=== PATIENT | male | born 1955 | race Caucasian/White ===

== ENCOUNTER 2017-03-05 18:15 | Inpatient (IN) | payer MEDICARE ==
[~2017-03-05] VITALS: Ht 188 cm; Wt 181.9 kg
[~2017-03-05 18:15] MED LIST: ASPI-875 PO; CARV25TA PO; CEFU800T34 PO; FAMO20TA13 PO; FURO40TA4 PO; GLIP10TA13 PO; ISOS30TA3 PO; LISI40TA PO; LVF500T PO; METFOR850T PO; NTR.4SL SL; POTA10TA36 PO; PRAV40TA PO; PRD10T PO; RNT150T PO; SPIR50TA27 PO; SPRN25T PO; SULF1TAB38 PO; TELM1TAB PO
--- NOTE | 2017-03-05 18:27 | ED Lower Extremity ---
General Chief Complaint: Lower Extremity Stated Complaint: LEG PAIN Source: patient, EMS Exam Limitations: no limitations History of Present Illness Time seen by provider: 18:20 Initial Comments Patient presents by EMS with a complaint of not being only get up and walk for the past 7 days. He feels his legs are swollen. He does wear compression stockings as well as has been treated for, chronic stasis dermatitis by his primary doctor. He has a pertinent history of a CABG in 2001 and told that he has need of a carotid endarterectomy but does not want to undergo any more surgeries. He does not have any chest pain or shortness of breath and he does not use oxygen at home. He is not having any nausea or diaphoresis. He felt is not had a bowel movement since Wednesday approximate 5 days ago. Allergies and Home Medications Allergies Coded Allergies: No Known Drug Allergies (Verified Allergy, Unknown, 04/12/08) Home Medications Amlodipine Besylate 10 Mg Tablet, #90 (Reported) Aspirin 81 Mg Tablet.dr, 81 MG PO DAILY, (Reported) Carvedilol 25 Mg Tablet, 25 MG PO BID, (Reported) Famotidine 20 Mg Tablet, 20 MG PO BID, #30 Prescribed by: PETEY RODRIGUEZ on 01/15/14 1239 Furosemide 40 Mg Tablet, 40 MG PO DAILY, (Reported) Glipizide 10 Mg Tablet, 10 MG PO DAILY, (Reported) Isosorbide Mononitrate 30 Mg Tab.sr.24h, 30 MG PO HS, (Reported) Lisinopril 40 Mg Tablet, 40 MG PO DAILY, (Reported) Potassium Chloride 10 Meq Tab.prt.sr, 10 MEQ PO DAILY, (Reported) Pravastatin Sodium 40 Mg Tablet, 40 MG PO DAILY, (Reported) Constitutional: No chills, No fever, malaise, weight gain Respiratory: No cough, No phlegm, short of breath, No wheezing Cardiovascular: No chest pain, edema, Hx of Intervention, No palpitations, No syncope, vascular heart diseas Gastrointestinal: No abdominal pain, constipation, No diarrhea, No nausea, No vomiting Genitourinary: No dysuria, No frequency Musculoskeletal: back pain, No neck pain Skin: lesions (chronic stasis ulcers bilateral lower extremity is), No pruritus , No rash Past Vswbina-Rwoior-Tplmtp Hx Surgeries HX Surgeries: Yes Respiratory Hx Respiratory Disorders: No Cardiovascular Hx Cardiac Disorders: Yes Neurological Hx Neurological Disorders: No Reproductive System Hx Reproductive Disorders: No Sexually Transmitted Disease: No HIV/AIDS: No Genitourinary Hx Genitourinary Disorders: No Gastrointestinal Hx Gastrointestinal Disorders: No Musculoskeletal Hx Musculoskeletal Disorders: No Endocrine Hx Endocrine Disorders: Yes Endocrine Disorders: Diabetes, Non-Insulin dep HEENT HX ENT Disorders: No Cancer Hx Cancer: No Psychosocial Hx Psychiatric Problems: No Integumentary HX Skin/Integumentary Disorder: Yes (CELLULITIS/GANGRENE) Blood Transfusions Hx Blood Disorders: No Adverse Reaction to a Blood Tr: No Family Medical History Family Medial History: Congestive heart failure 19 MOTHER Family history: Cardiovascular disease 19 MOTHER G8 BROTHER Family history: Diabetes mellitus 19 MOTHER G8 BROTHER Family history: Glaucoma G8 BROTHER Family history: Hypertension Physical Exam Vital Signs Vital Sign - Last 12Hours 03/05/17 18:20 Temp 98.4 Pulse 100 Resp 20 B/P (MAP) 133/91 Pulse Ox 97 O2 Delivery Room Air Capillary Refill : General Appearance: mild distress, obese HEENT: PERRL/EOMI, pharynx normal Neck: non-tender, normal inspection Cardiovascular: normal peripheral pulses, regular rate, rhythm, other (dorsal pedal pulses 3 of 4 bilateral lower extremities) Respiratory: chest non-tender, lungs clear, normal breath sounds, no respiratory distress, no accessory muscle use Gastrointestinal: normal bowel sounds, non tender, soft Back: normal inspection, no CVA tenderness Neurologic/Tendon: normal sensation, normal motor functions, responds to pain Neurologic/Psychiatric: alert, oriented x 3 Skin: warm/dry, No diaphoresis, other (chronic dusky red stasis edema of bilateral lower extremities up the calves) Progress/Results/Core Measures Results/Orders Lab Results Laboratory Tests Test 03/05/17 18:45 03/05/17 19:14 Range/Units White Blood Count 12.9 H 4.3-11.0 10^3/uL Red Blood Count 3.66 L 4.35-5.85 10^6/uL Hemoglobin 10.2 L 13.3-17.7 G/DL Hematocrit 33 L 40-54 % Mean Corpuscular Volume 90 80-99 FL Mean Corpuscular Hemoglobin 28 25-34 PG Mean Corpuscular Hemoglobin Concent 31 L 32-36 G/DL Red Cell Distribution Width 13.9 10.0-14.5 % Platelet Count 345 130-400 10^3/uL Mean Platelet Volume 9.1 7.4-10.4 FL Neutrophils (%) (Auto) 82 H 42-75 % Lymphocytes (%) (Auto) 7 L 12-44 % Monocytes (%) (Auto) 9 0-12 % Eosinophils (%) (Auto) 2 0-10 % Basophils (%) (Auto) 0 0-10 % Neutrophils # (Auto) 10.6 H 1.8-7.8 X 10^3 Lymphocytes # (Auto) 0.9 L 1.0-4.0 X 10^3 Monocytes # (Auto) 1.2 H 0.0-1.0 X 10^3 Eosinophils # (Auto) 0.2 0.0-0.3 10^3/uL Basophils # (Auto) 0.0 0.0-0.1 10^3/uL Neutrophils % (Manual) 79 % Lymphocytes % (Manual) 6 % Monocytes % (Manual) 13 % Eosinophils % (Manual) 1 % Basophils % (Manual) 0 % Band Neutrophils 1 % Blood Morphology Comment NORMAL Sodium Level 139 135-145 MMOL/L Potassium Level 4.5 3.6-5.0 MMOL/L Chloride Level 106 98-107 MMOL/L Carbon Dioxide Level 21 21-32 MMOL/L Anion Gap 12 5-14 MMOL/L Blood Urea Nitrogen 75 H 7-18 MG/DL Creatinine 2.26 H 0.60-1.30 MG/DL Estimat Glomerular Filtration Rate 29 BUN/Creatinine Ratio 33 Glucose Level 162 H 70-105 MG/DL Lactic Acid Level 1.24 0.50-2.00 MMOL/L Calcium Level 9.8 8.5-10.1 MG/DL Magnesium Level 2.1 1.8-2.4 MG/DL Total Bilirubin 0.6 0.1-1.0 MG/DL Aspartate Amino Transf (AST/SGOT) 24 5-34 U/L Alanine Aminotransferase (ALT/SGPT) 25 0-55 U/L Alkaline Phosphatase 66 40-136 U/L Troponin I < 0.30 <0.30 NG/ML B-Type Natriuretic Peptide 306.8 H <100.0 PG/ML Total Protein 8.0 6.4-8.2 GM/DL Albumin 3.5 3.2-4.5 GM/DL Urine Color YELLOW Urine Clarity CLEAR Urine pH 6 5-9 Urine Specific [place] 1.015 L 1.016-1.022 Urine Protein 1+ H NEGATIVE Urine Glucose (UA) NEGATIVE NEGATIVE Urine Ketones NEGATIVE NEGATIVE Urine Nitrite NEGATIVE NEGATIVE Urine Bilirubin NEGATIVE NEGATIVE Urine Urobilinogen NORMAL NORMAL MG/DL Urine Leukocyte Esterase 2+ H NEGATIVE Urine RBC (Auto) NEGATIVE NEGATIVE Urine RBC RARE /HPF Urine WBC 25-50 H /HPF Urine Squamous Epithelial Cells 0-2 /HPF Urine Crystals NONE /LPF Urine Bacteria FEW H /HPF Urine Casts NONE /LPF Urine Mucus NEGATIVE /LPF Urine Culture Indicated YES My Orders Orders - ALEXIA CROW BNP (03/05/17 18:28) Cbc With Automated Diff (03/05/17 18:28) Comprehensive Metabolic Panel (03/05/17 18:28) Lactic Acid Analyzer (03/05/17 18:28) Magnesium (03/05/17 18:28) Troponin I (03/05/17 18:28) Ua Culture If Indicated (03/05/17 18:28) Chest 1 View, Ap/Pa Only (03/05/17 18:28) Ekg Tracing (03/05/17 18:28) Us Venous Lower Ext [place] (03/05/17 18:53) Manual Differential (03/05/17 18:45) Acetaminophen Tablet (Tylenol Tablet) (03/05/17 19:30) Urine Culture (03/05/17 19:14) Blood Culture (03/05/17 19:42) Rocephin 2 Gm Iv (1x Dose) (03/05/17 20:00) Furosemide Injection (Lasix Injection) (03/05/17 20:00) Medications Given in ED Current Medications Medications Dose Ordered Sig/Anuradha Route Start Time Stop Time Status Last Admin Dose Admin Acetaminophen 1,000 mg ONCE ONCE PO 03/05/17 19:30 03/05/17 19:31 DC 03/05/17 19:39 1,000 MG Vital Signs/I&O Vital Sign - Last 12Hours 03/05/17 18:20 Temp 98.4 Pulse 100 Resp 20 B/P (MAP) 133/91 Pulse Ox 97 O2 Delivery Room Air Progress Note #1: Time: 19:23 Progress Note Increased edema and weakness over the past week with the patient tolerated walk. We will look for signs of infection. EKG does not seem to demonstrate atrial fibrillation. He has no history of A. fib. His pulses regular. Unsure what the rounded opacity on his chest x-ray relates to. We'll get ultrasound of bilateral lower extremities. Could be atelectasis versus infiltrate. He doesn't have a cough or fever. Progress Note #2: Time: 19:39 Progress Note Patient does appear to be in volume overload status on clinical exam and a BNP of 300. No previous BNP since 2007 to compare it to. His initial troponins and EKG did not demonstrate any N STEMI. He'll probably benefit from some IV Lasix and treatment of his urinary tract infection as he is unable to care for himself at home now and his white count and lactate are creeping up. We will initiate antibiotics. We will get blood cultures as he is with a high white count and heart rate consistent with sepsis. ECG Initial ECG Impression Date: Mar 05, 2017 Initial ECG Impression Time: 19:08 Initial ECG Rate: 97 Initial ECG Rhythm: A Fib/Flutter Initial ECG Intervals: Normal Initial ECG Impression: Nonspecific Changes, Atrial Fibrillation Initial ECG Comparisson: Changed Comment There are some new Q waves seen in leads 3 and aVF but and this appears to be low voltage so P waves are very difficult see the they can be seen in places and does not appear to be atrial fibrillation. His heart rate is fairly regular. Diagnostic Imaging Diagonstic Imaging: Xray Plain Films/CT/US/NM/MRI: chest Comments No acute cardiopulmonary processes noted. Poor inspiratory effort. Right lower lobe rounded opacity seen does not clinically correlate to anything heard on auscultation or percussion. VIA [facility], [facility]. [place], [place] NAME: LISA KAMINSKI [facility] REC#: [id number] PT STATUS: REG ER : 1955 PHYSICIAN: ALEXIA CROW MD ADMIT DATE: 03/05/17/ER Draft Date of Exam:03/05/17 CHEST 1 VIEW, AP/PA ONLY INDICATION: Unable to stand. EXAMINATION: Frontal chest, 03/05/2017. COMPARISON: 04/11/2008. FINDINGS: There is cardiomegaly. Increased markings at the lung bases are noted, likely on the basis of atelectasis and/or mild infiltrate. Very small effusion is not excluded. The findings are likely worsened by superimposed soft tissues. The pulmonary vasculature is stable from previous. There is no pneumothorax. Sternotomy wires are incidentally noted with a hyperdensity in the midline of the lower chest, nonspecific, correlate clinically. Clinical exclusion of foreign body is recommended; otherwise, this could be an overlying density. IMPRESSION: 1. Rounded density midline of the lower chest, nonspecific, perhaps overlying the chest but correlation for an a foreign body recommended. 2. Cardiomegaly with airspace opacities at the bases, as discussed above. Dictated on workstation # [id number] Dict: 03/05/171907 Trans: 03/05/171914 [facility] [id number] Interpreted by: TYRA WASHINGTON MD Electronically signed by: Reviewed: Reviewed by Me Departure Communication Time/Spoke to Admitting Phy: 20:[address] Levi recommends cardiac stepdown with telemetry on inpatient status and consult Dr. Perez. Time/Spoke to Consulting Physi: 20:00 Communication/Consulting Dr. Perez recommends based on his weight and 40 mg IV twice a day Lasix to be initiated and he will see the patient. Impression Impression: Primary Impression: Sepsis Qualified Codes: A41.9 - Sepsis, unspecified organism Additional Impressions: UTI (urinary tract infection) Qualified Codes: N30.00 - Acute cystitis without hematuria Acute decompensated heart failure Disposition: ADMITTED INPATIENT Condition: Stable Decision to Admit Reason: Admit from ER (General) Decision to Admit/Date: Mar 05, 2017 Time/Decision to Admit Time: 20:00 Departure-Patient Inst. Referrals: NO,LOCAL PHYSICIAN (PCP/Family) Primary Care Physician Copy Copies To 1: MICHELLE MCDOWELL MD, TITUS J Mar 05, 2017 18:27
[2017-03-05 18:58] LABS: BASOPHILS % (AUTO) 0 % (0-10); EOSINOPHILS # (AUTO) 0.2 10^3/uL (0.0-0.3); EOSINOPHILS % (AUTO) 2 % (0-10); LYMPHOCYTES # (AUTO) 0.9 X 10^3 (1.0-4.0); LYMPHOCYTES % (AUTO) 7 % (12-44); MEAN CORPUSCULAR HEMOGLOBIN 28 PG (25-34); MEAN CORPUSCULAR HGB CONC 31 G/DL (32-36); MEAN CORPUSCULAR VOLUME 90 FL (80-99); MEAN PLATELET VOLUME 9.1 FL (7.4-10.4); MONOCYTES # (AUTO) 1.2 X 10^3 (0.0-1.0); MONOCYTES % (AUTO) 9 % (0-12); NEUTROPHILS # (AUTO) 10.6 X 10^3 (1.8-7.8); NEUTROPHILS % (AUTO) 82 % (42-75); PLATELET COUNT 345 10^3/uL (130-400); RED BLOOD COUNT 3.66 10^6/uL (4.35-5.85); RED CELL DISTRIBUTION WIDTH 13.9 % (10.0-14.5); WHITE BLOOD COUNT 12.9 10^3/uL (4.3-11.0)
[2017-03-05 19:15] LABS: BAND NEUTROPHILS 1 %; NEUTROPHILS % (MANUAL) 79 %
[2017-03-05 19:16] LABS: BASOPHILS % (MANUAL) 0 %; EOSINOPHILS % (MANUAL) 1 %; LYMPHOCYTES % (MANUAL) 6 %
--- NOTE | 2017-03-05 19:16 | Diagnostic Imaging Report ---
INDICATION: Unable to stand. EXAMINATION: Frontal chest, 03/05/2017. COMPARISON: 04/11/2008. FINDINGS: There is cardiomegaly. Increased markings at the lung bases are noted, likely on the basis of atelectasis and/or mild infiltrate. Very small effusion is not excluded. The findings are likely worsened by superimposed soft tissues. The pulmonary vasculature is stable from previous. There is no pneumothorax. Sternotomy wires are incidentally noted with a hyperdensity in the midline of the lower chest, nonspecific, correlate clinically. Clinical exclusion of foreign body is recommended; otherwise, this could be an overlying density. IMPRESSION: 1. Rounded density midline of the lower chest, nonspecific, perhaps overlying the chest but correlation for an a foreign body recommended. 2. Cardiomegaly with airspace opacities at the bases, as discussed above. Dictated by: Dictated on workstation # [id number]
[2017-03-05] MEDS ORDERED: AMLO10TA2 PO (19:20)
[2017-03-05 19:22] LABS: ALANINE AMINOTRANSFERASE 25 U/L (0-55); ALBUMIN 3.5 GM/DL (3.2-4.5); ANION GAP 12 MMOL/L (5-14); ASPARTATE AMINO TRANSFERASE 24 U/L (5-34); BILIRUBIN,TOTAL 0.6 MG/DL (0.1-1.0); BLOOD UREA NITROGEN 75 MG/DL (7-18); BUN/CREATININE RATIO 33; CALCIUM 9.8 MG/DL (8.5-10.1); CARBON DIOXIDE 21 MMOL/L (21-32); CHLORIDE 106 MMOL/L (98-107); CREATININE SERUM 2.26 MG/DL (0.60-1.30); GFR ESTIMATED 29; GLUCOSE 162 MG/DL (70-105); MAGNESIUM 2.1 MG/DL (1.8-2.4); POTASSIUM 4.5 MMOL/L (3.6-5.0); SODIUM 139 MMOL/L (135-145)
[2017-03-05 19:27] LABS: TROPONIN I < 0.30 NG/ML (<0.30)
[2017-03-05 19:28] LABS: BILIRUBIN,URINE NEGATIVE (NEGATIVE); KETONES,URINE NEGATIVE (NEGATIVE); LEUKOCYTE ESTERASE ,URINE 2+ (NEGATIVE); NITRITE,URINE NEGATIVE (NEGATIVE); PH,URINE 6 (5-9); PROTEIN,URINE 1+ (NEGATIVE); UROBILINOGEN,URINE NORMAL (NORMAL)
[2017-03-05] MEDS ORDERED: ACETAMINOPHEN 500 MG TAB (TYLENOL) PO ONE (19:30)
[2017-03-05 19:35] LABS: WBC,URINE 25-50 /HPF
[2017-03-05 19:36] LABS: SQUAMOUS EPITHELIAL CELL,UR 0-2 /HPF
[2017-03-05] MEDS ORDERED: cefTRIAXone INJECTION 2,000 MG in NS (IVPB) 50 ML IV ONE (20:00)
[2017-03-05] MEDS ORDERED: FUROSEMIDE 40 MG/4 ML INJ (LASIX) IVP ONE (20:00)
--- NOTE | 2017-03-05 20:19 | Diagnostic Imaging Report ---
EXAMINATION: Bilateral lower extremity venous Doppler INDICATION: Leg pain Spectral and color flow imaging of the deep venous system was performed. There are no prior studies available for comparison. This exam is less than optimal due to patient's body habitus. There is fairly good blood flow throughout the deep venous system of each lower extremity. The vessels were somewhat difficult to compress due to the patient's body habitus. There is no evidence for deep venous thrombosis. IMPRESSION: There is no evidence for a deep venous thrombosis of either lower extremity. Dictated by: Dictated on workstation # [id number]
[2017-03-05] MEDS ORDERED: ACETAMINOPHEN 500 MG TAB (TYLENOL) PO PRN (22:00)
[2017-03-06] VITALS: BP 134/62
[2017-03-06] MEDS ORDERED: RANI150T90 PO (01:44)
[2017-03-06] MEDS ORDERED: LOSA1TAB70 PO (01:44)
[2017-03-06] MEDS ORDERED: CLON0.1T PO (01:44)
[2017-03-06] MEDS ORDERED: METF850T2 PO (01:44)
[2017-03-06 04:00] VITALS: BP 130/59
[2017-03-06 04:55] LABS: BASOPHILS % (AUTO) 0 % (0-10); EOSINOPHILS # (AUTO) 0.3 10^3/uL (0.0-0.3); EOSINOPHILS % (AUTO) 2 % (0-10); LYMPHOCYTES # (AUTO) 0.7 X 10^3 (1.0-4.0); LYMPHOCYTES % (AUTO) 5 % (12-44); MEAN CORPUSCULAR HEMOGLOBIN 28 PG (25-34); MEAN CORPUSCULAR HGB CONC 31 G/DL (32-36); MEAN CORPUSCULAR VOLUME 91 FL (80-99); MEAN PLATELET VOLUME 9.2 FL (7.4-10.4); MONOCYTES # (AUTO) 1.4 X 10^3 (0.0-1.0); MONOCYTES % (AUTO) 12 % (0-12); NEUTROPHILS # (AUTO) 9.9 X 10^3 (1.8-7.8); NEUTROPHILS % (AUTO) 80 % (42-75); PLATELET COUNT 323 10^3/uL (130-400); RED BLOOD COUNT 3.46 10^6/uL (4.35-5.85); RED CELL DISTRIBUTION WIDTH 13.7 % (10.0-14.5); WHITE BLOOD COUNT 12.3 10^3/uL (4.3-11.0)
[2017-03-06 05:24] LABS: ALBUMIN 3.2 GM/DL (3.2-4.5); BILIRUBIN,TOTAL 0.3 MG/DL (0.1-1.0); CALCIUM 9.6 MG/DL (8.5-10.1); CREATININE SERUM 2.23 MG/DL (0.60-1.30); POTASSIUM 4.4 MMOL/L (3.6-5.0); TOTAL PROTEIN 7.5 GM/DL (6.4-8.2)
[2017-03-06] MEDS: FUROSEMIDE 40 MG/4 ML INJ (LASIX) IV SCH ×2 (06:27→15:44)
[2017-03-06 08:00] VITALS: BP 128/58
--- NOTE | 2017-03-06 10:08 | Consultation-Cardiology ---
HPI-Cardiology Cardiology Consultation Date of Consultation 03/06/17 Date of Admission Time Seen by Provider: 10:00 Indication: coronary artery disease HPI 62 years old gentleman with extensive cardiovascular history, has been refusing any cardiac workup for a while, patient expressed that about 2-3 days ago he started having weakness in his right foot and right leg, having pain in his left ankle, was unable to put any weight on his legs, try to wait for a day or 2 , when he did not improve he called EMS which require multiple cap cutter to take him out of his house, he denied any syncope, denied any chest pain, palpitation. Has been having chronic pedal edema, dyspnea on exertion due to his multiple comorbid condition. Upper my evaluation he expressed that he is feeling slightly better but still having significant weakness on his right leg Home Medications & Allergies Allergies: Coded Allergies: No Known Drug Allergies (Verified , 04/12/08) Home Medication List Reviewed: Yes IAW-[id number]-Ikbidv Hx Patient Social History Marital Status: Alcohol Use: Denies Use Recreational Drug Use: No Smoking Status: Never a Smoker 2nd Hand Smoke Exposure: No Recent Foreign Travel: No Recent Infectious Disease Expo: No Recent Hopitalizations: No Physical Abuse Screen: No Sexual Abuse: No Past Medical History past medical history as discussed below Family Medical History Family History: 19 MOTHER Congestive heart failure Family history: Cardiovascular disease Family history: Diabetes mellitus G8 BROTHER Family history: Cardiovascular disease Family history: Diabetes mellitus G8 BROTHER Family history: Glaucoma Relation not specified for: Family history: Hypertension Constitutional: see HPI, malaise, weakness, weight gain EENTM: no symptoms reported, see HPI Respiratory: see HPI, dyspnea on exertion, orthopnea, short of breath Cardiovascular: see HPI, chest pain, edema, Hx of Intervention, palpitations, syncope, vascular heart diseas, other Gastrointestinal: no symptoms reported, see HPI Genitourinary: see HPI Musculoskeletal: see HPI, gout, joint pain, muscle pain, muscle stiffness, muscle weakness Skin: see HPI, dryness, lesions Psychiatric/Neurological: No Symptoms Reported, See HPI Reviewed Test Results Reviewed Test Results Lab Laboratory Tests Test 03/05/17 18:45 03/05/17 19:14 03/05/17 21:02 03/06/17 04:38 Range/Units White Blood Count 12.9 H 12.3 H 4.3-11.0 10^3/uL Red Blood Count 3.66 L 3.46 L 4.35-5.85 10^6/uL Hemoglobin 10.2 L 9.7 L 13.3-17.7 G/DL Hematocrit 33 L 31 L 40-54 % Mean Corpuscular Volume 90 91 80-99 FL Mean Corpuscular Hemoglobin 28 28 25-34 PG Mean Corpuscular Hemoglobin Concent 31 L 31 L 32-36 G/DL Red Cell Distribution Width 13.9 13.7 10.0-14.5 % Platelet Count 345 323 130-400 10^3/uL Mean Platelet Volume 9.1 9.2 7.4-10.4 FL Neutrophils (%) (Auto) 82 H 80 H 42-75 % Lymphocytes (%) (Auto) 7 L 5 L 12-44 % Monocytes (%) (Auto) 9 12 0-12 % Eosinophils (%) (Auto) 2 2 0-10 % Basophils (%) (Auto) 0 0 0-10 % Neutrophils # (Auto) 10.6 H 9.9 H 1.8-7.8 X 10^3 Lymphocytes # (Auto) 0.9 L 0.7 L 1.0-4.0 X 10^3 Monocytes # (Auto) 1.2 H 1.4 H 0.0-1.0 X 10^3 Eosinophils # (Auto) 0.2 0.3 0.0-0.3 10^3/uL Basophils # (Auto) 0.0 0.0 0.0-0.1 10^3/uL Neutrophils % (Manual) 79 % Lymphocytes % (Manual) 6 % Monocytes % (Manual) 13 % Eosinophils % (Manual) 1 % Basophils % (Manual) 0 % Band Neutrophils 1 % Blood Morphology Comment NORMAL Sodium Level 139 139 135-145 MMOL/L Potassium Level 4.5 4.4 3.6-5.0 MMOL/L Chloride Level 106 105 98-107 MMOL/L Carbon Dioxide Level 21 20 L 21-32 MMOL/L Anion Gap 12 14 5-14 MMOL/L Blood Urea Nitrogen 75 H 72 H 7-18 MG/DL Creatinine 2.26 H 2.23 H 0.60-1.30 MG/DL Estimat Glomerular Filtration Rate 29 30 BUN/Creatinine Ratio 33 32 Glucose Level 162 H 269 H 70-105 MG/DL Lactic Acid Level 1.24 0.50-2.00 MMOL/L Calcium Level 9.8 9.6 8.5-10.1 MG/DL Magnesium Level 2.1 1.8-2.4 MG/DL Total Bilirubin 0.6 0.3 0.1-1.0 MG/DL Aspartate Amino Transf (AST/SGOT) 24 28 5-34 U/L Alanine Aminotransferase (ALT/SGPT) 25 25 0-55 U/L Alkaline Phosphatase 66 70 40-136 U/L Troponin I < 0.30 <0.30 NG/ML B-Type Natriuretic Peptide 306.8 H <100.0 PG/ML Total Protein 8.0 7.5 6.4-8.2 GM/DL Albumin 3.5 3.2 3.2-4.5 GM/DL Urine Color YELLOW Urine Clarity CLEAR Urine pH 6 5-9 Urine Specific [place] 1.015 L 1.016-1.022 Urine Protein 1+ H NEGATIVE Urine Glucose (UA) NEGATIVE NEGATIVE Urine Ketones NEGATIVE NEGATIVE Urine Nitrite NEGATIVE NEGATIVE Urine Bilirubin NEGATIVE NEGATIVE Urine Urobilinogen NORMAL NORMAL MG/DL Urine Leukocyte Esterase 2+ H NEGATIVE Urine RBC (Auto) NEGATIVE NEGATIVE Urine RBC RARE /HPF Urine WBC 25-50 H /HPF Urine Squamous Epithelial Cells 0-2 /HPF Urine Crystals NONE /LPF Urine Bacteria FEW H /HPF Urine Casts NONE /LPF Urine Mucus NEGATIVE /LPF Urine Culture Indicated YES Glucometer 154 H 70-110 MG/DL Physical Exam Vital Signs Vital Sign - Last 12Hours 03/05/17 18:20 Temp 98.4 Pulse 100 Resp 20 B/P (MAP) 133/91 Pulse Ox 97 O2 Delivery Room Air Capillary Refill : Less Than 3 Seconds General Appearance: WD/WN, Moderate Distress Eyes: Bilateral Eye EOMI, Bilateral Eye Normal Inspection, Bilateral Eye PERRL HEENT: PERRL/EOMI, TMs Normal, Normal ENT Inspection, Pharynx Normal Neck: Normal Inspection, Non Tender, Supple, Carotid Bruit Respiratory: Chest Non Tender, No Accessory Muscle Use, No Respiratory Distress , Crackles Cardiovascular: No JVD, Systolic Murmur, Gallop/S3, Other (irregular rhythm) Gastrointestinal: Normal Bowel Sounds, No Organomegaly, No Pulsatile Mass, Non Tender, Soft Back: Normal Inspection, No CVA Tenderness, No Vertebral Tenderness Extremity: Pedal Edema, Other (chronic venous stasis changes) Neurologic/Psychiatric: Alert, Oriented x3, Normal Mood/Affect, Motor Weakness (right lower extremity weakness, tenderness in his right knee) Skin: Other (chronic venous stasis changes on the lower extremities) Lymphatic: No Adenopathy A/P-Cardiology Admission Diagnosis Generalized weakness Coronary artery disease Carotid stenosis Hypertension Assessment/Plan Generalized weakness, significant weakness of the right lower extremity which is worsening over the past 3 days, questionable subacute CVA, patient had right knee pain which could be participating in his weakness. Still able to make few movement of his right leg. Had history of extensive peripheral arterial disease and carotid stenosis. I'll start him back on aspirin. Monitor blood pressure Questionable atrial fibrillation, new onset. I will reevaluate EKG, continue to monitor telemetry, planning to evaluate echocardiogram. Coronary artery disease, history of CABG x4 done in 2001, Patient has been refusing any cardiac workup, planning to evaluate echocardiogram. Chest pain, stable angina. No recent cardiac workup was done, patient has been refusing any cardiac workup refusing stress test, echocardiogram or cardiac catheterization. Hypertension, poorly controlled, I will restart his home medication and monitor blood pressure closely. Hyperlipidemia, I will evaluate lipid profile and metabolic profile Diabetes mellitus, diabetic nephropathy. Followed and managed by Dr. Courtney. Severe bilateral carotid stenosis, with right ICA stenosis over 90 percent per most recent carotid duplex 2010, patient has been refusing any workup as an outpatient, I will evaluate carotid ultrasound. Questionable history of congestive heart failure, last echocardiogram from 2010 reported ejection fraction 50 percent, reevaluate 2-D echocardiogram Morbid obesity, patient was educated and instructed on weight loss and diet. Clinical Quality Measures DVT/VTE Risk/Contraindication: Risk Factor Score Per Nursin RFS Level Per Nursing on Admit: 4+=Very High KYRA MONTGOMERY MD Mar 06, 2017 10:08
--- NOTE | 2017-03-06 10:26 | Occ Therapy Progress Note ---
Therapy Progress Note OT order received. Chart reviewed. Attempted to treat pt. Pt. getting test done. Not available for treatment at this time but will check back on Wednesday. 1, visit [id number] CHARI KING OT Mar 06, 2017 10:26
[2017-03-06] MEDS ORDERED: ONDANSETRON 4 MG/2 ML (SDV) Z0FRAN IVP PRN (11:00)
[2017-03-06] MEDS ORDERED: fentaNYL INJECTION 100 MCG/2 ML AMP IVP PRN (11:00)
--- NOTE | 2017-03-06 11:05 | History & Physical-Hospitalist ---
HPI History of Present Illness: HPI/Chief Complaint CC: Severe weakness unable to ambulate HPI: This is a 62-year-old white male Dr. Courtney and Dr. Perez with a past medical history of severe noncompliance with medical treatment and recommendations with a history of heart disease and diabetes the presents to the emergency room after it took 7 fire department personnel to move him from his house to the ambulance due to severe weakness. Reports about a 3 day history of this progressive weakness unable to tolerate any weightbearing at all on the right leg of which is complicated by knee pain from severe arthritis but he is severely morbidly obese and overall very complicated in ability to comply with medical recommendations historically Dr. Perez is concerned he has had some sort of subacute stroke contributing to the severe weakness and right leg decreased strength. He is requesting some sort of pain medication and heating pad for the right knee to help him move around and treat the pain. Source: patient Exam Limitations: no limitations Date Seen 03/06/17 Time Seen by Provider: 10:30 Attending Physician Rebeca Levi DO PCP No,Local Physician Referring Physician Date of Admission Mar 05, 2017 at 20:37 Home Medications & Allergies Home Medications Reviewed patient Home Medication Reconciliation Form Allergies Allergies Coded Allergies No Known Drug Allergies (Verified04/12/08) Past Uhitycp-Zyigiw-Hokyus Hx Patient Social History Marrital Status: Alcohol Use: Denies Use Recreational Drug Use: No Smoking Status: Never a Smoker 2nd Hand Smoke Exposure: No Physical Abuse Screen: No Sexual Abuse: No Recent Foreign Travel: No Contact w/other who traveled: No Recent Hopitalizations: No Recent Infectious Disease Expo: No Seasonal Allergies Seasonal Allergies: No Surgeries HX Surgeries: Yes Surgeries: CABG, Orthopedic Respiratory Hx Respiratory Disorders: No Cardiovascular Hx Cardiovascular Disorders: Yes Cardiac Disorders: Coronary Artery Disease, Heart Attack, Hypertension Neurological Hx Neurological Disorders: Yes Neurological Disorders: Neuropathy Reproductive System Hx Reproductive Disorders: No Sexually Transmitted Disease: No HIV/AIDS: No Genitourinary Hx Genitourinary Disorders: Yes Genitourinary Disorders: Benign Prostatic Hyperpl Gastrointestinal Hx Gastrointestinal Disorders: No Musculoskeletal Hx Musculoskeletal Disorders: Yes Musculoskeletal Disorders: Arthritis Endocrine Hx Endocrine Disorders: Yes Endocrine Disorders: Diabetes, Non-Insulin dep HEENT HX ENT Disorders: No Cancer Hx Cancer: No Psychosocial Hx Psychiatric Problems: No Integumentary HX Skin/Integumentary Disorder: Yes (CELLULITIS/GANGRENE) Blood Transfusions Hx Blood Disorders: No Adverse Reaction to a Blood Tr: No Family Medical History Family Hx: Congestive heart failure 19 MOTHER Family history: Cardiovascular disease 19 MOTHER G8 BROTHER Family history: Diabetes mellitus 19 MOTHER G8 BROTHER Family history: Glaucoma G8 BROTHER Family history: Hypertension Review of Systems Constitutional: see HPI, weakness EENTM: no symptoms reported Respiratory: no symptoms reported Cardiovascular: no symptoms reported Gastrointestinal: no symptoms reported Genitourinary: no symptoms reported Musculoskeletal: back pain, joint pain Skin: no symptoms reported Psychiatric/Neurological: Depressed All Other Systems Reviewed Negative Unless Noted: Yes Physical Exam Physical Exam Vital Signs Vital Sign - Last 12Hours 03/05/17 18:20 Temp 98.4 Pulse 100 Resp 20 B/P (MAP) 133/91 Pulse Ox 97 O2 Delivery Room Air Capillary Refill : Less Than 3 Seconds General Appearance: No Apparent Distress, WD/WN, Chronically ill, Obese ( morbidly obese) Eyes: Bilateral Eye Normal Inspection, Bilateral Eye PERRL HEENT: PERRL/EOMI, Normal ENT Inspection, Pharynx Normal Neck: Full Range of Motion, Normal Inspection, Non Tender, Supple, Carotid Bruit Respiratory: Chest Non Tender, Normal Breath Sounds, No Accessory Muscle Use, No Respiratory Distress, Decreased Breath Sounds Cardiovascular: Regular Rate, Rhythm, No Edema, No Gallop, No JVD, No Murmur, Normal Peripheral Pulses Gastrointestinal: Normal Bowel Sounds, No Organomegaly, No Pulsatile Mass, Non Tender, Soft Back: Normal Inspection, No CVA Tenderness, No Vertebral Tenderness Extremity: Normal Capillary Refill, Normal Inspection, Normal Range of Motion, Non Tender, No Calf Tenderness, No Pedal Edema Neurologic/Psychiatric: Alert, Oriented x3, Normal Mood/Affect, Motor Weakness (right lower extremity 1/5 strength) Skin: Normal Color, Warm/Dry Lymphatic: No Adenopathy Results Results/Procedures Lab Laboratory Tests 03/05/17 18:45 03/06/17 04:38 Assessment/Plan Admission Diagnosis Assessment: Severe weakness requiring 7 fire department personnel to carry him out of his house onto ambulance to ER with significant right lower extremity decreased strength Morbidly obesity Coronary artery disease previous OR Noncompliance with medical recommendations Severe right knee pain complicating the severe weakness of the right lower extremity UTI Sepsis Atrial fibrillation w/rapid ventricular response Assessment and Plan Plan: Appreciate Dr. 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
--- NOTE | 2017-03-06 11:46 | Physical Therapy Evaluation ---
PT Evaluation-General Medical Diagnosis Admission Date Mar 05, 2017 at 20:37 Medical Diagnosis: sepsis/UTI Onset Date: Mar 05, 2017 Therapy Diagnosis Therapy Diagnosis: generalized weakness/debility Height/Weight Height (Feet): 6 Height (Inches): 2.00 Weight (Pounds): 421 Weight (Ounces): 8.0 Precautions Precautions/Isolations: Fall Prevention Referral Physician: Amita Reason for Referral: Evaluation/Treatment Medical History Pertinent Medical History: CABG, CAD, DM, Heart Failure, HTN, CT, Neuropathy Additional Medical History morbid obesity Current History progressive weakness per patient report Reviewed History: Yes Social History Home: Single Level Current Living Status: Alone Prior/Core FIM Prior Level of Function Functional [place] Measure 0=Not Assessed/NA 4=Minimal Assistance 1=Total Assistance 5=Supervision or Setup 2=Maximal Assistance 6=Modified [place] 3=Moderate Assistance 7=Complete [place] Bed Mobility: 0 (sleeps in a recliner) Transfers (B,C,W/C) (FIM): 6 Gait: 6 sleeps in recliner/uses cane to ambulate short distances PT Evaluation-Current Subjective Patient states he is frustrated. Agrees to PT. Pain Numeric Pain Scale: 0-No Pain Location: No Pain Reported Objective Patient Orientation: Normal For Age Problem Solving: Good Attachments: Moody Catheter ROM/Strength ROM Lower Extremities functional ROM, however, morbid obesity limits movement Strenght Lower Extremities 3/5 grossly bilaterally in all planes Integumentary/Posture Integumentary refer to nursing notes Bladder Incontinence: Moody Cath Posture trunk flexed posture due to inactivity PLOF Neuromuscular (Tone, Coordination, Reflexes) diminished coordination due to inactive PLOF Sensory Vision: Functional Hearing: Functional Sensation Right Lower Extremit: Impaired Sensation Left Lower Extremity: Impaired Transfers Functional [place] Measure 0=Not Assessed/NA 4=Minimal Assistance 1=Total Assistance 5=Supervision or Setup 2=Maximal Assistance 6=Modified [place] 3=Moderate Assistance 7=Complete [place] Transfers (B, C, W/C) (FIM): 2 Scootin Rollin Supine to/from Sit: 2 Sit to/from Stand: 2 bed t/f WC(FIM only if WC use): 2 max assist with mobility to assist with bilateral LE's and sit to stand to FWW with SPT Gait Mode of Locomotion: Both Anticipated Mode of Locomotion: Both Gait (FIM): 1 Distance (FIM): 1=up to 49 ft Distance: 5' Gait Level of Assist: 2 Gait Persons Needed: 2 Gait Assistive Device: FWW Comments/Gait Description max assist with use of gait belt for safety, however, patient able to utilize FWW and perform CGA Balance Sitting Static: Normal Sitting Dynamic: Normal Standing Static: Fair Standing Dynamic: Fair Assessment/Needs 62 y.o. male, will benefit from short term skilled PT to address functional mobility to improve current LOF. Patient is severely limited due to PLOF of inactivity and morbid obesity. 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 Goals Time Frame: Mar 12, 2017 Transfers (B,C,W/C) (FIM): 5 Gait (FIM): 1 Gait distance (FIM): 1=up to 49 ft Distance: 15' Gait Level of Assist: 5 Gait Assistive Device: FWW PT Plan Problem List Problem List: Activity Tolerance, Balance, Gait, Transfer, Bed Mobility Treatment/Plan Treatment Plan: Continue Plan of Care Treatment Plan: Bed Mobility, Education, Functional Activity Soha, Functional Strength, Gait, Safety, Therapeutic Exercise, Transfers Treatment Duration: Mar 12, 2017 Frequency: 6 times per week Estimated Hrs Per Day: .5 hour per day (or PRN) Patient and/or Family Agrees t: Yes Safety Risks/Education Patient Education: Transfer Techniques, Safety Issues Teaching Recipient: Patient Teaching Methods: Discussion Response to Teaching: Verbalize Understanding Discharge Recommendations Therapy D/C Recommendations: Custodial Placement Time/GCodes Time In: 1126 Time Out: 1146 Total Billed Treatment Time: 20 Total [facility] G Codes Necessary: ALFREDO Amado PT Mar 06, 2017 11:46
[2017-03-06 12:00] VITALS: BP 136/60
[2017-03-06] MEDS: cefTRIAXone INJECTION 1,000 MG in NS (IVPB) 50 ML IV SCH (16:19)
[2017-03-06] MEDS: inSUlin ASPART (NovoLOG) 1 UNIT/0.01 ML (CHARGE PER UNIT) SC SCH ×2 (16:28→21:35)
[2017-03-06 16:31] VITALS: BP 146/67
--- NOTE | 2017-03-06 18:57 | Diagnostic Imaging Report ---
PROCEDURE: US carotid duplex, bilateral. INDICATION: Stroke, weakness in legs. History of diabetes and hypertension. TECHNIQUE: Multiple real-time grayscale images were obtained over the carotid arteries in various projections, bilaterally. Additional duplex Doppler and color Doppler images were also obtained. CORRELATION STUDY: 05/20/11. FINDINGS: Color and grayscale images demonstrate rather extensive plaque-like formation to be present, particularly at the distal common carotid arteries, carotid bifurcation as well as internal and external carotid arteries. Some of this is calcified which does obscure evaluation. On the right, there is increased velocity in the internal carotid artery to 259 cm/s in the mid aspect. This shows an ICA/CCA ratio of 3.71. Likely reflective of an approximately 80-99% stenosis. On the left, maximum velocity in the distal aspect at 334 cm/s with an ICA/CCA ratio of 4.07. Findings may also be suggestive of a rather significant, greater than 80-90%, stenosis. External carotid arteries are patent. Vertebra arteries have an antegrade direction of flow. IMPRESSION: Rather significant plaque formation of the common carotid arteries and internal carotid arteries. Findings are suggestive of at least an 80% to perhaps 99% stenosis of both the internal carotid arteries. Findings do appear to have overall progressed, particularly on the left compared to prior examination. Dictated by: Dictated on workstation # [id number]
[2017-03-06] MEDS: HYDROcodone/APAP 5 MG/325 MG (LORTAB) TAB PO PRN (20:01)
[2017-03-06 20:21] VITALS: BP 139/60
[2017-03-06] MEDS ORDERED: NON-FORMULARY MEDICATION 1 EA EA (Carvedilol 25 MG) PO SCH (21:00)
[2017-03-06] MEDS ORDERED: raNItidine (ZANTAC) 150 MG TAB NON-FORMULARY PO SCH (21:00)
[2017-03-06] MEDS ORDERED: FAMOTIDINE 20 MG (PEPCID) TABLET PO SCH (21:00)
[2017-03-06] MEDS: ISOSORBIDE MONONITRATE 30 MG (IMDUR) TAB PO SCH (21:34)
[2017-03-06] MEDS: CARVEDILOL 12.5 MG (COREG) TABLET PO SCH (21:34)
[2017-03-06] MEDS: cloNIDine 0.1 MG (CATAPRES) TAB PO SCH (21:34)
[2017-03-06] MEDS: DOCUSATE SODIUM 100 MG (COLACE) CAP PO SCH (21:34)
[2017-03-06] MEDS: FAMOTIDINE 20 MG (PEPCID) TABLET PO SCH (21:34)
[2017-03-06] MEDS: NYSTATIN CREAM (MYCOSTATIN) 30 GM TUBE TP SCH (21:35)
[2017-03-07] VITALS: BP 116/56
[2017-03-07 04:00] VITALS: BP 132/65
[2017-03-07] MEDS: inSUlin ASPART (NovoLOG) 1 UNIT/0.01 ML (CHARGE PER UNIT) SC SCH ×4 (06:04→21:35)
[2017-03-07] MEDS: FUROSEMIDE 40 MG/4 ML INJ (LASIX) IV SCH ×2 (06:04→16:30)
[2017-03-07] MEDS: glipiZIDE 5 MG (GLUCOTROL) TAB PO SCH (06:04)
[2017-03-07] MEDS: HYDROcodone/APAP 5 MG/325 MG (LORTAB) TAB PO PRN ×2 (06:09→18:59)
[2017-03-07 06:41] LABS: MEAN PLATELET VOLUME 9.2 FL (7.4-10.4); RED BLOOD COUNT 3.36 10^6/uL (4.35-5.85); RED CELL DISTRIBUTION WIDTH 13.9 % (10.0-14.5); WHITE BLOOD COUNT 12.4 10^3/uL (4.3-11.0)
[2017-03-07 07:09] LABS: ALBUMIN 3.1 GM/DL (3.2-4.5); BILIRUBIN,TOTAL 0.4 MG/DL (0.1-1.0); CALCIUM 9.7 MG/DL (8.5-10.1); CREATININE SERUM 2.12 MG/DL (0.60-1.30); MAGNESIUM 1.9 MG/DL (1.8-2.4); POTASSIUM 4.5 MMOL/L (3.6-5.0); TOTAL PROTEIN 7.4 GM/DL (6.4-8.2)
[2017-03-07 08:00] VITALS: BP 109/52
[2017-03-07] MEDS: DOCUSATE SODIUM 100 MG (COLACE) CAP PO SCH ×2 (08:29→21:35)
[2017-03-07] MEDS: CARVEDILOL 12.5 MG (COREG) TABLET PO SCH ×2 (08:29→21:35)
[2017-03-07] MEDS: cloNIDine 0.1 MG (CATAPRES) TAB PO SCH ×2 (08:29→21:35)
[2017-03-07] MEDS: ATORVASTATIN 10 MG (LIPITOR) TABLET PO SCH (08:29)
[2017-03-07] MEDS: cefTRIAXone INJECTION 1,000 MG in NS (IVPB) 50 ML IV SCH (08:30)
[2017-03-07] MEDS: ASPIRIN E.C. 81 MG (ECOTRIN) TAB PO SCH (08:30)
[2017-03-07] MEDS: lisINopril 20 MG (ZESTRIL) TAB PO SCH (08:30)
[2017-03-07] MEDS: NYSTATIN CREAM (MYCOSTATIN) 30 GM TUBE TP SCH ×3 (08:30→21:36)
[2017-03-07] MEDS: FAMOTIDINE 20 MG (PEPCID) TABLET PO SCH ×2 (08:30→21:35)
[2017-03-07] MEDS: KCL 10 MEQ TAB (MICRO K) PO SCH (08:30)
[2017-03-07] MEDS ORDERED: LISINOPRIL 40 MG PO SCH (09:00)
[2017-03-07] MEDS ORDERED: NON-FORMULARY MEDICATION 1 EA EA (Glipizide 10 MG) PO SCH (09:00)
[2017-03-07] MEDS ORDERED: NON-FORMULARY MEDICATION 1 EA EA (Pravastatin Sodium (Pravachol) 40 MG) PO SCH (09:00)
[2017-03-07] MEDS ORDERED: NON-FORMULARY MEDICATION 1 EA EA (Potassium Chloride (K-Dur) 10 MEQ) PO SCH (09:00)
[2017-03-07] MEDS ORDERED: FUROSEMIDE 40 MG (LASIX) TAB PO SCH (09:00)
--- NOTE | 2017-03-07 10:36 | Cardiology Progress Note ---
Subjective Date Seen by Provider: Mar 07, 2017 Time Seen by Provider: 10:32 Subjective/Events-last exam patient is laying down in bed, feeling slightly better, breathing better, able to move his leg better. Review of Systems General: No Chills, No Night Sweats, No Fatigue, No Malaise, No Appetite, No Other HEENT: No Head Aches, No Visual Changes, No Eye Pain, No Ear Pain, No Dysphasia , No Sinus Congestion, No Post Nasal Drip, No Sore Throat, No Other Pulmonary: Dyspnea, No Cough, No Pleuritic Chest Pain, No Other Cardiovascular: Edema, No: Chest Pain, Lt Headedness, Orthopnea, Other, Palpitations, Paroxysmal Noc. Dyspnea Objective-Cardiology Exam Last Set of Vital Signs Vital Signs 03/07/17 08:00 Temp 98.5 Pulse 88 Resp 20 B/P (MAP) 109/52 Pulse Ox 94 O2 Delivery Room Air Capillary Refill : Less Than 3 Seconds I&O Intake and Output 03/07/17 00:00 Intake Total 2180 ml Output Total 5650 ml Balance -3470 ml Intake Oral 2180 ml Output Urine Total 5650 ml General: Alert, Oriented X3, Cooperative HEENT: Atraumatic, PERRLA Neck: Supple, No JVD, No Thyromegaly Lungs: Clear to Auscultation, Normal Air Movement Heart: Regular Rate, Normal S1, Normal S2, No Murmurs Abdomen: Normal Bowel Sounds, Soft, No Tenderness, No Hepatosplenomegaly, No Masses Extremities: No Clubbing, No Cyanosis, Other (chronic venous stasis changes, significant edema) Skin: Other (venous stasis changes of the lower extremity) Neuro: Normal Speech, Sensation Intact Psych/Mental Status: Mental Status NL, Mood NL Results Lab Laboratory Tests 03/07/17 05:54 A/P-Cardiology Admission Diagnosis Generalized weakness Coronary artery disease Carotid stenosis Hypertension Assessment/Plan Generalized weakness, reporting improvement, questionable TIA. Better at this time. Continue physical therapy. Coronary artery disease, history of CABG x4 done in 2001, Patient has been refusing any cardiac workup, echocardiogram showed moderate left ventricular systolic dysfunction, ejection fraction 40-45 percent, pulmonary hypertension with PA pressure of 50 mmHg. Congestive heart failure, chronic decompensated left ventricular systolic dysfunction, ischemic cardiomyopathy, ejection fraction 40-45 percent, maintained on beta blockers and Sina inhibitors and diuretics. Severe bilateral carotid stenosis, I had a long discussion again with the patient regarding consideration for carotid endarterectomy, patient is refusing any procedure. Chest pain, stable angina. No recent cardiac workup was done, patient has been refusing any cardiac workup refusing stress test, echocardiogram or cardiac catheterization. Hypertension, better control at this time, continue to monitor Hyperlipidemia, controlled, continue current medications and monitor Diabetes mellitus, diabetic nephropathy. Followed and managed by Dr. Courtney. Morbid obesity, patient was educated and instructed on weight loss and diet. Clinical Quality Measures DVT/VTE Risk/Contraindication: Risk Factor Score Per Nursin RFS Level Per Nursing on Admit: 4+=Very High KYRA MONTGOMERY MD Mar 07, 2017 10:36
[2017-03-07] MEDS ORDERED: FLEET ENEMA ADULT 1 EA BTL PR PRN (11:45)
[2017-03-07] MEDS ORDERED: LACTULOSE SYRUP 10GM/15ML (ENULOSE) 30ML UDC PO PRN (11:45)
--- NOTE | 2017-03-07 11:49 | Progress Note-Hospitalist ---
Progress Note HPI/CC on Admission CC: Severe weakness unable to ambulate HPI: This is a 62-year-old white male Dr. Courtney and Dr. Perez with a past medical history of severe noncompliance with medical treatment and recommendations with a history of heart disease and diabetes the presents to the emergency room after it took 7 fire department personnel to move him from his house to the ambulance due to severe weakness. Reports about a 3 day history of this progressive weakness unable to tolerate any weightbearing at all on the right leg of which is complicated by knee pain from severe arthritis but he is severely morbidly obese and overall very complicated in ability to comply with medical recommendations historically Dr. Perez is concerned he has had some sort of subacute stroke contributing to the severe weakness and right leg decreased strength. He is requesting some sort of pain medication and heating pad for the right knee to help him move around and treat the pain. Progress Notes/Assess & Plan Date Seen 03/07/17 Time Seen by Provider: 11:00 Admission Dx/Process Assessment: Severe weakness requiring 7 fire department personnel to carry him out of his house onto ambulance to ER with significant right lower extremity decreased strength Morbidly obesity Coronary artery disease previous DC Noncompliance with medical recommendations Severe right knee pain complicating the severe weakness of the right lower extremity UTI Sepsis Atrial fibrillation w/rapid ventricular response Diagonsis/Assessment & Plan Carotid USG revealed 99% bilateral disease and he declines any intervention for this impending stroke risk Moving a lot more and diuresed 5 liters yesterday Moving the right leg much better Needs wound care for his legs like he had many yrs ago so will consult them tomorrow Only admitted observation so will need to initiate IRU or SW for placement if cannot go home Needs to lose 200# and CEA for any chance of full life AFVSS, Pleasant, improved, cath in place RRR, CTAB diminished in the bases Venous stasis changes and overall crusted skin lower legs Laboratory Tests 03/07/17 05:54 Assessment: Severe weakness requiring 7 fire department personnel to carry him out of his house onto ambulance to ER with significant right lower extremity decreased strength now improved but unsure if he can return home? Morbidly obesity Coronary artery disease previous DC Noncompliance with medical recommendations Severe right knee pain complicating the severe weakness of the right lower extremity much improved and was able to stand with walker today UTI on abx but now UCx no significant organism so will DC abx Sepsis but now improved Atrial fibrillation w/rapid ventricular response on Tely Constipation Venous stasis dermatitis Plan: Appreciate Dr. 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
[2017-03-07 12:00] VITALS: BP 108/65
[2017-03-07] MEDS: SENNA W/DOCUSATE (SENOKOT S) TABLET PO SCH ×2 (12:26→21:35)
[2017-03-07] MEDS: BISACODYL 10 MG SUPP (DULCOLAX) PR SCH ×2 (14:11→21:35)
[2017-03-07] MEDS ORDERED: VANCOMYCIN INJECTION 1,000 MG in NS (IVPB) 250 ML IV SCH (15:00)
[2017-03-07] MEDS ORDERED: VANCOMYCIN 2000 MG/NS 500 ML IVPB IV NR ×2 (15:30)
[2017-03-07 16:57] VITALS: BP 116/55
[2017-03-07 19:43] VITALS: BP 112/53
[2017-03-07] MEDS: ISOSORBIDE MONONITRATE 30 MG (IMDUR) TAB PO SCH (21:35)
[2017-03-08] VITALS (7 sets, daily range): BP systolic 102–149; BP diastolic 58–95
[2017-03-08] MEDS: inSUlin ASPART (NovoLOG) 1 UNIT/0.01 ML (CHARGE PER UNIT) SC SCH ×4 (06:48→21:41)
[2017-03-08] MEDS: glipiZIDE 5 MG (GLUCOTROL) TAB PO SCH (06:51)
[2017-03-08] MEDS: FUROSEMIDE 40 MG/4 ML INJ (LASIX) IV SCH ×2 (06:51→16:24)
[2017-03-08 07:51] LABS: BASOPHILS # (AUTO) 0.1 10^3/uL (0.0-0.1); BASOPHILS % (AUTO) 0 % (0-10); EOSINOPHILS # (AUTO) 0.7 10^3/uL (0.0-0.3); EOSINOPHILS % (AUTO) 6 % (0-10); LYMPHOCYTES # (AUTO) 0.7 X 10^3 (1.0-4.0); LYMPHOCYTES % (AUTO) 7 % (12-44); MEAN CORPUSCULAR HEMOGLOBIN 28 PG (25-34); MEAN CORPUSCULAR HGB CONC 31 G/DL (32-36); MEAN CORPUSCULAR VOLUME 92 FL (80-99); MEAN PLATELET VOLUME 8.4 FL (7.4-10.4); MONOCYTES # (AUTO) 0.8 X 10^3 (0.0-1.0); MONOCYTES % (AUTO) 7 % (0-12); NEUTROPHILS # (AUTO) 9.2 X 10^3 (1.8-7.8); NEUTROPHILS % (AUTO) 80 % (42-75); PLATELET COUNT 358 10^3/uL (130-400); RED BLOOD COUNT 3.45 10^6/uL (4.35-5.85); RED CELL DISTRIBUTION WIDTH 13.9 % (10.0-14.5); WHITE BLOOD COUNT 11.5 10^3/uL (4.3-11.0)
[2017-03-08] MEDS ORDERED: TROUGH ORDER-PHARMACY XX NR ×2 (08:00→14:00)
[2017-03-08] MEDS: CARVEDILOL 12.5 MG (COREG) TABLET PO SCH ×2 (08:33→20:32)
[2017-03-08] MEDS: KCL 10 MEQ TAB (MICRO K) PO SCH (08:34)
[2017-03-08] MEDS: HYDROcodone/APAP 5 MG/325 MG (LORTAB) TAB PO PRN ×2 (08:34→16:31)
[2017-03-08] MEDS: FAMOTIDINE 20 MG (PEPCID) TABLET PO SCH ×2 (08:34→20:32)
[2017-03-08] MEDS: ASPIRIN E.C. 81 MG (ECOTRIN) TAB PO SCH (08:34)
[2017-03-08] MEDS: ATORVASTATIN 10 MG (LIPITOR) TABLET PO SCH (08:34)
[2017-03-08] MEDS: lisINopril 20 MG (ZESTRIL) TAB PO SCH (08:34)
[2017-03-08] MEDS: cloNIDine 0.1 MG (CATAPRES) TAB PO SCH ×2 (08:34→20:32)
[2017-03-08] MEDS: SENNA W/DOCUSATE (SENOKOT S) TABLET PO SCH ×2 (08:35→20:34)
[2017-03-08] MEDS: BISACODYL 10 MG SUPP (DULCOLAX) PR SCH ×2 (08:35→20:34)
[2017-03-08] MEDS: DOCUSATE SODIUM 100 MG (COLACE) CAP PO SCH ×2 (08:35→20:34)
[2017-03-08 08:37] LABS: ALBUMIN 3.1 GM/DL (3.2-4.5); BILIRUBIN,TOTAL 0.4 MG/DL (0.1-1.0); CALCIUM 9.6 MG/DL (8.5-10.1); CREATININE SERUM 2.3 MG/DL (0.60-1.30); POTASSIUM 4.2 MMOL/L (3.6-5.0); TOTAL PROTEIN 7.4 GM/DL (6.4-8.2)
[2017-03-08] MEDS: NYSTATIN CREAM (MYCOSTATIN) 30 GM TUBE TP SCH ×3 (08:37→20:34)
[2017-03-08] MEDS: VANCOMYCIN 1 GM/NS 250 ML IVPB IV SCH ×2 (08:52)
--- NOTE | 2017-03-08 08:56 | Cardiology Progress Note ---
Subjective Date Seen by Provider: Mar 08, 2017 Time Seen by Provider: 08:45 Subjective/Events-last exam Patient sitting up in bed, no new complaint. Denies any CP or dyspnea. Review of Systems General: No Night Sweats, No Fatigue, No Malaise HEENT: No Visual Changes, No Dysphasia Pulmonary: No Dyspnea, No Cough Cardiovascular: No: Chest Pain, Palpitations Gastrointestinal: No: Abdominal Pain, Nausea, Vomiting Genitourinary: No Dysuria Musculoskeletal: No: back pain, neck pain Neurological: Weakness, No: Change in speech, Confusion, Numbness Objective-Cardiology Exam Last Set of Vital Signs Vital Signs 03/08/17 08:00 Temp 97.3 Pulse 85 Resp 22 B/P (MAP) 118/67 Pulse Ox 96 O2 Delivery Room Air Capillary Refill : Less Than 3 Seconds I&O Intake and Output 03/08/17 00:00 Intake Total 1870 ml Output Total 2175 ml Balance -305 ml Intake Oral 1820 ml IV Total 50 ml Output Urine Total 2175 ml # Bowel Movements 1 General: Alert, Oriented X3, Cooperative HEENT: Atraumatic, PERRLA Neck: Supple, No JVD, No Thyromegaly Lungs: Clear to Auscultation, Normal Air Movement Heart: Regular Rate, Normal S1, Normal S2, No Murmurs Abdomen: Normal Bowel Sounds, Soft, No Tenderness, No Hepatosplenomegaly, No Masses Extremities: No Clubbing, No Cyanosis, Other (chronic venous stasis changes, significant edema) Skin: Other (venous stasis changes of the lower extremity) Neuro: Normal Speech, Sensation Intact Psych/Mental Status: Mental Status NL, Mood NL Results Lab Laboratory Tests 03/08/17 07:42 A/P-Cardiology Admission Diagnosis Generalized weakness Coronary artery disease Carotid stenosis Hypertension Assessment/Plan Generalized weakness, reporting improvement, questionable TIA. Better at this time. Continue physical therapy. Coronary artery disease, history of CABG x4 done in 2001, Patient has been refusing any cardiac workup, echocardiogram showed moderate left ventricular systolic dysfunction, ejection fraction 40-45 percent, pulmonary hypertension with PA pressure of 50 mmHg. Congestive heart failure, chronic decompensated left ventricular systolic dysfunction, ischemic cardiomyopathy, ejection fraction 40-45 percent, maintained on beta blockers and Sina inhibitors and diuretics. Severe bilateral carotid stenosis, I had a long discussion again with the patient regarding consideration for carotid endarterectomy, patient is refusing any procedure. Chest pain, stable angina. No recent cardiac workup was done, patient has been refusing any cardiac workup refusing stress test, echocardiogram or cardiac catheterization. Hypertension, better control at this time, continue to monitor Hyperlipidemia, controlled, continue current medications and monitor Diabetes mellitus, diabetic nephropathy. Followed and managed by Dr. Courtney. Acute on chronic renal insufficiency- continue to monitor. Morbid obesity, patient was educated and instructed on weight loss and diet. Clinical Quality Measures DVT/VTE Risk/Contraindication: Risk Factor Score Per Nursin RFS Level Per Nursing on Admit: 4+=Very High ANDRZEJ LERNER Mar 08, 2017 08:56
--- NOTE | 2017-03-08 08:56 | Cardiology Progress Note ---
Subjective Date Seen by Provider: Mar 08, 2017 Time Seen by Provider: 08:53 Subjective/Events-last exam Patient is laying down in bed, still having generalized weakness, denied any chest pain, still having mild edema Review of Systems General: No Chills, No Night Sweats, No Fatigue, No Malaise, No Appetite, No Other HEENT: No Head Aches, No Visual Changes, No Eye Pain, No Ear Pain, No Dysphasia , No Sinus Congestion, No Post Nasal Drip, No Sore Throat, No Other Pulmonary: Dyspnea, No Cough, No Pleuritic Chest Pain, No Other Cardiovascular: Edema, No: Chest Pain, Lt Headedness, Orthopnea, Other, Palpitations, Paroxysmal Noc. Dyspnea Objective-Cardiology Exam Last Set of Vital Signs Vital Signs 03/08/17 08:00 Temp 97.3 Pulse 85 Resp 22 B/P (MAP) 118/67 Pulse Ox 96 O2 Delivery Room Air Capillary Refill : Less Than 3 Seconds I&O Intake and Output 03/08/17 00:00 Intake Total 1870 ml Output Total 2175 ml Balance -305 ml Intake Oral 1820 ml IV Total 50 ml Output Urine Total 2175 ml # Bowel Movements 1 General: Alert, Oriented X3, Cooperative, Mild Distress HEENT: Atraumatic, PERRLA Neck: Supple, No JVD, No Thyromegaly Lungs: Clear to Auscultation, Normal Air Movement Heart: Regular Rate, Normal S1, Normal S2, No Murmurs Abdomen: Normal Bowel Sounds, Soft, No Tenderness, No Hepatosplenomegaly, No Masses Extremities: No Clubbing, No Cyanosis, Other (chronic venous stasis changes, peripheral edema) Skin: Other (venous stasis changes of the lower extremity) Neuro: Normal Speech, Sensation Intact Psych/Mental Status: Mental Status NL, Mood NL Results Lab Laboratory Tests 03/08/17 07:42 A/P-Cardiology Admission Diagnosis Generalized weakness Coronary artery disease Carotid stenosis Hypertension Assessment/Plan Generalized weakness, reporting improvement, questionable TIA. receiving physical therapy and reporting improvement. Continue to monitor Coronary artery disease, history of CABG x4 done in 2001, Patient has been refusing any cardiac workup, echocardiogram showed moderate left ventricular systolic dysfunction, ejection fraction 40-45 percent, pulmonary hypertension with PA pressure of 50 mmHg. Congestive heart failure, chronic decompensated left ventricular systolic dysfunction, ischemic cardiomyopathy, ejection fraction 40-45 percent, maintained on beta blockers and Sina inhibitors and diuretics. Acute on chronic renal insufficiency, slightly worse while on diuretics. Continue Lasix today and monitor electrolytes and renal function. Severe bilateral carotid stenosis, I had a long discussion again with the patient regarding consideration for carotid endarterectomy, patient is refusing any procedure. Chest pain, stable angina. No recent cardiac workup was done, patient has been refusing any cardiac workup refusing stress test, echocardiogram or cardiac catheterization. Hypertension, better control at this time, continue to monitor Hyperlipidemia, controlled, continue current medications and monitor Diabetes mellitus, diabetic nephropathy. Followed and managed by Dr. Courtney. Morbid obesity, patient was educated and instructed on weight loss and diet. Clinical Quality Measures DVT/VTE Risk/Contraindication: Risk Factor Score Per Nursin RFS Level Per Nursing on Admit: 4+=Very High KYRA MONTGOMERY MD Mar 08, 2017 08:56
--- NOTE | 2017-03-08 09:48 | Physical Therapy Daily Note ---
PT Daily Note-Current Subjective Patient reports he is feeling much better today and agrees to PT. Pain Numeric Pain Scale: 3 Location: Right, Left Location Body Site: Ankle Pain Description: Ache Mental Status Patient Orientation: Normal For Age Attachments: Moody Catheter, IV Transfers Functional [place] Measure 0=Not Assessed/NA 4=Minimal Assistance 1=Total Assistance 5=Supervision or Setup 2=Maximal Assistance 6=Modified [place] 3=Moderate Assistance 7=Complete IndependenceIRFPAI Quality Coding Scale 6 Independent with activity with or without an assistive device 5 Patient requires set up or clean up by helper. Patient completes activity by themselves 4 Supervision or touching assist (CGA). [place] provide cues , steadying assist 3 The helper provides less than half the effort to complete the activity 2 The helper provides more than half the effort to complete the activity 1 Dependent. The helper does all the effort to complete an activity 7 Patient refused to complete or attempt activity 9 The patient did not perform the activity before the current illness or injury 88 Not attempted due to Medical conditions or safety concerns Transfers (B, C, W/C) (FIM): 5 Scootin Rollin Supine to/from Sit: 5 Sit to/from Stand: 5 Gait Training Gait (FIM): 1 Distance (FIM): 1=up to 49 ft Distance: 10' Gait Level of Assist: 5 Gait Persons Needed: 1 Gait Assistive Device: FWW slot, steady, minimal foot clearance (patient ambulates short distances at home PLOF. Sits and sleeps in recliner at home) Exercises Seated Therapy Exercises: Ankle pumps, Long arc quads Seated Reps: 15 Assessment Patient improved from this weekend and is highly motivated. Patient continues to be limited with mobility due to obesity and inactivity PLOF. PT [facility] Goals Supervisor [place] Goals PT [facility] Goals Time Frame: Mar 12, 2017 Transfers (B,C,W/C) (FIM): 5 Gait (FIM): 1 Gait distance (FIM): 1=up to 49 ft Distance: 15' Gait Level of Assist: 5 Gait Assistive Device: FWW PT Plan Treatment/Plan Treatment Plan: Continue Plan of Care Treatment Plan: Bed Mobility, Education, Functional Activity Soha, Functional Strength, Gait, Safety, Therapeutic Exercise, Transfers Treatment Duration: Mar 12, 2017 Frequency: 6 times per week Estimated Hrs Per Day: .5 hour per day (or PRN) Patient and/or Family Agrees t: Yes Time/GCodes Time In: 907 Time Out: 930 Total Billed Treatment Time: 23 Total Billed Treatment 1 visit FA x 2 23 min ALFREDO MONTGOMERY PT Mar 08, 2017 09:48
[2017-03-08] MEDS ORDERED: NITR0.4T39 SL (10:41)
[2017-03-08] MEDS ORDERED: HYDR453.3 TOP (11:41)
--- NOTE | 2017-03-08 12:02 | Progress Note-Hospitalist ---
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 He was then able to side pass with a walker. It is not clear but is suspected that his performance at home was very minimal. He reports that he has worn 2 pairs of compression stockings for 10 years or more. Over the last few weeks they have sagged and seemed to Like a tourniquet at the ankle. He therefore has not worn them for several days. Physical exam: He is alert and pleasant. Lungs are distant but clear. CV is distant and not heard well. Abdomen is enormous. Lower extremities show huge calves and feet there is discoloration to the upper calf bilaterally. More distally there is symmetric erythema and considerable hyperkeratotic plaques over the ankles and feet. The nails are long, mycotic, and ill kempt. Impression: Morbidly morbid obesity. 2.type II diabetes mellitus. 3.obstructive sleep apnea. 4.chronic venous stasis dermatitis. 5.severe limitation of mobility as a cumulative effect of numbers one through 4. Plan: Wound care consult. Labs Laboratory Tests 03/07/17 05:54 03/08/17 07:42 HIPOLITO PEREZ MD Mar 08, 2017 12:02
--- NOTE | 2017-03-08 14:50 | Occupational Therapy Eval ---
OT Evaluation-General/PLF Medical Diagnosis Admission Date Mar 07, 2017 at 12:36 Medical Diagnosis: sepsis/UTI Onset Date: Mar 05, 2017 Therapy Diagnosis Therapy Diagnosis: Weakness, Decreased ADL skills Height/Weight Height (Feet): 6 Height (Inches): 2.00 Weight (Pounds): 421 Weight (Ounces): 8.0 Precautions Precautions/Isolations: Fall Prevention, Standard Precautions Safety Interventions: None Weight Bear Status Weight Bearing Restriction: Weight Bearing/Tolerated Referral Physician: Amita Referral Reason: Activity Tolerance, Self Care, Evaluation/Treatment, Strengthening/ROM Medical History Pertinent Medical History: CABG, CAD, DM, Heart Failure, HTN, AL, Neuropathy Current History Pt. could not walk for two days. EMS summoned to home. Reviewed History: Yes Social History Home: Single Level Current Living Status: Children Entry Into Home: Level Entry ADL-Prior Level of Function ADL PLOF Comments Pt. reports that previous to this hospitalization, he was living with his daughter and son-in-law. He also lives with his grandkids. He states that he is independent with his ADLs, and is able to cook for self by using the microwave. DME/Equipment: Tub/Shower DME/Equipment Comments Pt. has a cane and two walkers. States that he does not have a bath chair, but has not had difficulty getting into and out of his tub. Drive Self: No OT Current Status Subjective No pain reported. Appearance Pt. in bed. Agreeable to work with OT. Declines bathing stating, "I got a good shower last night." Mental Status/Objective Patient Orientation: Person, Place, Time, Situation Current Upper Extremity ROM WFL bilateral UE Upper Extremity Strength WFL- Pt. demonstrates ability to pull self to HOB by using the bedrails on head of bed. ADL-Treatment Functional [place] Measure 0=Not Assessed/NA 4=Minimal Assistance 1=Total Assistance 5=Supervision or Setup 2=Maximal Assistance 6=Modified [place] 3=Moderate Assistance 7=Complete IndependenceIRFPAI Quality Coding Scale 6 Independent with activity with or without an assistive device 5 Patient requires set up or clean up by helper. Patient completes activity by themselves 4 Supervision or touching assist (CGA). [place] provide cues , steadying assist 3 The helper provides less than half the effort to complete the activity 2 The helper provides more than half the effort to complete the activity 1 Dependent. The helper does all the effort to complete an activity 7 Patient refused to complete or attempt activity 9 The patient did not perform the activity before the current illness or injury 88 Not attempted due to Medical conditions or safety concerns Lower Body Dressing (FIM): 5 (Pt. demonstrates ability to don shorts on side of bed with cane. Is able to thread them over bilateral feet, and then stand and pull them over hips.) Transfers (B, C, W/C) (FIM): 5 (Pt. demonstrates ability to transfer from supine-sit using cane to grasp bottom bedrail, and then from sit-stand with SBA. Is able to sit back down and back to supine by propelling self into bed, and using the HOB to pull self upward.) Other Treatments When asked what pt. feels his deficits are, he states that he is doing much better. States that he does not wear socks, and wears slip on shoes. Does wear LARISA hose that he dons himself. He states, "these are really hard to put on." Pt. would benefit from education in LARISA hose javy application. States that he has family that will assist him in the home. Education OT Patient Education: Correct positioning, Modified ADL techniques, Progress toward Goal/Update tx plan, Purpose of tx/functional activities, Reviewed precautions, Rehab process, Transfer techniques, Use of adapted equipment Teaching Recipient: Patient Teaching Methods: Demonstration, Discussion Response to Teaching: Verbalize Understanding, Return Demonstration OT Short Term Goals Short Term Goals 1=Demonstrate adherence to instructed precautions during ADL tasks. 2=Patient will verbalize/demonstrate understanding of assistive devices/ modifications for ADL. 3=Patient will improve strength/tolerance for activity to enable patient to perform ADL's. OT [employer] Conservation [employer]anner Goals [employer] Goals Time Frame: Mar 15, 2017 Eating (FIM): 7 Grooming(FIM): 6 Bathing(FIM): 6 Upper Body Dressing(FIM): 6 Lower Body Dressing(FIM): 6 Toileting(FIM): 6 Transfers (B,C,W/C) (FIM): 6 Toilet/Commode Transfer(FIM): 6 Shower Transfer(FIM): 6 Additional Goals: 1-Demonstrate ADL Tasks, 2-Verbalize Understanding, 3- ImproveStrength/Soha 1=Demonstrate adherence to instructed precautions during ADL tasks. 2=Patient will verbalize/demonstrate understanding of assistive devices/ modifications for ADL. 3=Patient will improve strength/tolerance for activity to enable patient to perform ADL's. OT Education/Plan Problem List/Assessment Assessment: Decreased Activ Tolerance, Impaired I ADL's, Impaired Self-Care Skills Discharge Recommendations Plan/Recommendations: Continue POC Therapy D/C Recommendations: Home w/ Family Support Equpiment Recommendations-D/C: Extended Bath Bench, LARISA [place] Comment Bariatric transfer tub bench, hospital bed (bariatric) that might make transfers easier. Target Placement Home with family support. Treatment Plan/Plan of Care Treatment,Training & Education: Yes Patient would benefit from OT for education, treatment and training to promote independence in ADL's, mobility, safety and/or upper extremity function for ADL' s. Plan of Care: ADL Retraining, Functional Mobility Treatment Duration: Mar 15, 2017 Frequency: Daily Estimated Hrs Per Day: .5 hour per day Agreement: Yes Rehab Potential: Good Time/GCodes Start Time: 10:30 Stop Time: 10:50 Total Time Billed (hr/min): 20 Billed Treatment Time 1, CHARI OTTO OT Mar 08, 2017 14:49
[2017-03-08] MEDS: ISOSORBIDE MONONITRATE 30 MG (IMDUR) TAB PO SCH (20:33)
--- NOTE | 2017-03-08 23:31 | Wound Care Progress Note ---
Subjective Subjective Subjective/Events-last exam 62 year old male with bilateral venous stasis dermatitis in a setting of obesity , venous insufficiency, congestive heart failure, uncontrolled diabetes, and sedentary lifestyle. He sleeps in a chair. he is unable to breathe lying flat. Hie dermatitis has been treated with A + D ointment. Bilateral lower extremity arterial studies are ordered. Objective Exam Last Set of Vital Signs Vital Signs Date Time Temp Pulse Resp B/P (MAP) Pulse Ox O2 Delivery O2 Flow Rate FiO2 03/08/17 21:00 Room Air 03/08/17 19:10 98.0 89 24 144/77 95 Capillary Refill : Less Than 3 Seconds I&O Intake and Output 03/08/17 00:00 Intake Total 1870 ml Output Total 2175 ml Balance -305 ml Intake Oral 1820 ml IV Total 50 ml Output Urine Total 2175 ml # Bowel Movements 1 Results Lab Laboratory Tests 03/08/17 06:45: Glucometer 163H 03/08/17 07:42: White Blood Count 11.5H, Red Blood Count 3.45L, Hemoglobin 9.8L, Hematocrit 32L , Mean Corpuscular Volume 92, Mean Corpuscular Hemoglobin 28, Mean Corpuscular Hemoglobin Concent 31L, Red Cell Distribution Width 13.9, Platelet Count 358, Mean Platelet Volume 8.4, Neutrophils (%) (Auto) 80H, Lymphocytes (%) (Auto) 7L , Monocytes (%) (Auto) 7, Eosinophils (%) (Auto) 6, Basophils (%) (Auto) 0, Neutrophils # (Auto) 9.2H, Lymphocytes # (Auto) 0.7L, Monocytes # (Auto) 0.8, Eosinophils # (Auto) 0.7H, Basophils # (Auto) 0.1, Sodium Level 139, Potassium Level 4.2, Chloride Level 104, Carbon Dioxide Level 23, Anion Gap 12, Blood Urea Nitrogen 82H, Creatinine 2.30H, Estimat Glomerular Filtration Rate 29, BUN/ Creatinine Ratio 36, Glucose Level 166H, Calcium Level 9.6, Total Bilirubin 0.4 , Aspartate Amino Transf (AST/SGOT) 21, Alanine Aminotransferase (ALT/SGPT) 27, Alkaline Phosphatase 73, Total Protein 7.4, Albumin 3.1L, Vancomycin Level Trough 15.2 03/08/17 10:59: Glucometer 211H 03/08/17 16:23: Glucometer 161H 03/08/17 21:17: Glucometer 178H Microbiology 03/05/17 Blood Culture - Preliminary, Resulted Staph, Coag Neg ([place]) 03/05/17 Urine Culture - Final, Complete Staph, Coag Neg (Meat Car[place]) Corynebacterium Species JERRY BLUNT MD Mar 08, 2017 23:31
[2017-03-09 00:10] VITALS: BP 117/72
[2017-03-09 03:24] VITALS: BP 98/59
[2017-03-09] MEDS: inSUlin ASPART (NovoLOG) 1 UNIT/0.01 ML (CHARGE PER UNIT) SC SCH ×3 (05:07→16:54)
[2017-03-09] MEDS: glipiZIDE 5 MG (GLUCOTROL) TAB PO SCH (05:55)
[2017-03-09] MEDS: HYDROcodone/APAP 5 MG/325 MG (LORTAB) TAB PO PRN ×2 (05:55→10:05)
[2017-03-09] MEDS: FUROSEMIDE 40 MG/4 ML INJ (LASIX) IV SCH ×2 (05:55→16:54)
[2017-03-09 07:30] VITALS: BP 107/70
[2017-03-09] MEDS ORDERED: TROUGH ORDER-PHARMACY XX NR (08:00)
[2017-03-09 08:02] LABS: MEAN PLATELET VOLUME 8.7 FL (7.4-10.4); RED BLOOD COUNT 3.35 10^6/uL (4.35-5.85); RED CELL DISTRIBUTION WIDTH 13.9 % (10.0-14.5); WHITE BLOOD COUNT 11.7 10^3/uL (4.3-11.0)
--- OUTSIDE RECORDS SUMMARY | 2017-03-09 08:14 | XMS REPORT | Continuity of Care Document ---
Author Author [facility] Organization [facility] Address Unknown Phone Unavailable Allergies Active Description Code Type Severity Reaction Onset Reported/Identified Relationship to Patient Clinical Status Yes No Known Drug Allergies [id number] Drug Allergy Unknown N/ A 04/12/2008 Medications Problems Procedures Results Test Result Range Complete blood count (CBC) with automated white blood cell (WBC) differential - 03/05/17 18:45 Blood leukocytes automated count (number/volume) 12.9 10*3/ uL 4.3-11.0 Blood erythrocytes automated count (number/volume) 3.66 10*6 /uL 4.35-5.85 Venous blood hemoglobin measurement (mass/volume) 10.2 g/dL 13.3-17.7 Blood hematocrit (volume fraction) 33 % 40-54 Automated erythrocyte mean corpuscular volume 90 [foz_us] 80-99 Automated erythrocyte mean corpuscular hemoglobin (mass per erythrocyte) 28 pg 25-34 Automated erythrocyte mean corpuscular hemoglobin concentration measurement ( mass/volume) 31 g/dL 32-36 Automated erythrocyte distribution width ratio 13.9 % 10.0-14.5 Automated blood platelet count (count/volume) 345 10*3/uL 130-400 Automated blood platelet mean volume measurement 9.1 [foz_us ] 7.4-10.4 Automated blood neutrophils/100 leukocytes 82 % 42-75 Automated blood lymphocytes/100 leukocytes 7 % 12-44 Blood monocytes/100 leukocytes 9 % 0-12 Automated blood eosinophils/100 leukocytes 2 % 0-10 Automated blood basophils/100 leukocytes 0 % 0-10 Blood neutrophils automated count (number/volume) 10.6 10*3 1.8-7.8 Blood lymphocytes automated count (number/volume) 0.9 10*3 1.0-4.0 Blood monocytes automated count (number/volume) 1.2 10*3 0.0-1.0 Automated eosinophil count 0.2 10*3/uL 0.0-0.3 Automated blood basophil count (count/volume) 0.0 10*3/uL 0.0-0.1 Blood lactic acid measurement (moles/volume) - 03/05/17 18:45 Blood lactic acid measurement (moles/volume) 1.24 mmol/L 0.50-2.00 Blood manual differential performed detection - 03/05/17 18:45 Blood monocytes/100 leukocytes 13 % NRG Manual blood segmented neutrophils/100 leukocytes 79 % NRG Blood band neutrophils/100 leukocytes 1 % NRG Manual blood lymphocytes/100 leukocytes 6 % NRG Manual eosinophils/100 leukocytes in nose 1 % NRG Manual blood basophils/100 leukocytes 0 % NRG Blood erythrocyte morphology finding identification NORMAL NR Comprehensive metabolic panel - 03/05/17 18:45 Serum or plasma sodium measurement (moles/volume) 139 mmol/ L 135-145 Serum or plasma potassium measurement (moles/volume) 4.5 mmol/L 3.6-5.0 Serum or plasma chloride measurement (moles/volume) 106 mmol /L 98-107 Carbon dioxide 21 mmol/L 21-32 Serum or plasma anion gap determination (moles/volume) 12 mmol/L 5-14 Serum or plasma urea nitrogen measurement (mass/volume) 75 mg/dL 7-18 Serum or plasma creatinine measurement (mass/volume) 2.26 mg /dL 0.60-1.30 Serum or plasma urea nitrogen/creatinine mass ratio 33 NR Serum or plasma creatinine measurement with calculation of estimated glomerular filtration rate 29 NR Serum or plasma glucose measurement (mass/volume) 162 mg/dL 70-105 Serum or plasma calcium measurement (mass/volume) 9.8 mg/dL 8.5-10.1 Serum or plasma total bilirubin measurement (mass/volume) 0.6 mg/dL 0.1-1.0 Serum or plasma alkaline phosphatase measurement (enzymatic activity/volume) 66 U/L 40-136 Serum or plasma aspartate aminotransferase measurement (enzymatic activity/ volume) 24 U/L 5-34 Serum or plasma alanine aminotransferase measurement (enzymatic activity/volume ) 25 U/L 0-55 Serum or plasma protein measurement (mass/volume) 8.0 g/dL 6.4-8.2 Serum or plasma albumin measurement (mass/volume) 3.5 g/dL 3.2-4.5 Magnesium - 03/05/17 18:45 Magnesium 2.1 mg/dL 1.8-2.4 Serum or plasma troponin i.cardiac measurement (mass/volume) - 03/05/17 18:45 Serum or plasma troponin i.cardiac measurement (mass/volume) < ng/mL <0.30 Serum or plasma lithium measurement (moles/volume) - 03/05/17 18:45 BNP level 306.8 pg/mL <100.0 Complete urinalysis with reflex to culture - 03/05/17 19:14 Urine color determination YELLOW NRG Urine clarity determination CLEAR NRG Urine pH measurement by test strip 6 5- 9 Specific gravity of urine by test strip 1.015 1.016-1.022 Urine protein assay by test strip, semi-quantitative 1+ NEGATIVE Urine glucose detection by automated test strip NEGATIVE NEGATIVE Erythrocytes detection in urine sediment by light microscopy NEGATIVE NEGATIVE Urine ketones detection by automated test strip NEGATIVE NEGATIVE Urine nitrite detection by test strip NEGATIVE NEGATIVE Urine total bilirubin detection by test strip NEGATIVE NEGATIVE Urine urobilinogen measurement by automated test strip (mass/volume) NORMAL NORMAL Urine leukocyte esterase detection by dipstick 2+ NEGATIVE Automated urine sediment erythrocyte count by microscopy (number/high power field) RARE NRG Automated urine sediment leukocyte count by microscopy (number/high power field ) [HPF] NRG Bacteria detection in urine sediment by light microscopy FEW NRG Squamous epithelial cells detection in urine sediment by light microscopy 0-2 NRG Crystals detection in urine sediment by light microscopy NONE NRG Casts detection in urine sediment by light microscopy NONE NRG Mucus detection in urine sediment by light microscopy NEGATIVE NRG Complete urinalysis with reflex to culture YES NRG Bacterial urine culture - 03/05/17 19:14 Bacterial urine culture [id number] NRG COLONY COUNT 10,000/ML - 100,000/ML NRG FTX;REPORTABLE PLUS, NRG FREE TEXT ENTRY 2 MIXED GRAM POSITIVES <10,000/ML NRG Bacterial blood culture - 03/05/17 19:50 Bacterial blood culture NG NRG Bacterial blood culture - 03/05/17 21:00 Bacterial blood culture NG NRG Capillary blood glucose measurement by glucometer (mass/volume) - 03/05/17 21: 02 Capillary blood glucose measurement by glucometer (mass/volume) 154 mg/dL 70-110 Complete blood count (CBC) with automated white blood cell (WBC) differential - 03/06/17 04:38 Blood leukocytes automated count (number/volume) 12.3 10*3/ uL 4.3-11.0 Blood erythrocytes automated count (number/volume) 3.46 10*6 /uL 4.35-5.85 Venous blood hemoglobin measurement (mass/volume) 9.7 g/dL 13.3-17.7 Blood hematocrit (volume fraction) 31 % 40-54 Automated erythrocyte mean corpuscular volume 91 [foz_us] 80-99 Automated erythrocyte mean corpuscular hemoglobin (mass per erythrocyte) 28 pg 25-34 Automated erythrocyte mean corpuscular hemoglobin concentration measurement ( mass/volume) 31 g/dL 32-36 Automated erythrocyte distribution width ratio 13.7 % 10.0-14.5 Automated blood platelet count (count/volume) 323 10*3/uL 130-400 Automated blood platelet mean volume measurement 9.2 [foz_us ] 7.4-10.4 Automated blood neutrophils/100 leukocytes 80 % 42-75 Automated blood lymphocytes/100 leukocytes 5 % 12-44 Blood monocytes/100 leukocytes 12 % 0-12 Automated blood eosinophils/100 leukocytes 2 % 0-10 Automated blood basophils/100 leukocytes 0 % 0-10 Blood neutrophils automated count (number/volume) 9.9 10*3 1.8-7.8 Blood lymphocytes automated count (number/volume) 0.7 10*3 1.0-4.0 Blood monocytes automated count (number/volume) 1.4 10*3 0.0-1.0 Automated eosinophil count 0.3 10*3/uL 0.0-0.3 Automated blood basophil count (count/volume) 0.0 10*3/uL 0.0-0.1 Comprehensive metabolic panel - 03/06/17 04:38 Serum or plasma sodium measurement (moles/volume) 139 mmol/ L 135-145 Serum or plasma potassium measurement (moles/volume) 4.4 mmol/L 3.6-5.0 Serum or plasma chloride measurement (moles/volume) 105 mmol /L 98-107 Carbon dioxide 20 mmol/L 21-32 Serum or plasma anion gap determination (moles/volume) 14 mmol/L 5-14 Serum or plasma urea nitrogen measurement (mass/volume) 72 mg/dL 7-18 Serum or plasma creatinine measurement (mass/volume) 2.23 mg /dL 0.60-1.30 Serum or plasma urea nitrogen/creatinine mass ratio 32 NRG Serum or plasma creatinine measurement with calculation of estimated glomerular filtration rate 30 NRG Serum or plasma glucose measurement (mass/volume) 269 mg/dL 70-105 Serum or plasma calcium measurement (mass/volume) 9.6 mg/dL 8.5-10.1 Serum or plasma total bilirubin measurement (mass/volume) 0.3 mg/dL 0.1-1.0 Serum or plasma alkaline phosphatase measurement (enzymatic activity/volume) 70 U/L 40-136 Serum or plasma aspartate aminotransferase measurement (enzymatic activity/ volume) 28 U/L 5-34 Serum or plasma alanine aminotransferase measurement (enzymatic activity/volume ) 25 U/L 0-55 Serum or plasma protein measurement (mass/volume) 7.5 g/dL 6.4-8.2 Serum or plasma albumin measurement (mass/volume) 3.2 g/dL 3.2-4.5 Capillary blood glucose measurement by glucometer (mass/volume) - 03/06/17 16: 18 Capillary blood glucose measurement by glucometer (mass/volume) 228 mg/dL 70-110 Capillary blood glucose measurement by glucometer (mass/volume) - 03/06/17 20: 57 Capillary blood glucose measurement by glucometer (mass/volume) 228 mg/dL 70-110 Encounters ACCT No. Visit Date/Time Discharge Status Pt. Type Provider Facility Loc./Unit Complaint [id number] 01/24/2014 09:40:00 2013 10:31:00 DIS Outpatient [id number] 01/08/2014 13:00:00 2013 10:55:00 DIS Inpatient [id number] 03/05/2017 20:37:00 ACT Inpatient HARRY GIORDANO DO [facility] 4TH SEPSIS, UTI, HEART FAILURE ACUTE DECOMPENSATED
--- OUTSIDE RECORDS SUMMARY | 2017-03-09 08:18 | XMS REPORT | Continuity of Care Document ---
Author Author [facility] Organization [facility] Address Unknown Phone Unavailable Allergies Active Description Code Type Severity Reaction Onset Reported/Identified Relationship to Patient Clinical Status Yes No Known Drug Allergies [id number] Drug Allergy Unknown N/ A 04/12/2008 Medications [...] culture - 03/05/17 19:14 Bacterial urine culture [id number] NRG COLONY COUNT 10,000/ML - 100,000/ML NRG [...] Status Pt. Type Provider Facility Loc./Unit Complaint [id number] 01/24/2014 09:40:00 2013 10:31:00 DIS Outpatient [id number] 01/08/2014 13:00:00 2013 10:55:00 DIS Inpatient [id number] 03/05/2017 20:37:00 ACT Inpatient HARRY GIORDANO DO [facility] 4TH SEPSIS, UTI, HEART FAILURE ACUTE DECOMPENSATED
[2017-03-09 08:23] LABS: CALCIUM 9.5 MG/DL (8.5-10.1); CREATININE SERUM 2.24 MG/DL (0.60-1.30); MAGNESIUM 2.1 MG/DL (1.8-2.4); POTASSIUM 4.7 MMOL/L (3.6-5.0)
[2017-03-09] MEDS: CARVEDILOL 12.5 MG (COREG) TABLET PO SCH (09:59)
[2017-03-09] MEDS: ASPIRIN E.C. 81 MG (ECOTRIN) TAB PO SCH (09:59)
[2017-03-09] MEDS: ATORVASTATIN 10 MG (LIPITOR) TABLET PO SCH (09:59)
[2017-03-09] MEDS: DOCUSATE SODIUM 100 MG (COLACE) CAP PO SCH (09:59)
[2017-03-09] MEDS: FAMOTIDINE 20 MG (PEPCID) TABLET PO SCH (09:59)
[2017-03-09] MEDS: lisINopril 20 MG (ZESTRIL) TAB PO SCH (09:59)
[2017-03-09] MEDS: cloNIDine 0.1 MG (CATAPRES) TAB PO SCH (09:59)
[2017-03-09] MEDS: BISACODYL 10 MG SUPP (DULCOLAX) PR SCH (10:00)
[2017-03-09] MEDS: VANCOMYCIN 1 GM/NS 250 ML IVPB IV SCH ×2 (10:00)
[2017-03-09] MEDS: KCL 10 MEQ TAB (MICRO K) PO SCH (10:00)
[2017-03-09] MEDS: SENNA W/DOCUSATE (SENOKOT S) TABLET PO SCH (10:00)
[2017-03-09] MEDS: NYSTATIN CREAM (MYCOSTATIN) 30 GM TUBE TP SCH ×2 (10:01→13:49)
--- NOTE | 2017-03-09 10:05 | Physical Therapy Daily Note ---
PT Daily Note-Current Subjective Patient agrees to PT. No c/o at this time. Pain Numeric Pain Scale: 0-No Pain Location: No Pain Reported Mental Status Patient Orientation: Normal For Age Attachments: Moody Catheter Transfers Functional [place] Measure 0=Not Assessed/NA 4=Minimal Assistance 1=Total Assistance 5=Supervision or Setup 2=Maximal Assistance 6=Modified [place] 3=Moderate Assistance 7=Complete IndependenceIRFPAI Quality Coding Scale 6 Independent with activity with or without an assistive device 5 Patient requires set up or clean up by helper. Patient completes activity by themselves 4 Supervision or touching assist (CGA). [place] provide cues , steadying assist 3 The helper provides less than half the effort to complete the activity 2 The helper provides more than half the effort to complete the activity 1 Dependent. The helper does all the effort to complete an activity 7 Patient refused to complete or attempt activity 9 The patient did not perform the activity before the current illness or injury 88 Not attempted due to Medical conditions or safety concerns Transfers (B, C, W/C) (FIM): 6 Scootin Rollin Supine to/from Sit: 6 Sit to/from Stand: 6 Bed to/from Chair: 6 Gait Training Gait (FIM): 1 Distance (FIM): 3=150 ft Distance: 15' Gait Level of Assist: 5 Gait Persons Needed: 1 Gait Assistive Device: FWW SBA to modified independent with ambulation with FWW with shuffle gait sequence (minimal foot clearance) Exercises Seated Therapy Exercises: Ankle pumps, Long arc quads Seated Reps: 25 Assessment Patient improving with treatment plan and is motivated with progress. PT to continue to increase activity as tolerated by patient. PT Environmental Sampler Goals Environmental Sampler Goals PT Environmental Sampler Goals Time Frame: Mar 12, 2017 Transfers (B,C,W/C) (FIM): 5 Gait (FIM): 1 Gait distance (FIM): 1=up to 49 ft Distance: 15' Gait Level of Assist: 5 Gait Assistive Device: FWW PT Plan Treatment/Plan Treatment Plan: Continue Plan of Care Treatment Plan: Bed Mobility, Education, Functional Activity Soha, Functional Strength, Gait, Safety, Therapeutic Exercise, Transfers Treatment Duration: Mar 12, 2017 Frequency: 6 times per week Estimated Hrs Per Day: .5 hour per day (or PRN) Patient and/or Family Agrees t: Yes Time/GCodes Time In: 935 Time Out: 958 Total Billed Treatment Time: 23 Total Billed Treatment 1 visit FA 13 min EX 10 min ALFREDO MONTGOMERY PT Mar 09, 2017 10:05
--- NOTE | 2017-03-09 10:59 | Occupational Ther Daily Note ---
OT Current Status-Daily Note Subjective No pain reported. Pt. up in chair at end of treatment and states, "I feel so good." Appearance Pt. on BSC. Nursing in room getting ready to assist pt. off when OT entered room. Mental Status/Objective Patient Orientation: Person, Place Functional [place] Measure 0=Not Assessed/NA 4=Minimal Assistance 1=Total Assistance 5=Supervision or Setup 2=Maximal Assistance 6=Modified [place] 3=Moderate Assistance 7=Complete [place] ADL-Treatment Toileting (FIM): 2 (See note below.) Toilet/Commode Transfer (FIM): 4 (CGA for sit-stand.) Pt. on BSC. Getting ready to stand and transfer to bed. Nursing getting ready to cleanse [place] area. Pt. is asked if he cleanses self at home. Pt. states "yes, but since there are three of you in here." OT tells pt. that he really needs to do this for himself, otherwise, we will not know that he can take care of himself. Pt. stands from BSC with CGA. Attempts to cleanse [place] area. Unable to reach. Pt. leans forward and wipes, but does not cleanse well. States, "I should have got it. OT goes over it for him and pt. is dirty. Did not get it very well. Pt. states at home that he has a wall that he can lean up against. Transferred to bed with SBA. Pt. is then educated on LARISA hose javy. Pt. states that he has ordered new LARISA hose, but that he does not have them yet. Educated on where to buy javy at. Pt. requests to transfer to chair. OT put reclining chair next to bed. Transferred to chair with CGA. All needs met in chair and pt. reclined. Tolerated this well. All needs met. Education OT Patient Education: Correct positioning, Modified ADL techniques, Progress toward Goal/Update tx plan, Purpose of tx/functional activities, Reviewed precautions, Rehab process, Transfer techniques, Use of adapted equipment Teaching Recipient: Patient Teaching Methods: Demonstration, Discussion Response to Teaching: Verbalize Understanding, Return Demonstration OT Short Term Goals Short Term Goals 1=Demonstrate adherence to instructed precautions during ADL tasks. 2=Patient will verbalize/demonstrate understanding of assistive devices/ modifications for ADL. 3=Patient will improve strength/tolerance for activity to enable patient to perform ADL's. OT Senior Care Goals Aerial Photographer Goals Time Frame: Mar 15, 2017 Eating (FIM): 7 Grooming(FIM): 6 Bathing(FIM): 6 Upper Body Dressing(FIM): 6 Lower Body Dressing(FIM): 6 Toileting(FIM): 6 Transfers (B,C,W/C) (FIM): 6 Toilet/Commode Transfer(FIM): 6 Shower Transfer(FIM): 6 Additional Goals: 1-Demonstrate ADL Tasks, 2-Verbalize Understanding, 3- ImproveStrength/Soha 1=Demonstrate adherence to instructed precautions during ADL tasks. 2=Patient will verbalize/demonstrate understanding of assistive devices/ modifications for ADL. 3=Patient will improve strength/tolerance for activity to enable patient to perform ADL's. OT Education/Plan Problem List/Assessment Assessment: Decreased Activ Tolerance, Decreased Safety Aware, Dependent Transfers, Impaired Bed Mobility, Impaired Funct Balance, Impaired I ADL's, Impaired Self-Care Skills Discharge Recommendations Plan/Recommendations: Continue POC Therapy D/C Recommendations: Home w/ Family Support, Occupational Therapy Home Care Equpiment Recommendations-D/C: LARISA Leung Treatment Plan/Plan of Care Treatment,Training & Education: Yes Patient would benefit from OT for education, treatment and training to promote independence in ADL's, mobility, safety and/or upper extremity function for ADL' s. Plan of Care: ADL Retraining, Functional Mobility Treatment Duration: Mar 15, 2017 Frequency: Daily Estimated Hrs Per Day: .5 hour per day Agreement: Yes Rehab Potential: Good Time/GCodes Start Time: 10:20 Stop Time: 10:35 Total Time Billed (hr/min): 15 Billed Treatment Time 1, ADL CHARI KING OT Mar 09, 2017 10:59
[2017-03-09 11:49] VITALS: BP 99/62
--- NOTE | 2017-03-09 12:22 | Cardiology Progress Note ---
Subjective Date Seen by Provider: Mar 09, 2017 Time Seen by Provider: 12:21 Subjective/Events-last exam patient is sitting in a chair, feeling better, denied any chest pain, reporting improvement in his dyspnea and weakness. Review of Systems General: No Chills, No Night Sweats, No Fatigue, No Malaise, No Appetite, No Other HEENT: No Head Aches, No Visual Changes, No Eye Pain, No Ear Pain, No Dysphasia , No Sinus Congestion, No Post Nasal Drip, No Sore Throat, No Other Pulmonary: Dyspnea, No Cough, No Pleuritic Chest Pain, No Other Cardiovascular: Edema, No: Chest Pain, Lt Headedness, Orthopnea, Other, Palpitations, Paroxysmal Noc. Dyspnea Objective-Cardiology Exam Last Set of Vital Signs Vital Signs 03/09/17 11:49 Temp 98.9 Pulse 84 Resp 24 B/P (MAP) 99/62 Pulse Ox 94 O2 Delivery Room Air Capillary Refill : Less Than 3 Seconds I&O Intake and Output 03/08/17 23:59 Intake Total 3254 ml Output Total 3025 ml Balance 229 ml Intake Oral 2504 ml IV Total 750 ml Output Urine Total 3025 ml General: Alert, Oriented X3, Cooperative, Mild Distress HEENT: Atraumatic, PERRLA Neck: Supple, No JVD, No Thyromegaly Lungs: Clear to Auscultation, Normal Air Movement Heart: Regular Rate, Normal S1, Normal S2, No Murmurs Abdomen: Normal Bowel Sounds, Soft, No Tenderness, No Hepatosplenomegaly, No Masses Extremities: No Clubbing, No Cyanosis, Other (chronic venous stasis changes, peripheral edema) Skin: Other (venous stasis changes of the lower extremity) Neuro: Normal Speech, Sensation Intact Psych/Mental Status: Mental Status NL, Mood NL Results Lab Laboratory Tests 03/09/17 07:55 A/P-Cardiology Admission Diagnosis Generalized weakness Coronary artery disease Carotid stenosis Hypertension Assessment/Plan Generalized weakness, reporting improvement, questionable TIA. Better at this time. Continue physical therapy. Coronary artery disease, history of CABG x4 done in 2001, Patient has been refusing any cardiac workup, echocardiogram showed moderate left ventricular systolic dysfunction, ejection fraction 40-45 percent, pulmonary hypertension with PA pressure of 50 mmHg. Congestive heart failure, chronic decompensated left ventricular systolic dysfunction, ischemic cardiomyopathy, ejection fraction 40-45 percent, maintained on beta blockers and Sina inhibitors and diuretics. Severe bilateral carotid stenosis, patient has been refusing to have carotid endarterectomy. Chest pain, stable angina. No recent cardiac workup was done, patient has been refusing any cardiac workup refusing stress test, echocardiogram or cardiac catheterization. Hypertension, better control at this time, continue to monitor Hyperlipidemia, controlled, continue current medications and monitor Diabetes mellitus, diabetic nephropathy. Followed and managed by Dr. Courtney. Acute on chronic renal insufficiency- continue to monitor. Morbid obesity, patient was educated and instructed on weight loss and diet. Clinical Quality Measures DVT/VTE Risk/Contraindication: Risk Factor Score Per Nursin RFS Level Per Nursing on Admit: 4+=Very High KYRA MONTGOMERY MD Mar 09, 2017 12:22
--- NOTE | 2017-03-09 12:47 | Diagnostic Imaging Report ---
Examination: Segmental lower extremity pressure assessment and ankle brachial index measurement. Post volume recording waveforms are also obtained in the lower extremities. Indication: Peripheral arterial disease Findings: Systolic pressure in the right Upper extremity is 127, and the left Upper extremity is 114 mmHg. RIGHT Lower extremity systolic pressures are: In the mid thigh 166 , in the upper calf 1:15, and at the ankle 105 PT, and 91 DP. Great toe pressure is 50. LEFT Lower extremity systolic pressures are: In the mid thigh 135 , in the upper calf 119, and at the ankle 80 PT, and 106 DP. Great toe pressure is 56. ANG on the right is 0.83, and on the left is 0.83. Pulse volume recordings waveforms demonstrate mild dampening of the waveforms. Impression: Mild to moderate peripheral vascular disease suggested bilaterally. Dictated by: Dictated on workstation # [id number]
--- NOTE | 2017-03-09 12:57 | Progress Note-Hospitalist ---
Standard Progress Note Progress Notes/Assess & Plan Date Seen 03/09/17 Time Seen by Provider: 12:54 Diagnosis Assessment: Severe weakness requiring 7 fire department personnel to carry him out of his house onto ambulance to ER with significant right lower extremity decreased strength Morbidly obesity Coronary artery disease previous [place] Noncompliance with medical recommendations Severe right knee pain complicating the severe weakness of the right lower extremity UTI Sepsis Atrial fibrillation w/rapid ventricular response Assess & Plan/Chief Complaint The patient reports he is improved on a daily basis. He was seen by Dr. Small from wound care and arrangements will be made for him to be seen as an outpatient wound care clinic. He had arterial peripheral Doppler studies done today which showed minimal peripheral disease. He believes he has returned nearly to his pre-hospital state of affairs and is ready for discharge. He was offered home health physical therapy but states he lives with his daughter and son-in-law and believes that outsider's presence in their home would not be reasonable. Physical exam: Lungs are clear to auscultation. CV is regular without murmur. Abdomen is very obese. Extremities show 2+ edema bilaterally to the mid lopez. There is bronzy discoloration consistent with venous stasis dermatitis. There is noted to be some improvement in the hyperkeratosis present at admission presumably as a function of nursing hygiene efforts. Plan: Discharge to home. See discharge sequence for medications and other arrangements Labs Laboratory Tests 03/08/17 07:42 03/09/17 07:55 Final Diagnosis 1.acute on chronic physical debility. 2.diabetes mellitus type II. 3. Morbidly morbid obesity. 4.chronic venous stasis dermatitis lower extremities. 5.doubt urinary tract infection, only corynebacterium grown HIPOLITO PEREZ MD Mar 09, 2017 12:57
--- NOTE | 2017-03-09 13:05 | Discharge Instructions ---
Discharge Instructions Patient Instructions Patient Instructions Medications as on the discharge sequence Appointment with wound care/Dr. Small Arrange PT OT as outpatient and coordinate with wound care visits Activity & Diet Discharge Diet: ADA Diet Activity as Tolerated: Yes HIPOLITO PEREZ MD Mar 09, 2017 13:05
[2017-03-09 16:30] VITALS: BP 133/63
[2017-03-10] MEDS ORDERED: TROUGH ORDER-PHARMACY XX ONE (08:00)
== END 2017-03-09 17:35 | disposition home or self-care (01) | DRG 948 ==
LOC: EDUNIT# 18:15 → ER 18:18 → INTOOBSV 20:37 → 4TH 20:37 → OBSVTOIN 03-07 12:36
PROVIDERS: ADMIT Internal Medicine; ATTEND Internal Medicine
DX: R53.81 Other malaise (principal); I13.0 Hypertensive heart and chronic kidney disease with heart failure and stage 1 through stage 4 chronic kidney disease, or unspecified chronic kidney disease; I50.22 Chronic systolic (congestive) heart failure; N18.9 Chronic kidney disease, unspecified; E66.01 Morbid (severe) obesity due to excess calories; Z68.43 Body mass index [BMI] 50.0-59.9, adult; I65.23 Occlusion and stenosis of bilateral carotid arteries; I25.5 Ischemic cardiomyopathy; I27.2 Other secondary pulmonary hypertension; E11.40 Type 2 diabetes mellitus with diabetic neuropathy, unspecified; I87.2 Venous insufficiency (chronic) (peripheral); I25.10 Atherosclerotic heart disease of native coronary artery without angina pectoris; I48.0 Paroxysmal atrial fibrillation; N40.0 Benign prostatic hyperplasia without lower urinary tract symptoms; M17.11 Unilateral primary osteoarthritis, right knee; E78.5 Hyperlipidemia, unspecified; R53.1 Weakness; M25.561 Pain in right knee; R29.898 Other symptoms and signs involving the musculoskeletal system; K59.00 Constipation, unspecified; I25.2 Old myocardial infarction; Z95.1 Presence of aortocoronary bypass graft; Z91.19 Patient's noncompliance with other medical treatment and regimen; Z79.84 Long term (current) use of oral hypoglycemic drugs
CPT/HCPCS: 36415; 71010; 80048; 80053; 80061; 80202; 81000; 82962; 83605; 83735; 83880; 84484; 85007; 85025; 85027; 87040; 87088; 87186; 93005; 93306; 93880; 93923; 93970; 96374; 96375; G0378

== ENCOUNTER 2017-03-09 19:48 | Inpatient (IN) | payer MEDICARE ==
[~2017-03-09] VITALS: Ht 188 cm; Wt 186.0 kg
[~2017-03-09 19:48] MED LIST changes: +AMLO10TA2 PO; +CLON0.1T PO; +HYDR453.3 TOP; +LOSA1TAB70 PO; +METF850T2 PO; +NITR0.4T39 SL; +RANI150T90 PO
[2017-03-09] MEDS ORDERED: RT-ALBUTEROL/IPRATROPIUM 3 ML (DUONEB) VIAL INH ONE (20:15)
[2017-03-09 20:28] LABS: BASOPHILS # (AUTO) 0.1 10^3/uL (0.0-0.1); BASOPHILS % (AUTO) 0 % (0-10); EOSINOPHILS # (AUTO) 0.9 10^3/uL (0.0-0.3); EOSINOPHILS % (AUTO) 6 % (0-10); LYMPHOCYTES # (AUTO) 0.8 X 10^3 (1.0-4.0); LYMPHOCYTES % (AUTO) 6 % (12-44); MEAN CORPUSCULAR HEMOGLOBIN 28 PG (25-34); MEAN CORPUSCULAR HGB CONC 31 G/DL (32-36); MEAN CORPUSCULAR VOLUME 92 FL (80-99); MONOCYTES % (AUTO) 8 % (0-12); NEUTROPHILS % (AUTO) 80 % (42-75); PLATELET COUNT 443 10^3/uL (130-400); RED BLOOD COUNT 3.51 10^6/uL (4.35-5.85); WHITE BLOOD COUNT 13.7 10^3/uL (4.3-11.0)
[2017-03-09 20:45] LABS: ALBUMIN 3.1 GM/DL (3.2-4.5); BILIRUBIN,TOTAL 0.3 MG/DL (0.1-1.0); CALCIUM 9.7 MG/DL (8.5-10.1); CREATININE SERUM 2.14 MG/DL (0.60-1.30); POTASSIUM 5.3 MMOL/L (3.6-5.0); TOTAL PROTEIN 7.4 GM/DL (6.4-8.2)
--- NOTE | 2017-03-09 20:53 | Diagnostic Imaging Report ---
INDICATION: Fall. COMPARISON: March 05, 2017. TECHNIQUE: Single radiograph of the chest dated March 09, 2017. FINDINGS: Postsurgical changes of a CABG are again identified. The cardiac silhouette is enlarged, though stable. No significant pulmonary vascular congestion. The lungs appear clear when accounting for overlying soft tissues. No significant pleural effusion. No pneumothorax. No acute osseous abnormality. IMPRESSION: Cardiomegaly and postsurgical changes without acute cardiopulmonary abnormality. Dictated by: Dictated on workstation # [id number]
--- NOTE | 2017-03-09 20:57 | Diagnostic Imaging Report ---
INDICATION: Fall. COMPARISON: April 12, 2008 TECHNIQUE: Three radiographs of the left foot dated March 09, 2017. FINDINGS: Healed fractures involving the distal third and fourth metatarsals are noted. The osseous structures appear significantly demineralized. This limits evaluation of the osseous structures. Joint space narrowing at the first MTP joint. Moderate posterior and plantar calcaneal enthesophytes. Surgical clip overlying the region of the distal tibia and fibula. IMPRESSION: 1. No acute osseous abnormality, though evaluation is limited secondary to osseous demineralization. 2. Healed third and fourth metatarsal fractures. 3. Mild degenerative changes. Dictated by: Dictated on workstation # [id number]
--- NOTE | 2017-03-09 20:58 | Diagnostic Imaging Report ---
INDICATION: Fall. COMPARISON: None available. TECHNIQUE: Three radiographs of the right knee dated March 09, 2017. FINDINGS: Osseous demineralization. No acute fracture or dislocation. No destructive osseous process. Moderate medial joint space narrowing. No significant joint effusion. Mild vascular calcifications. No suspicious radiopaque foreign body. IMPRESSION: No acute osseous abnormality with moderate degenerative changes. Osseous demineralization. Dictated by: Dictated on workstation # [id number]
[2017-03-09 21:18] LABS: BAND NEUTROPHILS 4 %; BASOPHILS % (MANUAL) 0 %; EOSINOPHILS % (MANUAL) 4 %; LYMPHOCYTES % (MANUAL) 8 %; NEUTROPHILS % (MANUAL) 77 %
[2017-03-09 21:20] LABS: BILIRUBIN,URINE NEGATIVE (NEGATIVE); KETONES,URINE NEGATIVE (NEGATIVE); LEUKOCYTE ESTERASE ,URINE 3+ (NEGATIVE); NITRITE,URINE NEGATIVE (NEGATIVE); PH,URINE 5 (5-9); PROTEIN,URINE 1+ (NEGATIVE); UROBILINOGEN,URINE NORMAL (NORMAL)
--- OUTSIDE RECORDS SUMMARY | 2017-03-09 21:38 | XMS REPORT | Continuity of Care Document ---
Author Author [facility] Organization [facility] Address Unknown Phone Unavailable Allergies Active Description Code Type Severity Reaction Onset Reported/Identified Relationship to Patient Clinical Status Yes No Known Drug Allergies [id number] Drug Allergy Unknown N/ A 04/12/2008 Medications [...] culture - 03/05/17 19:14 Bacterial urine culture [id number] NRG COLONY COUNT 10,000/ML - 100,000/ML NRG [...] Status Pt. Type Provider Facility Loc./Unit Complaint [id number] 01/24/2014 09:40:00 2013 10:31:00 DIS Outpatient [id number] 01/08/2014 13:00:00 2013 10:55:00 DIS Inpatient [id number] 03/05/2017 20:37:00 ACT Inpatient HARRY GIORDANO DO [facility] 4TH SEPSIS, UTI, HEART FAILURE ACUTE DECOMPENSATED
--- NOTE | 2017-03-09 22:04 | Diagnostic Imaging Report ---
INDICATION: Hip pain COMPARISON: Radiographs of the right hip from the same date TECHNIQUE: Two radiographs of the pelvis dated March 09, 2017. FINDINGS: Examination is severely limited secondary to patient body habitus. No displaced fracture. No definite hip dislocation. IMPRESSION: Severely limited examination without definite displaced fracture. If there remains concern for a possible fracture given this limited exam, further evaluation with a CT of the pelvis should be obtained. Dictated by: Dictated on workstation # [id number]
--- NOTE | 2017-03-09 22:11 | Diagnostic Imaging Report ---
INDICATION: Right hip pain COMPARISON: Radiographs of the pelvis from the same day TECHNIQUE: Three radiographs of the right hip dated March 09, 2017 FINDINGS: Examination is severely limited secondary to patient body habitus. No displaced fracture involving the proximal femoral shaft. Only a frontal radiograph actually demonstrates the right hip joint, therefore this location is difficult to completely exclude. IMPRESSION: Severely limited examination. No definite acute osseous abnormality seen, though exam is severely limited. Recommend a CT of the pelvis and hip if patient's clinical symptoms persist. Dictated by: Dictated on workstation # [id number]
[2017-03-09] MEDS ORDERED: cefTRIAXone INJECTION 1,000 MG in NS (IVPB) 50 ML IV ONE (22:45)
[2017-03-09] MEDS ORDERED: HYDROcodone/APAP 5 MG/325 MG (LORTAB) TAB PO ONE (22:45)
--- NOTE | 2017-03-09 22:48 | ED General ---
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 PT REPORTS HE WAS SENT HOME ON CIPRO ET TO F/U W/ WOUND CARE. PER EMS, PT WAS USING HIS WALKER TO GET UP THE STAIRS AT HOME, GOT TO THE TOP OF THE STAIRS "WENT DOWN" ET COULD NOT GET UP. EMS ET FIRE X4 HERE FOR TRANSPORT ET TRANSFER Nursing Sepsis Screen: No Definite Risk Source of Information: Patient Exam Limitations: No Limitations History of Present Illness Time Seen by Provider: 19:49 Initial Comments This 62-year-old man was brought to the emergency room via EMS after having a fall on the steps to his home. He has 6 steps up to the entrance of his home which he was climbing when he fell. He simply did not have the strength to make it all the way to the top of the stairs. He complains of right hip and knee pain after having a fall. Patient is chronically debilitated with severe lower extremity edema and morbid obesity. In addition to the right knee and hip pain, he has abrasions to the feet and has completely avulsed the left fifth toenail. According to EMS, patient was in an unsafe situation and ultimately required 8 individuals to help transfer him to the hospital. Patient reports having difficulty moving his lower extremities described as near paralysis about 4 days ago. This has been gradually improving over the last few days. Allergies and Home Medications Allergies Coded Allergies: No Known Drug Allergies (Verified , 04/12/08) Home Medications Amlodipine Besylate 10 Mg Tablet, 10 MG PO DAILY, (Reported) Aspirin 81 Mg Tablet.dr, 81 MG PO DAILY, (Reported) Carvedilol 25 Mg Tablet, 25 MG PO BID, (Reported) Clonidine HCl 0.1 Mg Tablet, 0.1 MG PO BID, (Reported) LAST FILLED #60 11-22-16 Furosemide 40 Mg Tablet, 40 MG PO DAILY, (Reported) Glipizide 10 Mg Tablet, 10 MG PO DAILY, (Reported) Isosorbide Mononitrate 30 Mg Tab.sr.24h, 30 MG PO HS, (Reported) Lisinopril 40 Mg Tablet, 40 MG PO DAILY, (Reported) Metformin HCl 850 Mg Tablet, 850 MG PO BID, (Reported) LAST FILLED #60 11-25-16 Nitroglycerin 0.4 Mg Tab.subl, 0.4 MG SL UD PRN for CHEST PAIN, (Reported) Potassium Chloride 10 Meq Tab.prt.sr, 10 MEQ PO DAILY, (Reported) Pravastatin Sodium 40 Mg Tablet, 40 MG PO DAILY, (Reported) Ranitidine HCl 150 Mg Tablet, 150 MG PO BID, (Reported) Constitutional: see HPI EENTM: no symptoms reported Respiratory: wheezing Cardiovascular: edema Gastrointestinal: no symptoms reported Genitourinary: no symptoms reported Musculoskeletal: see HPI Skin: other (Chronic skin changes and erythema of the lower extremities) Psychiatric/Neurological: See HPI Past Razcfhi-Mjzvge-Tsazey Hx Patient Social History Alcohol Use: Denies Use Recreational Drug Use: No Smoking Status: Unknown if Ever Smoked 2nd Hand Smoke Exposure: No Recent Foreign Travel: No Contact w/Someone Who Travel: No Recent Infectious Disease Expo: No Recent Hopitalizations: No Seasonal Allergies Seasonal Allergies: No Surgeries HX Surgeries: Yes Surgeries: CABG, Orthopedic Respiratory Hx Respiratory Disorders: No Cardiovascular Hx Cardiac Disorders: Yes Cardiac Disorders: Chronic Edema/Swelling, Coronary Artery Disease, Heart Attack, Hypertension Neurological Hx Neurological Disorders: Yes Neurological Disorders: Neuropathy Reproductive System Hx Reproductive Disorders: No Sexually Transmitted Disease: No HIV/AIDS: No Genitourinary Hx Genitourinary Disorders: Yes Genitourinary Disorders: Benign Prostatic Hyperpl, Renal Failure (Chronic kidney disease) Gastrointestinal Hx Gastrointestinal Disorders: No Musculoskeletal Hx Musculoskeletal Disorders: Yes Musculoskeletal Disorders: Arthritis Endocrine Hx Endocrine Disorders: Yes Endocrine Disorders: Diabetes, Non-Insulin dep HEENT HX ENT Disorders: No Cancer Hx Cancer: No Psychosocial Hx Psychiatric Problems: No Integumentary HX Skin/Integumentary Disorder: Yes (CELLULITIS/GANGRENE) Blood Transfusions Hx Blood Disorders: No Adverse Reaction to a Blood Tr: No Family Medical History Significant Family History: Heart Disease Family Medial History: Congestive heart failure 19 MOTHER Family history: Cardiovascular disease 19 MOTHER G8 BROTHER Family history: Diabetes mellitus 19 MOTHER G8 BROTHER Family history: Glaucoma G8 BROTHER Family history: Hypertension Physical Exam Vital Signs Vital Sign - Last 12Hours 03/09/17 03/09/17 20:05 20:48 Temp 98.1 Pulse 95 Resp 20 B/P (MAP) 116/58 Pulse Ox 90 O2 Delivery Room Air O2 Flow Rate 2.00 Capillary Refill : Less Than 3 Seconds General Appearance: WD/WN, Mild Distress, Obese HEENT: PERRL/EOMI, Normal ENT Inspection Neck: Normal Inspection, Non Tender Respiratory: No Accessory Muscle Use, No Respiratory Distress, Wheezing Cardiovascular: Regular Rate, Rhythm, No Murmur, Other (Severe chronic lower extremity edema) Gastrointestinal: Non Tender, Soft Extremity: Swelling (Severe chronic lower extremity edema), Other (Tenderness of the right hip and right knee. Pain with range of motion of the knee and external rotation of the hip. Chronic erythema and skin changes noted. Minor abrasions on the left foot. Complete avulsion of the left fifth toenail.) Neurologic/Psychiatric: Alert, Oriented x3, No Motor/Sensory Deficits, Normal Mood/Affect, arabic linguist II-XII Norm as Tested Skin: Normal Color, Warm/Dry, Other (See above) Progress/Results/Core Measures Results/Orders Lab Results Laboratory Tests Test 03/09/17 19:54 03/09/17 21:10 03/11/17 11:31 Range/Units White Blood Count 13.7 H 10.3 4.3-11.0 10^3/uL Red Blood Count 3.51 L 3.60 L 4.35-5.85 10^6/uL Hemoglobin 9.9 L 10.2 L 13.3-17.7 G/DL Hematocrit 32 L 34 L 40-54 % Mean Corpuscular Volume 92 93 80-99 FL Mean Corpuscular Hemoglobin 28 28 25-34 PG Mean Corpuscular Hemoglobin Concent 31 L 30 L 32-36 G/DL Red Cell Distribution Width 14.0 14.2 10.0-14.5 % Platelet Count 443 H 443 H 130-400 10^3/uL Mean Platelet Volume 9.0 8.1 7.4-10.4 FL Neutrophils (%) (Auto) 80 H 73 42-75 % Lymphocytes (%) (Auto) 6 L 11 L 12-44 % Monocytes (%) (Auto) 8 9 0-12 % Eosinophils (%) (Auto) 6 8 0-10 % Basophils (%) (Auto) 0 1 0-10 % Neutrophils # (Auto) 11.0 H 7.5 1.8-7.8 X 10^3 Lymphocytes # (Auto) 0.8 L 1.1 1.0-4.0 X 10^3 Monocytes # (Auto) 1.0 0.9 0.0-1.0 X 10^3 Eosinophils # (Auto) 0.9 H 0.8 H 0.0-0.3 10^3/uL Basophils # (Auto) 0.1 0.1 0.0-0.1 10^3/uL Neutrophils % (Manual) 77 % Lymphocytes % (Manual) 8 % Monocytes % (Manual) 7 % Eosinophils % (Manual) 4 % Basophils % (Manual) 0 % Band Neutrophils 4 % Blood Morphology Comment NORMAL Sodium Level 139 142 135-145 MMOL/L Potassium Level 5.3 H 5.1 H 3.6-5.0 MMOL/L Chloride Level 107 107 98-107 MMOL/L Carbon Dioxide Level 20 L 23 21-32 MMOL/L Anion Gap 12 12 5-14 MMOL/L Blood Urea Nitrogen 81 H 67 H 7-18 MG/DL Creatinine 2.14 H 1.87 H 0.60-1.30 MG/DL Estimat Glomerular Filtration Rate 31 37 BUN/Creatinine Ratio 38 36 Glucose Level 166 H 72 70-105 MG/DL Calcium Level 9.7 10.1 8.5-10.1 MG/DL Total Bilirubin 0.3 0.3 0.1-1.0 MG/DL Aspartate Amino Transf (AST/SGOT) 20 22 5-34 U/L Alanine Aminotransferase (ALT/SGPT) 27 28 0-55 U/L Alkaline Phosphatase 72 69 40-136 U/L Total Protein 7.4 7.9 6.4-8.2 GM/DL Albumin 3.1 L 3.3 3.2-4.5 GM/DL Urine Color YELLOW Urine Clarity CLEAR Urine pH 5 5-9 Urine Specific Salome 1.015 L 1.016-1.022 Urine Protein 1+ H NEGATIVE Urine Glucose (UA) NEGATIVE NEGATIVE Urine Ketones NEGATIVE NEGATIVE Urine Nitrite NEGATIVE NEGATIVE Urine Bilirubin NEGATIVE NEGATIVE Urine Urobilinogen NORMAL NORMAL MG/DL Urine Leukocyte Esterase 3+ H NEGATIVE Urine RBC (Auto) 5+ H NEGATIVE Urine RBC 10-25 H /HPF Urine WBC 10-25 H /HPF Urine Squamous Epithelial Cells 2-5 /HPF Urine Crystals NONE /LPF Urine Bacteria FEW H /HPF Urine Casts NONE /LPF Urine Mucus NEGATIVE /LPF Urine Culture Indicated YES Micro Results Microbiology 03/09/17 Urine Culture - Preliminary, Resulted Yeast Species Probable Coag Negative Staph My Orders Orders - RENÉE RATLIFF T MD Cbc With Automated Diff (03/09/17 20:04) Comprehensive Metabolic Panel (03/09/17 20:04) Ua Culture If Indicated (03/09/17 20:04) Chest 1 View, Ap/Pa Only (03/09/17 20:04) Knee, Right, 3 Views (03/09/17 20:04) Pelvis (03/09/17 20:04) Hip, Right, 2 Views (03/09/17 20:04) Albuterol/Ipra Inhalation Soln (Duoneb I (03/09/17 20:15) Svn Sm Volume Nebulizer Rt-Rfs (03/09/17 20:04) Foot, Left, 3 Views (03/09/17 20:04) Manual Differential (03/09/17 19:54) Urine Culture (03/09/17 21:10) Ceftriaxone Injection (Rocephin Injectio (03/09/17 22:45) Hydrocodone/Apap 5/325 Tablet (Lortab 5 (03/09/17 22:45) Iv Push Small Engine Specialist Ed (03/09/17 ) Medications Given in ED Vital Signs/I&O Vital Sign - Last 12Hours 03/11/17 03/11/17 03/11/17 07:32 10:10 10:33 Temp 97.7 98.4 Pulse 80 80 68 Resp 20 20 18 B/P (MAP) 126/60 126/60 140/76 Pulse Ox 98 98 96 O2 Delivery Room Air Room Air Room Air Blood Pressure Mean: 77 Progress Note : Progress Note Patient was found to have a urinary tract infection and was treated with Rocephin. DuoNeb treatment was administered for the wheezing. Radiology imaging was extremely limited due to body habitus and bone demineralization. Patient was not CT candidate as he did not fit in the scanner and had difficulty the last time he was scanned due to pinching from the machine. Disposition of this patient presents a complicated problem. Case management will be consulted to help determine long-term disposition. He is not safe to be in the home at this time. Diagnostic Imaging Diagonstic Imaging: Xray Plain Films/CT/US/NM/MRI: chest Comments Chest x-ray viewed by me and report reviewed. See report below: NAME: LISA KAMINSKI [facility] REC#: [id number] PT STATUS: REG ER : 1955 PHYSICIAN: RENÉE RATLIFF MD ADMIT DATE: 03/09/17/ER Signed Date of Exam: 03/09/17 CHEST 1 VIEW, AP/PA ONLY INDICATION: Fall. COMPARISON: March 05, 2017. TECHNIQUE: Single radiograph of the chest dated March 09, 2017. FINDINGS: Postsurgical changes of a CABG are again identified. The cardiac silhouette is enlarged, though stable. No significant pulmonary vascular congestion. The lungs appear clear when accounting for overlying soft tissues. No significant pleural effusion. No pneumothorax. No acute osseous abnormality. IMPRESSION: Cardiomegaly and postsurgical changes without acute cardiopulmonary abnormality. Dictated by: Dictated on workstation # [id number] Dict: 03/09/172045 Trans: 03/09/172235 Interpreted by: ALFREDO STONE MD Electronically signed by: ALFREDO STONE MD 03/09/172235 Diagonstic Imaging: Xray Plain Films/CT/US/NM/MRI: other (Left foot) Comments Left foot x-ray viewed by me and report reviewed. See report below: NAME: LISA KAMINSKI [facility] REC#: [id number] PT STATUS: REG : 1955 PHYSICIAN: RENÉE RATLIFF MD ADMIT DATE: 03/09/17/ER Signed Date of Exam: 03/09/17 FOOT, LEFT, 3 VIEWS INDICATION: Fall. COMPARISON: April 12, 2008 TECHNIQUE: Three radiographs of the left foot dated March 09, 2017. FINDINGS: Healed fractures involving the distal third and fourth metatarsals are noted. The osseous structures appear significantly demineralized. This limits evaluation of the osseous structures. Joint space narrowing at the first MTP joint. Moderate posterior and plantar calcaneal enthesophytes. Surgical clip overlying the region of the distal tibia and fibula. IMPRESSION: 1. No acute osseous abnormality, though evaluation is limited secondary to osseous demineralization. 2. Healed third and fourth metatarsal fractures. 3. Mild degenerative changes. Dictated by: Dictated on workstation # [id number] Dict: 03/09/172047 Trans: 03/09/172235 Interpreted by: ALFREDO STONE MD Electronically signed by: ALFREDO STONE MD 03/09/172235 Diagonstic Imaging: Xray Plain Films/CT/US/NM/MRI: hip Comments Right hip x-ray viewed by me and report reviewed. See report below: NAME: LISA KAMINSKI [facility] REC#: [id number] PT STATUS: REG ER : 1955 PHYSICIAN: RENÉE RATLIFF MD ADMIT DATE: 03/09/17/ER Signed Date of Exam: 03/09/17 HIP, RIGHT, 2 VIEWS INDICATION: Right hip pain COMPARISON: Radiographs of the pelvis from the same day TECHNIQUE: Three radiographs of the right hip dated March 09, 2017 FINDINGS: Examination is severely limited secondary to patient body habitus. No displaced fracture involving the proximal femoral shaft. Only a frontal radiograph actually demonstrates the right hip joint, therefore this location is difficult to completely exclude. IMPRESSION: Severely limited examination. No definite acute osseous abnormality seen, though exam is severely limited. Recommend a CT of the pelvis and hip if patient's clinical symptoms persist. Dictated by: Dictated on workstation # [id number] Dict: 03/09/172206 Trans: 03/09/172234 Interpreted by: ALFREDO STONE MD Electronically signed by: ALFREDO STONE MD 03/09/172234 Diagonstic Imaging: Xray Plain Films/CT/US/NM/MRI: knee Comments Right knee x-ray viewed by me and report reviewed. See report below: NAME: LISA KAMINSKI [facility] REC#: [id number] PT STATUS: REG ER : 1955 PHYSICIAN: RENÉE RATLIFF MD ADMIT DATE: 03/09/17/ER Signed Date of Exam: 03/09/17 KNEE, RIGHT, 3 VIEWS INDICATION: Fall. COMPARISON: None available. TECHNIQUE: Three radiographs of the right knee dated March 09, 2017. FINDINGS: Osseous demineralization. No acute fracture or dislocation. No destructive osseous process. Moderate medial joint space narrowing. No significant joint effusion. Mild vascular calcifications. No suspicious radiopaque foreign body. IMPRESSION: No acute osseous abnormality with moderate degenerative changes. Osseous demineralization. Dictated by: Dictated on workstation # [id number] Dict: 03/09/172052 Trans: 03/09/172234 Interpreted by: ALFREDO STONE MD Electronically signed by: ALFREDO STONE MD 03/09/172234 Diagonstic Imaging: Xray Plain Films/CT/US/NM/MRI: pelvis Comments Pelvis x-ray viewed by me and report reviewed. See report below: NAME: LISA KAMINSKI [facility] REC#: [id number] PT STATUS: REG ER : 1955 PHYSICIAN: RENÉE RATLIFF MD ADMIT DATE: 03/09/17/ER Signed Date of Exam: 03/09/17 PELVIS INDICATION: Hip pain COMPARISON: Radiographs of the right hip from the same date TECHNIQUE: Two radiographs of the pelvis dated March 09, 2017. FINDINGS: Examination is severely limited secondary to patient body habitus. No displaced fracture. No definite hip dislocation. IMPRESSION: Severely limited examination without definite displaced fracture. If there remains concern for a possible fracture given this limited exam, further evaluation with a CT of the pelvis should be obtained. Dictated by: Dictated on workstation # [id number] Dict: 03/09/172158 Trans: 03/09/172234 Interpreted by: ALFREDO STONE MD Electronically signed by: ALFREDO STONE MD 03/09/172234 Departure Communication Time/Spoke to Admitting Phy: 22:[address] Monzon agrees to admission. Disposition is a problem with this patient. He has failed discharge home. Placement versus rehabilitation is a consideration. Social work will be consulted. He is receiving Rocephin for urinary tract infection. Impression Impression: Primary Impression: Fall down stairs Qualified Codes: W10.8XXA - Fall (on) (from) other stairs and steps, initial encounter Additional Impressions: Urinary tract infection Qualified Codes: N39.0 - Urinary tract infection, site not specified Leukocytosis Qualified Codes: D72.829 - Elevated white blood cell count, unspecified Debility, unspecified Morbid obesity Qualified Codes: E66.01 - Morbid (severe) obesity due to excess calories Right hip pain Lower extremity edema Wheezing Disposition: 09 ADMITTED INPATIENT Condition: Improved Departure-Patient Inst. Decision time for Depature: 22:40 Referrals: NO,LOCAL PHYSICIAN (PCP/Family) Primary Care Physician RENÉE RATLIFF MD Mar 09, 2017 22:48
--- OUTSIDE RECORDS SUMMARY | 2017-03-09 23:46 | XMS REPORT | Continuity of Care Document ---
Author Author [facility] Organization [facility] Address Unknown Phone Unavailable Allergies Active Description Code Type Severity Reaction Onset Reported/Identified Relationship to Patient Clinical Status Yes No Known Drug Allergies [id number] Drug Allergy Unknown N/ A 04/12/2008 Medications [...] culture - 03/05/17 19:14 Bacterial urine culture [id number] NRG COLONY COUNT 10,000/ML - 100,000/ML NRG [...] Status Pt. Type Provider Facility Loc./Unit Complaint [id number] 01/24/2014 09:40:00 2013 10:31:00 DIS Outpatient [id number] 01/08/2014 13:00:00 2013 10:55:00 DIS Inpatient [id number] 03/05/2017 20:37:00 ACT Inpatient HARRY GIORDANO DO [facility] 4TH SEPSIS, UTI, HEART FAILURE ACUTE DECOMPENSATED
[2017-03-10] MEDS ORDERED: RT-ALBUTEROL SULF 2.5 MG/3 ML PRE-MIX VIAL IH PRN (00:45)
[2017-03-10 00:52] VITALS: BP 108/54
[2017-03-10 04:45] VITALS: BP 115/56
[2017-03-10] MEDS: HYDROcodone/APAP 5 MG/325 MG (LORTAB) TAB PO PRN ×4 (06:26→21:58)
[2017-03-10 08:00] VITALS: BP 113/53
[2017-03-10] MEDS ORDERED: NITROGLYCERIN SUBLINGUAL 0.4 MG TAB (NITROSTAT) SL PRN (10:15)
--- NOTE | 2017-03-10 10:21 | History & Physical-Hospitalist ---
HPI History of Present Illness: HPI/Chief Complaint CC: Fall at home HPI: This is a 62 yoWM pt who was recently DC from [facility] and returned via EMS after sustaining a fall. SW Review: Possible NH placement Medical Student Review: Pt sustained fall when trying to climb steps into his house Pain in right knee, ankle, and hip Pt confirms recent DC from [facility] Pt discussed his past medical hx Pt states that he experiences painful urination Patient Interview: Pt states that he felt better before he left yesterday Pt states that he still has weakness in his legs and this seems to frustrate him Physical exam stable. Lungs sound perfect. Pt confirms receiving pain meds and this helps PT was discussed and we will help him to gain strength Scribed by Dena Guzmán under the direct supervision of Dr. Levi. Source: patient Exam Limitations: no limitations Date Seen 03/10/17 Time Seen by Provider: 10:00 Attending Physician Ulysses Monzon MD PCP No,Local Physician Referring Physician Date of Admission Mar 09, 2017 at 22:49 Home Medications & Allergies Home Medications Reviewed patient Home Medication Reconciliation Form Allergies Allergies Coded Allergies No Known Drug Allergies (Verified04/12/08) Past Ainzhhu-Dpttwx-Ojucxw Hx Patient Social History Marrital Status: single Employed/Student: retired Alcohol Use: Denies Use Recreational Drug Use: No Smoking Status: Never a Smoker 2nd Hand Smoke Exposure: No Physical Abuse Screen: No Sexual Abuse: No Recent Foreign Travel: No Contact w/other who traveled: No Recent Hopitalizations: Yes Recent Infectious Disease Expo: No Seasonal Allergies Seasonal Allergies: No Surgeries HX Surgeries: Yes Surgeries: CABG, Orthopedic Respiratory Hx Respiratory Disorders: No Cardiovascular Hx Cardiovascular Disorders: Yes Cardiac Disorders: Coronary Artery Disease, Heart Attack, Hypertension Neurological Hx Neurological Disorders: Yes Neurological Disorders: Neuropathy Reproductive System Hx Reproductive Disorders: No Sexually Transmitted Disease: No HIV/AIDS: No Genitourinary Hx Genitourinary Disorders: Yes Genitourinary Disorders: Benign Prostatic Hyperpl Gastrointestinal Hx Gastrointestinal Disorders: No Musculoskeletal Hx Musculoskeletal Disorders: Yes Musculoskeletal Disorders: Arthritis Endocrine Hx Endocrine Disorders: Yes Endocrine Disorders: Diabetes, Non-Insulin dep HEENT HX ENT Disorders: No Cancer Hx Cancer: No Psychosocial Hx Psychiatric Problems: No Integumentary HX Skin/Integumentary Disorder: Yes (CELLULITIS/GANGRENE) Blood Transfusions Hx Blood Disorders: No Adverse Reaction to a Blood Tr: No Family Medical History Family Hx: Congestive heart failure 19 MOTHER Family history: Cardiovascular disease 19 MOTHER G8 BROTHER Family history: Diabetes mellitus 19 MOTHER G8 BROTHER Family history: Glaucoma G8 BROTHER Family history: Hypertension Review of Systems Constitutional: see HPI, weakness EENTM: no symptoms reported Respiratory: no symptoms reported Cardiovascular: no symptoms reported Gastrointestinal: no symptoms reported Genitourinary: hesitancy Musculoskeletal: joint pain Skin: no symptoms reported Psychiatric/Neurological: No Symptoms Reported All Other Systems Reviewed Negative Unless Noted: Yes Physical Exam Physical Exam Vital Signs Vital Sign - Last 12Hours 03/09/17 03/09/17 20:05 20:48 Temp 98.1 Pulse 95 Resp 20 B/P (MAP) 116/58 Pulse Ox 90 O2 Delivery Room Air O2 Flow Rate 2.00 Capillary Refill : Less Than 3 Seconds General Appearance: No Apparent Distress, WD/WN, Chronically ill, Obese Eyes: Bilateral Eye Normal Inspection, Bilateral Eye PERRL HEENT: PERRL/EOMI, Normal ENT Inspection, Pharynx Normal Neck: Full Range of Motion, Normal Inspection, Non Tender, Supple, Carotid Bruit Respiratory: Chest Non Tender, Lungs Clear, Normal Breath Sounds, No Accessory Muscle Use, No Respiratory Distress Cardiovascular: Regular Rate, Rhythm, No Edema, No Gallop, No JVD, No Murmur, Normal Peripheral Pulses Gastrointestinal: Normal Bowel Sounds, No Organomegaly, No Pulsatile Mass, Non Tender, Soft Back: Normal Inspection, No CVA Tenderness, No Vertebral Tenderness Extremity: Normal Capillary Refill, Normal Inspection, Normal Range of Motion, Non Tender, No Calf Tenderness, Pedal Edema (chronic) Neurologic/Psychiatric: Alert, Oriented x3, No Motor/Sensory Deficits, Normal Mood/Affect Skin: Normal Color, Warm/Dry Lymphatic: No Adenopathy Results Results/Procedures Lab Laboratory Tests 03/09/17 19:54 Assessment/Plan Admission Diagnosis Assessment: Fall Severe leg weakness unable to ambulate UTI Lower extremity cellulitis wound care consulted CAD Carotid stenosis severe declines surgery of CEA CHF DM HTN HLP Morbid super obesity Knee pain right Assessment and Plan Plan: PT eval Possible NH placement? Continue Hydrocodone Home meds reconciled Clinical Quality Measures DVT/VTE Risk/Contraindication: Risk Factor Score Per Nursin RFS Level Per Nursing on Admit: 4+=Very High HARRY LEVI DO Mar 10, 2017 10:21
[2017-03-10] MEDS ORDERED: ENOXAPARIN 40 MG/0.4 ML (LOVENOX) SYR SC SCH (11:00)
[2017-03-10] MEDS: FUROSEMIDE 40 MG (LASIX) TAB PO SCH (11:11)
[2017-03-10] MEDS: cloNIDine 0.1 MG (CATAPRES) TAB PO SCH ×2 (11:11→21:58)
[2017-03-10] MEDS: metFORMIN 850 MG (GLUCOPHAGE) TAB PO SCH ×2 (11:11→17:39)
[2017-03-10] MEDS: KCL 10 MEQ TAB (MICRO K) PO SCH (11:11)
[2017-03-10] MEDS: amLODIPine 10 MG (NORVASC) TAB PO SCH (11:11)
[2017-03-10] MEDS: CARVEDILOL 12.5 MG (COREG) TABLET PO SCH ×2 (11:12→21:58)
[2017-03-10] MEDS: lisINopril 20 MG (ZESTRIL) TAB PO SCH (11:12)
[2017-03-10] MEDS: ASPIRIN E.C. 81 MG (ECOTRIN) TAB PO SCH (11:12)
[2017-03-10] MEDS: glipiZIDE 5 MG (GLUCOTROL) TAB PO SCH (11:15)
--- NOTE | 2017-03-10 11:45 | Physical Therapy Evaluation ---
PT Evaluation-General Medical Diagnosis Admission Date Mar 09, 2017 at 22:49 Medical Diagnosis: fall Onset Date: Mar 09, 2017 Therapy Diagnosis Therapy Diagnosis: weakness; abn gait Height/Weight Height (Feet): 6 Height (Inches): 2.00 Weight (Pounds): 410 Weight (Ounces): 0.0 Precautions Precautions/Isolations: Fall Prevention, Standard Precautions Referral Physician: gustabo Reason for Referral: Evaluation/Treatment Medical History Pertinent Medical History: CABG, CAD, DM, Heart Failure, HTN, [place], Neuropathy Current History Pt had discharge from hospital on 03/09/17 and upon attempting to enter his home , he fell. returned to this hospital and was admitted. Reviewed History: Yes Social History Home: Single Level Current Living Status: Children Entry Into Home: Stairs With Railing (5) Prior/Core FIM Prior Level of Function Functional [place] Measure 0=Not Assessed/NA 4=Minimal Assistance 1=Total Assistance 5=Supervision or Setup 2=Maximal Assistance 6=Modified [place] 3=Moderate Assistance 7=Complete [place] Pt reports he has recently experienced a decline in functional mobility but his prior function was indep with gait and transfers, able to walk into [facility] ( used a scooter once in) and able to care for himself. he lives with he daughter and son in law. PT Evaluation-Current Subjective Agrees to PT and acknowledges that he probably was not ready to discharge home yesterday. Pain Numeric Pain Scale: 10-Worst Possible Pain Location: Right Location Body Site: Knee Pain Description: Acute, Sharp Comment: increased pain with weight bearing. Pt/Family Goals His goal is to gain more strength and return home able to care for himself. Objective Patient Orientation: Person, Place, Time, Situation Problem Solving: Fair ROM/Strength ROM Lower Extremities Knee flexion limited by soft tissue but LE Rom is WFL Strenght Lower Extremities B LE strenght is grossly 4-/5. Integumentary/Posture Integumentary refer to nursing notes. Bowel Incontinence: No Bladder Incontinence: No Posture slight rounded shoulders in standing. Neuromuscular (Tone, Coordination, Reflexes) functional Sensory Vision: Functional Hearing: Functional Hand Dominance: Right Sensation Right Lower Extremit: Impaired Sensation Left Lower Extremity: Impaired Sensation Lower Extremities cellulitis B LE's Transfers Functional [place] Measure 0=Not Assessed/NA 4=Minimal Assistance 1=Total Assistance 5=Supervision or Setup 2=Maximal Assistance 6=Modified [place] 3=Moderate Assistance 7=Complete [place] Transfers (B, C, W/C) (FIM): 4 Supine to/from Sit: 4 (CGA for safety with skilled cues to sequence. ) Sit to/from Stand: 4 (CGa to stand up with skilled cuing for hand placement and cuing. ) bed t/f WC(FIM only if WC use): 4 (FWW and close CGA; heavy reliance on FWW) Sit to stand x 1 and then sit to stand to take a few steps to transfer to the chair. CGA with transfer and used FWW; heavy reliance on walker and reports he is limited by right Knee pain. Unable to attempt ambulation due to pain. Gait Mode of Locomotion: Walk Balance Sitting Static: Good Sitting Dynamic: Good Standing Static: Fair Standing Dynamic: Fair Treatment Functional transfers; standing and transfer tot he chair. Assessment/Needs Pt presents post acute hospital stay with fall at home. He has decreased ability to transfer and mobilize limited by pain and strength deficits. He would benefit from continued therapy services to improve his mobiliyt to allow him to return home as before. EVal of moderate complexity: Co morbidities: DM, HTN, [place], obesity; Deficits: LE weakness, decreased balance, assist with functional transfers; right knee pain. 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 Goals Time Frame: Mar 12, 2017 Transfers (B,C,W/C) (FIM): 5 Gait (FIM): 5 Gait distance (FIM): 3=150 ft Gait Assistive Device: FWW PT Plan Problem List Problem List: Activity Tolerance, Functional Strength, Safety, Balance, Gait, Transfer, Bed Mobility Treatment/Plan Treatment Plan: Continue Plan of Care Treatment Plan: Bed Mobility, Education, Functional Activity Soha, Functional Strength, Gait, Safety, Therapeutic Exercise, Transfers Treatment Duration: Mar 12, 2017 Frequency: 6 times per week Estimated Hrs Per Day: .5 hour per day Patient and/or Family Agrees t: Yes Safety Risks/Education Patient Education: Transfer Techniques, Safety Issues Teaching Recipient: Patient Teaching Methods: Demonstration, Discussion Response to Teaching: Reinforcement Needed Time/GCodes Time In: 1015 Time Out: 1035 Total Billed Treatment Time: 20 Total Billed Treatment visit EVM 20 CHRISTA BEDOLLA PT Mar 10, 2017 11:45
[2017-03-10 16:00] VITALS: BP 116/71
[2017-03-10] MEDS: FAMOTIDINE 20 MG (PEPCID) TABLET PO SCH (20:59)
[2017-03-10] MEDS ORDERED: SIMvastatin 20 MG (ZOCOR) TAB PO SCH (21:00)
[2017-03-10] MEDS ORDERED: cefTRIAXone 1 GM/NS 50 ML IVPB IV SCH ×2 (21:00)
[2017-03-10] MEDS ORDERED: ISOSORBIDE MONONITRATE 30 MG (IMDUR) TAB PO SCH (21:00)
[2017-03-11 00:40] VITALS: BP 116/58
[2017-03-11] MEDS: metFORMIN 850 MG (GLUCOPHAGE) TAB PO SCH (06:19)
[2017-03-11] MEDS: KCL 10 MEQ TAB (MICRO K) PO SCH (06:19)
[2017-03-11] MEDS: glipiZIDE 5 MG (GLUCOTROL) TAB PO SCH (06:19)
[2017-03-11] MEDS: HYDROcodone/APAP 5 MG/325 MG (LORTAB) TAB PO PRN (06:23)
[2017-03-11 07:32] VITALS: BP 126/60
[2017-03-11] MEDS: FUROSEMIDE 40 MG (LASIX) TAB PO SCH (08:14)
[2017-03-11] MEDS: ASPIRIN E.C. 81 MG (ECOTRIN) TAB PO SCH (08:14)
[2017-03-11] MEDS: amLODIPine 10 MG (NORVASC) TAB PO SCH (08:14)
[2017-03-11] MEDS: FAMOTIDINE 20 MG (PEPCID) TABLET PO SCH (08:15)
[2017-03-11] MEDS: CARVEDILOL 12.5 MG (COREG) TABLET PO SCH (08:15)
[2017-03-11] MEDS: lisINopril 20 MG (ZESTRIL) TAB PO SCH (08:15)
[2017-03-11] MEDS: cloNIDine 0.1 MG (CATAPRES) TAB PO SCH (08:15)
--- NOTE | 2017-03-11 09:35 | Discharge Summary-Hospitalist ---
Diagnosis/Chief Complaint Date of Admission Mar 09, 2017 at 22:49 Date of Discharge Discharge Date: Mar 11, 2017 Admission Diagnosis Assessment: Fall Severe leg weakness unable to ambulate UTI Lower extremity cellulitis wound care consulted CAD Carotid stenosis severe declines surgery of CEA CHF DM HTN HLP Morbid super obesity Knee pain right Discharge Diagnosis Assessment: Fall Severe leg weakness unable to ambulate UTI resolved Lower extremity cellulitis wound care consulted CAD Carotid stenosis severe declines surgery of CEA CHF DM HTN HLP Morbid super obesity Knee pain right Plan: PT eval Possible NH placement? Continue Hydrocodone Home meds reconciled Reason Hospital Visit/Course CC: Fall at home HPI: This is a 62 yoWM pt who was recently DC from [facility] and returned via EMS after sustaining a fall. SW Review: Possible NH placement Medical Student Review: Pt sustained fall when trying to climb steps into his house Pain in right knee, ankle, and hip Pt confirms recent DC from [facility] Pt discussed his past medical hx Pt states that he experiences painful urination Patient Interview: Pt states that he felt better before he left yesterday Pt states that he still has weakness in his legs and this seems to frustrate him Physical exam stable. Lungs sound perfect. Pt confirms receiving pain meds and this helps PT was discussed and we will help him to gain strength Scribed by Dena Guzmán under the direct supervision of Dr. Levi. Notes from 03/11/17 Chart Review: Urine cx less than 10k coag negative staph No fever Vitals stable Will check CBC and CMP now Patient Interview: Pt is okay with move to in-pt rehab. Pt was informed that he will not need abx there, he finished his course. Pt asked about his kidney infection, I assured him that everything looks good and his kidney infection is cleared up. Pt states that he had a BM recently Physical exam stable. AFVSS, Pleasant improved up in chair RRR, CTAB No change in venous stasis dermatitis No erythema of the legs Plan: Swingbed DC to Rehab Scribed by Dena Guzmán under the direct supervision of Dr. Levi. Discharge Summary Discharge Physical Examination Allergies: Coded Allergies: No Known Drug Allergies (Verified , 04/12/08) Vitals & I&Os Vital Signs Date Time Temp Pulse Resp B/P (MAP) Pulse Ox O2 Delivery O2 Flow Rate FiO2 03/11/17 10:33 98.4 68 18 140/76 96 Room Air 7/11/17 23:59 2.00 Hospital Course Labs (last 24 hrs) Microbiology 03/09/17 Urine Culture - Preliminary, Resulted Probable Coag Negative Staph Discharge Home Medications: Active Scripts Active Reported Nitroglycerin 0.4 Mg Tab.subl 0.4 Mg SL UD PRN Acid Bariatric Program Coordinator (RANITIDINE) (Ranitidine HCl) 150 Mg Tablet 150 Mg PO BID Clonidine HCl 0.1 Mg Tablet 0.1 Mg PO BID LAST FILLED #60 11-22-16 Metformin HCl 850 Mg Tablet 850 Mg PO BID LAST FILLED #60 11-25-16 Amlodipine Besylate 10 Mg Tablet 10 Mg PO DAILY [place] Aspirin (Aspirin) 81 Mg Tablet.dr 81 Mg PO DAILY Isosorbide Mononitrate 30 Mg (Isosorbide Mononitrate) 30 Mg Tab.sr.24h 30 Mg PO HS Prinivil (Lisinopril) 40 Mg Tablet 40 Mg PO DAILY Furosemide 40 Mg Tablet 40 Mg PO DAILY Pravachol (Pravastatin Sodium) 40 Mg Tablet 40 Mg PO DAILY Glipizide 10 Mg Tablet 10 Mg PO DAILY K-Dur (Potassium Chloride) 10 Meq Tab.prt.sr 10 Meq PO DAILY Carvedilol 25 Mg Tablet 25 Mg PO BID Instructions to patient/family Please see electonic discharge instructions given to patient. Clinical Quality Measures DVT/VTE Risk/Contraindication: Risk Factor Score Per Nursin RFS Level Per Nursing on Admit: 4+=Very High HARRY LEVI DO Mar 11, 2017 09:34
[2017-03-11 10:10] VITALS: BP 126/60
[2017-03-11 10:33] VITALS: BP 140/76
[2017-03-11 11:38] LABS: BASOPHILS # (AUTO) 0.1 10^3/uL (0.0-0.1); BASOPHILS % (AUTO) 1 % (0-10); EOSINOPHILS # (AUTO) 0.8 10^3/uL (0.0-0.3); EOSINOPHILS % (AUTO) 8 % (0-10); LYMPHOCYTES # (AUTO) 1.1 X 10^3 (1.0-4.0); LYMPHOCYTES % (AUTO) 11 % (12-44); MEAN CORPUSCULAR HEMOGLOBIN 28 PG (25-34); MEAN CORPUSCULAR HGB CONC 30 G/DL (32-36); MEAN CORPUSCULAR VOLUME 93 FL (80-99); MEAN PLATELET VOLUME 8.1 FL (7.4-10.4); MONOCYTES # (AUTO) 0.9 X 10^3 (0.0-1.0); MONOCYTES % (AUTO) 9 % (0-12); NEUTROPHILS # (AUTO) 7.5 X 10^3 (1.8-7.8); NEUTROPHILS % (AUTO) 73 % (42-75); PLATELET COUNT 443 10^3/uL (130-400); RED CELL DISTRIBUTION WIDTH 14.2 % (10.0-14.5); WHITE BLOOD COUNT 10.3 10^3/uL (4.3-11.0)
[2017-03-11 12:06] LABS: ALBUMIN 3.3 GM/DL (3.2-4.5); BILIRUBIN,TOTAL 0.3 MG/DL (0.1-1.0); CALCIUM 10.1 MG/DL (8.5-10.1); CREATININE SERUM 1.87 MG/DL (0.60-1.30); POTASSIUM 5.1 MMOL/L (3.6-5.0); TOTAL PROTEIN 7.9 GM/DL (6.4-8.2)
== END 2017-03-11 10:20 | DRG 690 ==
LOC: EDUNIT# 19:48 → ER 19:49 → 4TH 22:49
PROVIDERS: ADMIT Internal Medicine; ATTEND Internal Medicine
DX: N39.0 Urinary tract infection, site not specified (principal); R29.898 Other symptoms and signs involving the musculoskeletal system; S79.911A Unspecified injury of right hip, initial encounter; S89.91XA Unspecified injury of right lower leg, initial encounter; S91.215A Laceration without foreign body of left lesser toe(s) with damage to nail, initial encounter; S90.811A Abrasion, right foot, initial encounter; S90.812A Abrasion, left foot, initial encounter; L03.115 Cellulitis of right lower limb; L03.116 Cellulitis of left lower limb; E66.01 Morbid (severe) obesity due to excess calories; Z68.43 Body mass index [BMI] 50.0-59.9, adult; R53.81 Other malaise; R60.0 Localized edema; I25.10 Atherosclerotic heart disease of native coronary artery without angina pectoris; I11.0 Hypertensive heart disease with heart failure; I50.9 Heart failure, unspecified; E11.40 Type 2 diabetes mellitus with diabetic neuropathy, unspecified; E78.5 Hyperlipidemia, unspecified; R06.2 Wheezing; M19.91 Primary osteoarthritis, unspecified site; N40.0 Benign prostatic hyperplasia without lower urinary tract symptoms; I87.2 Venous insufficiency (chronic) (peripheral); W10.8XXA Fall (on) (from) other stairs and steps, initial encounter; Y92.008 Other place in unspecified non-institutional (private) residence as the place of occurrence of the external cause; Z79.84 Long term (current) use of oral hypoglycemic drugs; Z95.1 Presence of aortocoronary bypass graft; I25.2 Old myocardial infarction
CPT/HCPCS: 36415; 71010; 72170; 73502; 73562; 73630; 80053; 81000; 85007; 85025; 85027; 87088; 94640; 96374; 99283

== ENCOUNTER 2017-03-11 09:30 | Inpatient (IN) | payer MEDICARE ==
[~2017-03-11] VITALS: Ht 188 cm; Wt 175.1 kg
--- NOTE | 2017-03-11 10:52 | Physical Therapy Evaluation ---
PT Evaluation-General Medical Diagnosis Admission Date March 11, 2017 Medical Diagnosis: fall/debility Onset Date: Mar 09, 2017 Therapy Diagnosis Therapy Diagnosis: generalized weakness/debility Height/Weight Height (Feet): 6 Height (Inches): 2.00 Weight (Pounds): 410 Weight (Ounces): 0.0 Precautions Precautions/Isolations: Standard Precautions Weight Bear Status Location Restriction: LE Bilateral Referral Physician: Ja Reason for Referral: Evaluation/Treatment Medical History Pertinent Medical History: CABG, CAD, DM, Heart Failure, HTN, [place], Neuropathy Additional Medical History morbid obesity/sleeps in recliner Current History recent hospital stay with dismissal to home and return to hospital on same day due to inability to safely function at home Reviewed History: Yes Social History Home: Single Level Current Living Status: Children Entry Into Home: Stairs With Railing PT Steps Into Home: 5 Prior/Core FIM Prior Level of Function Functional [place] Measure 0=Not Assessed/NA 4=Minimal Assistance 1=Total Assistance 5=Supervision or Setup 2=Maximal Assistance 6=Modified [place] 3=Moderate Assistance 7=Complete [place] Bed Mobility: 6 Transfers (B,C,W/C) (FIM): 6 Gait: 6 Locomotion: 6 PT Evaluation-Current Subjective Patient agrees to PT. Pain Numeric Pain Scale: 5-Moderate Pain Location: Right Location Body Site: Knee Pain Description: Ache, Chronic Pt/Family Goals return to home and increase mobility Objective Patient Orientation: Normal For Age Problem Solving: Good ROM/Strength ROM Lower Extremities bilateral LE WNL Strenght Lower Extremities right knee flexion/extension 4/5; hip flexion 4/5; ankle dorsi/plantarflexion 4/ 5 left knee flexion/extension 4/5; hip flexion 4/5; ankle dorsi/plantarflexion 4/5 Integumentary/Posture Integumentary refer to nursing notes Bowel Incontinence: No Bladder Incontinence: No Posture trunk flexed posture in stand Neuromuscular (Tone, Coordination, Reflexes) grossly intact coordination/diminished sensation bilateral LE's Sensory Vision: Functional Hearing: Functional Sensation Right Lower Extremit: Impaired Sensation Left Lower Extremity: Impaired Transfers Functional [place] Measure 0=Not Assessed/NA 4=Minimal Assistance 1=Total Assistance 5=Supervision or Setup 2=Maximal Assistance 6=Modified [place] 3=Moderate Assistance 7=Complete IndependenceIRFPAI Quality Coding Scale 6 Independent with activity with or without an assistive device 5 Patient requires set up or clean up by helper. Patient completes activity by themselves 4 Supervision or touching assist (CGA). [place] provide cues , steadying assist 3 The helper provides less than half the effort to complete the activity 2 The helper provides more than half the effort to complete the activity 1 Dependent. The helper does all the effort to complete an activity 7 Patient refused to complete or attempt activity 9 The patient did not perform the activity before the current illness or injury 88 Not attempted due to Medical conditions or safety concerns Transfers (B, C, W/C) (FIM): 5 Scootin Rollin Roll Left to Right (QC): 5 Supine to/from Sit: 5 Sit to/from Stand: 5 bed t/f WC(FIM only if WC use): 5 Sit to Lying (QC): 5 Lying to Sitting/Side of Bed(Q: 5 Sit to Stand (QC): 5 Chair/Xxk-ue-Gazlp Xfer(QC): 5 Car Transfer (QC): 88 Gait Does the Patient Walk?: Yes Mode of Locomotion: Walk Anticipated Mode of Locomotion: Walk Gait (FIM): 1 Distance (FIM): 1=up to 49 ft Walk 10 feet (QC): 5 Walk 50 ft with 2 Turns(QC): 88 Walk 150 ft (QC): 9 Walking 10ft/uneven surface-QC: 88 Distance: 25' Gait Level of Assist: 5 Gait Persons Needed: 1 Gait Assistive Device: FWW Comments/Gait Description antalgic right knee with step to gait sequence Stairs Stairs (FIM): 1 #of Steps: 1 Level of Assist: 4 1 Step (curb) (QC): 4 4 Steps (QC): 88 Assistive Device: Walker 12 Steps (QC): 9 Balance Sitting Static: Normal Sitting Dynamic: Normal Standing Static: Fair Standing Dynamic: Fair Assessment/Needs 62 y.o. male, will benefit from skilled PT to address functional strength and mobility to improve current LOF and safely return to home with family at maximum LOF. Rehab Potential: Good Post Rehab Potential-Barriers: compliance PT Skilled Nursing Goals Skilled Nursing Goals PT Miller Helper Goals Time Frame: Mar 26, 2017 Transfers (B,C,W/C) (FIM): 6 Sit to Lying (QC): 5 Lying-Sitting on Side/Bed(QC): 5 Sit to Stand (QC): 5 Rollin Roll Left to Right (QC): 5 Chair/Yca-bq-Ukwty Xfer(QC): 5 Car Transfer (QC): 5 Does the Patient Walk: Yes Gait distance (FIM): 7=037-03 ft Distance: 100' Walk 10 feet (QC): 5 Walk 10ft-Uneven Surface(QC): 5 Walk 50ft with 2 Turns (QC): 5 Walk 150 ft (QC): 9 Gait Level of Assist: 6 Gait Assistive Device: FWW Stairs (FIM): 2 # of Steps: 4 1 Step (curb) (QC): 5 4 Steps (QC): 5 12 Steps (QC): 9 Stairs Level Of Assist: 5 Picking up an Object (QC): 5 PT Plan Problem List Problem List: Activity Tolerance, Functional Strength, Gait, Bed Mobility Treatment/Plan Treatment Plan: Continue Plan of Care Treatment Plan: Bed Mobility, Education, Functional Activity Soha, Functional Strength, Gait, Safety, Therapeutic Exercise, Transfers Treatment Duration: Mar 26, 2017 Frequency: At least 5-7 days/Wk (IRF) Estimated Hrs Per Day: 1.5 hours per day Patient and/or Family Agrees t: Yes Safety Risks/Education Patient Education: Steps Teaching Recipient: Patient Teaching Methods: Demonstration, Discussion Response to Teaching: Verbalize Understanding, Return Demonstration Discharge Recommendations Therapy D/C Recommendations: Home w/ Family Support, Physical Therapy Home Care Equpiment Recommendations-D/C: Front Wheeled Walker Time/GCodes Time In: 1005 Time Out: 1015 Total Billed Treatment Time: 15 Total Billed Treatment 1 visit EVLowC 10 min ALFREDO MONTGOMERY PT Mar 11, 2017 10:52
--- NOTE | 2017-03-11 12:05 | Physical Therapy Daily Note ---
PT Daily Note-Current Subjective Patient agrees to PT. He just completed OT session and states he is fatigued. Pain Numeric Pain Scale: 5-Moderate Pain Location: Right Location Body Site: Knee Pain Description: Ache, Chronic Mental Status Patient Orientation: Normal For Age Transfers Functional [place] Measure 0=Not Assessed/NA 4=Minimal Assistance 1=Total Assistance 5=Supervision or Setup 2=Maximal Assistance 6=Modified [place] 3=Moderate Assistance 7=Complete IndependenceIRFPAI Quality Coding Scale 6 Independent with activity with or without an assistive device 5 Patient requires set up or clean up by helper. Patient completes activity by themselves 4 Supervision or touching assist (CGA). [place] provide cues , steadying assist 3 The helper provides less than half the effort to complete the activity 2 The helper provides more than half the effort to complete the activity 1 Dependent. The helper does all the effort to complete an activity 7 Patient refused to complete or attempt activity 9 The patient did not perform the activity before the current illness or injury 88 Not attempted due to Medical conditions or safety concerns Transfers (B, C, W/C) (FIM): 5 Scootin Sit to/from Stand: 5 Sit to Stand (QC): 5 SBA with sit to stand transfers x 8 reps Gait Training Does the Patient Walk?: Yes Gait (FIM): 1 Distance (FIM): 1=up to 49 ft Distance: 20' x 6 Walk 10 feet (QC): 5 Gait Level of Assist: 5 Gait Assistive Device: FWW slow, antalgic step to gait sequence Wheelchair Training Does the Pt Use a Wheelchair?: Yes Wheelchair (FIM): 1 Wheelchair Distance: 1=up to 49 ft Distance: 25' Wheelchair Level of Assist: 5 Type of Wheelchair: Manual Exercises Seated Therapy Exercises: Ankle pumps, Long arc quads, Hip flexion Seated Reps: 20 (3 sets) Standing: Hip Abduction, Heel/toe raises, Mini squats Assessment Patient tolerated treatment well and fatigues with activity due to inactivity PLOF. PT to increase exercises program and gait training as patient tolerates to safely return to home. PT Custodial Goals Custodial Goals PT Custodial Goals Time Frame: Mar 26, 2017 Transfers (B,C,W/C) (FIM): 6 Sit to Lying (QC): 5 Lying-Sitting on Side/Bed(QC): 5 Sit to Stand (QC): 5 Rollin Roll Left to Right (QC): 5 Chair/Tiz-dk-Nuzwe Xfer(QC): 5 Car Transfer (QC): 5 Does the Patient Walk: Yes Gait distance (FIM): 7=919-50 ft Distance: 100' Walk 10 feet (QC): 5 Walk 10ft-Uneven Surface(QC): 5 Walk 50ft with 2 Turns (QC): 5 Walk 150 ft (QC): 9 Gait Level of Assist: 6 Gait Assistive Device: FWW Stairs (FIM): 2 # of Steps: 4 1 Step (curb) (QC): 5 4 Steps (QC): 5 12 Steps (QC): 9 Stairs Level Of Assist: 5 Picking up an Object (QC): 5 PT Plan Treatment/Plan Treatment Plan: Continue Plan of Care Treatment Plan: Bed Mobility, Education, Functional Activity Soha, Functional Strength, Gait, Safety, Therapeutic Exercise, Transfers Treatment Duration: Mar 26, 2017 Frequency: At least 5-7 days/Wk (IRF) Estimated Hrs Per Day: 1.5 hours per day Patient and/or Family Agrees t: Yes Time/GCodes Time In: 1100 Time Out: 1205 Total Billed Treatment Time: 65 Total Billed Treatment 1 visit EX x 2 35 min GT x 2 30 min ALFREDO MONTGOMERY PT Mar 11, 2017 12:05
--- OUTSIDE RECORDS SUMMARY | 2017-03-11 12:17 | XMS REPORT | Continuity of Care Document ---
Author Author [facility] Organization [facility] Address Unknown Phone Unavailable Allergies Active Description Code Type Severity Reaction Onset Reported/Identified Relationship to Patient Clinical Status Yes No Known Drug Allergies [id number] Drug Allergy Unknown N/ A 04/12/2008 Medications [...] culture - 03/05/17 19:14 Bacterial urine culture [id number] NRG COLONY COUNT 10,000/ML - 100,000/ML NRG FTX;REPORTABLE PLUS, NRG FREE TEXT ENTRY 2 MIXED GRAM POSITIVES <10,000/ML NRG Bacterial blood culture - 03/05/17 19:50 Bacterial blood culture NG NRG Bacterial blood culture - 03/05/17 21:00 FREE TEXT EXTERNAL SENSITIVITY REPORTED 03/08/17 7:30 NRG QUANTITY OF GROWTH Isolated NRG Bacterial blood culture [id number] NRG Bacterial susceptibility panel - 03/05/17 21:00 Oxacillin susceptibility test by minimum inhibitory concentration >= NRG Gentamicin susceptibility test by minimum inhibitory concentration <= NRG Clindamycin susceptibility test by minimum inhibitory concentration <= NRG Erythromycin susceptibility test by minimum inhibitory concentration >= NRG Trimethoprim/sulfamethoxazole susceptibility test by minimum inhibitoryconcentration 160 NRG Vancomycin susceptibility test by minimum inhibitory concentration 1 NRG Levofloxacin susceptibility test by minimum inhibitory concentration >= NRG Rifampin susceptibility test by minimum inhibitory concentration <= NRG Tetracycline susceptibility test by minimum inhibitory concentration >= NRG Ciprofloxacin susceptibility test by minimum inhibitory concentration R NRG Capillary blood glucose measurement by glucometer [...] blood glucose measurement by glucometer (mass/volume) - 03/07/17 05: 23 Capillary blood glucose measurement by glucometer (mass/volume) 215 mg/dL 70-110 Automated blood complete blood count (hemogram) panel - 03/07/17 05:54 Blood leukocytes automated count (number/volume) 12.4 10*3/ uL 4.3-11.0 Blood erythrocytes automated count (number/volume) 3.36 10*6 /uL 4.35-5.85 Venous blood hemoglobin measurement (mass/volume) 9.5 g/dL 13.3-17.7 Blood hematocrit (volume fraction) 31 % 40-54 Automated erythrocyte mean corpuscular volume 91 [foz_us] 80-99 Automated erythrocyte mean corpuscular hemoglobin (mass per erythrocyte) 28 pg 25-34 Automated erythrocyte mean corpuscular hemoglobin concentration measurement ( mass/volume) 31 g/dL 32-36 Automated erythrocyte distribution width ratio 13.9 % 10.0-14.5 Automated blood platelet count (count/volume) 355 10*3/uL 130-400 Automated blood platelet mean volume measurement 9.2 [foz_us ] 7.4-10.4 Comprehensive metabolic panel - 03/07/17 05:54 Serum or plasma sodium measurement (moles/volume) 138 mmol/ L 135-145 Serum or plasma potassium measurement (moles/volume) 4.5 mmol/L 3.6-5.0 Serum or plasma chloride measurement (moles/volume) 104 mmol /L 98-107 Carbon dioxide 22 mmol/L 21-32 Serum or plasma anion gap determination (moles/volume) 12 mmol/L 5-14 Serum or plasma urea nitrogen measurement (mass/volume) 75 mg/dL 7-18 Serum or plasma creatinine measurement (mass/volume) 2.12 mg /dL 0.60-1.30 Serum or plasma urea nitrogen/creatinine mass ratio 35 NRG Serum or plasma creatinine measurement with calculation of estimated glomerular filtration rate 32 NRG Serum or plasma glucose measurement (mass/volume) 221 mg/dL 70-105 Serum or plasma calcium measurement (mass/volume) 9.7 mg/dL 8.5-10.1 Serum or plasma total bilirubin measurement (mass/volume) 0.4 mg/dL 0.1-1.0 Serum or plasma alkaline phosphatase measurement (enzymatic activity/volume) 77 U/L 40-136 Serum or plasma aspartate aminotransferase measurement (enzymatic activity/ volume) 27 U/L 5-34 Serum or plasma alanine aminotransferase measurement (enzymatic activity/volume ) 28 U/L 0-55 Serum or plasma protein measurement (mass/volume) 7.4 g/dL 6.4-8.2 Serum or plasma albumin measurement (mass/volume) 3.1 g/dL 3.2-4.5 Magnesium - 03/07/17 05:54 Magnesium 1.9 mg/dL 1.8-2.4 Lipid 1996 panel - 03/07/17 05:54 Serum or plasma triglyceride measurement (mass/volume) 84 mg /dL <150 Serum or plasma cholesterol measurement (mass/volume) 130 mg /dL < 200 Serum or plasma cholesterol in HDL measurement (mass/volume) 27 mg/dL 40-60 Cholesterol in LDL [mass/volume] in serum or plasma by direct assay 85 mg/dL 1-129 Serum or plasma cholesterol in VLDL measurement (mass/volume) 17 mg/dL 5-40 Serum or plasma lithium measurement (moles/volume) - 03/07/17 05:54 BNP level 252.9 pg/mL <100.0 Capillary blood glucose measurement by glucometer (mass/volume) - 03/07/17 11: 04 Capillary blood glucose measurement by glucometer (mass/volume) 197 mg/dL 70-110 Capillary blood glucose measurement by glucometer (mass/volume) - 03/07/17 17: 04 Capillary blood glucose measurement by glucometer (mass/volume) 187 mg/dL 70-110 Capillary blood glucose measurement by glucometer (mass/volume) - 03/07/17 20: 48 Capillary blood glucose measurement by glucometer (mass/volume) 208 mg/dL 70-110 Capillary blood glucose measurement by glucometer (mass/volume) - 03/08/17 06: 45 Capillary blood glucose measurement by glucometer (mass/volume) 163 mg/dL 70-110 Complete blood count (CBC) with automated white blood cell (WBC) differential - 03/08/17 07:42 Blood leukocytes automated count (number/volume) 11.5 10*3/ uL 4.3-11.0 Blood erythrocytes automated count (number/volume) 3.45 10*6 /uL 4.35-5.85 Venous blood hemoglobin measurement (mass/volume) 9.8 g/dL 13.3-17.7 Blood hematocrit (volume fraction) 32 % 40-54 Automated erythrocyte mean corpuscular volume 92 [foz_us] 80-99 Automated erythrocyte mean corpuscular hemoglobin (mass per erythrocyte) 28 pg 25-34 Automated erythrocyte mean corpuscular hemoglobin concentration measurement ( mass/volume) 31 g/dL 32-36 Automated erythrocyte distribution width ratio 13.9 % 10.0-14.5 Automated blood platelet count (count/volume) 358 10*3/uL 130-400 Automated blood platelet mean volume measurement 8.4 [foz_us ] 7.4-10.4 Automated blood neutrophils/100 leukocytes 80 % 42-75 Automated blood lymphocytes/100 leukocytes 7 % 12-44 Blood monocytes/100 leukocytes 7 % 0-12 Automated blood eosinophils/100 leukocytes 6 % 0-10 Automated blood basophils/100 leukocytes 0 % 0-10 Blood neutrophils automated count (number/volume) 9.2 10*3 1.8-7.8 Blood lymphocytes automated count (number/volume) 0.7 10*3 1.0-4.0 Blood monocytes automated count (number/volume) 0.8 10*3 0.0-1.0 Automated eosinophil count 0.7 10*3/uL 0.0-0.3 Automated blood basophil count (count/volume) 0.1 10*3/uL 0.0-0.1 Vancomycin trough - 03/08/17 07:42 Vancomycin trough 15.2 ug/mL 10.0-20.0 Comprehensive metabolic panel - 03/08/17 07:42 Serum or plasma sodium measurement (moles/volume) 139 mmol/ L 135-145 Serum or plasma potassium measurement (moles/volume) 4.2 mmol/L 3.6-5.0 Serum or plasma chloride measurement (moles/volume) 104 mmol /L 98-107 Carbon dioxide 23 mmol/L 21-32 Serum or plasma anion gap determination (moles/volume) 12 mmol/L 5-14 Serum or plasma urea nitrogen measurement (mass/volume) 82 mg/dL 7-18 Serum or plasma creatinine measurement (mass/volume) 2.30 mg /dL 0.60-1.30 Serum or plasma urea nitrogen/creatinine mass ratio 36 NRG Serum or plasma creatinine measurement with calculation of estimated glomerular filtration rate 29 NRG Serum or plasma glucose measurement (mass/volume) 166 mg/dL 70-105 Serum or plasma calcium measurement (mass/volume) 9.6 mg/dL 8.5-10.1 Serum or plasma total bilirubin measurement (mass/volume) 0.4 mg/dL 0.1-1.0 Serum or plasma alkaline phosphatase measurement (enzymatic activity/volume) 73 U/L 40-136 Serum or plasma aspartate aminotransferase measurement (enzymatic activity/ volume) 21 U/L 5-34 Serum or plasma alanine aminotransferase measurement (enzymatic activity/volume ) 27 U/L 0-55 Serum or plasma protein measurement (mass/volume) 7.4 g/dL 6.4-8.2 Serum or plasma albumin measurement (mass/volume) 3.1 g/dL 3.2-4.5 Capillary blood glucose measurement by glucometer (mass/volume) - 03/08/17 10: 59 Capillary blood glucose measurement by glucometer (mass/volume) 211 mg/dL 70-110 Capillary blood glucose measurement by glucometer (mass/volume) - 03/08/17 16: 23 Capillary blood glucose measurement by glucometer (mass/volume) 161 mg/dL 70-110 Capillary blood glucose measurement by glucometer (mass/volume) - 03/08/17 21: 17 Capillary blood glucose measurement by glucometer (mass/volume) 178 mg/dL 70-110 Capillary blood glucose measurement by glucometer (mass/volume) - 03/09/17 04: 52 Capillary blood glucose measurement by glucometer (mass/volume) 195 mg/dL 70-110 Automated blood complete blood count (hemogram) panel - 03/09/17 07:55 Blood leukocytes automated count (number/volume) 11.7 10*3/ uL 4.3-11.0 Blood erythrocytes automated count (number/volume) 3.35 10*6 /uL 4.35-5.85 Venous blood hemoglobin measurement (mass/volume) 9.5 g/dL 13.3-17.7 Blood hematocrit (volume fraction) 31 % 40-54 Automated erythrocyte mean corpuscular volume 93 [foz_us] 80-99 Automated erythrocyte mean corpuscular hemoglobin (mass per erythrocyte) 28 pg 25-34 Automated erythrocyte mean corpuscular hemoglobin concentration measurement ( mass/volume) 31 g/dL 32-36 Automated erythrocyte distribution width ratio 13.9 % 10.0-14.5 Automated blood platelet count (count/volume) 370 10*3/uL 130-400 Automated blood platelet mean volume measurement 8.7 [foz_us ] 7.4-10.4 Whole blood basic metabolic panel - 03/09/17 07:55 Serum or plasma sodium measurement (moles/volume) 138 mmol/ L 135-145 Serum or plasma potassium measurement (moles/volume) 4.7 mmol/L 3.6-5.0 Serum or plasma chloride measurement (moles/volume) 106 mmol /L 98-107 Carbon dioxide 24 mmol/L 21-32 Serum or plasma anion gap determination (moles/volume) 8 mmol/L 5-14 Serum or plasma urea nitrogen measurement (mass/volume) 84 mg/dL 7-18 Serum or plasma creatinine measurement (mass/volume) 2.24 mg /dL 0.60-1.30 Serum or plasma urea nitrogen/creatinine mass ratio 38 NRG Serum or plasma creatinine measurement with calculation of estimated glomerular filtration rate 30 NRG Serum or plasma glucose measurement (mass/volume) 196 mg/dL 70-105 Serum or plasma calcium measurement (mass/volume) 9.5 mg/dL 8.5-10.1 Magnesium - 03/09/17 07:55 Magnesium 2.1 mg/dL 1.8-2.4 Vancomycin trough - 03/09/17 07:55 Vancomycin trough 15.7 ug/mL 10.0-20.0 Capillary blood glucose measurement by glucometer (mass/volume) - 03/09/17 10: 57 Capillary blood glucose measurement by glucometer (mass/volume) 224 mg/dL 70-110 Capillary blood glucose measurement by glucometer (mass/volume) - 03/09/17 16: 53 Capillary blood glucose measurement by glucometer (mass/volume) 194 mg/dL 70-110 Complete blood count (CBC) with automated white blood cell (WBC) differential - 03/09/17 19:54 Blood leukocytes automated count (number/volume) 13.7 10*3/ uL 4.3-11.0 Blood erythrocytes automated count (number/volume) 3.51 10*6 /uL 4.35-5.85 Venous blood hemoglobin measurement (mass/volume) 9.9 g/dL 13.3-17.7 Blood hematocrit (volume fraction) 32 % 40-54 Automated erythrocyte mean corpuscular volume 92 [foz_us] 80-99 Automated erythrocyte mean corpuscular hemoglobin (mass per erythrocyte) 28 pg 25-34 Automated erythrocyte mean corpuscular hemoglobin concentration measurement ( mass/volume) 31 g/dL 32-36 Automated erythrocyte distribution width ratio 14.0 % 10.0-14.5 Automated blood platelet count (count/volume) 443 10*3/uL 130-400 Automated blood platelet mean volume measurement 9.0 [foz_us ] 7.4-10.4 Automated blood neutrophils/100 leukocytes 80 % 42-75 Automated blood lymphocytes/100 leukocytes 6 % 12-44 Blood monocytes/100 leukocytes 8 % 0-12 Automated blood eosinophils/100 leukocytes 6 % 0-10 Automated blood basophils/100 leukocytes 0 % 0-10 Blood neutrophils automated count (number/volume) 11.0 10*3 1.8-7.8 Blood lymphocytes automated count (number/volume) 0.8 10*3 1.0-4.0 Blood monocytes automated count (number/volume) 1.0 10*3 0.0-1.0 Automated eosinophil count 0.9 10*3/uL 0.0-0.3 Automated blood basophil count (count/volume) 0.1 10*3/uL 0.0-0.1 Comprehensive metabolic panel - 03/09/17 19:54 Serum or plasma sodium measurement (moles/volume) 139 mmol/ L 135-145 Serum or plasma potassium measurement (moles/volume) 5.3 mmol/L 3.6-5.0 Serum or plasma chloride measurement (moles/volume) 107 mmol /L 98-107 Carbon dioxide 20 mmol/L 21-32 Serum or plasma anion gap determination (moles/volume) 12 mmol/L 5-14 Serum or plasma urea nitrogen measurement (mass/volume) 81 mg/dL 7-18 Serum or plasma creatinine measurement (mass/volume) 2.14 mg /dL 0.60-1.30 Serum or plasma urea nitrogen/creatinine mass ratio 38 NRG Serum or plasma creatinine measurement with calculation of estimated glomerular filtration rate 31 NRG Serum or plasma glucose measurement (mass/volume) 166 mg/dL 70-105 Serum or plasma calcium measurement (mass/volume) 9.7 mg/dL 8.5-10.1 Serum or plasma total bilirubin measurement (mass/volume) 0.3 mg/dL 0.1-1.0 Serum or plasma alkaline phosphatase measurement (enzymatic activity/volume) 72 U/L 40-136 Serum or plasma aspartate aminotransferase measurement (enzymatic activity/ volume) 20 U/L 5-34 Serum or plasma alanine aminotransferase measurement (enzymatic activity/volume ) 27 U/L 0-55 Serum or plasma protein measurement (mass/volume) 7.4 g/dL 6.4-8.2 Serum or plasma albumin measurement (mass/volume) 3.1 g/dL 3.2-4.5 Blood manual differential performed detection - 03/09/17 19:54 Blood monocytes/100 leukocytes 7 % NRG Manual blood segmented neutrophils/100 leukocytes 77 % NRG Blood band neutrophils/100 leukocytes 4 % NRG Manual blood lymphocytes/100 leukocytes 8 % NRG Manual eosinophils/100 leukocytes in nose 4 % NRG Manual blood basophils/100 leukocytes 0 % NRG Blood erythrocyte morphology finding identification NORMAL NRG Complete urinalysis with reflex to culture - 03/09/17 21:10 Urine color determination YELLOW NRG Urine clarity determination CLEAR NRG Urine pH measurement by test strip 5 5- 9 Specific gravity of urine by test strip 1.015 1.016-1.022 Urine protein assay by test strip, semi-quantitative 1+ NEGATIVE Urine glucose detection by automated test strip NEGATIVE NEGATIVE Erythrocytes detection in urine sediment by light microscopy 5+ NEGATIVE Urine ketones detection by automated test strip NEGATIVE NEGATIVE Urine nitrite detection by test strip NEGATIVE NEGATIVE Urine total bilirubin detection by test strip NEGATIVE NEGATIVE Urine urobilinogen measurement by automated test strip (mass/volume) NORMAL NORMAL Urine leukocyte esterase detection by dipstick 3+ NEGATIVE Automated urine sediment erythrocyte count by microscopy (number/high power field) [HPF] NRG Automated urine sediment leukocyte count by microscopy (number/high power field ) [HPF] NRG Bacteria detection in urine sediment by light microscopy FEW NRG Squamous epithelial cells detection in urine sediment by light microscopy 2-5 NRG Crystals detection in urine sediment by light microscopy NONE NRG Casts detection in urine sediment by light microscopy NONE NRG Mucus detection in urine sediment by light microscopy NEGATIVE NRG Complete urinalysis with reflex to culture YES NRG Bacterial urine culture - 03/09/17 21:10 Bacterial urine culture [id number] NRG COLONY COUNT <10,000 NRG Complete blood count (CBC) with automated white blood cell (WBC) differential - 03/11/17 11:31 Blood leukocytes automated count (number/volume) 10.3 10*3/ uL 4.3-11.0 Blood erythrocytes automated count (number/volume) 3.60 10*6 /uL 4.35-5.85 Venous blood hemoglobin measurement (mass/volume) 10.2 g/dL 13.3-17.7 Blood hematocrit (volume fraction) 34 % 40-54 Automated erythrocyte mean corpuscular volume 93 [foz_us] 80-99 Automated erythrocyte mean corpuscular hemoglobin (mass per erythrocyte) 28 pg 25-34 Automated erythrocyte mean corpuscular hemoglobin concentration measurement ( mass/volume) 30 g/dL 32-36 Automated erythrocyte distribution width ratio 14.2 % 10.0-14.5 Automated blood platelet count (count/volume) 443 10*3/uL 130-400 Automated blood platelet mean volume measurement 8.1 [foz_us ] 7.4-10.4 Automated blood neutrophils/100 leukocytes 73 % 42-75 Automated blood lymphocytes/100 leukocytes 11 % 12-44 Blood monocytes/100 leukocytes 9 % 0-12 Automated blood eosinophils/100 leukocytes 8 % 0-10 Automated blood basophils/100 leukocytes 1 % 0-10 Blood neutrophils automated count (number/volume) 7.5 10*3 1.8-7.8 Blood lymphocytes automated count (number/volume) 1.1 10*3 1.0-4.0 Blood monocytes automated count (number/volume) 0.9 10*3 0.0-1.0 Automated eosinophil count 0.8 10*3/uL 0.0-0.3 Automated blood basophil count (count/volume) 0.1 10*3/uL 0.0-0.1 Comprehensive metabolic panel - 03/11/17 11:31 Serum or plasma sodium measurement (moles/volume) 142 mmol/ L 135-145 Serum or plasma potassium measurement (moles/volume) 5.1 mmol/L 3.6-5.0 Serum or plasma chloride measurement (moles/volume) 107 mmol /L 98-107 Carbon dioxide 23 mmol/L 21-32 Serum or plasma anion gap determination (moles/volume) 12 mmol/L 5-14 Serum or plasma urea nitrogen measurement (mass/volume) 67 mg/dL 7-18 Serum or plasma creatinine measurement (mass/volume) 1.87 mg /dL 0.60-1.30 Serum or plasma urea nitrogen/creatinine mass ratio 36 NRG Serum or plasma creatinine measurement with calculation of estimated glomerular filtration rate 37 NRG Serum or plasma glucose measurement (mass/volume) 72 mg/dL 70-105 Serum or plasma calcium measurement (mass/volume) 10.1 mg/ dL 8.5-10.1 Serum or plasma total bilirubin measurement (mass/volume) 0.3 mg/dL 0.1-1.0 Serum or plasma alkaline phosphatase measurement (enzymatic activity/volume) 69 U/L 40-136 Serum or plasma aspartate aminotransferase measurement (enzymatic activity/ volume) 22 U/L 5-34 Serum or plasma alanine aminotransferase measurement (enzymatic activity/volume ) 28 U/L 0-55 Serum or plasma protein measurement (mass/volume) 7.9 g/dL 6.4-8.2 Serum or plasma albumin measurement (mass/volume) 3.3 g/dL 3.2-4.5 Encounters ACCT No. Visit Date/Time Discharge Status Pt. Type Provider Facility Loc./Unit Complaint [id number] 01/24/2014 09:40:00 2013 10:31:00 DIS Outpatient [id number] 01/08/2014 13:00:00 2013 10:55:00 DIS Inpatient [id number] 03/11/2017 12:06:00 Document Registration [id number] 03/09/2017 20:29:00 Document Registration [id number] 03/05/2017 20:37:00 ACT Inpatient HARRY GIORDANO DO [facility] 4TH SEPSIS, UTI, HEART FAILURE ACUTE DECOMPENSATED
--- NOTE | 2017-03-11 12:39 | Occupational Therapy Eval ---
OT Evaluation-General/PLF Medical Diagnosis Admission Date Mar 11, 2017 at 10:05 Medical Diagnosis: fall/debility Onset Date: Mar 09, 2017 Therapy Diagnosis Therapy Diagnosis: Weakness, Decreased ADL skills Height/Weight Height (Feet): 6 Height (Inches): 2.00 Weight (Pounds): 410 Weight (Ounces): 0.0 Precautions Precautions/Isolations: Standard Precautions Weight Bear Status Weight Bearing Restriction: Weight Bearing/Tolerated Location Restriction: LE Bilateral Referral Physician: Ja Referral Reason: Activity Tolerance, Self Care, Evaluation/Treatment, Strengthening/ROM Medical History Pertinent Medical History: CABG, CAD, DM, Heart Failure, HTN, [place], Neuropathy Additional Medical History Multiple sores and thick areas of skin on LE. clinical studies specialist involved. Current History Pt. was in hospital due to weakness. Went home. Fell getting up stairs into home. Could not get back up. Reviewed History: Yes Social History Home: Single Level Current Living Status: Children Entry Into Home: Stairs With Railing Steps Into Home: 5 ADL-Prior Level of Function ADL PLOF Comments Pt. states that he wore LARISA hose and slide on shoes at home. Does not wear socks. Wears shorts. States that he can do all this, but LARISA hose are hard. A new pair has been ordered by his physician, Dr. Courtney. He states that he has a system at home, and can take care of himself. States that he can step over his tub, but does not have a tub seat. States that he toilets at home by leaning up against a wall to reach his rear [place] area. He uses a microwave at home or makes sandwiches. DME/Equipment: Tub/Shower DME/Equipment Comments Pt. uses a cane for mobility. However, has a 4 wheeled walker and regular walker. Drive Self: No OT Current Status Subjective No pain reported. However, pt. states, "I hope they can get my legs under control while I am here." Appearance Pt. is in wheelchair. Agrees to work with OT. Mental Status/Objective Patient Orientation: Person, Place, Time, Situation Current Upper Extremity ROM WFL Upper Extremity Strength 4/5 bilateral UE strength ADL-Treatment Functional [place] Measure 0=Not Assessed/NA 4=Minimal Assistance 1=Total Assistance 5=Supervision or Setup 2=Maximal Assistance 6=Modified [place] 3=Moderate Assistance 7=Complete IndependenceIRFPAI Quality Coding Scale 6 Independent with activity with or without an assistive device 5 Patient requires set up or clean up by helper. Patient completes activity by themselves 4 Supervision or touching assist (CGA). [place] provide cues , steadying assist 3 The helper provides less than half the effort to complete the activity 2 The helper provides more than half the effort to complete the activity 1 Dependent. The helper does all the effort to complete an activity 7 Patient refused to complete or attempt activity 9 The patient did not perform the activity before the current illness or injury 88 Not attempted due to Medical conditions or safety concerns Bathing (FIM): 3 (Pt. requires assistance to wash rear kingsley area and bilateral feet.) Shower/Bathe Self (QC): 3 Upper Body Dressing (FIM): 5 Upper Body Dressing (QC): 5 Lower Body Dressing (FIM): 3 (Due to shower setting and time constraints, pt. required mod assistance to don underwear, shorts, and socks.) Lower Body Dressing (QC): 3 On/Off Footwear (QC): 2 Shower Transfer (FIM): 4 (Pt. is able to stand from wheelchair with min assist by holding onto grab bars, and take steps toward shower chair with min assist needed.) Other Treatments Pt. agreed to shower. Nursing advised OT to gently wash bilateral LE until wound Dr. could be re-consulted. Real Estate Rep to also be consulted, as pt's toe nails are dangerously long. Pt. able to wash hair, face, upper chest, front kings[place] area, arms. States after shower, "I feel so much better." Education OT Patient Education: Correct positioning, Modified ADL techniques, Progress toward Goal/Update tx plan, Purpose of tx/functional activities, Reviewed precautions, Rehab process, Transfer techniques Teaching Recipient: Patient Teaching Methods: Demonstration, Discussion Response to Teaching: Verbalize Understanding, Return Demonstration OT Short Term Goals Short Term Goals Time Frame: Mar 18, 2017 Eating(FIM): 6 Grooming(FIM): 5 Bathing(FIM): 4 Upper Body Dressing(FIM): 5 Lower Body Dressing(FIM): 4 Toileting(FIM): 4 Transfers (B,C,W/C) (FIM): 5 Toilet/Commode Transfer(FIM): 5 Shower Transfer(FIM): 5 Additional Short Term Goals: 1-Demonstrate ADL Tasks, 2-Verbalize Understanding , 3-ImproveStrength/Soha 1=Demonstrate adherence to instructed precautions during ADL tasks. 2=Patient will verbalize/demonstrate understanding of assistive devices/ modifications for ADL. 3=Patient will improve strength/tolerance for activity to enable patient to perform ADL's. OT Prison Goals Consulting Sales Manager Goals Time Frame: Apr 01, 2017 Eating (FIM): 6 Eating (QC): 6 Groomin Oral Hygiene (QC): 6 Bathing(FIM): 5 Shower/Bathe Self (QC): 5 Upper Body Dressing(FIM): 6 Upper Body Dressing (QC): 6 Lower Body Dressing(FIM): 6 Lower Body Dressing (QC): 6 On/Off Footwear (QC): 6 Toileting(FIM): 6 Toileting Hygiene (QC): 6 Transfers (B,C,W/C) (FIM): 6 Toilet/Commode Transfer(FIM): 6 Toilet/Commode Transfer (QC): 6 Shower Transfer(FIM): 5 Additional Goals: 1-Demonstrate ADL Tasks, 2-Verbalize Understanding, 3- ImproveStrength/Soha 1=Demonstrate adherence to instructed precautions during ADL tasks. 2=Patient will verbalize/demonstrate understanding of assistive devices/ modifications for ADL. 3=Patient will improve strength/tolerance for activity to enable patient to perform ADL's. OT Education/Plan Problem List/Assessment Assessment: Decreased Activ Tolerance, Dependent Transfers, Impaired Bed Mobility, Impaired Funct Balance, Impaired I ADL's, Impaired Self-Care Skills Discharge Recommendations Plan/Recommendations: Continue POC Therapy D/C Recommendations: Home w/ Family Support, Occupational Therapy Home Care Equpiment Recommendations-D/C: Extended Bath Bench, Hip Kit Target Placement Home with family support. Treatment Plan/Plan of Care Treatment,Training & Education: Yes Patient would benefit from OT for education, treatment and training to promote independence in ADL's, mobility, safety and/or upper extremity function for ADL' s. Plan of Care: ADL Retraining, Functional Mobility, UE Funct Exercise/Act Treatment Duration: Apr 01, 2017 Frequency: At least 5-7 days/Wk (IRF) Estimated Hrs Per Day: 1.5 hours per day Agreement: Yes Rehab Potential: Good Time/GCodes Start Time: 10:20 Stop Time: 11:00 Total Time Billed (hr/min): 40 Billed Treatment Time 1, EVhigh x 15minutes, ADL x 25minutes CHARI KING OT Mar 11, 2017 12:39
[2017-03-11] MEDS ORDERED: RT-ALBUTEROL SULF 2.5 MG/3 ML PRE-MIX VIAL IH PRN (12:45)
[2017-03-11] MEDS ORDERED: NITROGLYCERIN SUBLINGUAL 0.4 MG TAB (NITROSTAT) SL PRN (12:45)
[2017-03-11] MEDS: ENOXAPARIN 40 MG/0.4 ML (LOVENOX) SYR SC SCH (12:59)
[2017-03-11 13:08] VITALS: BP 146/84
--- NOTE | 2017-03-11 13:25 | ST Cognitive Linguistic Eval ---
Speech Evaluation-General Medical Diagnosis fall/debility Onset Date: Mar 09, 2017 Therapy Diagnosis Therapy Diagnosis: Cognitive Linguistic Skills WFL Precautions Precautions/Isolations: Standard Precautions Referral Referring Physician: Dr. Pato Peres Reason for Referral: Evaluation/Treatment Cognitive Evaluation Medical History Pertinent Medical History: CABG, CAD, DM, Heart Failure, HTN, [place], Neuropathy Reviewed History: Yes Social History Current Living Status: Children Speech PLF-Current Status Prior Level of Function The patient denied recent challenges with cognition, speech, or language. Subjective The patient was recently admitted to [facility] following a fall. The patient greeted the clinician appropriately and was agreeable to participation in the cognitive evaluation. Language Eval: Auditory Comprehends Simple Yes/No Ques: Functional Indent/Objects Multiple Pereira: Functional Ident/Pics in Multiple Pereira: Functional Follows 1-Step Commands: Functional Follows Complex Directions: Functional Follows General Conversations: Functional Language Eval: Verbal Language Completes Spontaneous Greeting: Functional Produces Auto, Serial Info: Functional Imitates Simple Words/Phrases: Functional Word Finding: Functional Requests Basic Needs: Functional States Basic Personal Info: Functional Expresses Complex Ideas: Functional Cognitive Patient Orientation The patient was oriented to month, day of week, date, and year independently. Objective Cognitive Domain Attention: WNL Memory: WNL Problem Solving: Functional Objective Impression The patient demonstrated cognitive linguistic skills grossly within normal limits and appropriate for completion of ADL's. Communication/Social Cognition Comprehension: 6 Expression: 5 Social Interaction: 5 Problem Solvin Memory: 5 Speech Patient Assess Expression of Ideas/Wants: Expression (4) Understanding [place] Content: Understands (4) Brief Interview-Mental Status: Yes Repetition of Three Words: Three (3) Temporal Orientation: Year: Correct (3) Temporal Orientation: Month: Accurate within 5 days(2) Temporal Orientation: Day: Correct (1) Recall : Wear to say "Sock": Yes,after cueing (1) Recall : Color: Yes, no cue required (2) Recall : Bed: Yes, no cue required (2) Speech-Plan Treatment Plan Speech Therapy Treatment Plan: Discontinue ST Evaluation, only. The frequency and duration are filled below due to necessity for completion of documentation on this date. Frequency: Modified Program (IRF) Estimated Hrs Per Day: .25 hour per day Rehab Potential: Good Safety Risks/Education Teaching Recipient: Patient Teaching Methods: Discussion Response to Teaching: Verbalize Understanding Education Topics Provided: Recommendations, Results, Plan of Care Time Speech Therapy Time In: 12:13 Speech Therapy Time Out: 12:28 Total Billed Time: 15 Billed Treatment Time 1, SHAJI CORBIN Mar 11, 2017 13:25
--- NOTE | 2017-03-11 14:32 | Physical Therapy Daily Note ---
PT Daily Note-Current Subjective Patient agrees to PT. Pain Numeric Pain Scale: 5-Moderate Pain Location: Right Location Body Site: Knee Pain Description: Ache, Pressure Mental Status Patient Orientation: Normal For Age Transfers Functional [place] Measure 0=Not Assessed/NA 4=Minimal Assistance 1=Total Assistance 5=Supervision or Setup 2=Maximal Assistance 6=Modified [place] 3=Moderate Assistance 7=Complete IndependenceIRFPAI Quality Coding Scale 6 Independent with activity with or without an assistive device 5 Patient requires set up or clean up by helper. Patient completes activity by themselves 4 Supervision or touching assist (CGA). [place] provide cues , steadying assist 3 The helper provides less than half the effort to complete the activity 2 The helper provides more than half the effort to complete the activity 1 Dependent. The helper does all the effort to complete an activity 7 Patient refused to complete or attempt activity 9 The patient did not perform the activity before the current illness or injury 88 Not attempted due to Medical conditions or safety concerns Transfers (B, C, W/C) (FIM): 5 Scootin Rollin Roll Left to Right (QC): 5 Supine to/from Sit: 5 Sit to/from Stand: 5 Sit to Lying (QC): 5 Sit to Stand (QC): 5 Chair/Kch-rm-Ucwxf Xfer(QC): 5 Bed to/from Chair: 5 x 3 sets sit to stand Gait Training Does the Patient Walk?: Yes Gait (FIM): 1 Distance (FIM): 1=up to 49 ft (10') Distance: 10' Walk 10 feet (QC): 5 Gait Level of Assist: 5 Gait Assistive Device: FWW shuffle gait sequence Exercises Supine Ex: Ankle pumps, Quad Set, Heel Slides Supine Reps: 10 Seated Therapy Exercises: Ankle pumps, Long arc quads Seated Reps: 10 Assessment Patient is highly fatigued this p.m. and required recovery periods due to SOA with the exercise program and bed mobility/transfer activity. PT Short Term Goals Short Term Goals Transfers (B,C,W/C) (FIM): 5 Wheelchair Distance: 25' PT Jail Goals Jail Goals PT Jail Goals Time Frame: Mar 26, 2017 Transfers (B,C,W/C) (FIM): 6 Sit to Lying (QC): 5 Lying-Sitting on Side/Bed(QC): 5 Sit to Stand (QC): 5 Rollin Roll Left to Right (QC): 5 Chair/Bpz-ul-Myozi Xfer(QC): 5 Car Transfer (QC): 5 Does the Patient Walk: Yes Gait distance (FIM): 2=561-52 ft Distance: 100' Walk 10 feet (QC): 5 Walk 10ft-Uneven Surface(QC): 5 Walk 50ft with 2 Turns (QC): 5 Walk 150 ft (QC): 9 Gait Level of Assist: 6 Gait Assistive Device: FWW Stairs (FIM): 2 # of Steps: 4 1 Step (curb) (QC): 5 4 Steps (QC): 5 12 Steps (QC): 9 Stairs Level Of Assist: 5 Picking up an Object (QC): 5 PT Plan Treatment/Plan Treatment Plan: Continue Plan of Care Treatment Plan: Bed Mobility, Education, Functional Activity Soha, Functional Strength, Gait, Safety, Therapeutic Exercise, Transfers Treatment Duration: Mar 26, 2017 Frequency: At least 5-7 days/Wk (IRF) Estimated Hrs Per Day: 1.5 hours per day Patient and/or Family Agrees t: Yes Time/GCodes Time In: 1400 Time Out: 1430 Total Billed Treatment Time: 30 Total Billed Treatment 1 visit EX 15 min FA 15 min ALFREDO MONTGOMERY PT Mar 11, 2017 14:32
--- NOTE | 2017-03-11 15:09 | Occupational Ther Daily Note ---
OT Current Status-Daily Note Subjective Pt alert, lying in bed. Pt agreed to therapy. No c/o pain. Mental Status/Objective Patient Orientation: Person, Place, Time, Situation Functional [place] Measure 0=Not Assessed/NA 4=Minimal Assistance 1=Total Assistance 5=Supervision or Setup 2=Maximal Assistance 6=Modified [place] 3=Moderate Assistance 7=Complete [place] ADL-Treatment Functional [place] Measure 0=Not Assessed/NA 4=Minimal Assistance 1=Total Assistance 5=Supervision or Setup 2=Maximal Assistance 6=Modified [place] 3=Moderate Assistance 7=Complete IndependenceIRFPAI Quality Coding Scale 6 Independent with activity with or without an assistive device 5 Patient requires set up or clean up by helper. Patient completes activity by themselves 4 Supervision or touching assist (CGA). [place] provide cues , steadying assist 3 The helper provides less than half the effort to complete the activity 2 The helper provides more than half the effort to complete the activity 1 Dependent. The helper does all the effort to complete an activity 7 Patient refused to complete or attempt activity 9 The patient did not perform the activity before the current illness or injury 88 Not attempted due to Medical conditions or safety concerns Other Treatment Pt completed UE medium resistance theraband exercises 3 sets 10 reps for shldrs , bicep and tricep. Then completed vice president for philanthropy strength exercises with medium resistance sponge 20x's. ABDULLAHI discussed and educated pt on Rehab description and expectations. Pt verbalized understanding of rehab. After therapy, pt sitting on EOB with call light/phone in reach. All needs met in room. Education OT Patient Education: Rehab process Teaching Recipient: Patient Teaching Methods: Discussion Response to Teaching: Verbalize Understanding OT Short Term Goals Short Term Goals Time Frame: Mar 18, 2017 Eating(FIM): 6 Grooming(FIM): 5 Bathing(FIM): 4 Upper Body Dressing(FIM): 5 Lower Body Dressing(FIM): 4 Toileting(FIM): 4 Transfers (B,C,W/C) (FIM): 5 Toilet/Commode Transfer(FIM): 5 Shower Transfer(FIM): 5 Additional Short Term Goals: 1-Demonstrate ADL Tasks, 2-Verbalize Understanding , 3-ImproveStrength/Soha 1=Demonstrate adherence to instructed precautions during ADL tasks. 2=Patient will verbalize/demonstrate understanding of assistive devices/ modifications for ADL. 3=Patient will improve strength/tolerance for activity to enable patient to perform ADL's. OT Alf Goals Graffiti Cleaner Goals Time Frame: Apr 01, 2017 Eating (FIM): 6 Eating (QC): 6 Groomin Oral Hygiene (QC): 6 Bathing(FIM): 5 Shower/Bathe Self (QC): 5 Upper Body Dressing(FIM): 6 Upper Body Dressing (QC): 6 Lower Body Dressing(FIM): 6 Lower Body Dressing (QC): 6 On/Off Footwear (QC): 6 Toileting(FIM): 6 Toileting Hygiene (QC): 6 Transfers (B,C,W/C) (FIM): 6 Toilet/Commode Transfer(FIM): 6 Toilet/Commode Transfer (QC): 6 Shower Transfer(FIM): 5 Additional Goals: 1-Demonstrate ADL Tasks, 2-Verbalize Understanding, 3- ImproveStrength/Soha 1=Demonstrate adherence to instructed precautions during ADL tasks. 2=Patient will verbalize/demonstrate understanding of assistive devices/ modifications for ADL. 3=Patient will improve strength/tolerance for activity to enable patient to perform ADL's. OT Education/Plan Discharge Recommendations Plan/Recommendations: Continue POC Treatment Plan/Plan of Care Patient would benefit from OT for education, treatment and training to promote independence in ADL's, mobility, safety and/or upper extremity function for ADL' s. Plan of Care: ADL Retraining, Functional Mobility, UE Funct Exercise/Act Treatment Duration: Apr 01, 2017 Frequency: At least 5-7 days/Wk (IRF) Estimated Hrs Per Day: 1.5 hours per day Agreement: Yes Rehab Potential: Good Time/GCodes Start Time: 14:40 Stop Time: 15:05 Total Time Billed (hr/min): 25 Billed Treatment Time 1 visit- FA 1 (10 min) EX 1 (15 min) CHRISTA BULLOCK Mar 11, 2017 15:09
--- NOTE | 2017-03-11 17:12 | Podiatry Progress Note ---
Standard Progress Note Progress Notes/Assess & Plan Date Seen by Provider: Mar 11, 2017 Time Seen by Provider: 17:04 Progress/Assessment & Plan Consult dictated. Foot care given. Avulsion of the left 5th toenail Onychomycosis Diabetic Neuropathy Final Diagnosis Avulsion of the left 5th toenail Onychomycosis Diabetic Neuropathy Onycholysis ANA LILIA EUCEDA DPM Mar 11, 2017 17:12
[2017-03-11 17:15] VITALS: BP 125/73
[2017-03-11] MEDS ORDERED: NEO/POLY/BAC (NEOSPORIN) OINT 15 GM TUBE TOP PRN (18:00)
--- NOTE | 2017-03-11 20:03 | PM&R Post Admission Assessment ---
Post Admission Physician Asses The preadmission screen agrees with the post admission assessment that the patient is a good candidate for inpatient rehabilitation. The patient will have a comprehensive program of inpatient rehabilitation with a goal of maximizing level of functional independence prior to discharge home with his daughter. The patient will have PT/OT ninety minutes per day, each discipline, five days a week for gait, strengthening, conditioning, balance, ADLs, any patient/family/caregiver training as necessary. Speech therapy to do cognitive assessment and treat as indicated. Rehabilitation nursing to assist with bowel, bladder, skin, wound care, medication administration, pain management. Microstrategy Bi Developer to assist with discharge planning, community reentry. Lovenox subcut. for DVT prophylaxis. He appears to be well motivated to participate in three hours of therapy a day. He should be able to tolerate three hours of therapy a day from a medical standpoint. He should benefit from the three hours of therapy a day. He has a reasonable discharge plan, reasonable discharge rehabilitation goals and a supportive family. He has various comorbidities that need to be closely monitored with medications and treatments adjusted on a daily basis as needed. These include: DM Diabetic peripheral neuropathy DJD RT knee Cellulitis of legs -wound care consulted Morbid obesity HTN HLP Carotid artery stenosis CHF Barriers to discharge for this patient who had been independent prior to this are for him to be modified independent to supervision for ADLs and mobility skills prior to discharge home with his daughter, so as to lessen the burden of the caregivers. Risks for this patient include: 1. Fall 2. Fracture 3. DVT 4. Pulmonary embolism 5. Wound infection 6. Skin breakdown 7. Contractures 8. Poorly controlled pain 9. Urinary retention 10. Recirrent UTI 11. Respiratory infection 12. Aspiration 13. Recurrent cellulitis 14. Poorly controlled HTN 15. Poorly controlled DM Estimated Length of Stay: 14 days Prognosis: Rehab prognosis appears good for goal of discharge home with daughter modified independent to supervision for ADLs and mobility skills. HOLA LANE MD Mar 11, 2017 20:03
[2017-03-11] MEDS: SIMvastatin 20 MG (ZOCOR) TAB PO SCH (21:15)
[2017-03-11] MEDS: cloNIDine 0.1 MG (CATAPRES) TAB PO SCH (21:15)
[2017-03-11] MEDS: FAMOTIDINE 20 MG (PEPCID) TABLET PO SCH (21:15)
[2017-03-11] MEDS: CARVEDILOL 12.5 MG (COREG) TABLET PO SCH (21:15)
[2017-03-11] MEDS: ISOSORBIDE MONONITRATE 30 MG (IMDUR) TAB PO SCH (21:15)
[2017-03-11] MEDS: A & D OINT 60 GM TUBE TOP SCH (21:16)
[2017-03-11] MEDS: MICONAZOLE 2% POWDER (DESENEX AF) 90 GM TOP SCH (21:16)
[2017-03-12] MEDS: HYDROcodone/APAP 5 MG/325 MG (LORTAB) TAB PO PRN ×3 (01:42→20:10)
[2017-03-12 05:00] VITALS: BP 102/63
[2017-03-12] MEDS: KCL 10 MEQ TAB (MICRO K) PO SCH (06:03)
[2017-03-12] MEDS: glipiZIDE 5 MG (GLUCOTROL) TAB PO SCH (06:03)
[2017-03-12] MEDS ORDERED: BUPIVACAINE 0.25% 30 ML (SENSORCAINE) VIAL INJ SCH (08:00)
[2017-03-12] MEDS ORDERED: LIDOCAINE 1% INJ 20 ML (XYLOCAINE) VIAL INJ PRN (08:00)
[2017-03-12] MEDS ORDERED: methylPREDNISolone 80 MG/ML (DEPO MEDROL) VIAL IM PRN (08:00)
[2017-03-12 08:26] VITALS: BP 125/65
[2017-03-12] MEDS: FUROSEMIDE 40 MG (LASIX) TAB PO SCH (08:26)
[2017-03-12] MEDS: CARVEDILOL 12.5 MG (COREG) TABLET PO SCH ×2 (08:27→20:10)
[2017-03-12] MEDS: cloNIDine 0.1 MG (CATAPRES) TAB PO SCH ×2 (08:27→20:10)
[2017-03-12] MEDS: FAMOTIDINE 20 MG (PEPCID) TABLET PO SCH ×2 (08:27→20:10)
[2017-03-12] MEDS: ASPIRIN E.C. 81 MG (ECOTRIN) TAB PO SCH (08:27)
[2017-03-12] MEDS: MICONAZOLE 2% POWDER (DESENEX AF) 90 GM TOP SCH ×2 (08:29→20:12)
[2017-03-12] MEDS: NEO/POLY/BAC (NEOSPORIN) OINT 15 GM TUBE TOP SCH (08:29)
[2017-03-12] MEDS: A & D OINT 60 GM TUBE TOP SCH ×2 (08:29→20:12)
[2017-03-12] MEDS: lisINopril 20 MG (ZESTRIL) TAB PO SCH (08:30)
[2017-03-12] MEDS ORDERED: amLODIPine 10 MG (NORVASC) TAB PO SCH (09:00)
--- NOTE | 2017-03-12 09:58 | Physical Therapy Daily Note ---
PT Daily Note-Current Subjective Patient in bed pre tx, agrees to PT, has pain of 10/10 in right knee. Patient needs to get some shorts on and he does with SBA. Appearance Patient in wheelchair post tx, has nurse call, phone, tray, all needs met. Patient has OT right after PT. Mental Status Patient Orientation: Normal For Age Transfers Functional [place] Measure 0=Not Assessed/NA 4=Minimal Assistance 1=Total Assistance 5=Supervision or Setup 2=Maximal Assistance 6=Modified [place] 3=Moderate Assistance 7=Complete IndependenceIRFPAI Quality Coding Scale 6 Independent with activity with or without an assistive device 5 Patient requires set up or clean up by helper. Patient completes activity by themselves 4 Supervision or touching assist (CGA). [place] provide cues , steadying assist 3 The helper provides less than half the effort to complete the activity 2 The helper provides more than half the effort to complete the activity 1 Dependent. The helper does all the effort to complete an activity 7 Patient refused to complete or attempt activity 9 The patient did not perform the activity before the current illness or injury 88 Not attempted due to Medical conditions or safety concerns Transfers (B, C, W/C) (FIM): 5 Scootin Rollin Supine to/from Sit: 5 Sit to/from Stand: 5 Bed to/from Chair: 5 Gait Training Gait (FIM): 1 Distance: 20'x3 Gait Level of Assist: 5 Gait Persons Needed: 1 Gait Assistive Device: FWW wheelchair follow Wheelchair Training Wheelchair (FIM): 2 Distance: 50'x2 Wheelchair Level of Assist: 5 Type of Wheelchair: Manual Exercises Seated Therapy Exercises: Ankle pumps, Hip flexion Seated Reps: 15 Standing: Hip Abduction, Mini squats Standing Reps: 15 LAQ alternating for 5 min Treatments functional strengthening, bed mobility and transfers, ambulation, wheelchair mobility Assessment Current Status: Fair Progress Patient had a lot of trouble with all mobility and exercise due to right knee pain. Needed extra rest breaks due to pain. PT Short Term Goals Short Term Goals Transfers (B,C,W/C) (FIM): 5 Wheelchair Distance: 25' PT Crawler Dragline Operator Goals Crawler Dragline Operator Goals PT Shelter Goals Time Frame: Mar 26, 2017 Transfers (B,C,W/C) (FIM): 6 Sit to Lying (QC): 5 Lying-Sitting on Side/Bed(QC): 5 Sit to Stand (QC): 5 Rollin Roll Left to Right (QC): 5 Chair/Jnl-pl-Vyqbm Xfer(QC): 5 Car Transfer (QC): 5 Does the Patient Walk: Yes Gait distance (FIM): 1=591-80 ft Distance: 100' Walk 10 feet (QC): 5 Walk 10ft-Uneven Surface(QC): 5 Walk 50ft with 2 Turns (QC): 5 Walk 150 ft (QC): 9 Gait Level of Assist: 6 Gait Assistive Device: FWW Stairs (FIM): 2 # of Steps: 4 1 Step (curb) (QC): 5 4 Steps (QC): 5 12 Steps (QC): 9 Stairs Level Of Assist: 5 Picking up an Object (QC): 5 PT Plan Problem List Problem List: Activity Tolerance, Functional Strength, Safety, Balance, Gait, Transfer, Bed Mobility, ROM Treatment/Plan Treatment Plan: Continue Plan of Care Treatment Plan: Bed Mobility, Education, Functional Activity Soha, Functional Strength, Gait, Safety, Therapeutic Exercise, Transfers Treatment Duration: Mar 26, 2017 Frequency: At least 5-7 days/Wk (IRF) Estimated Hrs Per Day: 1.5 hours per day Patient and/or Family Agrees t: Yes Safety Risks/Education Patient Education: Gait Training, Transfer Techniques, Correct Positioning, Safety Issues Teaching Recipient: Patient Teaching Methods: Demonstration, Discussion Response to Teaching: Reinforcement Needed Time/GCodes Time In: 900 Time Out: 1000 Total Billed Treatment Time: 60 Total Billed Treatment 1 visit GT 30' EX 30' AURELIO STATON PT Mar 12, 2017 09:58
[2017-03-12] MEDS: ENOXAPARIN 40 MG/0.4 ML (LOVENOX) SYR SC SCH (11:31)
--- NOTE | 2017-03-12 11:37 | Occupational Ther Daily Note ---
OT Current Status-Daily Note Subjective No pain reported. Appearance Pt. up in wheelchair. Agrees to shower. Mental Status/Objective Patient Orientation: Person, Place, Time, Situation Functional [place] Measure 0=Not Assessed/NA 4=Minimal Assistance 1=Total Assistance 5=Supervision or Setup 2=Maximal Assistance 6=Modified [place] 3=Moderate Assistance 7=Complete [place] ADL-Treatment Functional [place] Measure 0=Not Assessed/NA 4=Minimal Assistance 1=Total Assistance 5=Supervision or Setup 2=Maximal Assistance 6=Modified [place] 3=Moderate Assistance 7=Complete IndependenceIRFPAI Quality Coding Scale 6 Independent with activity with or without an assistive device 5 Patient requires set up or clean up by helper. Patient completes activity by themselves 4 Supervision or touching assist (CGA). [place] provide cues , steadying assist 3 The helper provides less than half the effort to complete the activity 2 The helper provides more than half the effort to complete the activity 1 Dependent. The helper does all the effort to complete an activity 7 Patient refused to complete or attempt activity 9 The patient did not perform the activity before the current illness or injury 88 Not attempted due to Medical conditions or safety concerns Bathing (FIM): 5 (Pt. is able to shower self with SBA. Pt. is issued LH sponge and is able to wash LE.) Shower/Bathe Self (QC): 5 Upper Body (FIM): 5 Upper Body Dressing (QC): 5 Lower Body Dressing (FIM): 3 (Pt. requires assistance to don socks, but is able to don shorts with cane over feet, and is able to stand and don shorts over hips.) Lower Body Dressing (QC): 3 On/Off Footwear (QC): 2 Transfers (B, C, W/C) (FIM): 5 Shower Transfer(FIM): 4 (CGA to transfer from wheelchair to chair.) Other Treatment Pt. is educated on using toilet tongs. Pt. also completed 10 minutes on armbike to increase overall UE endurance with daily tasks. Tolerated treatment well. Education OT Patient Education: Correct positioning, Exercise program, Modified ADL techniques, Progress toward Goal/Update tx plan, Purpose of tx/functional activities, Reviewed precautions, Rehab process, Transfer techniques, Use of adapted equipment Teaching Recipient: Patient Teaching Methods: Demonstration, Discussion Response to Teaching: Verbalize Understanding, Return Demonstration OT Short Term Goals Short Term Goals Time Frame: Mar 18, 2017 Eating(FIM): 6 Grooming(FIM): 5 Bathing(FIM): 4 Upper Body Dressing(FIM): 5 Lower Body Dressing(FIM): 4 Toileting(FIM): 4 Transfers (B,C,W/C) (FIM): 5 Toilet/Commode Transfer(FIM): 5 Shower Transfer(FIM): 5 Additional Short Term Goals: 1-Demonstrate ADL Tasks, 2-Verbalize Understanding , 3-ImproveStrength/Soha 1=Demonstrate adherence to instructed precautions during ADL tasks. 2=Patient will verbalize/demonstrate understanding of assistive devices/ modifications for ADL. 3=Patient will improve strength/tolerance for activity to enable patient to perform ADL's. OT Configuration Management Manager Goals Configuration Management Manager Goals Time Frame: Apr 01, 2017 Eating (FIM): 6 Eating (QC): 6 Groomin Oral Hygiene (QC): 6 Bathing(FIM): 5 Shower/Bathe Self (QC): 5 Upper Body Dressing(FIM): 6 Upper Body Dressing (QC): 6 Lower Body Dressing(FIM): 6 Lower Body Dressing (QC): 6 On/Off Footwear (QC): 6 Toileting(FIM): 6 Toileting Hygiene (QC): 6 Transfers (B,C,W/C) (FIM): 6 Toilet/Commode Transfer(FIM): 6 Toilet/Commode Transfer (QC): 6 Shower Transfer(FIM): 5 Additional Goals: 1-Demonstrate ADL Tasks, 2-Verbalize Understanding, 3- ImproveStrength/Soha 1=Demonstrate adherence to instructed precautions during ADL tasks. 2=Patient will verbalize/demonstrate understanding of assistive devices/ modifications for ADL. 3=Patient will improve strength/tolerance for activity to enable patient to perform ADL's. OT Education/Plan Problem List/Assessment Assessment: Decreased Activ Tolerance, Decreased UE Strength, Dependent Transfers, Impaired I ADL's, Impaired Self-Care Skills Discharge Recommendations Plan/Recommendations: Continue POC Therapy D/C Recommendations: Home w/ Family Support, Occupational Therapy Home Care Equpiment Recommendations-D/C: Hip Kit Treatment Plan/Plan of Care Treatment,Training & Education: Yes Patient would benefit from OT for education, treatment and training to promote independence in ADL's, mobility, safety and/or upper extremity function for ADL' s. Plan of Care: ADL Retraining, Functional Mobility, UE Funct Exercise/Act Treatment Duration: Apr 01, 2017 Frequency: At least 5-7 days/Wk (IRF) Estimated Hrs Per Day: 1.5 hours per day Agreement: Yes Rehab Potential: Good Time/GCodes Start Time: 10:00 Stop Time: 11:00 Total Time Billed (hr/min): 60 Billed Treatment Time 1, ADL x 45minutes, EX x 15minutes CHARI KING OT Mar 12, 2017 11:37
--- NOTE | 2017-03-12 11:54 | PM & R (SOAP) Progress Note ---
Subjective Time Seen by Provider: 08:15 Subjective/Events-last exam Patient was seen in his room earlier today Patient SBA for transfers with increased pain rt knee Attemted to edit H&P but editing jammed and unable to correct H&P and finish adding current meds which include SVN treatments as well as asa, coreg,pepcid furosimide, Hydrocodone /apap, Imdur, lisinopril,KCL,Zocor , Conidine,glipizide,lovenox SUB CUT, Nitro SL, Vit A&D ointment, Desenex, Neosporin ointment .The patient has chronic venous stasis changes in both legs as well as discoloration from cellulitis with topical treatments being applied.The patient has Decreased sensation to touch in both legs The patient has irritation under the abdominal folds receiving topical care as per above meds as well as erythema on the buttocks.Topical care being provided. Objective Exam Last Set of Vital Signs Vital Signs Date Time Temp Pulse Resp B/P (MAP) Pulse Ox O2 Delivery O2 Flow Rate FiO2 03/12/17 09:06 Room Air 03/12/17 08:26 73 125/65 03/12/17 05:00 96.6 24 96 Capillary Refill : I&O Bad tableGeneral: Alert, Oriented X3, Cooperative, No Acute Distress HEENT: Atraumatic, PERRLA, EOMI, Mucous Memb Moist/[place] Neck: Supple, No JVD Lungs: Clear to Auscultation Heart: Regular Rate Abdomen: Normal Bowel Sounds, Soft, No Tenderness Extremities: Other (discoloration and wounds from chronic venousstasis and cellulitis) Skin: Other (as per above ) Neuro: Other (generalized weakness approx 4/5 all 4 limbs) Psych/Mental Status: Mental Status NL, Mood NL Results Lab Laboratory Tests 03/11/17 16:10: Glucometer 81 03/12/17 05:21: Glucometer 152H Assessment/Plan Assessment General debil s/p fall Morbid obesity DJD rt knee A FIb controlled with meds Non insulin DM Coronary artery D s/p ID remote Plan Continue PT/OT/Wound care F/U with Hospita;ist and Wound care as per their schedule. Monitor accuchecks and adjust meds as needed. HOLA LANE MD Mar 12, 2017 11:54
--- NOTE | 2017-03-12 12:08 | Individualized Plan of Care ---
Individualized Plan of Care Rehab Nursing IPOC Order Admission Date Mar 11, 2017 at 10:05 Current Orders Orders Admission-Acute Rehab Unit (03/11/17 12:31) Vital Signs: Routine 08,16,00 (03/11/17 12:31) Social Service (03/11/17 12:31) Rehab Nursing Orders-Ipoc (03/11/17 12:31) Turn And Reposition Q2HR (03/11/17 12:31) Intake & Output Shift Assessme ,, (03/11/17 12:31) Weekly Weight (Lbs) WEEK (03/11/17 12:31) Code/Resuscitation (03/11/17 12:34) Albuterol Pre-Mix Nebs (Rt) (Proventil P (03/11/17 12:45) Aspirin Enteric Coated Tablet (Ecotrin T (03/12/17 09:00) Carvedilol Tablet (Coreg Tablet) (03/11/17 21:00) Famotidine Tablet (Pepcid Tablet) (03/11/17 21:00) Furosemide Tablet (Lasix Tablet) (03/12/17 09:00) Hydrocodone/Apap 5/325 Tablet (Lortab 5 (03/11/17 12:45) Isosorbide Mononitrate Tablet (Imdur Tab (03/11/17 21:00) Lisinopril Tablet (Zestril Tablet) (03/12/17 09:00) Nitroglycerin Sublingual (Nitrostat Sub (03/11/17 12:45) Potassium Chloride (Tablet) (Klor Con Ta (03/12/17 07:00) Simvastatin Tablet (Zocor Tablet) (03/11/17 21:00) Amlodipine Tablet (Norvasc Tablet) (03/12/17 09:00) Clonidine Tablet (Catapres Tablet) (03/11/17 21:00) Glipizide Tablet (Glucotrol Tablet) (03/12/17 06:30) Svn Sm Volume Nebulizer Rt-Rfs (03/11/17 12:34) Nursing Communication (Patient (03/11/17 12:37) Accucheck Bid DBID (03/11/17 12:39) Cho 60g/M 0snack (16-2000 Massimo) (03/11/17 Lunch) Enoxaparin Injection (Lovenox Injection) (03/11/17 12:53) Patient Visit (03/11/17 ) Speech Sound Lang Comp (03/11/17 ) Consult Physician (03/11/17 13:59) Patient Visit (03/11/17 ) Pt Eval Moderate Complexity (03/11/17 ) Exercise Therap, Ea 15 Min (03/11/17 ) Gait Training, Ea 15 Min (03/11/17 ) Consult Physician (03/11/17 14:21) Miconazole 2% Powder (Desenex Af 2% Powd (03/11/17 21:00) Patient Visit (03/11/17 ) Exercise Therap, Ea 15 Min (03/11/17 ) Functional Activities, Ea 15 (03/11/17 ) Methylprednisolone Acetate Inj (Depo-Med (03/12/17 08:00) Lidocaine 1% Injection (Xylocaine 1% Inj (03/12/17 08:00) Bupivacaine 0.25% Injection (Sensorcaine (03/12/17 08:00) Nursing Communication (Patient (03/11/17 17:12) Consent-Obtain Consent For (03/11/17 17:23) Kian/Poly/Adam Topical Ointment (Neosporin (03/12/17 09:00) Kian/Poly/Adam Topical Ointment (Neosporin (03/11/17 18:00) Amlodipine Tablet (Norvasc Tablet) (03/13/17 09:00) Rehab Nursing Orders: Diseage Management, Edu in Press Rel Techn, Hydration Management, Nutrition Management, Pain Management Toilet every (bladder): (hrs): 2 hours while awake prn PT IPOC Problem List: Activity Tolerance, Functional Strength, Safety, Balance, Gait, Transfer, Bed Mobility, ROM Treatment Plan: Continue Plan of Care Bed Mobility, Education, Functional Activity Soha, Functional Strength, Gait, Safety, Therapeutic Exercise, Transfers Treatment Duration: Mar 26, 2017 Frequency: Twice Daily Estimated Hrs Per Day: 1.5 hours per day OT IPOC Problems: Decreased Activ Tolerance, Decreased UE Strength, Dependent Transfers , Impaired I ADL's, Impaired Self-Care Skills Plan of Care: ADL Retraining, Functional Mobility, UE Funct Exercise/Act Treatment Duration: Apr 01, 2017 Frequency: Twice Daily Estimated Hrs Per Day: 1.[address] IPOC Speech Therapy Treatment Plan: Discontinue ST Frequency: Modified Program (IRF) Estimated Hrs Per Day: .25 hour per day Physician IPOC Medical Issues being managed closely and that require the 24 hour availability of a physician:DM Ongoing wound and skin care Avulsion left 5th toenail Pain management A FIB Medical Issues: DVT Prophylaxis, Falls Precautions, Fluid/Electrolyte/ Nutrition Balance, Infection Protection, Pain Management, Wound Care, Other ( List) (as per above) Brief Synthesis of Preadmission Screen, Post-Admission Evaluation, and Therapy Evaluations: 62 yo disabled morbidly obese male with general debil s/p fall Has ongoing wound care and skin care and comorbidities of Coronary artery d, DM DJD of the rt knee and A FIB Had been Modified Independent prior to this and living with family PCP DR Courtney. Medical Prognosis: Good Anticipated Length of Stay: 04/01/17 Rehab Goals Modified Independent for adls and mobility skills with decreased pain and good wound healing. Wound care follwing pateint as well as Hospitalist service. Anticipated discharge destinat: Home with family and [facility] HOLA L[address] MD Mar 12, 2017 12:08
--- NOTE | 2017-03-12 12:52 | CONSULTATION REPORT ---
DATE OF CONSULTATION: REASON FOR CONSULT: Diabetic foot care. This 62-year-old male was admitted after several falls for rehabilitation. The patient has difficulty reaching for and caring for his feet. In fact, he reported that on several occasions. He had cut his own skin when attempting to trim his own toenails. He reports that prior to admission on his second fall, the left 5th toenail was pulled off during the fall. PAST MEDICAL HISTORY: 1. The patient has a past medical history which includes coronary artery disease. 2. Type 2 diabetes. 3. Heart failure. 4. Hypertension. 5. History of myocardial infarction. 6. Neuropathy. PAST SURGICAL HISTORY: 1. Past surgeries include CABG. 2. Hand surgery. 3. He has had a history of multiple leg wounds and edema. ALLERGIES: The patient has no known drug allergies. CURRENT MEDICATIONS: Listed on the patient's chart. SOCIAL HISTORY: The patient is currently living with his children in a single level home. He denies tobacco use at this time. PHYSICAL EXAM: This is a well-developed male in no apparent distress. He has 1/4 dorsalis pedal pulse and 1/4 posterior pedal pulse bilaterally. Capillary fill time is less than 3 seconds. The patient has brawny edema bilateral lower leg and rear foot. No additional hair growth is noted. NEUROLOGICALLY: The patient has intact protective sensation per 10 grams monofilament wire examination bilaterally. He has decreased deep tendon reflexes to the Achilles tendon and decreased vibratory sensation bilateral forefoot. DERMATOLOGICALLY: The patient has thick, yellow dystrophic toenails with subungual debris, associated with all toenails on the right, as well as the left first, second, 3rd and 4th digits. There is no nail plate on the left 5th digit with evidence of previous bleeding to the left 5th nail bed. No erythema. Edema or gross signs of bacterial noted at this time to the left 5th toenail. There is excessive onycholysis noted to the left hallux toenail. MUSCULOSKELETAL FINDINGS: The patient has 5/5 muscle strength to the 4 major quadrants of the foot. ASSESSMENT: 1. Diabetic neuropathy. 2. Onychomycosis. 3. Onycholysis. 4. History of trauma left 5th toe. PLAN: Various treatment options were discussed with the patient. His toenails were debrided Nicolas and mechanically and Betadine applied. We discussed diabetic foot care in general. He is welcome to follow-up in my office upon discharge. Wound care was ordered on a daily basis for left 5th digit until healed until which includes topical antibiotic and a light dressing. I also recommended compression for the patient. Job ID: [id number] Dictated Date: 03/11/2017 17:24:20 Acoustical Engineer Date: 03/12/2017 12:40:42/romulo
--- NOTE | 2017-03-12 14:42 | Therapy Group Daily Note ---
Therapy Daily Group Note Patient Education Topic Other List Below (gait and various assistive devices) Exercises LE Seated Exercise, UE Exercise Other/Notes Pt. attended group PT OT session. Pt. came via w/c. Pt. had cortisone injection just prior to session. Pt. was pleasant and socialized well with others introducing himself and sharing his "favorite meal" with others. U&L extremity ther ex was done today lead by JANIS Mccloud with pts. reading from illustrated card instructions with all pts participating . Pts also were all distributed yellow Tband for UE exercise application programmer analyst by OT. Education was offered focusing on gait pattern and use of various assistive devices. Pt. returned to room in w /c , CGA to bed, call gaston at hand. pt. appeared to enjoy group a great deal sharing and laughing and making conversation. Start Time: 13:00 Stop Time: 14:15 Total Billed Treatment Time: 75 Total Billed Treatment 1,GRP EDWAR TAMEZ RESTORATIVE CARE TECHNICIAN Mar 12, 2017 14:41
[2017-03-12 18:10] VITALS: BP 136/75
[2017-03-12] MEDS: SIMvastatin 20 MG (ZOCOR) TAB PO SCH (20:10)
[2017-03-12] MEDS: ISOSORBIDE MONONITRATE 30 MG (IMDUR) TAB PO SCH (20:11)
[2017-03-13 05:00] VITALS: BP 113/69
[2017-03-13] MEDS: KCL 10 MEQ TAB (MICRO K) PO SCH (06:06)
[2017-03-13] MEDS: glipiZIDE 5 MG (GLUCOTROL) TAB PO SCH (06:06)
[2017-03-13] MEDS: HYDROcodone/APAP 5 MG/325 MG (LORTAB) TAB PO PRN ×3 (06:09→19:34)
[2017-03-13] MEDS: cloNIDine 0.1 MG (CATAPRES) TAB PO SCH ×2 (09:45→19:34)
[2017-03-13] MEDS: FUROSEMIDE 40 MG (LASIX) TAB PO SCH (09:46)
[2017-03-13] MEDS: ASPIRIN E.C. 81 MG (ECOTRIN) TAB PO SCH (09:46)
[2017-03-13] MEDS: FAMOTIDINE 20 MG (PEPCID) TABLET PO SCH ×2 (09:46→19:34)
[2017-03-13] MEDS: amLODIPine 5 MG (NORVASC) TAB PO SCH (09:46)
[2017-03-13] MEDS: CARVEDILOL 12.5 MG (COREG) TABLET PO SCH ×2 (09:46→19:34)
[2017-03-13] MEDS: NEO/POLY/BAC (NEOSPORIN) OINT 15 GM TUBE TOP SCH (09:50)
[2017-03-13] MEDS: MICONAZOLE 2% POWDER (DESENEX AF) 90 GM TOP SCH ×2 (09:50→21:36)
[2017-03-13] MEDS: A & D OINT 60 GM TUBE TOP SCH ×2 (09:51→21:36)
[2017-03-13] MEDS: lisINopril 20 MG (ZESTRIL) TAB PO SCH (09:51)
[2017-03-13] MEDS: ENOXAPARIN 40 MG/0.4 ML (LOVENOX) SYR SC SCH (10:53)
--- NOTE | 2017-03-13 12:00 | Physical Therapy Daily Note ---
PT Daily Note-Current Subjective Pt. agrees to Rx. Wants to walk a bit. Wants clothes on. Pain Numeric Pain Scale: 0-No Pain Mental Status Patient Orientation: Normal For Age Transfers Functional [place] Measure 0=Not Assessed/NA 4=Minimal Assistance 1=Total Assistance 5=Supervision or Setup 2=Maximal Assistance 6=Modified [place] 3=Moderate Assistance 7=Complete IndependenceIRFPAI Quality Coding Scale 6 Independent with activity with or without an assistive device 5 Patient requires set up or clean up by helper. Patient completes activity by themselves 4 Supervision or touching assist (CGA). [place] provide cues , steadying assist 3 The helper provides less than half the effort to complete the activity 2 The helper provides more than half the effort to complete the activity 1 Dependent. The helper does all the effort to complete an activity 7 Patient refused to complete or attempt activity 9 The patient did not perform the activity before the current illness or injury 88 Not attempted due to Medical conditions or safety concerns Transfers (B, C, W/C) (FIM): 4 Scootin Rollin Supine to/from Sit: 5 Sit to/from Stand: 4 Gait Training Does the Patient Walk?: Yes Gait (FIM): 1 Distance (FIM): 1=up to 49 ft (20,25,30) Gait Assistive Device: FWW Exercises Seated Therapy Exercises: Sit to stand, Long arc quads, Hip flexion Seated Reps: 8 Treatments assist mod to aixa shorts and socks Assessment Current Status: Good Progress PT Short Term Goals Short Term Goals Transfers (B,C,W/C) (FIM): 5 Wheelchair Distance: 50'x2 PT Chcf Goals Chcf Goals PT Chcf Goals Time Frame: Mar 26, 2017 Transfers (B,C,W/C) (FIM): 6 Sit to Lying (QC): 5 Lying-Sitting on Side/Bed(QC): 5 Sit to Stand (QC): 5 Rollin Roll Left to Right (QC): 5 Chair/Yjf-ms-Lvinh Xfer(QC): 5 Car Transfer (QC): 5 Does the Patient Walk: Yes Gait distance (FIM): 3=685-41 ft Distance: 100' Walk 10 feet (QC): 5 Walk 10ft-Uneven Surface(QC): 5 Walk 50ft with 2 Turns (QC): 5 Walk 150 ft (QC): 9 Gait Level of Assist: 6 Gait Assistive Device: FWW Stairs (FIM): 2 # of Steps: 4 1 Step (curb) (QC): 5 4 Steps (QC): 5 12 Steps (QC): 9 Stairs Level Of Assist: 5 Picking up an Object (QC): 5 PT Plan Treatment/Plan Treatment Plan: Continue Plan of Care Treatment Plan: Bed Mobility, Education, Functional Activity Soha, Functional Strength, Gait, Safety, Therapeutic Exercise, Transfers Treatment Duration: Mar 26, 2017 Frequency: Twice Daily Estimated Hrs Per Day: 1.5 hours per day Patient and/or Family Agrees t: Yes Safety Risks/Education Patient Education: Gait Training, Transfer Techniques Teaching Recipient: Patient Teaching Methods: Demonstration, Discussion Response to Teaching: Verbalize Understanding, Return Demonstration, Reinforcement Needed Time/GCodes Time In: 805 Time Out: 830 Total Billed Treatment Time: 25 Total Billed Treatment GT15m,FA10m G Codes Necessary: EDWAR Jackson CLAMP CARRIER OPERATOR Mar 13, 2017 12:00
[2017-03-13 18:55] VITALS: BP 116/63
[2017-03-13] MEDS: SIMvastatin 20 MG (ZOCOR) TAB PO SCH (19:33)
[2017-03-13] MEDS: ISOSORBIDE MONONITRATE 30 MG (IMDUR) TAB PO SCH (19:34)
[2017-03-14] MEDS: HYDROcodone/APAP 5 MG/325 MG (LORTAB) TAB PO PRN ×3 (03:09→21:17)
[2017-03-14 05:28] VITALS: BP 106/65
[2017-03-14] MEDS: KCL 10 MEQ TAB (MICRO K) PO SCH (06:46)
[2017-03-14] MEDS: glipiZIDE 5 MG (GLUCOTROL) TAB PO SCH (06:46)
[2017-03-14 09:18] VITALS: BP 121/74
[2017-03-14] MEDS: FUROSEMIDE 40 MG (LASIX) TAB PO SCH (09:26)
[2017-03-14] MEDS: cloNIDine 0.1 MG (CATAPRES) TAB PO SCH ×2 (09:26→21:20)
[2017-03-14] MEDS: CARVEDILOL 12.5 MG (COREG) TABLET PO SCH ×2 (09:27→21:21)
[2017-03-14] MEDS: amLODIPine 5 MG (NORVASC) TAB PO SCH (09:27)
[2017-03-14] MEDS: lisINopril 20 MG (ZESTRIL) TAB PO SCH (09:27)
[2017-03-14] MEDS: ASPIRIN E.C. 81 MG (ECOTRIN) TAB PO SCH (09:27)
[2017-03-14] MEDS: FAMOTIDINE 20 MG (PEPCID) TABLET PO SCH ×2 (09:27→21:21)
[2017-03-14] MEDS: A & D OINT 60 GM TUBE TOP SCH ×2 (09:38→21:21)
[2017-03-14] MEDS: MICONAZOLE 2% POWDER (DESENEX AF) 90 GM TOP SCH ×2 (09:38→21:21)
[2017-03-14] MEDS: NEO/POLY/BAC (NEOSPORIN) OINT 15 GM TUBE TOP SCH (09:39)
[2017-03-14] MEDS: ENOXAPARIN 40 MG/0.4 ML (LOVENOX) SYR SC SCH (10:04)
[2017-03-14 18:00] VITALS: BP 122/72
[2017-03-14] MEDS: ISOSORBIDE MONONITRATE 30 MG (IMDUR) TAB PO SCH (21:21)
[2017-03-14] MEDS: SIMvastatin 20 MG (ZOCOR) TAB PO SCH (21:21)
[2017-03-15 04:20] VITALS: BP 114/65
[2017-03-15] MEDS: glipiZIDE 5 MG (GLUCOTROL) TAB PO SCH (05:57)
[2017-03-15] MEDS: KCL 10 MEQ TAB (MICRO K) PO SCH (05:57)
--- NOTE | 2017-03-15 08:50 | Physical Therapy Daily Note ---
PT Daily Note-Current Subjective Pt. agrees to rx. Already up in chair. Comments on how much his swelling is down Pain Numeric Pain Scale: 0-No Pain Mental Status Patient Orientation: Normal For Age Transfers Functional [place] Measure 0=Not Assessed/NA 4=Minimal Assistance 1=Total Assistance 5=Supervision or Setup 2=Maximal Assistance 6=Modified [place] 3=Moderate Assistance 7=Complete IndependenceIRFPAI Quality Coding Scale 6 Independent with activity with or without an assistive device 5 Patient requires set up or clean up by helper. Patient completes activity by themselves 4 Supervision or touching assist (CGA). [place] provide cues , steadying assist 3 The helper provides less than half the effort to complete the activity 2 The helper provides more than half the effort to complete the activity 1 Dependent. The helper does all the effort to complete an activity 7 Patient refused to complete or attempt activity 9 The patient did not perform the activity before the current illness or injury 88 Not attempted due to Medical conditions or safety concerns Transfers (B, C, W/C) (FIM): 6 Scootin Rollin Supine to/from Sit: 6 Sit to/from Stand: 6 Bed to/from Chair: 6 Gait Training Does the Patient Walk?: Yes Gait (FIM): 1 Distance (FIM): 1=up to 49 ft (30ftx3) Gait Level of Assist: 5 Gait Persons Needed: 1 Gait Assistive Device: FWW w/c to f/u Wheelchair Training Does the Pt Use a Wheelchair?: Yes Wheelchair (FIM): 5 Wheelchair Distance: 3=150 ft (x1) Wheelchair Level of Assist: 5 Type of Wheelchair: Manual Exercises Seated Therapy Exercises: Ankle pumps, Sit to stand, Long arc quads, Hip flexion Seated Reps: 15 Standing: Hip Abduction, Heel/toe raises, Marching, Sit to Stand Standing Reps: 15 Assessment Current Status: Good Progress PT Short Term Goals Short Term Goals Transfers (B,C,W/C) (FIM): 5 Wheelchair Distance: 50'x2 PT Assisted Goals Daycare Assistant Goals PT Daycare Assistant Goals Time Frame: Mar 26, 2017 Transfers (B,C,W/C) (FIM): 6 Sit to Lying (QC): 5 Lying-Sitting on Side/Bed(QC): 5 Sit to Stand (QC): 5 Rollin Roll Left to Right (QC): 5 Chair/Tcj-tu-Kwxjv Xfer(QC): 5 Car Transfer (QC): 5 Does the Patient Walk: Yes Gait distance (FIM): 5=327-29 ft Distance: 100' Walk 10 feet (QC): 5 Walk 10ft-Uneven Surface(QC): 5 Walk 50ft with 2 Turns (QC): 5 Walk 150 ft (QC): 9 Gait Level of Assist: 6 Gait Assistive Device: FWW Stairs (FIM): 2 # of Steps: 4 1 Step (curb) (QC): 5 4 Steps (QC): 5 12 Steps (QC): 9 Stairs Level Of Assist: 5 Picking up an Object (QC): 5 PT Plan Treatment/Plan Treatment Plan: Continue Plan of Care Treatment Plan: Bed Mobility, Education, Functional Activity Soha, Functional Strength, Gait, Safety, Therapeutic Exercise, Transfers Treatment Duration: Mar 26, 2017 Frequency: Twice Daily Estimated Hrs Per Day: 1.5 hours per day Patient and/or Family Agrees t: Yes Safety Risks/Education Patient Education: Gait Training, Transfer Techniques, Correct Positioning, W/ C Management, Disease Process (discussed debility and results and that its possible to build mm etc), Safety Issues Teaching Recipient: Patient Teaching Methods: Demonstration, Discussion Response to Teaching: Verbalize Understanding, Return Demonstration, Reinforcement Needed Time/GCodes Time In: 800 Time Out: 845 Total Billed Treatment Time: 45 Total Billed Treatment 1,GT25,EX20 G Codes Necessary: EDWAR Jackson TILER Mar 15, 2017 08:50
[2017-03-15] MEDS: CARVEDILOL 12.5 MG (COREG) TABLET PO SCH ×2 (08:55→20:53)
[2017-03-15] MEDS: ASPIRIN E.C. 81 MG (ECOTRIN) TAB PO SCH (08:56)
[2017-03-15] MEDS: FUROSEMIDE 40 MG (LASIX) TAB PO SCH (08:56)
[2017-03-15] MEDS: cloNIDine 0.1 MG (CATAPRES) TAB PO SCH ×2 (08:56→20:52)
[2017-03-15] MEDS: amLODIPine 5 MG (NORVASC) TAB PO SCH (08:57)
[2017-03-15] MEDS: FAMOTIDINE 20 MG (PEPCID) TABLET PO SCH ×2 (08:58→20:59)
[2017-03-15] MEDS: ENOXAPARIN 40 MG/0.4 ML (LOVENOX) SYR SC SCH (08:59)
[2017-03-15 09:00] VITALS: BP 118/69
[2017-03-15] MEDS: lisINopril 20 MG (ZESTRIL) TAB PO SCH (09:00)
[2017-03-15] MEDS: HYDROcodone/APAP 5 MG/325 MG (LORTAB) TAB PO PRN (09:00)
[2017-03-15] MEDS: A & D OINT 60 GM TUBE TOP SCH ×2 (11:10→20:53)
[2017-03-15] MEDS: MICONAZOLE 2% POWDER (DESENEX AF) 90 GM TOP SCH ×2 (11:14→20:54)
[2017-03-15] MEDS: NEO/POLY/BAC (NEOSPORIN) OINT 15 GM TUBE TOP SCH (11:15)
--- NOTE | 2017-03-15 11:27 | HISTORY AND PHYSICAL ---
CHIEF COMPLAINT: Difficulty with walking. HISTORY OF PRESENT ILLNESS: The patient is a 62-year-old patient who was admitted via the ER, to the hospital service of Dr. Levi on 03/05 due to a fall at home with a resulting decline in his functional independence. He required assistance from fire department personnel to get him from his house to the ambulance due to severe weakness. He complained of pain with weight bearing in the right knee. X-ray revealed mild medial compartment degenerative changes. He has a BMI of 52.6. He was sent home on 03/09 with home health care but fell at home. He returned to the ED on 03/09 and was admitted. He had been modified independent with a gait aide prior to this and living with his daughter in [place]. Currently he requires assistance for his ADLs and mobility skills. He is referred to Inpatient Rehabilitation Unit for ongoing therapies with goal of returning home with home health care. Prior level of function: Modified Independent with a walker but fairly sendentary due to morbid obesity and increasing numbness in legs and Arthritic pain rt knee Current level of function: Upon admission to IRU SBA for transfers and ambulation with ant antalgic gait c/o rt knee pain with WT Bearing using a FWW.He is Mod assist for bathing and lower body drssing Set up for upper body dressing Min assist for shower transfers PAST MEDICAL HISTORY: 1. Obesity with BMI 52.6 as morbid obesity. 2. Coronary artery disease. 3. Prior ME. 4. Noncompliance with medical recommendations apparently. 5. UTI. 6. Sepsis. 7. Atrial fibrillation with rapid ventricular response 8. Peripheral Neuropathy 9. DM PAST SURGICAL HISTORY: Noncontributory. ALLERGIES: No known medication allergies. FAMILY HISTORY: Noncontributory. SOCIAL HISTORY: He is , lives with his daughter, he is disabled. He has Medicare.PCP DR Courtney REVIEW OF SYSTEMS: Ten-point review of systems significant for generalized weakness. Right knee pain MEDICATIONS: Include amlodipine ASA Furosimide Lisinopril KCL Glipizide Coreg Pepcid Imdur Simvastatin Catapres Resp Treatments Topical preps for various skin conditions See EMR for details and dosages PHYSICAL EXAMINATION: Significant for a pleasant, fairly obese male, appearing his stated age, sitting in wheelchair in no acute distress VITAL SIGNS: Blood pressure 130/86, O2 sat 97% on room air. Respirations 20. He is afebrile. HEENT: Vision, speech, hearing, grossly intact. No oral lesion is noted. NECK: Supple without mass. HEART: Regular rhythm. LUNGS: Clear. ABDOMEN: Soft nontender.Ther is a rash under the abdominal fold EXTREMITIES: Chronic nonpitting edema with healing superficial wounds. MUSCULOSKELETAL: He has generalized weakness. . Localized tenderness noted in the right knee. The patient reports increased pain with weight bearing. He does have discoloration in both legs consistent with chronic venous stasis changes. NEUROLOGIC: Sensation is decreased in both legs to light touch. Cognition is intact. He has generalized weakness with strength in the 4/5 range generally He has a mild antalgic gait.Endurance limited Fatiques easily IMPRESSION: 1. General debilitation status post fall with underlying Diabetic peripheral neuropathy. 4. Morbid obesity. 5. Coronary artery disease with hx of prior ME. 6. DJD of the right knee. 7. Atrial fibrillation, controlled with medication. 8. Hay-roesygn-mzcopxvex diabetes mellitus. 9. Abdominal fold rash 10.Chronic venous stasis changes both legs with healing superficial wounds 11.Cellulitis both legs treated PLAN: The patient will have a comprehensive program of inpatient rehabilitation with goal of maximizing level of functional independence prior to discharge home with daughter with home health care. The patient will have PT/OT 90 minutes per day, each discipline 5 days week for gait, strengthening, conditioning, ADLs, any patient/family/caregiver training as necessary, any adaptive equipment and training as necessary. Speech therapy to do cognitive assessment and treat as indicated. Rehabilitation nursing to assist with bowel, bladder, skin care, medication administration, pain management. environmental services attendant to assist with discharge planning, community reentry. Follow-up with hospitalist service as per their schedule. Monitor Accu-Cheks and adjust medications as necessary. Therapy with cardiac and fall precautions. Consult orthopedics if available regarding possible injection right knee pain if needed F/U with DR Courtney and wound clinic upon discharge. PROGNOSIS: Rehab prognosis appears good for goal of discharging home with his daughter., hopefully modified independent for ADLs and mobility skills. ESTIMATED LENGTH OF STAY: 2 weeks. DIET: Carb consistent. CODE STATUS: Full code. Job ID: [id number] Dictated Date: 03/11/2017 14:54:00 Litigation Support Analyst Date: 03/15/2017 11:18:04/conner COREA
--- NOTE | 2017-03-15 13:11 | Occupational Ther Daily Note ---
OT Current Status-Daily Note Subjective Pt sitting in w/c, agrees to treatment. Pt reports chronic pain in right knee, states he was hoping for better results with the injection he received. Mental Status/Objective Functional [place] Measure 0=Not Assessed/NA 4=Minimal Assistance 1=Total Assistance 5=Supervision or Setup 2=Maximal Assistance 6=Modified [place] 3=Moderate Assistance 7=Complete [place] ADL-Treatment Pt agrees to shower this morning. Pt performed w/c mobility to shower room without assistance. Transfer w/c to shower bench with SBA using grab bars for safety. Pt doffed clothing with SBA; used cane to doff shorts. Seated bathing completed using hand held shower. Pt washed all areas with SBA. Used long handled sponge to wash lower legs and feet. Don pullover shirt with set up. Pt donned shorts with SBA using cane to start shorts over feet. Stood with supervision for balance during pant hike. Pt donned slip on shoes with set up, declined to wear socks. Pt performed w/c mobility back to room without assistance. Functional [place] Measure 0=Not Assessed/NA 4=Minimal Assistance 1=Total Assistance 5=Supervision or Setup 2=Maximal Assistance 6=Modified [place] 3=Moderate Assistance 7=Complete IndependenceIRFPAI Quality Coding Scale 6 Independent with activity with or without an assistive device 5 Patient requires set up or clean up by helper. Patient completes activity by themselves 4 Supervision or touching assist (CGA). [place] provide cues , steadying assist 3 The helper provides less than half the effort to complete the activity 2 The helper provides more than half the effort to complete the activity 1 Dependent. The helper does all the effort to complete an activity 7 Patient refused to complete or attempt activity 9 The patient did not perform the activity before the current illness or injury 88 Not attempted due to Medical conditions or safety concerns Bathing (FIM): 5 Shower/Bathe Self (QC): 4 Upper Body (FIM): 5 Upper Body Dressing (QC): 5 Lower Body Dressing (FIM): 5 Lower Body Dressing (QC): 4 Shower Transfer(FIM): 5 Other Treatment Pt performed bilateral UE exercises to promote increased strength and activity tolerance needed for ADLs and transfers. Pt performed shoulder flexion, abduction, biceps curls, and triceps extension exercises x20 reps with moderate resistance (red) theraband. Rest breaks between exercises. Bilateral hand brine mixer operator exercises x20 reps to increase brine mixer operator strength. Pt sitting in w/c with needs met after session. OT Short Term Goals Short Term Goals Time Frame: Mar 18, 2017 Eating(FIM): 6 Grooming(FIM): 5 Bathing(FIM): 4 Upper Body Dressing(FIM): 5 Lower Body Dressing(FIM): 4 Toileting(FIM): 4 Transfers (B,C,W/C) (FIM): 5 Toilet/Commode Transfer(FIM): 5 Shower Transfer(FIM): 5 Additional Short Term Goals: 1-Demonstrate ADL Tasks, 2-Verbalize Understanding , 3-ImproveStrength/Soha 1=Demonstrate adherence to instructed precautions during ADL tasks. 2=Patient will verbalize/demonstrate understanding of assistive devices/ modifications for ADL. 3=Patient will improve strength/tolerance for activity to enable patient to perform ADL's. OT [facility] Goals Shaper And Presser Goals Time Frame: Apr 01, 2017 Eating (FIM): 6 Eating (QC): 6 Groomin Oral Hygiene (QC): 6 Bathing(FIM): 5 Shower/Bathe Self (QC): 5 Upper Body Dressing(FIM): 6 Upper Body Dressing (QC): 6 Lower Body Dressing(FIM): 6 Lower Body Dressing (QC): 6 On/Off Footwear (QC): 6 Toileting(FIM): 6 Toileting Hygiene (QC): 6 Transfers (B,C,W/C) (FIM): 6 Toilet/Commode Transfer(FIM): 6 Toilet/Commode Transfer (QC): 6 Shower Transfer(FIM): 5 Additional Goals: 1-Demonstrate ADL Tasks, 2-Verbalize Understanding, 3- ImproveStrength/Soha 1=Demonstrate adherence to instructed precautions during ADL tasks. 2=Patient will verbalize/demonstrate understanding of assistive devices/ modifications for ADL. 3=Patient will improve strength/tolerance for activity to enable patient to perform ADL's. OT Education/Plan Discharge Recommendations Plan/Recommendations: Continue POC Treatment Plan/Plan of Care Patient would benefit from OT for education, treatment and training to promote independence in ADL's, mobility, safety and/or upper extremity function for ADL' s. Plan of Care: ADL Retraining, Functional Mobility, UE Funct Exercise/Act Treatment Duration: Apr 01, 2017 Frequency: Twice Daily Estimated Hrs Per Day: 1.5 hours per day Agreement: Yes Rehab Potential: Good Time/GCodes Start Time: 10:00 Stop Time: 11:00 Total Time Billed (hr/min): 60 Billed Treatment Time 1 visit, ADLx3(45minutes), EX(15minutes) SONIA TAYLOR OT Mar 15, 2017 13:11
--- NOTE | 2017-03-15 15:01 | Therapy Group Daily Note ---
Therapy Daily Group Note Patient Education Topic Fall Prevention Exercises LE Seated Exercise, Other Other/Notes Pt was an active participant in OT/PT group. He propelled himself to group, using w/c and introduced himself to the group by sharing his favorite vacation spot. He did seated LE exercises and participated in group education/discussion on fall prevention. He did a memory activity with the group and was successful in recalling items on board. He was able to tolerate the increased activity time in preparation for discharge planning. Pt took himself back to his room, all needs met. Start Time: 12:45 Stop Time: 14:00 Total Billed Treatment Time: 75 Total Billed Treatment visit, 75 minutes group SHANTELL HUSSEIN OT Mar 15, 2017 15:01
[2017-03-15 18:01] VITALS: BP 133/76
--- NOTE | 2017-03-15 20:46 | PM & R (SOAP) Progress Note ---
Subjective Time Seen by Provider: 07:45 Subjective/Events-last exam Patient was seen in his room this evening Progressing well with therapies Patient Modified Independent for transfers Objective Exam Last Set of Vital Signs Vital Signs Date Time Temp Pulse Resp B/P (MAP) Pulse Ox O2 Delivery O2 Flow Rate FiO2 03/15/17 19:55 Room Air 03/15/17 18:01 97.3 87 16 133/76 95 Capillary Refill : I&O Intake and Output 03/15/17 00:00 Intake Total 1754 ml Output Total 1850 ml Balance -96 ml Intake Oral 1754 ml Output Urine Total 1850 ml # Bowel Movements 2 General: Alert, Oriented X3, Cooperative, No Acute Distress HEENT: Atraumatic, PERRLA, EOMI, Mucous Memb Moist/[place] Neck: Supple, No JVD Lungs: Clear to Auscultation Heart: Regular Rate Abdomen: Normal Bowel Sounds, Soft, No Tenderness Extremities: Other (discoloration and wounds from chronic venousstasis and cellulitis) Skin: Other (as per above ) Neuro: Other (generalized weakness approx 4/5 all 4 limbs) Psych/Mental Status: Mental Status NL, Mood NL Results Lab Laboratory Tests 03/13/17 11:21: Glucometer 165H 03/13/17 17:15: Glucometer 133H 03/14/17 05:19: Glucometer 172H 03/14/17 16:51: Glucometer 96 03/15/17 05:57: Glucometer 143H 03/15/17 16:11: Glucometer 184H Assessment/Plan Assessment General debil s/p fall Morbid obesity DJD rt knee A FIb controlled with meds Non insulin DM Coronary artery D s/p AR remote Plan Continue PT/OT/Wound care F/U with Hospita;ist and Wound care as per their schedule. Monitor accuchecks and adjust meds as needed. Team Conference 03/17/17 Legs with decreased edema and healing well HOLA LANE MD Mar 15, 2017 20:46
[2017-03-15] MEDS: ISOSORBIDE MONONITRATE 30 MG (IMDUR) TAB PO SCH (20:52)
[2017-03-15] MEDS: SIMvastatin 20 MG (ZOCOR) TAB PO SCH (20:52)
[2017-03-16 05:40] VITALS: BP 123/75
[2017-03-16] MEDS: glipiZIDE 5 MG (GLUCOTROL) TAB PO SCH (06:09)
[2017-03-16] MEDS: KCL 10 MEQ TAB (MICRO K) PO SCH (06:09)
[2017-03-16] MEDS: FUROSEMIDE 40 MG (LASIX) TAB PO SCH (08:08)
[2017-03-16] MEDS: ASPIRIN E.C. 81 MG (ECOTRIN) TAB PO SCH (08:09)
[2017-03-16] MEDS: FAMOTIDINE 20 MG (PEPCID) TABLET PO SCH ×2 (08:09→20:01)
[2017-03-16] MEDS: amLODIPine 5 MG (NORVASC) TAB PO SCH (08:10)
[2017-03-16] MEDS: lisINopril 20 MG (ZESTRIL) TAB PO SCH (08:10)
[2017-03-16] MEDS: cloNIDine 0.1 MG (CATAPRES) TAB PO SCH ×2 (08:10→20:01)
[2017-03-16] MEDS: CARVEDILOL 12.5 MG (COREG) TABLET PO SCH ×2 (08:11→20:01)
--- NOTE | 2017-03-16 09:22 | Physical Therapy Daily Note ---
PT Daily Note-Current Subjective Pt sitting up in recliner upon arrival. Pt reports having less swelling in LE. Pt agreed to PT. Pain Location: No Pain Reported Transfers Functional [place] Measure 0=Not Assessed/NA 4=Minimal Assistance 1=Total Assistance 5=Supervision or Setup 2=Maximal Assistance 6=Modified [place] 3=Moderate Assistance 7=Complete IndependenceIRFPAI Quality Coding Scale 6 Independent with activity with or without an assistive device 5 Patient requires set up or clean up by helper. Patient completes activity by themselves 4 Supervision or touching assist (CGA). [place] provide cues , steadying assist 3 The helper provides less than half the effort to complete the activity 2 The helper provides more than half the effort to complete the activity 1 Dependent. The helper does all the effort to complete an activity 7 Patient refused to complete or attempt activity 9 The patient did not perform the activity before the current illness or injury 88 Not attempted due to Medical conditions or safety concerns Scootin Sit to/from Stand: 5 Sit to Stand (QC): 5 Weight Bearing Weight Bearing Restriction: Full Weight Bearing Location Restriction: LE Bilateral Gait Training Does the Patient Walk?: Yes Distance (FIM): 3=150 ft Distance: 50' x 4 Walk 10 feet (QC): 5 Walk 50 ft with 2 Turns(QC): 5 Walk 150 ft (QC): 5 Gait Level of Assist: 5 Gait Persons Needed: 1 Gait Assistive Device: FWW Pt walks with a more normalized gait and imelda today. Wheelchair Training Does the Pt Use a Wheelchair?: Yes Wheelchair Distance: 6=656-85 ft Distance: 60' Wheelchair Level of Assist: 6 Wheel 50 ft with 2 turns (QC): 6 Type of Wheelchair: Manual Pt is able to maneuver [facility] by himself. Exercises Seated Therapy Exercises: Ankle pumps, Sit to stand, Long arc quads, Hip flexion Seated Reps: 20 Standing: Hip Abduction, Heel/toe raises, Marching, Sit to Stand Standing Reps: 20 Treatments Pt transfers from recliner to standing using FWW at SBA. Pt ambulates in hallway using FWW w/WCH following for approx. 50' before sitting in WCH to rest (x4). Pt completes both Seated Ex in WCH & Standing Ex at //bars. Pt returns to room to rest in recliner at end of tx with all needs met. Assessment Current Status: Good Progress Pt has improved with independence and safety of transfers and mobility. Pt's strength and activity tolerance has improved. PT Short Term Goals Short Term Goals Transfers (B,C,W/C) (FIM): 5 Wheelchair Distance: 50'x2 PT Engine Maintenance Mechanic Goals Intermediate Goals PT Intermediate Goals Time Frame: Mar 26, 2017 Transfers (B,C,W/C) (FIM): 6 Sit to Lying (QC): 5 Lying-Sitting on Side/Bed(QC): 5 Sit to Stand (QC): 5 Rollin Roll Left to Right (QC): 5 Chair/[id number] Xfer(QC): 5 Car Transfer (QC): 5 Does the Patient Walk: Yes Gait distance (FIM): 8=114-38 ft Distance: 100' Walk 10 feet (QC): 5 Walk 10ft-Uneven Surface(QC): 5 Walk 50ft with 2 Turns (QC): 5 Walk 150 ft (QC): 9 Gait Level of Assist: 6 Gait Assistive Device: FWW Stairs (FIM): 2 # of Steps: 4 1 Step (curb) (QC): 5 4 Steps (QC): 5 12 Steps (QC): 9 Stairs Level Of Assist: 5 Picking up an Object (QC): 5 PT Plan Problem List Problem List: Activity Tolerance, Functional Strength, Safety, Gait Treatment/Plan Treatment Plan: Continue Plan of Care Treatment Plan: Bed Mobility, Education, Functional Activity Soha, Functional Strength, Gait, Safety, Therapeutic Exercise, Transfers Treatment Duration: Mar 26, 2017 Frequency: At least 5-7 days/Wk (IRF) Estimated Hrs Per Day: 1.5 hours per day Patient and/or Family Agrees t: Yes Safety Risks/Education Patient Education: Gait Training, Transfer Techniques, Correct Positioning, Safety Issues Teaching Recipient: Patient Teaching Methods: Discussion Response to Teaching: Verbalize Understanding Time/GCodes Time In: 815 Time Out: 915 Total Billed Treatment Time: 60 Total Billed Treatment visit, GT x2 (30m) & EX x2 (30m) JENNIFER NOYOLA LUBE MAN Mar 16, 2017 09:22
[2017-03-16] MEDS: A & D OINT 60 GM TUBE TOP SCH ×2 (10:49→20:01)
[2017-03-16] MEDS: NEO/POLY/BAC (NEOSPORIN) OINT 15 GM TUBE TOP SCH (10:49)
[2017-03-16] MEDS: MICONAZOLE 2% POWDER (DESENEX AF) 90 GM TOP SCH ×2 (10:49→20:00)
[2017-03-16] MEDS: ENOXAPARIN 40 MG/0.4 ML (LOVENOX) SYR SC SCH (11:01)
--- NOTE | 2017-03-16 12:52 | Occupational Ther Daily Note ---
OT Current Status-Daily Note Subjective Pt sitting in chair, agrees to treatment. Pt states his right knee is feeling better and his legs are less swollen. Mental Status/Objective Functional [place] Measure 0=Not Assessed/NA 4=Minimal Assistance 1=Total Assistance 5=Supervision or Setup 2=Maximal Assistance 6=Modified [place] 3=Moderate Assistance 7=Complete [place] ADL-Treatment Pt would like to shower this morning. Transfer chair to w/c with SBA. Pt performed w/c mobility to shower room without assistance. Transfer w/c <-> shower bench with SBA using grab bars. Pt doffed clothing with SBA. Seated bathing completed using hand held shower and long handled sponge. Pt able to complete bathing with SBA and increased time. Don pullover shirt with set up. Pt donned shorts and slip on shoes with SBA. Functional [place] Measure 0=Not Assessed/NA 4=Minimal Assistance 1=Total Assistance 5=Supervision or Setup 2=Maximal Assistance 6=Modified [place] 3=Moderate Assistance 7=Complete IndependenceIRFPAI Quality Coding Scale 6 Independent with activity with or without an assistive device 5 Patient requires set up or clean up by helper. Patient completes activity by themselves 4 Supervision or touching assist (CGA). [place] provide cues , steadying assist 3 The helper provides less than half the effort to complete the activity 2 The helper provides more than half the effort to complete the activity 1 Dependent. The helper does all the effort to complete an activity 7 Patient refused to complete or attempt activity 9 The patient did not perform the activity before the current illness or injury 88 Not attempted due to Medical conditions or safety concerns Bathing (FIM): 5 Shower/Bathe Self (QC): 4 Upper Body (FIM): 5 Upper Body Dressing (QC): 5 Lower Body Dressing (FIM): 5 Lower Body Dressing (QC): 4 Shower Transfer(FIM): 5 Other Treatment Pt performed w/c mobility to therapy gym without assistance. Arm bike [id number] to increase overall strength and activity tolerance needed for ADLs and transfers. Pt completed task with minimal resistance and slow pace. Two rest breaks taken. Pt returned to room, transferred to chair with SBA. Pt sitting in chair with needs met after session. OT Short Term Goals Short Term Goals Time Frame: Mar 18, 2017 Eating(FIM): 6 Grooming(FIM): 5 Bathing(FIM): 4 Upper Body Dressing(FIM): 5 Lower Body Dressing(FIM): 4 Toileting(FIM): 4 Transfers (B,C,W/C) (FIM): 5 Toilet/Commode Transfer(FIM): 5 Shower Transfer(FIM): 5 Additional Short Term Goals: 1-Demonstrate ADL Tasks, 2-Verbalize Understanding , 3-ImproveStrength/Soha 1=Demonstrate adherence to instructed precautions during ADL tasks. 2=Patient will verbalize/demonstrate understanding of assistive devices/ modifications for ADL. 3=Patient will improve strength/tolerance for activity to enable patient to perform ADL's. OT [facility] Goals Wash Crew Person Goals Time Frame: Apr 01, 2017 Eating (FIM): 6 Eating (QC): 6 Groomin Oral Hygiene (QC): 6 Bathing(FIM): 5 Shower/Bathe Self (QC): 5 Upper Body Dressing(FIM): 6 Upper Body Dressing (QC): 6 Lower Body Dressing(FIM): 6 Lower Body Dressing (QC): 6 On/Off Footwear (QC): 6 Toileting(FIM): 6 Toileting Hygiene (QC): 6 Transfers (B,C,W/C) (FIM): 6 Toilet/Commode Transfer(FIM): 6 Toilet/Commode Transfer (QC): 6 Shower Transfer(FIM): 5 Additional Goals: 1-Demonstrate ADL Tasks, 2-Verbalize Understanding, 3- ImproveStrength/Soha 1=Demonstrate adherence to instructed precautions during ADL tasks. 2=Patient will verbalize/demonstrate understanding of assistive devices/ modifications for ADL. 3=Patient will improve strength/tolerance for activity to enable patient to perform ADL's. OT Education/Plan Discharge Recommendations Plan/Recommendations: Continue POC Treatment Plan/Plan of Care Patient would benefit from OT for education, treatment and training to promote independence in ADL's, mobility, safety and/or upper extremity function for ADL' s. Plan of Care: ADL Retraining, Functional Mobility, UE Funct Exercise/Act Treatment Duration: Apr 01, 2017 Frequency: Twice Daily Estimated Hrs Per Day: 1.5 hours per day Agreement: Yes Rehab Potential: Good Time/GCodes Start Time: 09:45 Stop Time: 10:45 Total Time Billed (hr/min): 60 Billed Treatment Time 1 visit, ADLx3(45minutes), Ex(15minutes) SONIA TAYLOR OT Mar 16, 2017 12:52
--- NOTE | 2017-03-16 14:27 | Therapy Group Daily Note ---
Therapy Daily Group Note Exercises Balance, Stretching Other/Notes Pt arrived via [facility] to PT Group in Therapy Commons Area. Group consisted of Introductions (Name, where you are from and the Funniest thing you have ever seen) as well Activities focused on Memory, Problem Solving, Sequencing as well as body/trunk control and dynamic sitting balance. Pt actively participated in Group by verbally giving answers during Introductions and group activity as well as actively moving during group activity. Pt returned to room at end of Group to rest with all needs met. Start Time: 13:00 Stop Time: 14:00 Total Billed Treatment Time: 60 Total Billed Treatment 1,GRP JENNIFER NOYOLA BEEF SKINNER Mar 16, 2017 14:27
--- NOTE | 2017-03-16 14:58 | Physician Query Clarification ---
PQ-Link Manifestation-Etiology Admission/Discharge Admission Date: Mar 11, 2017 at 10:05 Discharge Date: The medical record reflects the following clinical scenario: History/Risk Factors: Diabetic peripheral neuropathy, cellulitis bilateral legs, chronic venous stasis Clinical Findings: Generalized weakness, falls Treatment: PT, OT Question: Can you specify if the generalized weakness is due to/associated with Diabetic polyneuropathy? Please document a response below PHYSICIAN RESPONSE Manifestation due to/assoic: Yes Explanation of clincal finding Please see Edited H&P and progress note 7-18-[address] Guerrero consult In responding to this query, please exercise your independent professional judgment. The purpose of this communication is to more accurately reflect the complexity of your patients condition. The fact that a question is asked does not imply that any particular answer is desired or expected. Thank you for your timely response to this clarification. Requestors name: Davey THIS PHYSICIAN QUERY FORM IS A PERMANENT PART OF THE MEDICAL RECORD DAVEY CURIEL Mar 16, 2017 14:[address] MD Mar 16, 2017 16:09
--- NOTE | 2017-03-16 15:40 | PM & R (SOAP) Progress Note ---
Subjective Time Seen by Provider: 09:00 Subjective/Events-last exam Patient was seen in his room earlier today Patient Modified Independent for transfers Pain in knee decreased Strength and endurance improving. Objective Exam Last Set of Vital Signs Vital Signs Date Time Temp Pulse Resp B/P (MAP) Pulse Ox O2 Delivery O2 Flow Rate FiO2 03/16/17 09:00 Room Air 03/16/17 07:42 96 03/16/17 05:40 97.9 83 16 123/75 Capillary Refill : I&O Intake and Output 03/16/17 00:00 Intake Total 1130 ml Output Total 2050 ml Balance -920 ml Intake Oral 1130 ml Output Urine Total 2050 ml # Voids 1 # Bowel Movements 1 General: Alert, Oriented X3, Cooperative, No Acute Distress HEENT: Atraumatic, PERRLA, EOMI, Mucous Memb Moist/[place] Neck: Supple, No JVD Lungs: Clear to Auscultation Heart: Regular Rate Abdomen: Normal Bowel Sounds, Soft, No Tenderness Extremities: Other (discoloration and wounds from chronic venousstasis and cellulitis) Skin: Other (as per above ) Neuro: Other (generalized weakness approx 4/5 all 4 limbs) Psych/Mental Status: Mental Status NL, Mood NL Results Lab Laboratory Tests 03/13/17 17:15: Glucometer 133H 03/14/17 05:19: Glucometer 172H 03/14/17 16:51: Glucometer 96 03/15/17 05:57: Glucometer 143H 03/15/17 16:11: Glucometer 184H 03/16/17 05:27: Glucometer 164H Assessment/Plan Assessment General debil s/p fall due to underlying Diabetic peripheral neuropathy and Morbid obesity DJD rt knee A FIb controlled with meds Non insulin DM Coronary artery D s/p [place] remote avulsion left fifth toenail bandaged Onychomycosis Onycholysis Plan Continue PT/OT/Wound care F/U with Hospitalist and Wound care as per their schedule. Monitor accuchecks and adjust meds as needed. Team Conference tomorrow 03/17/17 Legs with decreased edema and healing well Possible discharge by end of week HOLA LANE MD Mar 16, 2017 15:40
[2017-03-16 17:50] VITALS: BP 130/77
[2017-03-16] MEDS: ISOSORBIDE MONONITRATE 30 MG (IMDUR) TAB PO SCH (20:01)
[2017-03-16] MEDS: SIMvastatin 20 MG (ZOCOR) TAB PO SCH (20:01)
[2017-03-17 04:47] VITALS: BP 122/67
[2017-03-17] MEDS: KCL 10 MEQ TAB (MICRO K) PO SCH (05:35)
[2017-03-17] MEDS: glipiZIDE 5 MG (GLUCOTROL) TAB PO SCH (05:35)
--- NOTE | 2017-03-17 07:54 | Occupational Ther Daily Note ---
OT Current Status-Daily Note Subjective Pt alert, sitting in recliner. Pt agreed to therapy. No c/o pain at this time. Mental Status/Objective Patient Orientation: Person, Place, Time, Situation Functional [place] Measure 0=Not Assessed/NA 4=Minimal Assistance 1=Total Assistance 5=Supervision or Setup 2=Maximal Assistance 6=Modified [place] 3=Moderate Assistance 7=Complete [place] ADL-Treatment Pt agreed to shower today. Pt transferred recliner <-> w/c using FWW with SBA. SBA using grabbars transferred w/c <-> shower bench. SBA for bathing/drying using shower bench, long handle sponge, grabbars and hand held shower. After set up, pt able to complete upper body dressing by self and SBA in standing to hike pants over hips. Pt declined grooming at this time. Pt maneuvers w/c independently around ARU. Decreased activity tolerance during ADL tasks and UE exercises, requires longer recovery breaks. Functional [place] Measure 0=Not Assessed/NA 4=Minimal Assistance 1=Total Assistance 5=Supervision or Setup 2=Maximal Assistance 6=Modified [place] 3=Moderate Assistance 7=Complete IndependenceIRFPAI Quality Coding Scale 6 Independent with activity with or without an assistive device 5 Patient requires set up or clean up by helper. Patient completes activity by themselves 4 Supervision or touching assist (CGA). [place] provide cues , steadying assist 3 The helper provides less than half the effort to complete the activity 2 The helper provides more than half the effort to complete the activity 1 Dependent. The helper does all the effort to complete an activity 7 Patient refused to complete or attempt activity 9 The patient did not perform the activity before the current illness or injury 88 Not attempted due to Medical conditions or safety concerns Bathing (FIM): 5 Bathing Location: L Arm, R Arm, L Upper Leg, R Upper Leg, L Lower Leg ( including foot), R Lower Leg (including foot), Chest, Abdomen, Buttocks, Perineal Area Upper Body (FIM): 5 Lower Body Dressing (FIM): 5 Transfers (B, C, W/C) (FIM): 5 Shower Transfer(FIM): 5 Other Treatment Pt completed arm bike 15 min duration 15 mcwilliams resistance with 3 breaks to increase strength and activity tolerance for daily functional tasks. UE dowel jennifer exercises with 2# wt attached 3 sets 10 reps, 4 exercises with long recovery breaks between reps. After therapy, pt sitting in recliner with call light/phone in reach. All needs met in room. OT Short Term Goals Short Term Goals Time Frame: Mar 18, 2017 Eating(FIM): 6 Grooming(FIM): 5 Bathing(FIM): 4 Upper Body Dressing(FIM): 5 Lower Body Dressing(FIM): 4 Toileting(FIM): 4 Transfers (B,C,W/C) (FIM): 5 Toilet/Commode Transfer(FIM): 5 Shower Transfer(FIM): 5 Additional Short Term Goals: 1-Demonstrate ADL Tasks, 2-Verbalize Understanding , 3-ImproveStrength/Soha 1=Demonstrate adherence to instructed precautions during ADL tasks. 2=Patient will verbalize/demonstrate understanding of assistive devices/ modifications for ADL. 3=Patient will improve strength/tolerance for activity to enable patient to perform ADL's. OT Nursing Home Goals Product Applications Engineer Goals Time Frame: Apr 01, 2017 Eating (FIM): 6 Eating (QC): 6 Groomin Oral Hygiene (QC): 6 Bathing(FIM): 5 Shower/Bathe Self (QC): 5 Upper Body Dressing(FIM): 6 Upper Body Dressing (QC): 6 Lower Body Dressing(FIM): 6 Lower Body Dressing (QC): 6 On/Off Footwear (QC): 6 Toileting(FIM): 6 Toileting Hygiene (QC): 6 Transfers (B,C,W/C) (FIM): 6 Toilet/Commode Transfer(FIM): 6 Toilet/Commode Transfer (QC): 6 Shower Transfer(FIM): 5 Additional Goals: 1-Demonstrate ADL Tasks, 2-Verbalize Understanding, 3- ImproveStrength/Soha 1=Demonstrate adherence to instructed precautions during ADL tasks. 2=Patient will verbalize/demonstrate understanding of assistive devices/ modifications for ADL. 3=Patient will improve strength/tolerance for activity to enable patient to perform ADL's. OT Education/Plan Discharge Recommendations Plan/Recommendations: Continue POC Treatment Plan/Plan of Care Patient would benefit from OT for education, treatment and training to promote independence in ADL's, mobility, safety and/or upper extremity function for ADL' s. Plan of Care: ADL Retraining, Functional Mobility, UE Funct Exercise/Act Treatment Duration: Apr 01, 2017 Frequency: Twice Daily Estimated Hrs Per Day: 1.5 hours per day Agreement: Yes Rehab Potential: Good Time/GCodes Start Time: 07:00 Stop Time: 08:30 Total Time Billed (hr/min): 90 Billed Treatment Time 1 visit-ADL 4 (60 min) EX 2 (30 min) CHRISTA BULLOCK Mar 17, 2017 07:54
[2017-03-17 08:25] VITALS: BP 123/72
[2017-03-17] MEDS: FAMOTIDINE 20 MG (PEPCID) TABLET PO SCH ×2 (08:28→20:45)
[2017-03-17] MEDS: amLODIPine 5 MG (NORVASC) TAB PO SCH (08:28)
[2017-03-17] MEDS: cloNIDine 0.1 MG (CATAPRES) TAB PO SCH ×2 (08:28→20:45)
[2017-03-17] MEDS: lisINopril 20 MG (ZESTRIL) TAB PO SCH (08:28)
[2017-03-17] MEDS: FUROSEMIDE 40 MG (LASIX) TAB PO SCH (08:28)
[2017-03-17] MEDS: CARVEDILOL 12.5 MG (COREG) TABLET PO SCH ×2 (08:28→20:45)
[2017-03-17] MEDS: ASPIRIN E.C. 81 MG (ECOTRIN) TAB PO SCH (08:28)
[2017-03-17] MEDS: HYDROcodone/APAP 5 MG/325 MG (LORTAB) TAB PO PRN ×2 (08:42→17:09)
[2017-03-17] MEDS: NEO/POLY/BAC (NEOSPORIN) OINT 15 GM TUBE TOP SCH (08:44)
[2017-03-17] MEDS: A & D OINT 60 GM TUBE TOP SCH ×2 (08:44→20:46)
[2017-03-17] MEDS: MICONAZOLE 2% POWDER (DESENEX AF) 90 GM TOP SCH ×2 (08:44→20:46)
--- NOTE | 2017-03-17 09:53 | PM & R (SOAP) Progress Note ---
Subjective Time Seen by Provider: 08:15 Subjective/Events-last exam Patient was seen in his room this AM Patient SBA for transfers Legs healing well with decreased erythema and edema.Discussed case with RN Had shower with OT in shower room with bariatric shower chair Objective Exam Last Set of Vital Signs Vital Signs Date Time Temp Pulse Resp B/P (MAP) Pulse Ox O2 Delivery O2 Flow Rate FiO2 03/17/17 08:25 82 18 123/72 98 Room Air 03/17/17 04:47 97.5 Capillary Refill : I&O Intake and Output 03/17/17 00:00 Intake Total 1240 ml Output Total 1975 ml Balance -735 ml Intake Oral 1240 ml Output Urine Total 1975 ml # Voids 2 # Bowel Movements 1 General: Alert, Oriented X3, Cooperative, No Acute Distress HEENT: Atraumatic, PERRLA, EOMI, Mucous Memb Moist/[place] Neck: Supple, No JVD Lungs: Clear to Auscultation Heart: Regular Rate Abdomen: Normal Bowel Sounds, Soft, No Tenderness Extremities: Other (discoloration and wounds from chronic venousstasis and cellulitis) Skin: Other (as per above ) Neuro: Other (generalized weakness approx 4/5 all 4 limbs) Psych/Mental Status: Mental Status NL, Mood NL Results Lab Laboratory Tests 03/14/17 16:51: Glucometer 96 03/15/17 05:57: Glucometer 143H 03/15/17 16:11: Glucometer 184H 03/16/17 05:27: Glucometer 164H 03/16/17 16:04: Glucometer 143H 03/17/17 04:28: Glucometer 133H Assessment/Plan Assessment General debil s/p fall due to underlying Diabetic peripheral neuropathy and Morbid obesity DJD rt knee A FIb controlled with meds Non insulin DM Coronary artery D s/p [place] remote avulsion left fifth toenail bandaged Onychomycosis Onycholysis Plan Continue PT/OT/Wound care F/U with Hospitalist and Wound care as per their schedule. Monitor accuchecks and adjust meds as needed. Team Conference later today-See report for full functional update and POC and ELOS Legs with decreased edema and healing well Possible discharge by end of week HOLA LANE MD Mar 17, 2017 09:53
--- NOTE | 2017-03-17 10:10 | Physical Therapy Daily Note ---
PT Daily Note-Current Subjective Agrees to Rx. States he failed last time he went home and wants to be confident on steps before he DCs. Sanders confident after trying steps this date and feels Mon would be a good date to shoot for DC. Pain Numeric Pain Scale: 0-No Pain Mental Status Patient Orientation: Normal For Age Transfers Functional [place] Measure 0=Not Assessed/NA 4=Minimal Assistance 1=Total Assistance 5=Supervision or Setup 2=Maximal Assistance 6=Modified [place] 3=Moderate Assistance 7=Complete IndependenceIRFPAI Quality Coding Scale 6 Independent with activity with or without an assistive device 5 Patient requires set up or clean up by helper. Patient completes activity by themselves 4 Supervision or touching assist (CGA). [place] provide cues , steadying assist 3 The helper provides less than half the effort to complete the activity 2 The helper provides more than half the effort to complete the activity 1 Dependent. The helper does all the effort to complete an activity 7 Patient refused to complete or attempt activity 9 The patient did not perform the activity before the current illness or injury 88 Not attempted due to Medical conditions or safety concerns Transfers (B, C, W/C) (FIM): 6 Scootin Rollin Supine to/from Sit: 6 Sit to/from Stand: 6 Gait Training Does the Patient Walk?: Yes Gait (FIM): 5 Distance (FIM): 0=642-88 ft Gait Level of Assist: 5 Gait Persons Needed: 1 Gait Assistive Device: FWW w/c to follow, household exception, gait 30ftx2, 50x1 Wheelchair Training Does the Pt Use a Wheelchair?: Yes Wheelchair (FIM): 6 Wheelchair Distance: 3=150 ft (x1) Wheelchair Level of Assist: 6 Type of Wheelchair: Manual Stair Training Stair Training: Handrails/: 2 handrails Stairs (FIM): 2 #of Steps: 4 Stairs: Pattern: Step to Level of Assist: 5 Exercises NuStep Minutes: 8 NuStep Workload: 1 Assessment Current Status: Good Progress gaining funct mob and confidence PT Short Term Goals Short Term Goals Transfers (B,C,W/C) (FIM): 5 Wheelchair Distance: 60' PT Bisque Placer Goals Bisque Placer Goals PT Bisque Placer Goals Time Frame: Mar 26, 2017 Transfers (B,C,W/C) (FIM): 6 Sit to Lying (QC): 5 Lying-Sitting on Side/Bed(QC): 5 Sit to Stand (QC): 5 Rollin Roll Left to Right (QC): 5 Chair/Etr-ic-Txtxl Xfer(QC): 5 Car Transfer (QC): 5 Does the Patient Walk: Yes Gait distance (FIM): 2=914-96 ft Distance: 100' Walk 10 feet (QC): 5 Walk 10ft-Uneven Surface(QC): 5 Walk 50ft with 2 Turns (QC): 5 Walk 150 ft (QC): 9 Gait Level of Assist: 6 Gait Assistive Device: FWW Stairs (FIM): 2 # of Steps: 4 1 Step (curb) (QC): 5 4 Steps (QC): 5 12 Steps (QC): 9 Stairs Level Of Assist: 5 Picking up an Object (QC): 5 PT Plan Treatment/Plan Treatment Plan: Continue Plan of Care Treatment Plan: Bed Mobility, Education, Functional Activity Soha, Functional Strength, Gait, Safety, Therapeutic Exercise, Transfers Treatment Duration: Mar 26, 2017 Frequency: At least 5-7 days/Wk (IRF) Estimated Hrs Per Day: 1.5 hours per day Patient and/or Family Agrees t: Yes Safety Risks/Education Patient Education: Gait Training, Transfer Techniques, Steps, Correct Positioning, W/C Management, Disease Process, Safety Issues Teaching Recipient: Patient Teaching Methods: Demonstration, Discussion Response to Teaching: Verbalize Understanding, Return Demonstration, Reinforcement Needed Time/GCodes Time In: 900 Time Out: 1000 Total Billed Treatment Time: 60 Total Billed Treatment 1,GT25m,FA15m,EX20m G Codes Necessary: EDWAR Jackson SUPERVISOR [employer] Mar 17, 2017 10:10
[2017-03-17] MEDS: ENOXAPARIN 40 MG/0.4 ML (LOVENOX) SYR SC SCH (10:20)
--- NOTE | 2017-03-17 10:48 | Progress Note-Hospitalist ---
Progress Note Progress Notes/Assess & Plan Date Seen 03/17/17 Time Seen by Provider: 10:00 Diagonsis/Assessment & Plan venue coordinator: Team conference scheduled soon Pt is moving better than expected Has gotten out of wheel chair Legs and toes look better Pt does not want home health. Pt's family seemed more than hesitant to allow someone unknown into their home. Patient Interview: Pt states he is doing well Pt was informed that his legs look better. Pt seems pleased with how well his legs look. Pt states that he has been battling with his legs for about 10 years. Pt states that he was hospitalized previously for this BMs discussed Physical exam stable. Lungs perfect AFVSS, Pleasant, improved RRR, CTAB Improved edema and erythema Plan: Continue therapy Scribed by Dena Guzmán under the direct supervision of Dr. Levi. HARRY LEVI DO Mar 17, 2017 10:48
--- NOTE | 2017-03-17 13:14 | Physical Therapy Daily Note ---
PT Daily Note-Current Subjective Pt. agrees to Rx. States he is so tired from the morning."That was a work out"! Pain Numeric Pain Scale: 0-No Pain Mental Status Patient Orientation: Normal For Age Transfers Functional [place] Measure 0=Not Assessed/NA 4=Minimal Assistance 1=Total Assistance 5=Supervision or Setup 2=Maximal Assistance 6=Modified [place] 3=Moderate Assistance 7=Complete IndependenceIRFPAI Quality Coding Scale 6 Independent with activity with or without an assistive device 5 Patient requires set up or clean up by helper. Patient completes activity by themselves 4 Supervision or touching assist (CGA). [place] provide cues , steadying assist 3 The helper provides less than half the effort to complete the activity 2 The helper provides more than half the effort to complete the activity 1 Dependent. The helper does all the effort to complete an activity 7 Patient refused to complete or attempt activity 9 The patient did not perform the activity before the current illness or injury 88 Not attempted due to Medical conditions or safety concerns in out chair SBA to Mod I Gait Training Gait Assistive Device: FWW gait 50 ft with 2 turns, followed with w/c. Wheelchair Training manages w/c indep 100ft plus Exercises Seated Therapy Exercises: Ankle pumps, Sit to stand, Long arc quads Seated Reps: 10 Assessment Current Status: Good Progress PT Short Term Goals Short Term Goals Transfers (B,C,W/C) (FIM): 5 Wheelchair Distance: 60' PT Halfway Goals Entertainment Dancer Goals PT Halfway Goals Time Frame: Mar 26, 2017 Transfers (B,C,W/C) (FIM): 6 Sit to Lying (QC): 5 Lying-Sitting on Side/Bed(QC): 5 Sit to Stand (QC): 5 Rollin Roll Left to Right (QC): 5 Chair/Cxy-an-Umjde Xfer(QC): 5 Car Transfer (QC): 5 Does the Patient Walk: Yes Gait distance (FIM): 0=046-76 ft Distance: 100' Walk 10 feet (QC): 5 Walk 10ft-Uneven Surface(QC): 5 Walk 50ft with 2 Turns (QC): 5 Walk 150 ft (QC): 9 Gait Level of Assist: 6 Gait Assistive Device: FWW Stairs (FIM): 2 # of Steps: 4 1 Step (curb) (QC): 5 4 Steps (QC): 5 12 Steps (QC): 9 Stairs Level Of Assist: 5 Picking up an Object (QC): 5 PT Plan Treatment/Plan Treatment Plan: Continue Plan of Care Treatment Plan: Bed Mobility, Education, Functional Activity Soha, Functional Strength, Gait, Safety, Therapeutic Exercise, Transfers Treatment Duration: Mar 26, 2017 Frequency: At least 5-7 days/Wk (IRF) Estimated Hrs Per Day: 1.5 hours per day Patient and/or Family Agrees t: Yes Time/GCodes Time In: 1250 Time Out: 1320 Total Billed Treatment Time: 30 Total Billed Treatment 1,GT30m G Codes Necessary: EDWAR Jackson ACROBATIC DANCER Mar 17, 2017 13:14
[2017-03-17 20:00] VITALS: BP 117/68
[2017-03-17] MEDS: SIMvastatin 20 MG (ZOCOR) TAB PO SCH (20:45)
[2017-03-17] MEDS: ISOSORBIDE MONONITRATE 30 MG (IMDUR) TAB PO SCH (20:45)
[2017-03-18] MEDS: KCL 10 MEQ TAB (MICRO K) PO SCH (06:22)
[2017-03-18] MEDS: glipiZIDE 5 MG (GLUCOTROL) TAB PO SCH (06:22)
--- NOTE | 2017-03-18 07:44 | Occupational Ther Daily Note ---
OT Current Status-Daily Note Subjective Pt alert, sitting in recliner. Pt agreed to therapy. No c/o pain at this time. Does not wear his Crocs anymore due to wound on bottom of foot. Mental Status/Objective Patient Orientation: Person, Place, Time, Situation Functional [place] Measure 0=Not Assessed/NA 4=Minimal Assistance 1=Total Assistance 5=Supervision or Setup 2=Maximal Assistance 6=Modified [place] 3=Moderate Assistance 7=Complete [place] ADL-Treatment Functional [place] Measure 0=Not Assessed/NA 4=Minimal Assistance 1=Total Assistance 5=Supervision or Setup 2=Maximal Assistance 6=Modified [place] 3=Moderate Assistance 7=Complete IndependenceIRFPAI Quality Coding Scale 6 Independent with activity with or without an assistive device 5 Patient requires set up or clean up by helper. Patient completes activity by themselves 4 Supervision or touching assist (CGA). [place] provide cues , steadying assist 3 The helper provides less than half the effort to complete the activity 2 The helper provides more than half the effort to complete the activity 1 Dependent. The helper does all the effort to complete an activity 7 Patient refused to complete or attempt activity 9 The patient did not perform the activity before the current illness or injury 88 Not attempted due to Medical conditions or safety concerns Eating (FIM): 7 (Pt is able to open packages/containers by self then uses utensils to cut food and feed self.) Eating (QC): 6 (Pt is able to open packages/containers by self then uses utensils to cut food and feed self.) Bathing (FIM): 5 (Supervision using grabbars, hand held shower, long handle sponge and shower bench pt is able to complete bathing by self.) Bathing Location: L Arm, R Arm, L Upper Leg, R Upper Leg, L Lower Leg ( including foot), R Lower Leg (including foot), Chest, Abdomen, Buttocks, Perineal Area Upper Body (FIM): 6 (At w/c level, pt is able to retrieve clothing and don/ doff by self.) Lower Body Dressing (FIM): 5 (At w/c level, pt is able to retrieve clothes then supervision to don/doff pants. Pt places LE up on higher surface to don sock then uses bait tier to doff socks.) On/Off Footwear (QC): 6 (Pt places LE up on higher surface to don sock then uses bait tier to doff socks.) Transfers (B, C, W/C) (FIM): 5 (SBA using FWW) Shower Transfer(FIM): 5 (SBA using grabbar, w/c and shower bench.) Pt has tub shower at home and has been stepping into tub for shower. Other Treatment Pt completed arm bike 15 min duration at 20 mcwilliams resistance to increase strength and activity tolerance for daily functional tasks, 5 recovery breaks. Pt is able to maneuver w/c around room and gym though requires recovery break prior to starting other tasks. After therapy, pt sitting in recliner with call light/phone in reach. All needs met in room. OT Short Term Goals Short Term Goals Time Frame: Mar 18, 2017 Eating(FIM): 6 Grooming(FIM): 5 Bathing(FIM): 4 Upper Body Dressing(FIM): 5 Lower Body Dressing(FIM): 4 Toileting(FIM): 4 Transfers (B,C,W/C) (FIM): 5 Toilet/Commode Transfer(FIM): 5 Shower Transfer(FIM): 5 Additional Short Term Goals: 1-Demonstrate ADL Tasks, 2-Verbalize Understanding , 3-ImproveStrength/Soha 1=Demonstrate adherence to instructed precautions during ADL tasks. 2=Patient will verbalize/demonstrate understanding of assistive devices/ modifications for ADL. 3=Patient will improve strength/tolerance for activity to enable patient to perform ADL's. OT Aircraft Maintenance Instructor Goals Aircraft Maintenance Instructor Goals Time Frame: Apr 01, 2017 Eating (FIM): 6 Eating (QC): 6 Groomin Oral Hygiene (QC): 6 Bathing(FIM): 5 Shower/Bathe Self (QC): 5 Upper Body Dressing(FIM): 6 Upper Body Dressing (QC): 6 Lower Body Dressing(FIM): 6 Lower Body Dressing (QC): 6 On/Off Footwear (QC): 6 Toileting(FIM): 6 Toileting Hygiene (QC): 6 Transfers (B,C,W/C) (FIM): 6 Toilet/Commode Transfer(FIM): 6 Toilet/Commode Transfer (QC): 6 Shower Transfer(FIM): 5 Additional Goals: 1-Demonstrate ADL Tasks, 2-Verbalize Understanding, 3- ImproveStrength/Soha 1=Demonstrate adherence to instructed precautions during ADL tasks. 2=Patient will verbalize/demonstrate understanding of assistive devices/ modifications for ADL. 3=Patient will improve strength/tolerance for activity to enable patient to perform ADL's. OT Education/Plan Discharge Recommendations Plan/Recommendations: Continue POC Treatment Plan/Plan of Care Patient would benefit from OT for education, treatment and training to promote independence in ADL's, mobility, safety and/or upper extremity function for ADL' s. Plan of Care: ADL Retraining, Functional Mobility, UE Funct Exercise/Act Treatment Duration: Apr 01, 2017 Frequency: Twice Daily Estimated Hrs Per Day: 1.5 hours per day Agreement: Yes Rehab Potential: Good Time/GCodes Start Time: 07:00 Stop Time: 08:00 Total Time Billed (hr/min): 60 Billed Treatment Time 1 visit-ADL 2 (30 min) EX 1 (20 min) FA 1 (10 min CHRISTA BULLOCK Mar 18, 2017 07:44
--- NOTE | 2017-03-18 08:14 | PM & R (SOAP) Progress Note ---
Subjective Time Seen by Provider: 07:55 Subjective/Events-last exam Patient was seen in his room this AM Patient SBA for transfers Knee pain improved as well as endurance. Objective Exam Last Set of Vital Signs Vital Signs Date Time Temp Pulse Resp B/P (MAP) Pulse Ox O2 Delivery O2 Flow Rate FiO2 03/17/17 20:10 Room Air 03/17/17 20:00 97.9 72 20 117/68 97 Capillary Refill : I&O Intake and Output 03/18/17 00:00 Intake Total 1220 ml Output Total 1900 ml Balance -680 ml Intake Oral 1220 ml Output Urine Total 1900 ml # Bowel Movements 1 General: Alert, Oriented X3, Cooperative, No Acute Distress HEENT: Atraumatic, PERRLA, EOMI, Mucous Memb Moist/[place] Neck: Supple, No JVD Lungs: Clear to Auscultation Heart: Regular Rate Abdomen: Normal Bowel Sounds, Soft, No Tenderness Extremities: Other (discoloration and wounds from chronic venousstasis and cellulitis) Skin: Other (as per above ) Neuro: Other (generalized weakness approx 4/5 all 4 limbs) Psych/Mental Status: Mental Status NL, Mood NL Results Lab Laboratory Tests 03/15/17 16:11: Glucometer 184H 03/16/17 05:27: Glucometer 164H 03/16/17 16:04: Glucometer 143H 03/17/17 04:28: Glucometer 133H 03/17/17 17:14: Glucometer 165H 03/18/17 04:45: Glucometer 141H Assessment/Plan Assessment General debil s/p fall due to underlying Diabetic peripheral neuropathy and Morbid obesity DJD rt knee A FIb controlled with meds Non insulin DM Coronary artery D s/p [place] remote avulsion left fifth toenail bandaged Onychomycosis Onycholysis Plan Continue PT/OT/Wound care F/U with Hospitalist and Wound care as per their schedule. Monitor accuchecks and adjust meds as needed. Team Conference held yesterday-See report for full functional update and POC and ELOS Legs with decreased edema and healing well HOLA LANE MD Mar 18, 2017 08:14
[2017-03-18 08:20] VITALS: BP 120/71
[2017-03-18] MEDS: cloNIDine 0.1 MG (CATAPRES) TAB PO SCH ×2 (08:25→20:18)
[2017-03-18] MEDS: amLODIPine 5 MG (NORVASC) TAB PO SCH (08:26)
[2017-03-18] MEDS: ASPIRIN E.C. 81 MG (ECOTRIN) TAB PO SCH (08:26)
[2017-03-18] MEDS: CARVEDILOL 12.5 MG (COREG) TABLET PO SCH ×2 (08:26→20:18)
[2017-03-18] MEDS: FAMOTIDINE 20 MG (PEPCID) TABLET PO SCH ×2 (08:26→20:18)
[2017-03-18] MEDS: FUROSEMIDE 40 MG (LASIX) TAB PO SCH (08:26)
[2017-03-18] MEDS: A & D OINT 60 GM TUBE TOP SCH ×2 (08:27→20:18)
[2017-03-18] MEDS: MICONAZOLE 2% POWDER (DESENEX AF) 90 GM TOP SCH ×2 (08:27→20:19)
[2017-03-18] MEDS: lisINopril 20 MG (ZESTRIL) TAB PO SCH (08:27)
[2017-03-18] MEDS: NEO/POLY/BAC (NEOSPORIN) OINT 15 GM TUBE TOP SCH (08:28)
[2017-03-18] MEDS: HYDROcodone/APAP 5 MG/325 MG (LORTAB) TAB PO PRN (08:38)
--- NOTE | 2017-03-18 10:12 | Physical Therapy Daily Note ---
PT Daily Note-Current Subjective Pt sitting in recliner upon arrival. Pt requests using urinal before leaving room for PT. Pt agrees to PT. Pain Numeric Pain Scale: 3 Location: Right Location Body Site: Knee Pain Description: Ache Mental Status Patient Orientation: Person, Place, Time, Situation Transfers Functional [place] Measure 0=Not Assessed/NA 4=Minimal Assistance 1=Total Assistance 5=Supervision or Setup 2=Maximal Assistance 6=Modified [place] 3=Moderate Assistance 7=Complete IndependenceIRFPAI Quality Coding Scale 6 Independent with activity with or without an assistive device 5 Patient requires set up or clean up by helper. Patient completes activity by themselves 4 Supervision or touching assist (CGA). [place] provide cues , steadying assist 3 The helper provides less than half the effort to complete the activity 2 The helper provides more than half the effort to complete the activity 1 Dependent. The helper does all the effort to complete an activity 7 Patient refused to complete or attempt activity 9 The patient did not perform the activity before the current illness or injury 88 Not attempted due to Medical conditions or safety concerns Scootin Sit to/from Stand: 5 Sit to Stand (QC): 5 Weight Bearing Weight Bearing Restriction: Full Weight Bearing Location Restriction: LE Bilateral Gait Training Does the Patient Walk?: Yes Distance (FIM): 3=150 ft Distance: 50+ 75' x 3= 275' Walk 10 feet (QC): 5 Walk 50 ft with 2 Turns(QC): 5 Walk 150 ft (QC): 5 Gait Level of Assist: 5 Gait Persons Needed: 1 Gait Assistive Device: FWW Pt walks with slow imelda and step to gait pattern with L foot but steady, no LOB. Wheelchair Training Does the Pt Use a Wheelchair?: Yes Wheelchair Distance: 6=912-06 ft Distance: 50' Wheelchair Level of Assist: 6 Wheel 50 ft with 2 turns (QC): 6 Type of Wheelchair: Manual Exercises Seated Therapy Exercises: Ankle pumps, Sit to stand, Long arc quads, Hip flexion Seated Reps: 15 Standing: Hip Abduction, Heel/toe raises, Marching, Weight shifts Standing Reps: 20 Treatments Pt transfers from recliner to standing using FWW at SBA. Pt ambulates in hallway using FWW at SBA with rest breaks in [facility] as needed due to fatigue. Pt completed Seated Ex in [facility] before completing Standing Ex at //bars. Pt ambulated back to room to rest in recliner at end of tx with all needs met. Assessment Current Status: Good Progress Pt continues to increase strength and activity tolerance each day. PT Short Term Goals Short Term Goals Transfers (B,C,W/C) (FIM): 5 Wheelchair Distance: 60' PT Monotype Setter Goals Monotype Setter Goals PT Shelter Goals Time Frame: Mar 26, 2017 Transfers (B,C,W/C) (FIM): 6 Sit to Lying (QC): 5 Lying-Sitting on Side/Bed(QC): 5 Sit to Stand (QC): 5 Rollin Roll Left to Right (QC): 5 Chair/Dpk-ol-Iotiz Xfer(QC): 5 Car Transfer (QC): 5 Does the Patient Walk: Yes Gait distance (FIM): 7=534-71 ft Distance: 100' Walk 10 feet (QC): 5 Walk 10ft-Uneven Surface(QC): 5 Walk 50ft with 2 Turns (QC): 5 Walk 150 ft (QC): 9 Gait Level of Assist: 6 Gait Assistive Device: FWW Stairs (FIM): 2 # of Steps: 4 1 Step (curb) (QC): 5 4 Steps (QC): 5 12 Steps (QC): 9 Stairs Level Of Assist: 5 Picking up an Object (QC): 5 PT Plan Problem List Problem List: Activity Tolerance, Functional Strength, Safety, Balance, Gait Treatment/Plan Treatment Plan: Continue Plan of Care Treatment Plan: Bed Mobility, Education, Functional Activity Soha, Functional Strength, Gait, Safety, Therapeutic Exercise, Transfers Treatment Duration: Mar 26, 2017 Frequency: At least 5-7 days/Wk (IRF) Estimated Hrs Per Day: 1.5 hours per day Patient and/or Family Agrees t: Yes Safety Risks/Education Patient Education: Gait Training, Transfer Techniques, Correct Positioning, Safety Issues Teaching Recipient: Patient Teaching Methods: Discussion Response to Teaching: Verbalize Understanding Time/GCodes Time In: 915 Time Out: 1015 Total Billed Treatment Time: 60 Total Billed Treatment visit, GT x2 (30m) & EX x2 (30m) JENNIFER NOYOLA RETAIL SALES CONSULTANT Mar 18, 2017 10:12
[2017-03-18] MEDS: ENOXAPARIN 40 MG/0.4 ML (LOVENOX) SYR SC SCH (11:00)
--- NOTE | 2017-03-18 14:47 | Therapy Group Daily Note ---
Therapy Daily Group Note Patient Education Topic Exercises, Other List Below (Memory Strategies) Exercises LE Seated Exercise, UE Exercise Other/Notes Pt walked to PT/OT Group in Therapy Gym using FWW at [facility]. Group consisted of Introductions (Name, Where you grew up & Favorite Childhood Game/Boardgame), Memorization Techniques and Strategies, Seated UE & LE Exercises and Memory Activity. Pt actively participated in Group by verbally giving answers when asked questions as well as participating in UE & LE Exercises. Pt walked back to room using FWW at the end of Group to rest. Pt is resting in recliner with all needs met at the end of Group. Start Time: 13:00 Stop Time: 14:15 Total Billed Treatment Time: 75 Total Billed Treatment 1, GRP JENNIFER NOYOLA OLERICULTURE TEACHER Mar 18, 2017 14:47
[2017-03-18 18:55] VITALS: BP 128/79
[2017-03-18 20:15] VITALS: BP 125/74
[2017-03-18] MEDS: ISOSORBIDE MONONITRATE 30 MG (IMDUR) TAB PO SCH (20:18)
[2017-03-18] MEDS: SIMvastatin 20 MG (ZOCOR) TAB PO SCH (20:18)
[2017-03-19 05:55] VITALS: BP 137/79
[2017-03-19] MEDS: KCL 10 MEQ TAB (MICRO K) PO SCH (06:00)
[2017-03-19] MEDS: glipiZIDE 5 MG (GLUCOTROL) TAB PO SCH (06:00)
[2017-03-19 08:21] VITALS: BP 113/60
[2017-03-19] MEDS: cloNIDine 0.1 MG (CATAPRES) TAB PO SCH ×2 (08:22→20:48)
[2017-03-19] MEDS: lisINopril 20 MG (ZESTRIL) TAB PO SCH (08:22)
[2017-03-19] MEDS: amLODIPine 5 MG (NORVASC) TAB PO SCH (08:22)
[2017-03-19] MEDS: FUROSEMIDE 40 MG (LASIX) TAB PO SCH (08:22)
[2017-03-19] MEDS: CARVEDILOL 12.5 MG (COREG) TABLET PO SCH ×2 (08:22→20:47)
[2017-03-19] MEDS: MICONAZOLE 2% POWDER (DESENEX AF) 90 GM TOP SCH ×2 (08:23→20:50)
[2017-03-19] MEDS: A & D OINT 60 GM TUBE TOP SCH ×2 (08:23→20:49)
[2017-03-19] MEDS: FAMOTIDINE 20 MG (PEPCID) TABLET PO SCH ×2 (08:23→20:48)
[2017-03-19] MEDS: ASPIRIN E.C. 81 MG (ECOTRIN) TAB PO SCH (08:23)
--- NOTE | 2017-03-19 08:32 | Occupational Ther Daily Note ---
OT Current Status-Daily Note Subjective Pt dozing in recliner. Pt agreed to therapy. Pt stated that he woke up tired. No c/o pain. Mental Status/Objective Patient Orientation: Person, Place, Time, Situation Functional [place] Measure 0=Not Assessed/NA 4=Minimal Assistance 1=Total Assistance 5=Supervision or Setup 2=Maximal Assistance 6=Modified [place] 3=Moderate Assistance 7=Complete [place] ADL-Treatment Functional [place] Measure 0=Not Assessed/NA 4=Minimal Assistance 1=Total Assistance 5=Supervision or Setup 2=Maximal Assistance 6=Modified [place] 3=Moderate Assistance 7=Complete IndependenceIRFPAI Quality Coding Scale 6 Independent with activity with or without an assistive device 5 Patient requires set up or clean up by helper. Patient completes activity by themselves 4 Supervision or touching assist (CGA). [place] provide cues , steadying assist 3 The helper provides less than half the effort to complete the activity 2 The helper provides more than half the effort to complete the activity 1 Dependent. The helper does all the effort to complete an activity 7 Patient refused to complete or attempt activity 9 The patient did not perform the activity before the current illness or injury 88 Not attempted due to Medical conditions or safety concerns Grooming (FIM): 6 (Sitting at w/c level, pt is able to complete grooming tasks. ) Bathing (FIM): 5 (Supervision. Using grabbar, shower bench, long handle sponge and hand held shower pt is able to complete.) Bathing Location: L Arm, R Arm, L Upper Leg, R Upper Leg, L Lower Leg ( including foot), R Lower Leg (including foot), Chest, Abdomen, Buttocks, Perineal Area Upper Body (FIM): 5 (After set up, pt able to complete by self.) Lower Body Dressing (FIM): 5 (After set up, pt is able to complete with supervision when standing to hike pants over hips. Pt places feet on higher surface to don or doff socks.) Transfers (B, C, W/C) (FIM): 5 (Using FWW, pt is able to complete transfers with SBA.) Shower Transfer(FIM): 5 (Using grabbars and shower bench, pt is able to complete with SBA.) Other Treatment Pt maneuvers w/c by self from room to therapy gym. Completed arm bike 15 min duration at 20 mcwilliams resistance with 4 recovery breaks to increase strength and activity tolerance for daily functional tasks. Pt then maneuvered w/c to large shower room to work on tub/shower transfers. Using FWW straddling tub ledge, pt able to stabilize self with FWW and step into tub with B LE and step out with CGA. Pt took increased time to complete tasks due to decreased activity tolerance. Multiple recovery breaks throughout treatment was needed. After therapy, pt sitting in recliner with call light/phone in reach. All needs met in room. OT Short Term Goals Short Term Goals Time Frame: Mar 18, 2017 Eating(FIM): 6 Grooming(FIM): 5 Bathing(FIM): 4 Upper Body Dressing(FIM): 5 Lower Body Dressing(FIM): 4 Toileting(FIM): 4 Transfers (B,C,W/C) (FIM): 5 Toilet/Commode Transfer(FIM): 5 Shower Transfer(FIM): 5 Additional Short Term Goals: 1-Demonstrate ADL Tasks, 2-Verbalize Understanding , 3-ImproveStrength/Soha 1=Demonstrate adherence to instructed precautions during ADL tasks. 2=Patient will verbalize/demonstrate understanding of assistive devices/ modifications for ADL. 3=Patient will improve strength/tolerance for activity to enable patient to perform ADL's. OT Retirement Goals Retirement Goals Time Frame: Apr 01, 2017 Eating (FIM): 6 Eating (QC): 6 Groomin Oral Hygiene (QC): 6 Bathing(FIM): 5 Shower/Bathe Self (QC): 5 Upper Body Dressing(FIM): 6 Upper Body Dressing (QC): 6 Lower Body Dressing(FIM): 6 Lower Body Dressing (QC): 6 On/Off Footwear (QC): 6 Toileting(FIM): 6 Toileting Hygiene (QC): 6 Transfers (B,C,W/C) (FIM): 6 Toilet/Commode Transfer(FIM): 6 Toilet/Commode Transfer (QC): 6 Shower Transfer(FIM): 5 Additional Goals: 1-Demonstrate ADL Tasks, 2-Verbalize Understanding, 3- ImproveStrength/Soha 1=Demonstrate adherence to instructed precautions during ADL tasks. 2=Patient will verbalize/demonstrate understanding of assistive devices/ modifications for ADL. 3=Patient will improve strength/tolerance for activity to enable patient to perform ADL's. OT Education/Plan Discharge Recommendations Plan/Recommendations: Continue POC Treatment Plan/Plan of Care Patient would benefit from OT for education, treatment and training to promote independence in ADL's, mobility, safety and/or upper extremity function for ADL' s. Plan of Care: ADL Retraining, Functional Mobility, UE Funct Exercise/Act Treatment Duration: Apr 01, 2017 Frequency: Twice Daily Estimated Hrs Per Day: 1.5 hours per day Agreement: Yes Rehab Potential: Good Time/GCodes Start Time: 07:00 Stop Time: 08:30 Total Time Billed (hr/min): 90 Billed Treatment Time 1 visit-ADL 4 (60 min) FA 1 (10 min) EX 1 (20 min) CHRISTA BULLOCK Mar 19, 2017 08:32
--- NOTE | 2017-03-19 08:39 | PM & R (SOAP) Progress Note ---
Subjective Time Seen by Provider: 07:59 Subjective/Events-last exam Patient was seen in his room this AM and in common area Discharge set for Wednesday the .Patient reports pain in rt knee ddown from a10 to a three after Injection with orthopedics last Wednesday the Patient SBA for transfers Propels w/c inddpendently Objective Exam Last Set of Vital Signs Vital Signs Date Time Temp Pulse Resp B/P (MAP) Pulse Ox O2 Delivery O2 Flow Rate FiO2 03/19/17 08:21 96 113/60 03/19/17 06:55 95 Room Air 03/19/17 05:55 97.8 20 Capillary Refill : I&O Intake and Output 03/19/17 00:00 Intake Total 1550 ml Output Total 2600 ml Balance -1050 ml Intake Oral 1550 ml Output Urine Total 2600 ml General: Alert, Oriented X3, Cooperative, No Acute Distress HEENT: Atraumatic, PERRLA, EOMI, Mucous Memb Moist/[place] Neck: Supple, No JVD Lungs: Clear to Auscultation Heart: Regular Rate Abdomen: Normal Bowel Sounds, Soft, No Tenderness Extremities: Other (discoloration and wounds from chronic venousstasis and cellulitis) Skin: Other (as per above ) Neuro: Other (generalized weakness approx 4/5 all 4 limbs) Psych/Mental Status: Mental Status NL, Mood NL Results Lab Laboratory Tests 03/16/17 16:04: Glucometer 143H 03/17/17 04:28: Glucometer 133H 03/17/17 17:14: Glucometer 165H 03/18/17 04:45: Glucometer 141H 03/18/17 16:05: Glucometer 118H 03/19/17 05:40: Glucometer 155H Assessment/Plan Assessment General debil s/p fall due to underlying Diabetic peripheral neuropathy and Morbid obesity DJD rt knee with pain improved s/p injection with orthopedics DR Jovita Hutchins FIb controlled with meds Non insulin DM Coronary artery D s/p PA remote avulsion left fifth toenail bandaged Onychomycosis Onycholysis Plan Continue PT/OT/Wound care F/U with Hospitalist and Wound care as per their schedule. Monitor accuchecks and adjust meds as needed. Team Conference held 03-17-17-See report for full functional update and POC and ELOS Legs with decreased edema and healing well Discharge set for home with HHC for the Current meds reviewed. HOLA LANE MD Mar 19, 2017 08:39
[2017-03-19] MEDS ORDERED: HYDR-3812 PO (09:03)
[2017-03-19] MEDS ORDERED: AD60O TOP (09:03)
[2017-03-19] MEDS ORDERED: NEOM28.33 TOP (09:03)
[2017-03-19] MEDS ORDERED: MICO90PO TOP (09:03)
--- NOTE | 2017-03-19 09:33 | Physical Therapy Daily Note ---
PT Daily Note-Current Subjective Confident about returning home on Wednesday. Has 4 steps into the home and wants to practice today. Feels steroid injection in R knee decreased pain from 8/10 to 3/10. Pain Numeric Pain Scale: 3 Location: Right Location Body Site: Knee Pain Description: Ache Mental Status Patient Orientation: Person, Place, Time Comprehension: 6 Expression: 7 Social Interaction: 7 Transfers Functional [place] Measure 0=Not Assessed/NA 4=Minimal Assistance 1=Total Assistance 5=Supervision or Setup 2=Maximal Assistance 6=Modified [place] 3=Moderate Assistance 7=Complete IndependenceIRFPAI Quality Coding Scale 6 Independent with activity with or without an assistive device 5 Patient requires set up or clean up by helper. Patient completes activity by themselves 4 Supervision or touching assist (CGA). [place] provide cues , steadying assist 3 The helper provides less than half the effort to complete the activity 2 The helper provides more than half the effort to complete the activity 1 Dependent. The helper does all the effort to complete an activity 7 Patient refused to complete or attempt activity 9 The patient did not perform the activity before the current illness or injury 88 Not attempted due to Medical conditions or safety concerns Transfers (B, C, W/C) (FIM): 5 Rollin Supine to/from Sit: 5 Sit to/from Stand: 5 Bed to/from Chair: 5 Weight Bearing Weight Bearing Restriction: Full Weight Bearing Gait Training Distance (FIM): 2=408-05 ft Distance: 75 Gait Level of Assist: 5 Gait Persons Needed: 1 Gait Assistive Device: FWW Bariatric FWW. Wheelchair Training Wheelchair (FIM): 2 Wheelchair Distance: 3=957-58 ft Distance: 100 Wheelchair Level of Assist: 6 Stair Training Stair Training: Handrails/: 2 handrails Stairs (FIM): 2 #of Steps: 4 Stairs: Pattern: Step to Level of Assist: 5 Exercises Supine Ex: Ankle pumps, Heel Slides, Straight leg raise, Hip abd/add Supine Reps: 7 Seated Therapy Exercises: Ankle pumps, Long arc quads Seated Reps: 10 Standing: Dynamic Reaching Ex, Heel/toe raises, Marching, Mini squats, Sit to Stand, Weight shifts Standing Reps: 7 Assessment Current Status: Good Progress Steady improvement. Handled steps with handrails and supervision and good pace. Fatigues with amb > 70 ft. Needs to work on endurance. HR 105 bpm and O2 sats > 95% throughout session., PT Short Term Goals Short Term Goals Transfers (B,C,W/C) (FIM): 5 Wheelchair Distance: 50' PT Mcc Goals Sqe Goals PT Mcc Goals Time Frame: Mar 26, 2017 Transfers (B,C,W/C) (FIM): 6 Gait distance (FIM): 1=739-72 ft Distance: 100' Gait Level of Assist: 6 Gait Assistive Device: FWW Stairs (FIM): 2 # of Steps: 4 Stairs Level Of Assist: 5 PT Plan Treatment/Plan Treatment Plan: Continue Plan of Care Treatment Plan: Bed Mobility, Education, Functional Activity Soha, Functional Strength, Gait, Safety, Therapeutic Exercise, Transfers Treatment Duration: Mar 26, 2017 Frequency: At least 5-7 days/Wk (IRF) Estimated Hrs Per Day: 1.5 hours per day Patient and/or Family Agrees t: Yes Safety Risks/Education Patient Education: Gait Training, Steps Teaching Recipient: Patient Teaching Methods: Demonstration Response to Teaching: Return Demonstration Discharge Recommendations Therapy D/C Recommendations: Home w/ Family Support Time/GCodes Time In: 830 Time Out: 930 Total Billed Treatment Time: 60 Total Billed Treatment Visit, Gait x 2 (30), ex x 2 (30) G Codes Necessary: JOEL Resendiz PT Mar 19, 2017 09:33
[2017-03-19] MEDS: ENOXAPARIN 40 MG/0.4 ML (LOVENOX) SYR SC SCH (10:35)
--- NOTE | 2017-03-19 14:00 | Physical Therapy Daily Note ---
PT Daily Note-Current Subjective Stated he doesn't have a lot of room for a walking program at home. Is interested in outpt PT or Wellness. R knee pain with weightbearing 12/07. Mental Status Patient Orientation: Person, Place, Time Transfers Functional [place] Measure 0=Not Assessed/NA 4=Minimal Assistance 1=Total Assistance 5=Supervision or Setup 2=Maximal Assistance 6=Modified [place] 3=Moderate Assistance 7=Complete IndependenceIRFPAI Quality Coding Scale 6 Independent with activity with or without an assistive device 5 Patient requires set up or clean up by helper. Patient completes activity by themselves 4 Supervision or touching assist (CGA). [place] provide cues , steadying assist 3 The helper provides less than half the effort to complete the activity 2 The helper provides more than half the effort to complete the activity 1 Dependent. The helper does all the effort to complete an activity 7 Patient refused to complete or attempt activity 9 The patient did not perform the activity before the current illness or injury 88 Not attempted due to Medical conditions or safety concerns Gait Training Gait (FIM): 2 Distance (FIM): 9=168-33 ft Distance: 120 Gait Level of Assist: 5 Gait Persons Needed: 1 Gait Assistive Device: FWW Decreased WB through R knee. Exercises Seated Therapy Exercises: Ankle pumps, Long arc quads Seated Reps: 20 Standing: Hip Abduction, Heel/toe raises, Marching, Mini squats, Sit to Stand Standing Reps: 8 Issued written home exercises for seated and standing ex. Discussed walking program at home. Assessment Current Status: Good Progress It will be a challenge for him to maintain his activity at home - admits he spends most of the time in the recliner. Outpt PT may be a good option to progress him to a cane and increase functional walking. PT Short Term Goals Short Term Goals Transfers (B,C,W/C) (FIM): 5 Wheelchair Distance: 100 PT Acid Etch Operator Goals Acid Etch Operator Goals PT Acid Etch Operator Goals Time Frame: Mar 26, 2017 Transfers (B,C,W/C) (FIM): 6 Sit to Lying (QC): 5 Lying-Sitting on Side/Bed(QC): 5 Sit to Stand (QC): 5 Rollin Roll Left to Right (QC): 5 Chair/Adz-ui-Jeyih Xfer(QC): 5 Car Transfer (QC): 5 Does the Patient Walk: Yes Gait distance (FIM): 5=791-25 ft Distance: 100' Walk 10 feet (QC): 5 Walk 10ft-Uneven Surface(QC): 5 Walk 50ft with 2 Turns (QC): 5 Walk 150 ft (QC): 9 Gait Level of Assist: 6 Gait Assistive Device: FWW Stairs (FIM): 2 # of Steps: 4 1 Step (curb) (QC): 5 4 Steps (QC): 5 12 Steps (QC): 9 Stairs Level Of Assist: 5 Picking up an Object (QC): 5 PT Plan Treatment/Plan Treatment Plan: Continue Plan of Care Treatment Plan: Bed Mobility, Education, Functional Activity Soha, Functional Strength, Gait, Safety, Therapeutic Exercise, Transfers Treatment Duration: Mar 26, 2017 Frequency: At least 5-7 days/Wk (IRF) Estimated Hrs Per Day: 1.5 hours per day Patient and/or Family Agrees t: Yes Time/GCodes Time In: 12:45 Time Out: 145 Total Billed Treatment Time: 30 Total Billed Treatment Visit, ex x 15, gait x 15 JOEL YO PT Mar 19, 2017 14:00
[2017-03-19 18:10] VITALS: BP 134/82
[2017-03-19] MEDS: ISOSORBIDE MONONITRATE 30 MG (IMDUR) TAB PO SCH (20:48)
[2017-03-19] MEDS: SIMvastatin 20 MG (ZOCOR) TAB PO SCH (20:49)
[2017-03-20 05:50] VITALS: BP 101/63
[2017-03-20] MEDS: KCL 10 MEQ TAB (MICRO K) PO SCH (06:04)
[2017-03-20] MEDS: glipiZIDE 5 MG (GLUCOTROL) TAB PO SCH (06:05)
[2017-03-20 08:47] VITALS: BP 130/73
[2017-03-20] MEDS: lisINopril 20 MG (ZESTRIL) TAB PO SCH (08:48)
[2017-03-20] MEDS: ASPIRIN E.C. 81 MG (ECOTRIN) TAB PO SCH (08:48)
[2017-03-20] MEDS: cloNIDine 0.1 MG (CATAPRES) TAB PO SCH ×2 (08:48→20:21)
[2017-03-20] MEDS: FAMOTIDINE 20 MG (PEPCID) TABLET PO SCH ×2 (08:48→20:23)
[2017-03-20] MEDS: FUROSEMIDE 40 MG (LASIX) TAB PO SCH (08:48)
[2017-03-20] MEDS: amLODIPine 5 MG (NORVASC) TAB PO SCH (08:48)
[2017-03-20] MEDS: CARVEDILOL 12.5 MG (COREG) TABLET PO SCH ×2 (08:48→20:21)
[2017-03-20] MEDS: A & D OINT 60 GM TUBE TOP SCH ×2 (08:50→20:23)
[2017-03-20] MEDS: MICONAZOLE 2% POWDER (DESENEX AF) 90 GM TOP SCH ×2 (08:50→20:24)
--- NOTE | 2017-03-20 11:25 | Physical Therapy Daily Note ---
PT Daily Note-Current Subjective Patient in recliner pre tx, has pain of 3/10 in his right knee. Appearance Patient in recliner post tx with nurse call, phone, tray, family in the room. Mental Status Patient Orientation: Normal For Age Transfers Functional [place] Measure 0=Not Assessed/NA 4=Minimal Assistance 1=Total Assistance 5=Supervision or Setup 2=Maximal Assistance 6=Modified [place] 3=Moderate Assistance 7=Complete IndependenceIRFPAI Quality Coding Scale 6 Independent with activity with or without an assistive device 5 Patient requires set up or clean up by helper. Patient completes activity by themselves 4 Supervision or touching assist (CGA). [place] provide cues , steadying assist 3 The helper provides less than half the effort to complete the activity 2 The helper provides more than half the effort to complete the activity 1 Dependent. The helper does all the effort to complete an activity 7 Patient refused to complete or attempt activity 9 The patient did not perform the activity before the current illness or injury 88 Not attempted due to Medical conditions or safety concerns Transfers (B, C, W/C) (FIM): 5 Sit to/from Stand: 5 Gait Training Gait (FIM): 5 Distance: 150'x2 Gait Level of Assist: 5 Gait Persons Needed: 1 Gait Assistive Device: FWW Patient like to be followed with a wheelchair, but he did not need to sit and rest in it this morning. Slow, antalgic ambulation. Exercises Standing: Heel/toe raises, Mini squats Standing Reps: 20 Treatments transfers, ambulation, functional strengthening Assessment Current Status: Fair Progress improving endurance PT Short Term Goals Short Term Goals Transfers (B,C,W/C) (FIM): 5 Wheelchair Distance: 100 PT Biomass Boiler Operator Goals Senior Living Goals PT Senior Living Goals Time Frame: Mar 26, 2017 Transfers (B,C,W/C) (FIM): 6 Sit to Lying (QC): 5 Lying-Sitting on Side/Bed(QC): 5 Sit to Stand (QC): 5 Rollin Roll Left to Right (QC): 5 Chair/Cev-zz-Qrxoa Xfer(QC): 5 Car Transfer (QC): 5 Does the Patient Walk: Yes Gait distance (FIM): 5=218-41 ft Distance: 100' Walk 10 feet (QC): 5 Walk 10ft-Uneven Surface(QC): 5 Walk 50ft with 2 Turns (QC): 5 Walk 150 ft (QC): 9 Gait Level of Assist: 6 Gait Assistive Device: FWW Stairs (FIM): 2 # of Steps: 4 1 Step (curb) (QC): 5 4 Steps (QC): 5 12 Steps (QC): 9 Stairs Level Of Assist: 5 Picking up an Object (QC): 5 PT Plan Problem List Problem List: Activity Tolerance, Functional Strength, Safety, Balance, Gait, Transfer, Bed Mobility Treatment/Plan Treatment Plan: Continue Plan of Care Treatment Plan: Bed Mobility, Education, Functional Activity Soha, Functional Strength, Gait, Safety, Therapeutic Exercise, Transfers Treatment Duration: Mar 26, 2017 Frequency: At least 5-7 days/Wk (IRF) Estimated Hrs Per Day: 1.5 hours per day Patient and/or Family Agrees t: Yes Safety Risks/Education Patient Education: Gait Training, Transfer Techniques, Correct Positioning, Safety Issues Teaching Recipient: Patient Teaching Methods: Demonstration, Discussion Response to Teaching: Reinforcement Needed Time/GCodes Time In: 1100 Time Out: 1125 Total Billed Treatment Time: 25 Total Billed Treatment 1 visit EX 10' GT 15' AURELIO STATON PT Mar 20, 2017 11:25
[2017-03-20] MEDS: ENOXAPARIN 40 MG/0.4 ML (LOVENOX) SYR SC SCH (11:39)
[2017-03-20 18:24] VITALS: BP 112/68
[2017-03-20] MEDS: ISOSORBIDE MONONITRATE 30 MG (IMDUR) TAB PO SCH (20:22)
[2017-03-20] MEDS: SIMvastatin 20 MG (ZOCOR) TAB PO SCH (20:23)
[2017-03-21 06:00] VITALS: BP 124/71
[2017-03-21] MEDS: KCL 10 MEQ TAB (MICRO K) PO SCH (06:10)
[2017-03-21] MEDS: glipiZIDE 5 MG (GLUCOTROL) TAB PO SCH (06:10)
[2017-03-21 08:24] VITALS: BP 129/69
[2017-03-21] MEDS: amLODIPine 5 MG (NORVASC) TAB PO SCH (08:24)
[2017-03-21] MEDS: FUROSEMIDE 40 MG (LASIX) TAB PO SCH (08:24)
[2017-03-21] MEDS: MICONAZOLE 2% POWDER (DESENEX AF) 90 GM TOP SCH ×2 (08:24→20:39)
[2017-03-21] MEDS: FAMOTIDINE 20 MG (PEPCID) TABLET PO SCH ×2 (08:25→20:39)
[2017-03-21] MEDS: cloNIDine 0.1 MG (CATAPRES) TAB PO SCH ×2 (08:25→20:39)
[2017-03-21] MEDS: A & D OINT 60 GM TUBE TOP SCH ×2 (08:25→20:39)
[2017-03-21] MEDS: lisINopril 20 MG (ZESTRIL) TAB PO SCH (08:25)
[2017-03-21] MEDS: ASPIRIN E.C. 81 MG (ECOTRIN) TAB PO SCH (08:25)
[2017-03-21] MEDS: CARVEDILOL 12.5 MG (COREG) TABLET PO SCH ×2 (08:25→20:40)
[2017-03-21] MEDS: ENOXAPARIN 40 MG/0.4 ML (LOVENOX) SYR SC SCH (10:23)
[2017-03-21 18:10] VITALS: BP 130/75
[2017-03-21] MEDS: ISOSORBIDE MONONITRATE 30 MG (IMDUR) TAB PO SCH (20:39)
[2017-03-21] MEDS: SIMvastatin 20 MG (ZOCOR) TAB PO SCH (20:39)
[2017-03-22 05:12] VITALS: BP 108/65
[2017-03-22] MEDS: glipiZIDE 5 MG (GLUCOTROL) TAB PO SCH (06:03)
[2017-03-22] MEDS: KCL 10 MEQ TAB (MICRO K) PO SCH (06:03)
--- NOTE | 2017-03-22 07:52 | Occupational Ther Daily Note ---
OT Current Status-Daily Note Subjective Pt alert, sitting in recliner. Pt agreed to therapy. No c/o pain at this time. Mental Status/Objective Patient Orientation: Person, Place, Time, Situation Functional [place] Measure 0=Not Assessed/NA 4=Minimal Assistance 1=Total Assistance 5=Supervision or Setup 2=Maximal Assistance 6=Modified [place] 3=Moderate Assistance 7=Complete [place] ADL-Treatment Functional [place] Measure 0=Not Assessed/NA 4=Minimal Assistance 1=Total Assistance 5=Supervision or Setup 2=Maximal Assistance 6=Modified [place] 3=Moderate Assistance 7=Complete IndependenceIRFPAI Quality Coding Scale 6 Independent with activity with or without an assistive device 5 Patient requires set up or clean up by helper. Patient completes activity by themselves 4 Supervision or touching assist (CGA). [place] provide cues , steadying assist 3 The helper provides less than half the effort to complete the activity 2 The helper provides more than half the effort to complete the activity 1 Dependent. The helper does all the effort to complete an activity 7 Patient refused to complete or attempt activity 9 The patient did not perform the activity before the current illness or injury 88 Not attempted due to Medical conditions or safety concerns Eating (FIM): 7 (Pt able to set own self up and use utensils to cut food and feed self.) Eating (QC): 6 (Pt able to set own self up and use utensils to cut food and feed self.) Grooming (FIM): 6 (At w/c level, pt is able to complete all grooming.) Oral Hygiene (QC): 6 (At w/c level, pt is able to complete oral hygiene.) Bathing (FIM): 6 (Using grabbars, hand held shower, long handle sponge and shower bench pt is able to complete bathing.) Bathing Location: L Arm, R Arm, L Upper Leg, R Upper Leg, L Lower Leg ( including foot), R Lower Leg (including foot), Chest, Abdomen, Buttocks, Perineal Area Shower/Bathe Self (QC): 6 (Using grabbars, hand held shower, long handle sponge and shower bench pt is able to complete bathing.) Upper Body (FIM): 6 (At w/c level pt retrieves clothing. Pt able to complete donning/doffing upper body clothing by self.) Upper Body Dressing (QC): 6 (At w/c level pt retrieves clothing. Pt able to complete donning/doffing upper body clothing by self.) Lower Body Dressing (FIM): 6 (At w/c level pt retrieves clothing. Pt able to complete donning/doffing lower body clothing by self.) Lower Body Dressing (QC): 6 (At w/c level pt retrieves clothing. Pt able to complete donning/doffing lower body clothing by self.) On/Off Footwear (QC): 6 (At w/c level pt retrieves clothing. Pt able to complete donning/doffing by self.) Toileting (FIM): 6 (Using grabbars and FWW, pt able to complete by self.) Toileting Hygiene (QC): 6 (Using grabbars and FWW, pt able to complete by self. ) Transfers (B, C, W/C) (FIM): 6 (Using FWW, pt is able to complete.) Toilet/Commode Transfer (FIM): 6 (Using grabbars and FWW, pt able to complete.) Toilet Transfer (QC): 6 (Using grabbars and FWW, pt able to complete.) Shower Transfer(FIM): 6 (Using FWW, shower bench and grabbar pt able to complete.) After therapy, pt sitting in recliner with call light/phone in reach. All needs met in room. OT Short Term Goals Short Term Goals Time Frame: Mar 18, 2017 Eating(FIM): 6 Grooming(FIM): 5 Bathing(FIM): 4 Upper Body Dressing(FIM): 5 Lower Body Dressing(FIM): 4 Toileting(FIM): 4 Transfers (B,C,W/C) (FIM): 5 Toilet/Commode Transfer(FIM): 5 Shower Transfer(FIM): 5 Additional Short Term Goals: 1-Demonstrate ADL Tasks, 2-Verbalize Understanding , 3-ImproveStrength/Soha 1=Demonstrate adherence to instructed precautions during ADL tasks. 2=Patient will verbalize/demonstrate understanding of assistive devices/ modifications for ADL. 3=Patient will improve strength/tolerance for activity to enable patient to perform ADL's. OT Senior Care Goals Service Desk Lead Goals Time Frame: Apr 01, 2017 Eating (FIM): 6 Eating (QC): 6 Groomin Oral Hygiene (QC): 6 Bathing(FIM): 5 Shower/Bathe Self (QC): 5 Upper Body Dressing(FIM): 6 Upper Body Dressing (QC): 6 Lower Body Dressing(FIM): 6 Lower Body Dressing (QC): 6 On/Off Footwear (QC): 6 Toileting(FIM): 6 Toileting Hygiene (QC): 6 Transfers (B,C,W/C) (FIM): 6 Toilet/Commode Transfer(FIM): 6 Toilet/Commode Transfer (QC): 6 Shower Transfer(FIM): 5 Additional Goals: 1-Demonstrate ADL Tasks, 2-Verbalize Understanding, 3- ImproveStrength/Soha 1=Demonstrate adherence to instructed precautions during ADL tasks. 2=Patient will verbalize/demonstrate understanding of assistive devices/ modifications for ADL. 3=Patient will improve strength/tolerance for activity to enable patient to perform ADL's. OT Education/Plan Discharge Recommendations Plan/Recommendations: Continue POC Treatment Plan/Plan of Care Patient would benefit from OT for education, treatment and training to promote independence in ADL's, mobility, safety and/or upper extremity function for ADL' s. Plan of Care: ADL Retraining, Functional Mobility, UE Funct Exercise/Act Treatment Duration: Apr 01, 2017 Frequency: Twice Daily Estimated Hrs Per Day: 1.5 hours per day Agreement: Yes Rehab Potential: Good Time/GCodes Start Time: 07:00 Stop Time: 08:00 Total Time Billed (hr/min): 60 Billed Treatment Time 1 visit-ADL 3 (45 min) FA 1 (15 min) CHRISTA BULLOCK Mar 22, 2017 07:52
[2017-03-22 08:11] VITALS: BP 109/66
[2017-03-22] MEDS: ASPIRIN E.C. 81 MG (ECOTRIN) TAB PO SCH (08:12)
[2017-03-22] MEDS: cloNIDine 0.1 MG (CATAPRES) TAB PO SCH (08:12)
[2017-03-22] MEDS: CARVEDILOL 12.5 MG (COREG) TABLET PO SCH (08:12)
[2017-03-22] MEDS: FAMOTIDINE 20 MG (PEPCID) TABLET PO SCH (08:12)
[2017-03-22] MEDS: lisINopril 20 MG (ZESTRIL) TAB PO SCH (08:12)
[2017-03-22] MEDS: FUROSEMIDE 40 MG (LASIX) TAB PO SCH (08:12)
[2017-03-22] MEDS: amLODIPine 5 MG (NORVASC) TAB PO SCH (08:13)
[2017-03-22] MEDS: A & D OINT 60 GM TUBE TOP SCH (08:14)
[2017-03-22] MEDS: MICONAZOLE 2% POWDER (DESENEX AF) 90 GM TOP SCH (08:14)
--- NOTE | 2017-03-22 08:44 | Physical Therapy Daily Note ---
PT Daily Note-Current Subjective Patient in recliner pre tx, agrees to PT, he has pain of 3/10 in both knees. Patient will be discharging from this facility today. Appearance Patient in recliner post tx, has nurse call, phone, tray, all needs met. Patient has a new walker to take home but it is not a bariatric one, only 300# weight limit. sheet metal layout worker notified. Mental Status Patient Orientation: Normal For Age Transfers Functional [place] Measure 0=Not Assessed/NA 4=Minimal Assistance 1=Total Assistance 5=Supervision or Setup 2=Maximal Assistance 6=Modified [place] 3=Moderate Assistance 7=Complete IndependenceIRFPAI Quality Coding Scale 6 Independent with activity with or without an assistive device 5 Patient requires set up or clean up by helper. Patient completes activity by themselves 4 Supervision or touching assist (CGA). [place] provide cues , steadying assist 3 The helper provides less than half the effort to complete the activity 2 The helper provides more than half the effort to complete the activity 1 Dependent. The helper does all the effort to complete an activity 7 Patient refused to complete or attempt activity 9 The patient did not perform the activity before the current illness or injury 88 Not attempted due to Medical conditions or safety concerns Transfers (B, C, W/C) (FIM): 6 Scootin Rollin Roll Left to Right (QC): 6 Supine to/from Sit: 6 Sit to/from Stand: 6 Sit to Lying (QC): 6 Sit to Stand (QC): 6 Chair/Pig-ri-Zaaiw Xfer(QC): 6 Patient performs bed mobility and transfers with mod I. Gait Training Gait (FIM): 6 Distance: 150' Walk 10 feet (QC): 6 Walk 50 ft with 2 Turns(QC): 6 Walk 150 ft (QC): 6 Walking 10ft/uneven surface-QC: 6 Gait Assistive Device: FWW Patient is able to ambulate 150' with a rolling walker with mod I, including 50 ' with at least 2 turns of 90 degrees and 10' over an uneven surface. Wheelchair Training Does the Pt Use a Wheelchair?: No Stair Training Stair Training: Handrails/: 2 handrails Stairs (FIM): 2 #of Steps: 4 1 Step (curb) (QC): 6 4 Steps (QC): 6 Stairs: Pattern: Step to Patient can go up and down 4 steps using 2 handrails with mod I. Balance Picking up an Object (QC): 88 Treatments bed mobility and transfers, ambulation, stairs Assessment Current Status: Fair Progress improvements with ambulation and stairs PT Short Term Goals Short Term Goals Transfers (B,C,W/C) (FIM): 5 Wheelchair Distance: 100 PT Eyeglass Frame Truer Goals Eyeglass Frame Truer Goals PT Eyeglass Frame Truer Goals Time Frame: Mar 26, 2017 Transfers (B,C,W/C) (FIM): 6 (mt) Sit to Lying (QC): 5 (met) Lying-Sitting on Side/Bed(QC): 5 (met) Sit to Stand (QC): 5 (met) Rollin (met) Roll Left to Right (QC): 5 (et) Chair/Kpy-bu-Barxk Xfer(QC): 5 (met) Car Transfer (QC): 5 Does the Patient Walk: Yes Gait distance (FIM): 2=871-92 ft Distance: 100' Walk 10 feet (QC): 5 (met) Walk 10ft-Uneven Surface(QC): 5 (met) Walk 50ft with 2 Turns (QC): 5 (met) Walk 150 ft (QC): 9 (met) Gait Level of Assist: 6 (met) Gait Assistive Device: FWW Stairs (FIM): 2 (met) # of Steps: 4 (metmet) 1 Step (curb) (QC): 5 (met) 4 Steps (QC): 5 (met) 12 Steps (QC): 9 Stairs Level Of Assist: 5 (met) Picking up an Object (QC): 5 PT Plan Problem List Problem List: Activity Tolerance, Functional Strength, Safety, Balance, Gait, Transfer, Bed Mobility Treatment/Plan Treatment Plan: Continue Plan of Care Treatment Plan: Bed Mobility, Education, Functional Activity Soha, Functional Strength, Gait, Safety, Therapeutic Exercise, Transfers Treatment Duration: Mar 26, 2017 Frequency: At least 5-7 days/Wk (IRF) Estimated Hrs Per Day: 1.5 hours per day Patient and/or Family Agrees t: Yes Safety Risks/Education Patient Education: Gait Training, Transfer Techniques, Steps, Correct Positioning, Safety Issues Teaching Recipient: Patient Teaching Methods: Demonstration, Discussion Response to Teaching: Reinforcement Needed Time/GCodes Time In: 810 Time Out: 835 Total Billed Treatment Time: 25 Total Billed Treatment 1 visit FA 10' GT 15' AURELIO STATON PT Mar 22, 2017 08:44
--- NOTE | 2017-03-22 08:51 | Therapy Team Discharge Summary ---
Therapy Discharge Summary Discharge Recommendations Date of Discharge Therapy D/C Recommendations: Home w/ Family Support Physical Therapy Patient came to rehab for fall/debility. Upon admission patient performed bed mobility and transfers with SBA, ambulated 25' with a rolling walker with SBA, and could go up and down 1 step with a rolling walker with CGA. Patient has been performing bed mobility and transfer training, balance and endurance training, functional strengthening, stair training, gait training, and education. Patient has made good progress and has met all of his correction goals except for picking up and object from the floor. Now, patient performs bed mobility and transfers with mod I, ambulates 150' with a rolling walker with mod I (including 50' with at least 2 turns of 90 degrees and 10' over an uneven surface), he can go up and down 4 steps using 2 handrails with mod I. Patient is being discharged from this facility today and will be discharged from PT at this time. PT Maternity Nurse Goals Residential Goals PT Residential Goals Time Frame: Mar 26, 2017 Transfers (B,C,W/C) (FIM): 6 (mt) Roll Left to Right (QC): 5 (et) Sit to Lying (QC): 5 (met) Lying-Sitting on Side/Bed(QC): 5 (met) Sit to Stand (QC): 5 (met) Chair/Ukh-iz-Xvndn Xfer(QC): 5 (met) Car Transfer (QC): 5 Does the Patient Walk: Yes Gait distance (FIM): 0=587-84 ft Distance: 100' Walk 10 feet (QC): 5 (met) Walk 10ft-Uneven Surface(QC): 5 (met) Walk 50ft with 2 Turns (QC): 5 (met) Walk 150 ft (QC): 9 (met) Gait Level of Assist: 6 (met) Gait Assistive Device: FWW Stairs (FIM): 2 (met) # of Steps: 4 (metmet) 1 Step (curb) (QC): 5 (met) 4 Steps (QC): 5 (met) 12 Steps (QC): 9 Stairs Level Of Assist: 5 (met) Picking up an Object (QC): 5 OT Maternity Nurse Goals Residential Goals Time Frame: Apr 01, 2017 Eating (FIM): 6 Eating (QC): 6 Oral Hygiene (QC): 6 Grooming(FIM): 6 Bathing(FIM): 5 Shower/Bathe Self (QC): 5 Upper Body Dressing(FIM): 6 Upper Body Dressing (QC): 6 Lower Body Dressing(FIM): 6 Lower Body Dressing (QC): 6 On/Off Footwear (QC): 6 Toileting(FIM): 6 Toileting Hygiene (QC): 6 Transfers (B,C,W/C) (FIM): 6 Toilet/Commode Transfer(FIM): 6 Toilet/Commode Transfer (QC): 6 Shower Transfer(FIM): 5 Additional Goals: 1-Demonstrate ADL Tasks, 2-Verbalize Understanding, 3- ImproveStrength/Soha 1=Demonstrate adherence to instructed precautions during ADL tasks. 2=Patient will verbalize/demonstrate understanding of assistive devices/ modifications for ADL. 3=Patient will improve strength/tolerance for activity to enable patient to perform ADL's. AURELIO STATON PT Mar 22, 2017 08:51
[2017-03-22] MEDS: ENOXAPARIN 40 MG/0.4 ML (LOVENOX) SYR SC SCH (11:39)
[2017-03-22 11:56] VITALS: BP 111/65
--- NOTE | 2017-03-22 14:22 | Therapy Team Discharge Summary ---
Therapy Discharge Summary Discharge Recommendations Date of Discharge Mar 22, 2017 at 11:56 Therapy D/C Recommendations: Home w/ Family Support Occupational Therapy Pt admitted to ARU secondary to fall/debility. On admission pt required moderate assistance for LE dressing and bathing. Skilled OT intervention focused on ADL training, transfers, strengthening, and safety education. Pt made good progress with therapy and by discharge is completing basic ADLs and transfers with modified independence. Pt met all OT LTG. Pt discharged home this date. D/c ARU OT at this time. PT Senior Oracle Database Developer Goals Senior Oracle Database Developer Goals PT Senior Oracle Database Developer Goals Time Frame: Mar 26, 2017 Transfers (B,C,W/C) (FIM): 6 (mt) Roll Left to Right (QC): 5 (et) Sit to Lying (QC): 5 (met) Lying-Sitting on Side/Bed(QC): 5 (met) Sit to Stand (QC): 5 (met) Chair/Kro-ir-Htwib Xfer(QC): 5 (met) Car Transfer (QC): 5 Does the Patient Walk: Yes Gait distance (FIM): 8=780-14 ft Distance: 100' Walk 10 feet (QC): 5 (met) Walk 10ft-Uneven Surface(QC): 5 (met) Walk 50ft with 2 Turns (QC): 5 (met) Walk 150 ft (QC): 9 (met) Gait Level of Assist: 6 (met) Gait Assistive Device: FWW Stairs (FIM): 2 (met) # of Steps: 4 (metmet) 1 Step (curb) (QC): 5 (met) 4 Steps (QC): 5 (met) 12 Steps (QC): 9 Stairs Level Of Assist: 5 (met) Picking up an Object (QC): 5 OT Senior Oracle Database Developer Goals Senior Oracle Database Developer Goals Time Frame: Apr 01, 2017 Eating (FIM): 6 Eating (QC): 6 Oral Hygiene (QC): 6 Grooming(FIM): 6 Bathing(FIM): 5 Shower/Bathe Self (QC): 5 Upper Body Dressing(FIM): 6 Upper Body Dressing (QC): 6 Lower Body Dressing(FIM): 6 Lower Body Dressing (QC): 6 On/Off Footwear (QC): 6 Toileting(FIM): 6 Toileting Hygiene (QC): 6 Transfers (B,C,W/C) (FIM): 6 Toilet/Commode Transfer(FIM): 6 Toilet/Commode Transfer (QC): 6 Shower Transfer(FIM): 5 Additional Goals: 1-Demonstrate ADL Tasks, 2-Verbalize Understanding, 3- ImproveStrength/Soha 1=Demonstrate adherence to instructed precautions during ADL tasks. 2=Patient will verbalize/demonstrate understanding of assistive devices/ modifications for ADL. 3=Patient will improve strength/tolerance for activity to enable patient to perform ADL's. SONIA TAYLOR OT Mar 22, 2017 14:21
--- NOTE | 2017-03-22 17:52 | PM & R (SOAP) Progress Note ---
Subjective Time Seen by Provider: 12:00 Subjective/Events-last exam Patient discharged to home with [facility] today Has progressed well F/U with PCP DR Courtney See orders. Objective Exam Last Set of Vital Signs Vital Signs Date Time Temp Pulse Resp B/P (MAP) Pulse Ox O2 Delivery O2 Flow Rate FiO2 03/22/17 11:56 78 18 111/65 98 Room Air 03/22/17 05:12 97.1 Capillary Refill : I&O Intake and Output 03/22/17 00:00 Intake Total 1160 ml Output Total 2400 ml Balance -1240 ml Intake Oral 1160 ml Output Urine Total 2400 ml General: Alert, Oriented X3, Cooperative, No Acute Distress HEENT: Atraumatic, PERRLA, EOMI, Mucous Memb Moist/[place]: Supple, No JVD Lungs: Clear to Auscultation Heart: Regular Rate Abdomen: Normal Bowel Sounds, Soft, No Tenderness Extremities: Other (discoloration and wounds from chronic venousstasis and cellulitis) Skin: Other (as per above ) Neuro: Other (generalized weakness approx 4/5 all 4 limbs) Psych/Mental Status: Mental Status NL, Mood NL Results Lab Laboratory Tests 03/20/17 05:49: Glucometer 149H 03/20/17 16:03: Glucometer 150H 03/21/17 06:06: Glucometer 144H 03/21/17 16:08: Glucometer 165H 03/22/17 04:46: Glucometer 132H 03/22/17 11:23: Glucometer 145H Assessment/Plan Assessment General debil s/p fall due to underlying Diabetic peripheral neuropathy and Morbid obesity DJD rt knee with pain improved s/p injection with orthopedics DR Jovita Hutchins FIb controlled with meds Non insulin DM Coronary artery D s/p [place] remote avulsion left fifth toenail bandaged Onychomycosis Onycholysis Plan Discharge today as per above See orders.. HOLA LANE MD Mar 22, 2017 17:52
== END 2017-03-22 11:56 | disposition home or self-care (01) | DRG 74 ==
LOC: ENPENDDIS 03-22 12:00
PROVIDERS: ADMIT Physical Medicine & Rehabilitation; ATTEND Physical Medicine & Rehabilitation
DX: E11.42 Type 2 diabetes mellitus with diabetic polyneuropathy (principal); E66.01 Morbid (severe) obesity due to excess calories; Z68.42 Body mass index [BMI] 45.0-49.9, adult; M17.11 Unilateral primary osteoarthritis, right knee; I87.8 Other specified disorders of veins; L03.116 Cellulitis of left lower limb; L03.115 Cellulitis of right lower limb; I48.91 Unspecified atrial fibrillation; I25.10 Atherosclerotic heart disease of native coronary artery without angina pectoris; S91.205A Unspecified open wound of left lesser toe(s) with damage to nail, initial encounter; B35.1 Tinea unguium; L60.1 Onycholysis; I25.2 Old myocardial infarction; Z79.84 Long term (current) use of oral hypoglycemic drugs; W19.XXXA Unspecified fall, initial encounter
CPT/HCPCS: 82962; 94760

== ENCOUNTER → 2017-04-29 | Outpatient (CLI) | payer MEDICARE ==
[~2017-04-29] MED LIST changes: +AD60O TOP; +HYDR-3812 PO; +MICO90PO TOP; +NEOM28.33 TOP
== END ==
LOC: WOUNDCARE 09:06
PROVIDERS: ATTEND Internal Medicine
DX: E11.622 Type 2 diabetes mellitus with other skin ulcer (principal); L97.222 Non-pressure chronic ulcer of left calf with fat layer exposed; I70.202 Unspecified atherosclerosis of native arteries of extremities, left leg
CPT/HCPCS: 99213

== ENCOUNTER → 2017-04-29 | Outpatient (CLI) | payer MEDICARE ==
--- NOTE | 2017-04-29 20:41 | Diagnostic Imaging Report ---
PROCEDURE: US Bilateral lower extremity arterial. TECHNIQUE: Multiple real-time grayscale images are obtained through both lower extremity arterial systems with color Doppler imaging and color Doppler spectral analysis. INDICATION: Bilateral leg pain. FINDINGS: This study was technically difficult due to the patient's body habitus. There are no previous arterial ultrasound examinations available for comparison. The noninvasive Doppler exam of 03/09/2017 did note that the ankle-brachial indices were diminished bilaterally. The ANG for each lower leg was 0.83 (normal 1.00 or greater). On this study, there does appear to be diminished arterial blood flow to the left lower extremity. There were monophasic waveforms in the superficial femoral, popliteal, and anterior tibial arteries. Blood flow was not identified in the posterior tibial artery. Furthermore, there were areas of abrupt alteration of velocities in the superficial femoral and popliteal arteries and I suspect that there are areas of stenoses involving these regions. There is also an abrupt alteration between the junction of the distal common femoral artery and the superficial femoral artery. Most likely, there is a hemodynamically significant stenosis in this region as well. There is fairly good arterial blood flow to the right lower extremity. There is no clear evidence for hemodynamically significant stenosis. IMPRESSION: 1. There does appear to be diminished arterial blood flow to the left lower extremity and most likely, there are multiple stenoses involving the left arterial system. If further imaging is desired, then CTA of the aorta with bilateral runoffs would be recommended. 2. There is no hemodynamically significant stenosis of the arterial system on the right. Dictated by: Dictated on workstation # [id number]
--- NOTE | 2017-04-30 14:57 | Diagnostic Imaging Report ---
INDICATION: Bilateral leg pain. Bilateral lower extremity venous Doppler study was performed in the routine fashion with color flow Doppler and waveform analysis. FINDINGS: The common femoral veins, superficial femoral veins, popliteal veins and visualized portion of the tibial veins show normal compressibility and venous flow patterns. There is normal augmentation. IMPRESSION: No evidence of deep vein thrombosis in the major veins of both legs. Dictated by: Dictated on workstation # [id number]
== END ==
LOC: RAD 11:01
DX: I73.89 Other specified peripheral vascular diseases (principal); M79.662 Pain in left lower leg; M79.661 Pain in right lower leg
CPT/HCPCS: 93925; 93970

== ENCOUNTER → 2017-05-06 | Outpatient (CLI) | payer MEDICARE | LOC: WOUNDCARE 09:31 | PROVIDERS: ATTEND Internal Medicine | DX: E11.622 Type 2 diabetes mellitus with other skin ulcer (principal); L97.222 Non-pressure chronic ulcer of left calf with fat layer exposed; I70.202 Unspecified atherosclerosis of native arteries of extremities, left leg | CPT/HCPCS: 99212 ==

== ENCOUNTER → 2017-08-03 | Outpatient (CLI) | payer MEDICARE ==
[~2017-08-03] MED LIST changes: +LOSA1TAB23 PO; -LOSA1TAB70 PO
== END ==
LOC: WOUNDCARE 08:23
PROVIDERS: ATTEND Nurse Practitioner
DX: E11.622 Type 2 diabetes mellitus with other skin ulcer (principal); L97.222 Non-pressure chronic ulcer of left calf with fat layer exposed; I70.242 Atherosclerosis of native arteries of left leg with ulceration of calf; Z91.19 Patient's noncompliance with other medical treatment and regimen
CPT/HCPCS: 99213

== ENCOUNTER → 2017-08-10 | Outpatient (CLI) | payer MEDICARE | LOC: WOUNDCARE 10:00 | PROVIDERS: ATTEND Nurse Practitioner | DX: E11.622 Type 2 diabetes mellitus with other skin ulcer (principal); L97.222 Non-pressure chronic ulcer of left calf with fat layer exposed; I70.242 Atherosclerosis of native arteries of left leg with ulceration of calf; Z91.19 Patient's noncompliance with other medical treatment and regimen | CPT/HCPCS: 11042; 87070; 87075; 87077; 87186; 87205 ==

== ENCOUNTER 2018-11-15 22:37 | Emergency (ER) | payer MEDICARE ==
[~2018-11-15] VITALS: Ht 188 cm; Wt 163.3 kg
[~2018-11-15 22:37] MED LIST changes: +ACHD5005 PO; -AMLO10TA2 PO; +AMLO10TA7 PO; -HYDR-3812 PO; +METF-398 PO; -METF850T2 PO
[2018-11-15] MEDS ORDERED: NS IV 1000 ML 1,000 ML IV SCH (22:57)
[2018-11-15 23:22] LABS: BASOPHILS % (AUTO) 0 % (0-10); EOSINOPHILS % (AUTO) 0 % (0-10); HEMATOCRIT 35 % (40-54); HEMOGLOBIN 11.1 G/DL (13.3-17.7); LYMPHOCYTES # (AUTO) 0.5 X 10^3 (1.0-4.0); LYMPHOCYTES % (AUTO) 2 % (12-44); MEAN CORPUSCULAR HEMOGLOBIN 28 PG (25-34); MEAN CORPUSCULAR HGB CONC 32 G/DL (32-36); MEAN CORPUSCULAR VOLUME 88 FL (80-99); MEAN PLATELET VOLUME 8.9 FL (7.4-10.4); MONOCYTES # (AUTO) 0.6 X 10^3 (0.0-1.0); MONOCYTES % (AUTO) 2 % (0-12); NEUTROPHILS # (AUTO) 26.7 X 10^3 (1.8-7.8); NEUTROPHILS % (AUTO) 96 % (42-75); PLATELET COUNT 364 10^3/uL (130-400); RED CELL DISTRIBUTION WIDTH 16.4 % (10.0-14.5); WHITE BLOOD COUNT 27.8 10^3/uL (4.3-11.0)
[2018-11-15] MEDS ORDERED: KETOROLAC 30 MG/ML VIAL IVP ONE (23:30)
[2018-11-15 23:35] LABS: INR 1.6 (0.8-1.4); PROTHROMBIN TIME PATIENT 19.4 SEC (12.2-14.7)
[2018-11-15 23:41] LABS: ANISOCYTOSIS SLIGHT; BAND NEUTROPHILS 6 %; BASOPHILS % (MANUAL) 0 %; EOSINOPHILS % (MANUAL) 0 %; LYMPHOCYTES % (MANUAL) 3 %; MONOCYTES % (MANUAL) 6 %; NEUTROPHILS % (MANUAL) 84 %; REACTIVE LYMPHOCYTES 1 %
[2018-11-16 00:02] LABS: ACETAMINOPHEN < 10 UG/ML (10-30); ALANINE AMINOTRANSFERASE 26 U/L (0-55); ALBUMIN 3.3 GM/DL (3.2-4.5); ALKALINE PHOSPHATASE 64 U/L (40-136); AMYLASE 37 U/L (25-125); BILIRUBIN,TOTAL 1.3 MG/DL (0.1-1.0); BUN/CREATININE RATIO 14; CALCIUM 9.7 MG/DL (8.5-10.1); CARBON DIOXIDE 14 MMOL/L (21-32); CHLORIDE 103 MMOL/L (98-107); CREATINE KINASE 7481 U/L (30-200); CREATININE SERUM 2.56 MG/DL (0.60-1.30); GFR ESTIMATED 25; GLUCOSE 169 MG/DL (70-105); LIPASE 334 U/L (8-78); MAGNESIUM 1.7 MG/DL (1.8-2.4); POTASSIUM 4.5 MMOL/L (3.6-5.0); SODIUM 133 MMOL/L (135-145); TOTAL PROTEIN 8.1 GM/DL (6.4-8.2)
[2018-11-16 00:11] LABS: TSH (THYROID ANALYZER) 3.35 UIU/ML (0.35-4.94)
[2018-11-16 00:15] LABS: CREATINE KINASE MB 36.5 NG/ML (<6.6)
[2018-11-16] MEDS ORDERED: PIPERACILLIN SODIUM/TAZOBACTAM 4.5 GM in NS (IVPB) 100 ML IV ONE (00:15)
[2018-11-16] MEDS ORDERED: VANCOMYCIN INJECTION 1,000 MG in NS (IVPB) 250 ML IV ONE (00:15)
[2018-11-16] MEDS ORDERED: NS IV 1000 ML 1,000 ML IV ONE (00:23)
[2018-11-16] MEDS ORDERED: MAGNESIUM 1 GM/100 ML IVPB 100 ML IV SCH (00:30)
[2018-11-16] MEDS ORDERED: FUROSEMIDE 40 MG/4 ML INJ (LASIX) IVP ONE (00:30)
[2018-11-16] MEDS ORDERED: NOREPINEPHRINE 4 MG in NS (IVPB) 250 ML IV SCH (00:45)
[2018-11-16 01:30] LABS: CLARITY,URINE VERY CLOUDY; COLOR,URINE YELLOW; GLUCOSE, URINE (UA) NEGATIVE (NEGATIVE); KETONES,URINE NEGATIVE (NEGATIVE); LEUKOCYTE ESTERASE ,URINE 3+ (NEGATIVE); NITRITE,URINE POSITIVE (NEGATIVE); PH,URINE 7 (5-9); PROTEIN,URINE 4+ (NEGATIVE); UROBILINOGEN,URINE 4 MG/DL (NORMAL)
[2018-11-16 01:36] LABS: BILIRUBIN,URINE 1+ (NEGATIVE)
[2018-11-16 01:39] LABS: BACTERIA,URINE MODERATE /HPF; WBC,URINE 25-50 /HPF
[2018-11-16 01:40] LABS: RBC,URINE 0-2 /HPF
[2018-11-16 01:42] LABS: AMPHETAMINE SCREEN, URINE NEGATIVE (NEGATIVE); BARBITURATE SCREEN URINE NEGATIVE (NEGATIVE); BENZODIAZEPINES SCREEN URINE NEGATIVE (NEGATIVE); CANNABINOID SCREEN, URINE NEGATIVE (NEGATIVE); COCAINE SCREEN URINE NEGATIVE (NEGATIVE); METHADONE STAT NEGATIVE (NEGATIVE); METHAMPHETAMINE SCREEN URINE S NEGATIVE (NEGATIVE); OPIATE SCREEN URINE NEGATIVE (NEGATIVE); OXYCODONE STAT NEGATIVE (NEGATIVE); PROPOXYPHENE STAT NEGATIVE (NEGATIVE); TRICYCLIC ANTIDEPRESSANTS SCRE NEGATIVE (NEGATIVE)
--- NOTE | 2018-11-16 02:10 | ED General ---
General Stated Complaint: FALL Source of Information: Patient (PT IS VERY LIMITED HISTORIAN ), Old Records ( ALL PMH IS FROM OLD RECORDS, PT DOES NOT KNOW ANY HISTORY , DOES NOT KNOW HIS MEDICATIONS OR WHAT HE TAKES THEM FOR. ) History of Present Illness Date Seen by Provider: Nov 15, 2018 Time Seen by Provider: 22:45 Initial Comments PT ARRIVES VIA EMS FROM HOME--REQUIRED MULTIPLE EMS STAFF AND ER STAFF TO TRANSFER PT FROM EMS CART TO ER CART DAUGHTER REPORTEDLY CALLED EMS, BUT DID NOT ACCOMPANY PT TO ER. SHE LIVES WITH PT PT ALLEGEDLY "PASSED OUT" PT STATES HE WAS SITTING IN A CHAIR WATCHING TV AND "ABOUT 2 HOURS LATER" HE WOKE UP ON THE FLOOR--DAUGHTER FOUND HIM ON THE FLOOR. PT DOES NOT KNOW IF HE HIT HIS HEAD OR NOT BUT DENIES HEADACHE/HEAD PAIN NO INCONTINENCE STATES HE DOES NOT RECALL ANY OF THE EVENT NO OTHER INFORMATION IS OBTAINABLE AT THIS TIME. PT DENIES HISTORY OF SYNCOPE PT C/O BILATERAL LEG PAIN--IS CHRONIC PROBLEM, UNABLE TO STATE IF WORSE THAN NORMAL PT IS DIABETIC, DOES NOT KNOW IF HE HAS NEUROPATHY OR NOT. DENIES RECENT ILLNESS DENIES CHEST PAIN DENIES SHORTNESS OF BREATH DENIES ABDOMINAL PAIN OR NAUSEA/VOMITING/DIARRHEA PT STATES HE WISHES TO BE A FULL CODE. HISTORY OF SEVERE NON-COMPLIANCE IN ALL ASPECTS OF CARE, PER OLD RECORDS ADDITIONALLY, PT HAS REFUSED ANY OTHER CARDIAC EVALUATIONS AT TIME OF LAST VISIT /ADMIT IN 2016 PCP: DR. MCDOWELL--HAS AN APPOINTMENT TOMORROW FOR ROUTINE FOLLOW UP Allergies and Home Medications Allergies Coded Allergies: No Known Drug Allergies (Verified , 04/12/08) Home Medications Aspirin 81 Mg Tablet.dr, 81 MG PO DAILY, (Reported) Carvedilol 25 Mg Tablet, 25 MG PO BID, (Reported) Furosemide 40 Mg Tablet, 40 MG PO DAILY, (Reported) Glipizide 10 Mg Tablet, 10 MG PO DAILY, (Reported) Hydrocodone Bit/Acetaminophen 1 Each Tablet, 1 TAB PO Q4H PRN for PAIN-MODERATE Prescribed by: HOLA LANE on 03/19/17902 Isosorbide Mononitrate 30 Mg Tab.sr.24h, 30 MG PO HS, (Reported) Miconazole Nitrate 90 Gm Powder, 0 GM TOP BID Prescribed by: HOLA LANE on 03/19/17902 Neomycin Chan/Bacitrac Zn/Poly 28.3 Gm Oint...g., 0 GM TOP UD PRN for DRESSING CHANGE Prescribed by: HOLA LANE on 03/19/17902 Nitroglycerin 0.4 Mg Tab.subl, 0.4 MG SL UD PRN for CHEST PAIN, (Reported) Potassium Chloride 10 Meq Tab.prt.sr, 10 MEQ PO DAILY, (Reported) Pravastatin Sodium 40 Mg Tablet, 40 MG PO DAILY, (Reported) Ranitidine HCl 150 Mg Tablet, 150 MG PO BID, (Reported) Vitamin A & D 60 Gm Oint, 0 GM TOP BID Prescribed by: HOLA LANE on 03/19/17902 Patient Home Medication List Home Medication List Reviewed: Yes Review of Systems Review of Systems Constitutional: see HPI; No dizziness, No fever EENTM: nose congestion Respiratory: no symptoms reported Cardiovascular: see HPI, syncope Gastrointestinal: no symptoms reported; No diarrhea, No loss of appetite, No nausea, No vomiting Genitourinary: no symptoms reported Musculoskeletal: see HPI Skin: see HPI Psychiatric/Neurological: No Symptoms Reported Hematologic/Lymphatic: No Symptoms Reported Immunological/Allergic: no symptoms reported Past Ujnlszu-Pbhgpj-Avtojo Hx Patient Social History Recreational Drug Use: No Smoking Status: Never a Smoker 2nd Hand Smoke Exposure: No Recent Foreign Travel: No Contact w/Someone Who Travel: No Recent Hopitalizations: Yes Seasonal Allergies Seasonal Allergies: No Past Medical History Surgeries: Yes (4 VESSEL CABG 2001; ) Cardiac, CABG, Orthopedic Respiratory: No Currently Using CPAP: No Currently Using BIPAP: No Cardiac: Yes (CABG 2001; CHF; SEVERE CAROTID STENOIS; SEVERE, EXTENSIVE PERIPHERAL VASCULAR DISEASE) Atrial Fibrillation, Chronic Edema/Swelling, Coronary Artery Disease, Heart Attack, High Cholesterol, Hypertension, Peripheral Vascular Neurological: Yes Neuropathy Reproductive Disorders: No Sexually Transmitted Disease: No HIV/AIDS: No Genitourinary: Yes (RENAL INSUFFICIENCY) Benign Prostatic Hyperpl Gastrointestinal: Yes Gastroesophageal Reflux Musculoskeletal: Yes (POOR MOBILITY; CHRONIC KNEE AND LEG PAIN ) Arthritis Endocrine: Yes (MORBID OBESITY) Diabetes, Non-Insulin dep HEENT: No Loss of Vision: Denies Hearing Impairment: Denies Cancer: No Psychosocial: No Integumentary: Yes (CELLULITIS OF LEGS /GANGRENE) Blood Disorders: No Adverse Reaction/Blood Tranf: No Family Medical History Congestive heart failure 19 MOTHER Family history: Cardiovascular disease 19 MOTHER G8 BROTHER Family history: Diabetes mellitus 19 MOTHER G8 BROTHER Family history: Glaucoma G8 BROTHER Family history: Hypertension Physical Exam Vital Signs Vital Signs - First Documented 11/15/18 22:40 Temp 99.4 Pulse 115 Resp 20 B/P (MAP) 96/73 (81) Pulse Ox 96 O2 Delivery Room Air Capillary Refill : Height, Weight, BMI Height: 6'2.00" Weight: 386lbs. 0.7oz. 175.420462wz; 52.6 BMI Method:Stated General Appearance: Obese (MORBIDLY ), Other (VERY UNKEMPT/DIRTY AND EXTREMELY MALODOROUS) Neck: Normal Inspection, Non Tender Respiratory: Normal Breath Sounds, No Respiratory Distress, Decreased Breath Sounds (IN BASES), Other (MILDLY DYSPENIC. LUNGS WITH DECREASED AERAION IN ALL LUNG HAMMER) Cardiovascular: Regular Rate, Rhythm, No Murmur Gastrointestinal: Non Tender, Soft Extremity: Other (SIGNFICANT CHRONIC VENOUS STASIS CHANGES WITH EXTENSIVE SCALING, CRUSTING, MACERATION/EXFOLIATION/DESQUAMATION AND DIFFUSE WEEPING FROM BOTH LEGS, WITH SIGNIFICANT ERYTHEMA TO BILATERAL LOWER LEGS ADN FEET--RIGHT > LEFT; LEGS WITH 4+ EDEMA BILATERALLY) Neurologic/Psychiatric: Alert, No Motor/Sensory Deficits (GROSSLY INTACT), Normal Mood/Affect, Other (ORIENTED TO PERSON, PLACE, SOMEWHAT DISORIENTED TO TIME AND SITUATION, WITH SOME MEMORY IMPAIRMENT/FORGETFULNESS. ) Skin: Normal Color, Other ( ABOVE. ) Focused Exam Sepsis Stage: Septic Shock Possible Source: Skin/Soft Tissue Lactate Level 11/15/18 01:30: Lactic Acid Level 2.48*H 11/15/18 23:05: Lactic Acid Level 4.66*H Time of Focused Exam: 23:55 Respiratory: Other (INCREASED AERATION ; SLIGHTLY DYSPNEIC AT REST) Cardiovascular: Regular Rate, Rhythm, No Murmur Skin: normal color, other (SAME PREVIOUS) Lactic Acid Level Within 3hrs of presentation: Admin fluids, Admin ABX, Blood cultures prior to ABX's, Focus exam, Lactate level, Vasopressin therapy Progress/Results/Core Measures Suspected Sepsis SIRS Temperature: Pulse: Respiratory Rate: Laboratory Tests 11/15/18 23:05: White Blood Count 27.8H Blood Pressure / Mean: 11/15/18 01:30: Lactic Acid Level 2.48*H 11/15/18 23:05: Lactic Acid Level 4.66*H Laboratory Tests 11/15/18 23:05: Creatinine 2.56H, INR Comment 1.6H, Platelet Count 364, Total Bilirubin 1.3H Results/Orders Lab Results Laboratory Tests Test 11/15/18 01:30 11/15/18 23:05 11/15/18 23:14 11/16/18 01:23 Range/Units Lactic Acid Level 2.48 *H 4.66 *H 0.50-2.00 MMOL/L White Blood Count 27.8 H 4.3-11.0 10^3/uL Red Blood Count 3.95 L 4.35-5.85 10^6/uL Hemoglobin 11.1 L 13.3-17.7 G/DL Hematocrit 35 L 40-54 % Mean Corpuscular Volume 88 80-99 FL Mean Corpuscular Hemoglobin 28 25-34 PG Mean Corpuscular Hemoglobin Concent 32 32-36 G/DL Red Cell Distribution Width 16.4 H 10.0-14.5 % Platelet Count 364 130-400 10^3/uL Mean Platelet Volume 8.9 7.4-10.4 FL Neutrophils (%) (Auto) 96 H 42-75 % Lymphocytes (%) (Auto) 2 L 12-44 % Monocytes (%) (Auto) 2 0-12 % Eosinophils (%) (Auto) 0 0-10 % Basophils (%) (Auto) 0 0-10 % Neutrophils # (Auto) 26.7 H 1.8-7.8 X 10^3 Lymphocytes # (Auto) 0.5 L 1.0-4.0 X 10^3 Monocytes # (Auto) 0.6 0.0-1.0 X 10^3 Eosinophils # (Auto) 0.0 0.0-0.3 10^3/uL Basophils # (Auto) 0.0 0.0-0.1 10^3/uL Neutrophils % (Manual) 84 % Lymphocytes % (Manual) 3 % Monocytes % (Manual) 6 % Eosinophils % (Manual) 0 % Basophils % (Manual) 0 % Band Neutrophils 6 % Reactive Lymphocytes 1 % Anisocytosis SLIGHT Prothrombin Time 19.4 H 12.2-14.7 SEC INR Comment 1.6 H 0.8-1.4 Activated Partial Thromboplast Time 38 H 24-35 SEC Sodium Level 133 L 135-145 MMOL/L Potassium Level 4.5 3.6-5.0 MMOL/L Chloride Level 103 98-107 MMOL/L Carbon Dioxide Level 14 L 21-32 MMOL/L Anion Gap 16 H 5-14 MMOL/L Blood Urea Nitrogen 36 H 7-18 MG/DL Creatinine 2.56 H 0.60-1.30 MG/DL Estimat Glomerular Filtration Rate 25 BUN/Creatinine Ratio 14 Glucose Level 169 H 70-105 MG/DL Calcium Level 9.7 8.5-10.1 MG/DL Corrected Calcium 10.3 H 8.5-10.1 MG/DL Magnesium Level 1.7 L 1.8-2.4 MG/DL Total Bilirubin 1.3 H 0.1-1.0 MG/DL Aspartate Amino Transf (AST/SGOT) 115 H 5-34 U/L Alanine Aminotransferase (ALT/SGPT) 26 0-55 U/L Alkaline Phosphatase 64 40-136 U/L Total Creatine Kinase 7481 H 30-200 U/L Creatine Kinase MB 36.5 *H <6.6 NG/ML Troponin I 2.432 *H <0.028 NG/ML B-Type Natriuretic Peptide 896.2 H <100.0 PG/ML Total Protein 8.1 6.4-8.2 GM/DL Albumin 3.3 3.2-4.5 GM/DL Amylase Level 37 25-125 U/L Lipase 334 H 8-78 U/L TSH [place] Testing 3.35 0.35-4.94 UIU/ML Acetaminophen Level < 10 L 10-30 UG/ML Serum Alcohol < 10 <10 MG/DL Glucometer 165 H 70-110 MG/DL Urine Color YELLOW Urine Clarity VERY CLOUDY H Urine pH 7 5-9 Urine Specific [place] 1.010 L 1.016-1.022 Urine Protein 4+ NEGATIVE Urine Glucose (UA) NEGATIVE NEGATIVE Urine Ketones NEGATIVE NEGATIVE Urine Nitrite POSITIVE H NEGATIVE Urine Bilirubin 1+ H NEGATIVE Urine Urobilinogen 4 H NORMAL MG/DL Urine Leukocyte Esterase 3+ H NEGATIVE Urine RBC (Auto) 5+ H NEGATIVE Urine RBC 0-2 /HPF Urine WBC 25-50 H /HPF Urine Squamous Epithelial Cells NONE /HPF Urine Crystals NONE /LPF Urine Bacteria MODERATE H /HPF Urine Casts NONE /LPF Urine Mucus NEGATIVE /LPF Urine Culture Indicated CULTURE PENDING Urine Opiates Screen NEGATIVE NEGATIVE Urine Oxycodone Screen NEGATIVE NEGATIVE Urine Methadone Screen NEGATIVE NEGATIVE Urine Propoxyphene Screen NEGATIVE NEGATIVE Urine Barbiturates Screen NEGATIVE NEGATIVE Ur Tricyclic Antidepressants Screen NEGATIVE NEGATIVE Urine Phencyclidine Screen NEGATIVE NEGATIVE Urine Amphetamines Screen NEGATIVE NEGATIVE Urine Methamphetamines Screen NEGATIVE NEGATIVE Urine Benzodiazepines Screen NEGATIVE NEGATIVE Urine Cocaine Screen NEGATIVE NEGATIVE Urine Cannabinoids Screen NEGATIVE NEGATIVE Micro Results Microbiology 11/15/18 Influenza Types A,B Antigen (ESTELA) - Final, Complete My Orders Orders - PEDRITO GOTTI DO Accucheck Stat ONCE (11/15/18 22:57) Saline Lock/Iv-Start (11/15/18 22:57) Ekg Tracing (11/15/18 22:57) Catheter(Urinary) Insert & Ass 03,15 (11/15/18 22:57) O2 (11/15/18 22:57) Monitor-Rhythm Ecg Trace Only (11/15/18 22:57) Acetaminophen (11/15/18 22:57) Alcohol (11/15/18 22:57) Amylase (11/15/18 22:57) BNP (11/15/18 22:57) Cbc With Automated Diff (11/15/18 22:57) Comprehensive Metabolic Panel (11/15/18 22:57) Creatine Kinase (11/15/18 22:57) Creatine Kinase Mb (11/15/18 22:57) Drug Screen Stat (Urine) (11/15/18 22:57) Lactic Acid Analyzer (11/15/18 22:57) Lipase (11/15/18 22:57) Magnesium (11/15/18 22:57) Protime With Inr (11/15/18 22:57) Partial Thromboplastin Time (11/15/18 22:57) Thyroid Analyzer (11/15/18 22:57) Troponin I (11/15/18 22:57) Blood Culture (11/15/18 22:57) Influenza A And B Antigens (11/15/18 22:57) Chest 1 View, Ap/Pa Only (11/15/18 22:57) Saline Lock/Iv-Start (11/15/18 22:57) Ns Iv 1000 Ml (Sodium Chloride 0.9%) (11/15/18 22:57) Manual Differential (11/15/18 23:05) Ketorolac Injection (Toradol Injection) (11/15/18 23:30) Urinalysis (11/16/18 00:01) Urine Culture (11/16/18 00:01) Saline Lock/Iv-Start (11/16/18 00:01) Saline Lock/Iv-Start (11/16/18 00:01) Vital Signs Adult Sepsis Patie Q15M (11/16/18 00:01) O2 (11/16/18 00:01) Remove Rings In Anticipation O (11/16/18 00:01) Piperacillin Sodium/Tazobactam (Zosyn Vi (11/16/18 00:15) Vancomycin Injection (Vancomycin Injecti (11/16/18 00:15) Furosemide Injection (Lasix Injection) (11/16/18 00:30) Magnesium 1 Gm/100 Ml Ivpb (Magnesium Chan (11/16/18 00:30) Saline Lock/Iv-Start (11/16/18 00:23) Ns Iv 1000 Ml (Sodium Chloride 0.9%) (11/16/18 00:23) Norepinephrine (Levophed) (11/16/18 00:45) Chest 1 View, Ap/Pa Only (11/16/18 02:07) Medications Given in ED Current Medications Medications Dose Ordered Sig/Anuradha Route Start Time Stop Time Status Last Admin Dose Admin Furosemide 80 mg ONCE ONCE IVP 11/16/18 00:30 11/16/18 01:02 DC 11/16/18 02:26 80 MG Ketorolac Tromethamine 30 mg ONCE ONCE IVP 11/15/18 23:30 11/15/18 23:31 DC 11/15/18 23:34 30 MG Piperacillin Sod/ Tazobactam Sod 4.5 gm/Sodium Chloride 100 ml @ 200 mls/hr ONCE ONCE IV 11/16/18 00:15 11/16/18 00:44 DC 11/16/18 00:59 200 MLS/HR Sodium Chloride 1,000 ml @ 0 mls/hr Q0M ONCE IV 11/16/18 00:23 11/16/18 01:02 DC 11/16/18 00:26 1,000 MLS/HR Vancomycin HCl 1000 mg/Sodium Chloride 250 ml @ 250 mls/hr ONCE ONCE IV 11/16/18 00:15 11/16/18 01:14 DC 11/16/18 00:50 250 MLS/HR Vital Signs/I&O 11/15/18 11/16/18 22:40 04:40 Temp 99.4 Pulse 115 Resp 20 B/P (MAP) 96/73 (81) Pulse Ox 96 98 O2 Delivery Room Air Room Air Capillary Refill : Progress Note : Progress Note PT'S WEIGHT EXCEEDS THE WEIGHT LIMIT FOR CT SCANNER PT IS UNABLE TO STAND OR EVEN TRANSFER ON HIS OWN FOR ANY ADDITIONAL XRAYS NO FAMILY CAME TO ER OR CALLED WHILE HE WAS HERE. ECG Initial ECG Impression Date: Nov 15, 2018 Initial ECG Impression Time: 23:06 Initial ECG Rate: 114 Initial ECG Rhythm: S.Tach Initial ECG Comparisson: No Previous ECG Available Diagnostic Imaging Comments CXR--BILATERAL INFILTRATES AND PULMONARY VASCULAR CONGESTION Reviewed: Reviewed by Me Critical Care Note Critical Care Total Time (minutes) 45 MINUTES Progress PT HAD PERSISTENT HYPOTENSION--WITH AT LEAST 3 READINGS IN 70'S SYSTOLIC, AND NEARLY ALL OTHERS IN 80'S-90'S SYSTOLIC, AND PT WAS ALREADY WITH FLUID OVERLOAD, AFTER 1 LITER OF FLUIDS INFUSED, LEVOPHED WAS INITIATED BP UP WITH LEVOPHED NO FURTHER DETERIORATION IN PT'S CONDITION DURING ER STAY Departure Communication (Admissions) THIS FACILITY IS CURRENTLY ON FULL DIVERSION 0050--[facility] CONTACTED AT PT'S REQUEST. PAGING MATH INTERVENTIONIST 0055--SPOKE WITH DR. AUGUSTE, ACCEPTS PT FOR ADMIT/TRANSFER. NO ADDITIONAL RECOMMENDATIONS 0100--DR. DE LA CRUZ CONTACTED FOR CENTRAL LINE PLACEMENT 0120--DR. DE LA CRUZ HERE FOR CENTRAL LINE. Impression Primary Impression: Shock Additional Impressions: Sepsis Bilateral lower leg cellulitis NSTEMI (non-ST elevated myocardial infarction) Diabetes mellitus Hypomagnesemia CHF (congestive heart failure) UTI (urinary tract infection) Chronic renal insufficiency Disposition: XFER SHT-TRM HOSP Condition: Stable Admissions Decision to Admit Reason: Admit from ER (General) Decision to Admit/Date: Nov 16, 2018 Transfer Transfer Facility: [facility] Method of Transfer: EMS Departure-Patient Inst. Referrals: MICHELLE MCDOWELL MD (PCP/Family) Primary Care Physician PEDRITO GOTTI DO Nov 16, 2018 02:10
[2018-11-16 03:42] VITALS: BP 125/50
--- NOTE | 2018-11-16 07:55 | Diagnostic Imaging Report ---
Indication: Cough with weakness. Findings: There is cardiomegaly. Median sternotomy changes are present. Mild prominence of pulmonary vasculature. There is some blunting of the costophrenic angles. IMPRESSION: Cardiomegaly with small pleural effusions consistent with congestive failure. Dictated by: Dictated on workstation # [id number]
--- NOTE | 2018-11-16 08:00 | Diagnostic Imaging Report ---
INDICATION: Followup central line placement. Comparison with 11/15/2018. FINDINGS: Right jugular line is now present. Tip overlies the superior vena caval shadow in the mid upper chest. Median sternotomy changes with cardiomegaly again noted. There is obscuration of the left hemidiaphragm. Right lung is well-aerated and clear. IMPRESSION: Satisfactory right PICC line placement. Dictated by: Dictated on workstation # [id number]
--- NOTE | 2018-11-17 16:54 | Consultation ---
History of Present Illness History of Present Illness Patient Consulted On(maximiliano/time) 11/16/18 01:30 Date Seen by Provider: Nov 16, 2018 Time Seen by Provider: 01:30 History of Present Illness Consult requested for central line placement for septic shock seen and evaluated in ED patient with no family at bedside. patient is a 63 year old male brought by ems. patient with b/l cellulitis lower extremity. has blood pressures systolic in 70's and started on Levophed. Allergies and Home Medications Allergies Coded Allergies: No Known Drug Allergies (Verified , 04/12/08) Home Medications Aspirin 81 Mg Tablet.dr, 81 MG PO DAILY, (Reported) Carvedilol 25 Mg Tablet, 25 MG PO BID, (Reported) Furosemide 40 Mg Tablet, 40 MG PO DAILY, (Reported) Glipizide 10 Mg Tablet, 10 MG PO DAILY, (Reported) Hydrocodone Bit/Acetaminophen 1 Each Tablet, 1 TAB PO Q4H PRN for PAIN-MODERATE Prescribed by: HOLA LANE on 03/19/17902 Isosorbide Mononitrate 30 Mg Tab.sr.24h, 30 MG PO HS, (Reported) Miconazole Nitrate 90 Gm Powder, 0 GM TOP BID Prescribed by: HOLA LANE on 03/19/17902 Neomycin Chan/Bacitrac Zn/Poly 28.3 Gm Oint...g., 0 GM TOP UD PRN for DRESSING CHANGE Prescribed by: HOLA LANE on 03/19/17902 Nitroglycerin 0.4 Mg Tab.subl, 0.4 MG SL UD PRN for CHEST PAIN, (Reported) Potassium Chloride 10 Meq Tab.prt.sr, 10 MEQ PO DAILY, (Reported) Pravastatin Sodium 40 Mg Tablet, 40 MG PO DAILY, (Reported) Ranitidine HCl 150 Mg Tablet, 150 MG PO BID, (Reported) Vitamin A & D 60 Gm Oint, 0 GM TOP BID Prescribed by: HOLA LANE on 03/19/17902 Past Quudovk-Jmyzff-[place]uh[place] Hx Patient Social History Recreational Drug Use: No Smoking Status: Never a Smoker 2nd Hand Smoke Exposure: No Recent Foreign Travel: No Contact w/Someone Who Travel: No Recent Infectious Disease Expo: No Recent Hopitalizations: Yes Seasonal Allergies Seasonal Allergies: No Surgeries History of Surgeries: Yes (4 VESSEL CABG 2001; ) Surgeries: Cardiac, CABG, Orthopedic Respiratory History of Respiratory Disorde: No Cardiovascular History of Cardiac Disorders: Yes (CABG 2001; CHF; SEVERE CAROTID STENOIS; SEVERE, EXTENSIVE PERIPHERAL VASCULAR DISEASE) Cardiac Disorders: Atrial Fibrillation, Chronic Edema/Swelling, Coronary Artery Disease, Heart Attack, High Cholesterol, Hypertension, Peripheral Vascular Neurological History of Neurological Disord: Yes Neurological Disorders: Neuropathy Reproductive System Hx Reproductive Disorders: No Sexually Transmitted Disease: No HIV/AIDS: No Genitourinary History of Genitourinary Disor: Yes (RENAL INSUFFICIENCY) Genitourinary Disorders: Benign Prostatic Hyperpl, Renal Failure Gastrointestinal History of Gastrointestinal Di: Yes Gastrointestinal Disorders: Gastroesophageal Reflux Musculoskeletal History of Musculoskeletal Dis: Yes (POOR MOBILITY; CHRONIC KNEE AND LEG PAIN ) Musculoskeletal Disorders: Arthritis Endocrine History of Endocrine Disorders: Yes (MORBID OBESITY) Endocrine Disorders: Diabetes, Non-Insulin dep HEENT History of HEENT Disorders: No Loss of Vision: Denies Hearing Impairment: Denies Cancer History of Cancer: No Psychosocial History of Psychiatric Problem: No Integumentary History of Skin or Integumenta: Yes (CELLULITIS OF LEGS /GANGRENE) Blood Transfusions History of Blood Disorders: No Adverse Reaction to a Blood Tr: No Family Medical History Family Medial History: Congestive heart failure 19 MOTHER Family history: Cardiovascular disease 19 MOTHER G8 BROTHER Family history: Diabetes mellitus 19 MOTHER G8 BROTHER Family history: Glaucoma G8 BROTHER Family history: Hypertension Physical Exam-General Problems Physical Exam Vital Signs Vital Signs - First Documented 11/15/18 22:40 Temp 99.4 Pulse 115 Resp 20 B/P (MAP) 96/73 (81) Pulse Ox 96 O2 Delivery Room Air Capillary Refill : Less Than 3 Seconds Data Review Labs Microbiology 11/15/18 Blood Culture - Preliminary, Resulted Achromobacter xylosoxidans ssp 11/15/18 Influenza Types A,B Antigen (ESTELA) - Final, Complete 11/16/18 Urine Culture - Preliminary, Resulted Proteus mirabilis NETO DE LA CRUZ DO Nov 17, 2018 16:54
== END 2018-11-16 03:26 | disposition short-term general hospital (02) ==
LOC: EDUNIT# 22:37 → ER 22:38
DX: A41.9 Sepsis, unspecified organism (principal); L03.115 Cellulitis of right lower limb; L03.116 Cellulitis of left lower limb; I21.4 Non-ST elevation (NSTEMI) myocardial infarction; E83.42 Hypomagnesemia; N39.0 Urinary tract infection, site not specified; R57.9 Shock, unspecified; E11.22 Type 2 diabetes mellitus with diabetic chronic kidney disease; I13.0 Hypertensive heart and chronic kidney disease with heart failure and stage 1 through stage 4 chronic kidney disease, or unspecified chronic kidney disease; N18.9 Chronic kidney disease, unspecified; I50.9 Heart failure, unspecified; E11.51 Type 2 diabetes mellitus with diabetic peripheral angiopathy without gangrene; I73.9 Peripheral vascular disease, unspecified; I48.91 Unspecified atrial fibrillation; I25.10 Atherosclerotic heart disease of native coronary artery without angina pectoris; I25.2 Old myocardial infarction; E78.00 Pure hypercholesterolemia, unspecified; K21.9 Gastro-esophageal reflux disease without esophagitis; E66.01 Morbid (severe) obesity due to excess calories; Z87.448 Personal history of other diseases of urinary system; Z91.19 Patient's noncompliance with other medical treatment and regimen; Z82.49 Family history of ischemic heart disease and other diseases of the circulatory system; Z68.43 Body mass index [BMI] 50.0-59.9, adult; Z79.82 Long term (current) use of aspirin; Z79.4 Long term (current) use of insulin; Z95.1 Presence of aortocoronary bypass graft; Z98.890 Other specified postprocedural states
CPT/HCPCS: 36415; 71045; 80053; 80306; 80320; 80329; 81000; 82150; 82550; 82553; 82962; 83605; 83690; 83735; 83880; 84443; 84484; 85007; 85027; 85610; 85730; 87040; 87077; 87088; 87186; 87804; 93005; 93041; 96361; 96365; 96366; 96367; 96368; 96375

== ENCOUNTER 2018-12-12 23:52 | Emergency (ER) | payer MEDICARE ==
[~2018-12-12] VITALS: Ht 188 cm; Wt 163.3 kg
--- NOTE | 2018-12-12 23:52 | NUR ---
2352- 1MG EPI GIVEN 2354- PULSE ASSESSED, NO PULSE ON PALPATION OR MONITOR 2354- LMA #5 PLACED BY RT STAFF. 2354- 1MG EPI GIVEN IV 2356- PULSE ASSESSED, NO PULSE ON PALPATION OR MONITOR. 2357- 1MG EPI GIVEN IV 2358-1 AMP OF BICARB GIVEN IV, DAUGHTER REPORTED TO HAVE ARRIVED IN WAITING ROOM 2359-PULSE ASSESSED, CENTRAL PULSE PRESENT, MONITOR SHOWS A FIB, HR 130 0002-BP 148/102 0003-LABS DRAWN, EKG OBTAINED 0006- BLOOD PRESSURE 113/92 0007- CENTRAL PULSES ABSENT, HR 48, CPR RESTARTED 0009- PULSE ASSESSED, NO PULSE PRESENT, MONITOR READS ASYSTOLE. CPR CONTINUED 0010- PULSE ASSESSED, NO PULSE PRESENT ON PALPATION, MONITOR OR AUSCULTATION, PT PRONOUNCED BY DR. RATLIFF. TIME OF 0010 12/13/18
[2018-12-12] MEDS ORDERED: SODIUM BICARB 8.4% 50 MEQ/50 ML (ABBOTT) SYR INJ ONE (23:54)
[2018-12-12] MEDS ORDERED: EPINEPHrine 0.1 MG/ML 10 ML (HOSPIRA) SYR INJ ONE (23:54)
--- NOTE | 2018-12-13 01:04 | ED CPR ---
HPI-CPR General Chief Complaint: Code Blue Stated Complaint: CODE BLUE Source of Information: EMS, Assisted Records History of Present Illness Date Seen by Provider: Dec 12, 2018 Time Seen by Provider: 23:50 Initial Comments This 63-year-old gentleman [facility] the emergency [facility] with CPR in progress. retirement staff reported that he had hollered out in his room. They responded and found him unresponsive in his bed with agonal breathing. He was pulseless at that time. CPR was started and AED applied. EMS reports he was in asystole upon their arrival. CPR continued. He was intubated in the field but ET tube was lost. CPR continued with BVM ventilation. 3 rounds of epinephrine were administered by EMS. Blood sugar was in the 200s. Patient was in asystole upon arrival, unresponsive and pulseless. Patient had been recently treated with parenteral antibiotics for sepsis. In late October she had been transferred to [facility] for septic shock, and STEMI, congestive heart failure, and lower extremity cellulitis. He was dismissed from [facility] where he continued on parenteral antibiotics. Allergies and Home Medications Allergies Coded Allergies: No Known Drug Allergies (Verified , 04/12/08) Home Medications Aspirin 81 Mg Tablet.dr, 81 MG PO DAILY, (Reported) Carvedilol 25 Mg Tablet, 25 MG PO BID, (Reported) Furosemide 40 Mg Tablet, 40 MG PO DAILY, (Reported) Glipizide 10 Mg Tablet, 10 MG PO DAILY, (Reported) Hydrocodone Bit/Acetaminophen 1 Each Tablet, 1 TAB PO Q4H PRN for PAIN-MODERATE Prescribed by: HOLA LANE on 03/19/17902 Isosorbide Mononitrate 30 Mg Tab.sr.24h, 30 MG PO HS, (Reported) Miconazole Nitrate 90 Gm Powder, 0 GM TOP BID Prescribed by: HOLA LANE on 03/19/17902 Neomycin Chan/Bacitrac Zn/Poly 28.3 Gm Oint...g., 0 GM TOP UD PRN for DRESSING CHANGE Prescribed by: HOLA LANE on 03/19/17902 Nitroglycerin 0.4 Mg Tab.subl, 0.4 MG SL UD PRN for CHEST PAIN, (Reported) Potassium Chloride 10 Meq Tab.prt.sr, 10 MEQ PO DAILY, (Reported) Pravastatin Sodium 40 Mg Tablet, 40 MG PO DAILY, (Reported) Ranitidine HCl 150 Mg Tablet, 150 MG PO BID, (Reported) Vitamin A & D 60 Gm Oint, 0 GM TOP BID Prescribed by: HOLA LANE on 03/19/17 0903 Patient Home Medication List Home Medication List Reviewed: Yes Review of Systems Review of Systems Constitutional: see HPI EENTM: No Symptoms Reported Respiratory: See HPI Cardiovascular: See HPI Gastrointestinal: No Symptoms Reported Genitourinary: No Symptoms Reported Musculoskeletal: no symptoms reported Skin: see HPI Psychiatric/Neurological: See HPI Endocrine: No Symptoms Reported Hematologic/Lymphatic: No Symptoms Reported Past Rlnukgb-Cxbpss-Tyonix Hx Past Med/Social Hx: Reviewed and Corrections made Patient Social History 2nd Hand Smoke Exposure: No Recent Foreign Travel: No Contact w/Someone Who Travel: No Recent Hopitalizations: Yes Seasonal Allergies Seasonal Allergies: No Past Medical History Surgeries: Yes (4 VESSEL CABG 2001; ) Cardiac, CABG, Orthopedic Respiratory: No Currently Using CPAP: No Currently Using BIPAP: No Cardiac: Yes (Congestive heart failure) Atrial Fibrillation, Chronic Edema/Swelling, Coronary Artery Disease, Heart Attack, High Cholesterol, Hypertension, Peripheral Vascular Neurological: Yes Neuropathy Reproductive Disorders: No Sexually Transmitted Disease: No HIV/AIDS: No Genitourinary: Yes (RENAL INSUFFICIENCY) Benign Prostatic Hyperpl, Renal Failure Gastrointestinal: Yes Gastroesophageal Reflux Musculoskeletal: Yes (POOR MOBILITY; CHRONIC KNEE AND LEG PAIN ) Arthritis Endocrine: Yes (MORBID OBESITY) Diabetes, Non-Insulin dep HEENT: No Loss of Vision: Denies Hearing Impairment: Denies Cancer: No Psychosocial: No Integumentary: Yes (CELLULITIS OF LEGS /GANGRENE) Blood Disorders: Yes (Recent history of sepsis and septic shock) Adverse Reaction/Blood Tranf: No Family Medical History Congestive heart failure 19 MOTHER Family history: Cardiovascular disease 19 MOTHER G8 BROTHER Family history: Diabetes mellitus 19 MOTHER G8 BROTHER Family history: Glaucoma G8 BROTHER Family history: Hypertension No Pertinent Family Hx Physical Exam Vital Signs Vital Signs - First Documented 12/12/18 23:52 Temp 97.9 Pulse 0 Resp 0 B/P (MAP) 0/0 (0) Pulse Ox 0 O2 Delivery Ambu Bag O2 Flow Rate 10.00 Capillary Refill : Height, Weight, BMI Height: 6'2.00" Weight: 360lbs. 0.7oz. 163.845697iv; 52.6 BMI Method:Stated General Appearance: Other (Unresponsive, pallor) HEENT: Normal ENT Inspection Neck: Normal Inspection, Other (Right EJ line in place) Respiratory: Lungs Clear, Other (Lungs clear with LMA ventilation. Breath sounds equal bilaterally) Cardiovascular: Other (Asystole, pulseless) Gastrointestinal: Soft; No Distended Extremity: Other (Chronic skin changes and cellulitis of the lower extremities with dressings in place) Neurologic/Psychiatric: Other (Unresponsive. Briefly some movement of the tongue.) Skin: Pallor, Other (See above) Focused Exam Lactate Level Lactic Acid Level Progress/Results/Core Measures Results/Orders Lab Results My Orders Orders - RENÉE RATLIFF MD Blood Culture (12/13/18 00:05) Ed Iv/Invasive Line Start (12/13/18 00:05) Ed Iv/Invasive Line Start (12/13/18 00:05) Vital Signs Adult Sepsis Patie Q15M (12/13/18 00:05) O2 (12/13/18 00:05) Remove Rings In Anticipation O (12/13/18 00:05) Epinephrine Emergency Syringe (Epinephr (12/12/18 23:54) Sodium Bicarbonate 8.4% Syr (Sodium Bica (12/12/18 23:54) Vital Signs/I&O 12/12/18 12/12/18 12/13/18 23:52 23:52 01:58 Temp 97.9 97.9 Pulse 0 0 Resp 0 0 B/P (MAP) 0/0 (0) 0/0 (0) Pulse Ox 0 0 0 O2 Delivery Ambu Bag Room Air Ambu Bag O2 Flow Rate 10.00 10.00 Initial ECG Impression Date: Dec 13, 2018 Initial ECG Impression Time: 00:05 Initial ECG Rate: 55 Comment Accelerated junctional escape rhythm versus A. fib. No ST elevation or depression. Critical Care Note Critical Care Start Time: 23:50 Stop Time: 00:10 Total Time (minutes) 20 Date of : Dec 13, 2018 Time of : 00:10 Progress 23:50 Patient arrived with CPR in progress. 3 doses of epinephrine had been administered. BVM ventilation was in progress. 23:52 patient was due for epinephrine. 1 mg of epinephrine was given IV. CPR continued. 23:54 Pulse check revealed no pulse with asystole on the monitor. CPR continued. Igel LMA placed for secure airway. The next round of epinephrine was administered. 23:56 Pulse check revealed no pulse and asystole on the monitor. 23:57 The next round of epinephrine was administered and CPR continued. 23:58 One up of bicarbonate was given. 23:59 Pulse check revealed pulse with atrial fibrillation in the 130s on the monitor. 00:02 Blood pressure 148/102. 00:03 Labs obtained. EKG showing junctional escape rhythm versus A. fib. 00:06 Blood pressure 113/92. Case was discussed with patient's daughter who is the president next of kin. Due to patient's seeming dependence on epinephrine and prolonged CPR with unresponsiveness, I suggested to her that we discontinue CPR efforts if pulse was lost to again. CPR had been ongoing for greater than 30 minutes. He has very poor prognosis given his recent severe health problems and his chronic problems. 00:07 Patient developed bradycardia and eventually slipped into PEA with no pulse. CPR was restarted. Daughter is in agreement that he should not be coded again if pulses lost. She consents to stopping efforts at this time. 00:09 present in the room again. Pulse check revealed asystole with no pulse. Patient still is unresponsive. 00:10 CPR was discontinued with permission from patient's daughter. Patient still in asystole with no pulse. There are no heart sounds by auscultation. Time of was pronounced at 00:10. Departure Impression Primary Impression: Cardiopulmonary arrest Disposition: 20 Condition: Departure-Patient Inst. Referrals: MICHELLE MCDOWELL MD (PCP/Family) Primary Care Physician Copy Copies To 1: MICHELLE MCDOWELL MD, JOSHUA T MD Dec 13, 2018 01:04
[2018-12-13 01:58] VITALS: BP 0/0
== END 2018-12-13 01:58 | disposition expired ==
LOC: EDUNIT# 23:52 → ER 23:53
DX: I46.9 Cardiac arrest, cause unspecified (principal); I25.2 Old myocardial infarction; I48.91 Unspecified atrial fibrillation; I25.10 Atherosclerotic heart disease of native coronary artery without angina pectoris; E78.00 Pure hypercholesterolemia, unspecified; I10 Essential (primary) hypertension; E11.51 Type 2 diabetes mellitus with diabetic peripheral angiopathy without gangrene; I73.9 Peripheral vascular disease, unspecified; E66.01 Morbid (severe) obesity due to excess calories; Z87.448 Personal history of other diseases of urinary system; Z86.19 Personal history of other infectious and parasitic diseases; Z82.49 Family history of ischemic heart disease and other diseases of the circulatory system; Z68.43 Body mass index [BMI] 50.0-59.9, adult; Z79.82 Long term (current) use of aspirin; Z79.4 Long term (current) use of insulin; Z95.1 Presence of aortocoronary bypass graft
CPT/HCPCS: 87040